=== PATIENT | female | born 1930 | race Caucasian/White ===

== ENCOUNTER 2016-03-27 06:24 | Observation (INO) | payer MEDICARE, OTHER ==
[~2016-03-27] VITALS: Ht 160 cm; Wt 91.3 kg
[2016-03-27] VITALS (7 sets, daily range): BP systolic 142–200; BP diastolic 73–91; PULSE 62–92; RESP 18–20; TEMP 97.5–98.1; O2SAT 95–96
[~2016-03-27 06:24] MED LIST: ALPR0.5T99 PO; AMLO5TAB96 PO; ATEN1TAB75 PO; CLIN1CAP6 PO; HYDR-3580 PO; LISI-360 PO; PREV30CA36 PO; [UNRECOGNIZED DRUG - CODE] PO
[2016-03-27] MEDS ORDERED: VITA100064 PO (06:47)
[2016-03-27] MEDS ORDERED: SERT25TA83 PO (06:47)
[2016-03-27] MEDS ORDERED: BUSP5TAB PO (06:47)
[2016-03-27] MEDS ORDERED: ATEN100T PO (06:47)
[2016-03-27] MEDS ORDERED: AMLO5 PO (06:47)
[2016-03-27] MEDS ORDERED: LISI10TA3 PO (06:47)
[2016-03-27] MEDS ORDERED: LANS30CA PO (06:48)
--- NOTE | 2016-03-27 07:28 | PD ---
HPI Chief Complaint: chest pain Time Seen by Provider: 07:14 Travel History International Travel<30 days: No Contact w/Intl Traveler<30days: No Traveled to known affect area: No History of Present Illness HPI This patient complains of chest pain. At 5 AM she was walking back from the bathroom to her bed when she developed central chest heaviness and pressure. She got a little bit nauseous. Symptoms have spontaneously improved at this point with no obvious alleviating factors. She denies history of cardiac or pulmonary disease. She's had no cough or fever. She does report a little bit of runny nose and does have history of anxiety. Symptoms severity was moderate. Duration 2 hours PFSH Past Medical History Arthritis: Yes (shoulder- gets aspirated fluid once in awhile) Asthma: No Anxiety: Yes Depression: Yes (AT TIME OF HUSBANDS ) Heart Rhythm Problems: No Cancer: No Cardiovascular Problems: Yes High Cholesterol: No Chest Pain: No Congestive Heart Failure: No COPD: No Cerebrovascular Accident: No Diabetes: No Diminished Hearing: No Endocrine: No Gastrointestinal Disorders: Yes (POLYPS) GERD: Yes Genitourinary: No Hiatal Hernia: No Hypertension: Yes Immune Disorder: No Implanted Vascular Access Dvce: No Kidney Stones: No Musculoskeletal: Yes Neurologic: No Psychiatric: No Reproductive: No Respiratory: No Immunizations Current: Yes Migraines: No Renal Failure: No Seizures: No Sleep Apnea: No Thyroid Disease: No Ulcer: No PNEUMOCCOCAL Vaccine (Year): 1 ?: Not Menopausal: Yes Para: 4 Miscarriage: 4 Past Surgical History Abdominal Surgery: No Cardiac Surgery: No Ear Surgery: No Endocrine Surgery: No Eye Surgery: No Genitourinary Surgery: No Gynecologic Surgery: Yes (HYSTERECTOMY) Hysterectomy: Yes Joint Replacement: Yes (BILAT KNEES) Oral Surgery: No Pacemaker: No Thoracic Surgery: No Other Surgery: Yes Social History Alcohol Use: Yes (OCCASIONALLY VODKA) Tobacco Use: No Substance Use: No Allergies-Medications (Allergen,Severity, Reaction): Coded Allergies: Levaquin (Verified Allergy, Severe, PT STATES "DRIVES ME CRAZY", 03/27/16) Sulfa (Verified Allergy, Severe, PT DOES NOT REMEMBER, 03/27/16) Reported Meds & Prescriptions Reported Meds & Active Scripts Active Reported Lansoprazole 30 Mg Capdr 30 Mg PO DAILY Norvasc (Amlodipine Besylate) 5 Mg Tab 5 Mg PO DAILY Vitamin D (Cholecalciferol) 1,000 Unit Tab 1,000 Units PO DAILY Buspirone (Buspirone HCl) 5 Mg Tab 5 Mg PO BID Atenolol 100 Mg Tab 100 Mg PO BID Sertraline (Sertraline HCl) 25 Mg Tab 25 Mg PO DAILY Lisinopril 10 Mg Tab 10 Mg PO BID PRN Review of Systems General / Constitutional: No: Fever Eyes: No: Visual changes HENT: Positive: Rhinorrhea, No: Headaches Cardiovascular: Positive: Chest Pain or Discomfort Respiratory: No: Shortness of Breath Gastrointestinal: No: Abdominal Pain Genitourinary: No: Dysuria Musculoskeletal: No: Pain Skin: No Rash Neurologic: No: Weakness Psychiatric: Positive: Anxiety, No: Depression Endocrine: No: Polydipsia Hematologic/Lymphatic: No: Easy Bruising Physical Exam Narrative GENERAL: Well-nourished, well-developed patient in no apparent distress. SKIN: Warm and dry. HEAD: Atraumatic. Normocephalic. EYES: Pupils equal and round. No scleral icterus. No injection or drainage. ENT: No nasal bleeding or discharge. Mucous membranes pink and moist. NECK: Trachea midline. No JVD. CARDIOVASCULAR: Regular rate and rhythm. No murmur appreciated. RESPIRATORY: No accessory muscle use. Clear to auscultation. Breath sounds equal bilaterally. GASTROINTESTINAL: Abdomen soft, non-tender, nondistended. Hepatic and splenic margins not palpable. MUSCULOSKELETAL: No obvious deformities. No clubbing. No cyanosis. Trace symmetric edema of the feet and ankles, chronic per patient NEUROLOGICAL: Awake and alert. No obvious cranial nerve deficits. Motor grossly within normal limits. Normal speech. PSYCHIATRIC: Appropriate mood and affect; insight and judgment normal. Data Data Last Documented VS Vital Signs Date Time Temp Pulse Resp B/P Pulse Ox O2 Delivery O2 Flow Rate FiO2 03/27/16 08:24 68 20 175/88 95 Room Air 03/27/16 06:34 2 03/27/16 06:29 98.1 Orders Electrocardiogram (03/27/16 07:23) Basic Metabolic Panel (Bmp) (03/27/16 07:23) Ckmb (Isoenzyme) Profile (03/27/16 07:23) Complete Blood Count With Diff (03/27/16 07:23) Prothrombin Time / Inr (Pt) (03/27/16 07:23) Act Partial Throm Time (Ptt) (03/27/16 07:23) Troponin I (03/27/16 07:23) Chest, Single Ap (03/27/16 07:23) Ecg Monitoring (03/27/16 07:23) Iv Access Insert/Monitor (03/27/16 07:23) Oximetry (03/27/16 07:23) Aspirin (Aspirin) (03/27/16 07:30) Sodium Chloride 0.9% Flush (Ns Flush) (03/27/16 07:30) Clonidine (Catapres) (03/27/16 07:30) CKMB (03/27/16 07:00) CKMB% (03/27/16 07:00) Labs Laboratory Tests Test 03/27/16 07:00 White Blood Count 7.2 TH/MM3 Red Blood Count 4.28 MIL/MM3 Hemoglobin 13.4 GM/DL Hematocrit 40.2 % Mean Corpuscular Volume 93.9 FL Mean Corpuscular Hemoglobin 31.4 PG Mean Corpuscular Hemoglobin 33.5 % Concent Red Cell Distribution Width 12.8 % Platelet Count 155 TH/MM3 Mean Platelet Volume 11.0 FL Neutrophils (%) (Auto) 81.3 % Lymphocytes (%) (Auto) 10.2 % Monocytes (%) (Auto) 6.2 % Eosinophils (%) (Auto) 2.1 % Basophils (%) (Auto) 0.2 % Neutrophils # (Auto) 5.9 TH/MM3 Lymphocytes # (Auto) 0.7 TH/MM3 Monocytes # (Auto) 0.4 TH/MM3 Eosinophils # (Auto) 0.2 TH/MM3 Basophils # (Auto) 0.0 TH/MM3 CBC Comment DIFF FINAL Differential Comment Prothrombin Time 10.2 SEC Prothromb Time International 0.9 RATIO Ratio Activated Partial 21.0 SEC Thromboplast Time Sodium Level 141 MEQ/L Potassium Level 4.6 MEQ/L Chloride Level 107 MEQ/L Carbon Dioxide Level 25.2 MEQ/L Anion Gap 9 MEQ/L Blood Urea Nitrogen 19 MG/DL Creatinine 0.78 MG/DL Estimat Glomerular Filtration 70 ML/MIN Rate Random Glucose 113 MG/DL Calcium Level 8.5 MG/DL Total Creatine Kinase 247 U/L Creatine Kinase MB 1.2 NG/ML Creatine Kinase MB % 0.5 % Troponin I LESS THAN 0.02 NG/ML MDM Medical Decision Making Medical Screen Exam Complete: Yes Emergency Medical Condition: Yes Medical Record Reviewed: Yes Differential Diagnosis Differential diagnosis includes VT, angina, pericarditis, pleurisy, GERD, anxiety. Narrative Course I have reviewed the patient's electronic medical record. Patient last seen here in 2013. No recent cardiac evaluations. IV placed I reviewed the EKG which shows sinus rhythm and no acute ST elevation I reviewed the chest x-ray Extended cardiac monitoring shows sinus rhythm without ectopy CBC is normal Metabolic profile is normal CK is normal Troponin is normal Coagulation studies are normal and noted the radiologist's interpretation. There is no real significant findings there. I gave her an aspirin and a dose of clonidine for accelerated hypertension of 195 systolic. She did not take her medications today. All the above was reviewed with HOWARD Lee on behalf of the hospitalist group She'll be a 23 hour observation in the chest pain center to rule out cardiac cause of her symptoms. Diagnosis Primary Impression: Chest pain in adult Admitting Information Admitting Physician Requests: Observation Donal Dumont MD Mar 27, 2016 07:28
[2016-03-27] MEDS ORDERED: SODIUM CHLORIDE 0.9% FLUSH 5 ML FLUSH IVF PRN ×2 (07:30→09:00)
[2016-03-27] MEDS ORDERED: cloNIDine HCL 0.2 MG TAB PO ONE (07:30)
[2016-03-27] MEDS ORDERED: ASPIRIN 325 MG TAB PO ONE (07:30)
[2016-03-27 07:38] LABS: AUTOMATED NEUTROPHIL # 5.9 TH/MM3 (1.8-7.7); BASOPHIL % 0.2 % (0.0-2.0); EOSINOPHIL # 0.2 TH/MM3 (0-0.4); EOSINOPHIL % 2.1 % (0.0-4.0); HEMATOCRIT 40.2 % (35.0-46.0); HEMO FLAGS DIFF FINAL; LYMPH % 10.2 % (9.0-44.0); LYMPHOCYTE # 0.7 TH/MM3 (1.0-4.8); MEAN CELL VOLUME 93.9 FL (80.0-100.0); MEAN CORPUSCULAR HEMOGLOBIN 31.4 PG (27.0-34.0); MEAN CORPUSCULAR HGB CONC 33.5 % (32.0-36.0); MONO % 6.2 % (0.0-8.0); NEUT % 81.3 % (16.0-70.0); PLATELET COUNT 155 TH/MM3 (150-450); RED BLOOD COUNT 4.28 MIL/MM3 (4.00-5.30); RED CELL DISTRIBUTION WIDTH 12.8 % (11.6-17.2); WHITE BLOOD COUNT 7.2 TH/MM3 (4.0-11.0)
[2016-03-27 07:44] LABS: CHLORIDE 107 MEQ/L (98-107); SODIUM (NA) 141 MEQ/L (136-145)
[2016-03-27 07:47] LABS: ANION GAP 9 MEQ/L (5-15); BICARBONATE 25.2 MEQ/L (21.0-32.0); BLOOD UREA NITROGEN 19 MG/DL (7-18)
[2016-03-27 07:48] LABS: INTERNATIONAL NORMALIZED RATIO 0.9 RATIO; PROTHROMBIN TIME - PATIENT 10.2 SEC (9.8-11.6)
[2016-03-27 07:51] LABS: GLOMERULAR FILTRATION RATE 70 ML/MIN (>89)
[2016-03-27 07:52] LABS: POTASSIUM 4.6 MEQ/L (3.5-5.1)
[2016-03-27 07:54] LABS: CREATINE KINASE 247 U/L (26-192)
--- NOTE | 2016-03-27 08:02 | RADHPO ---
EXAM DATE/TIME: 03/27/2016 07:41 [facility] COMPARISON: No previous studies available for comparison. INDICATIONS : Chest pressure, short of breath. MEDICAL HISTORY : None. SURGICAL HISTORY : None. ENCOUNTER: Initial ACUITY: 1 day PAIN SCORE: 2/10 LOCATION: Bilateral chest FINDINGS: Portable AP view of the chest demonstrates a normal-sized cardiac silhouette. There is interstitial p rominence bilaterally with hazy opacity at the right lung base and blunting of the right costophrenic angle. No pneumothorax is visualized. Bones and soft tissues demonstrate no acute finding. There is an old healed fracture there are proximal humerus. There is elevation of the humeral heads bilaterall y suggesting chronic rotator cuff tears. CONCLUSION: 1. Hazy opacity at the right lung base with blunting of the right costophrenic angle likely represent s small pleural effusion with associated volume loss and/or consolidation. 2. Interstitial prominence bilaterally of uncertain chronicity. Nikko Mccallum MD on March 27, 2016 at 7:59 Board Certified Radiologist. This report was verified electronically.
[2016-03-27 08:06] LABS: CKMB 1.2 NG/ML (0.5-3.6)
[2016-03-27] MEDS ORDERED: ACETAMINOPHEN 500 MG CPLT PO PRN (09:00)
[2016-03-27] MEDS ORDERED: NITROGLYCERIN 0.4 MG SL 25 TABS/BTL SL PRN (09:00)
[2016-03-27] MEDS ORDERED: MORPHINE SULFATE 4 MG/ML INJ IV PRN (09:00)
[2016-03-27] MEDS ORDERED: SODIUM CHLORIDE 0.9% FLUSH 5 ML FLUSH IVF SCH (09:00)
[2016-03-27] MEDS ORDERED: ASPIRIN 325 MG TAB PO SCH (09:00)
[2016-03-27] MEDS ORDERED: SERTRALINE HCL 50 MG TAB PO SCH (09:00)
[2016-03-27] MEDS ORDERED: LISINOPRIL 10 MG TAB PO PRN (09:00)
[2016-03-27] MEDS ORDERED: ACETAMINOPHEN/HYDROcodone 325 MG/7.5 MG TAB PO PRN (09:00)
[2016-03-27] MEDS ORDERED: busPIRone HCL 5 MG TAB PO SCH (09:00)
[2016-03-27] MEDS ORDERED: amLODIPine BESYLATE 5 MG TAB PO SCH (09:00)
[2016-03-27] MEDS ORDERED: ATENOLOL 100 MG TAB PO SCH (09:00)
[2016-03-27] MEDS ORDERED: PANTOPRAZOLE SOD 40 MG DELAYED RELEASE TAB PO SCH (09:15)
--- NOTE | 2016-03-27 09:44 | EKG ---
Date Performed: 03/27/2016 Time Performed: 07:22:14 PTAGE: 86 years EKG: Possible ectopic atrial rhythm Poor R wave progression - probable normal variant Abnormal E CG PREVIOUS TRACING : 01/04/2014 10.42 No significant change from previous tracing noted. DOCTOR: Isrrael Alba Interpretating Date/Time 03/27/2016 09:42:45
[2016-03-27 11:10] LABS: CREATINE KINASE 209 U/L (26-192)
[2016-03-27 13:19] LABS: CREATINE KINASE 186 U/L (26-192)
[2016-03-27 13:31] LABS: CKMB 0.8 NG/ML (0.5-3.6)
--- NOTE | 2016-03-27 14:33 | HHI.DCPOC ---
Discharge Care Plan Diagnosis: (1) Chest pain in adult Goals to Promote Your Health * To prevent worsening of your condition and complications * To maintain your health at the optimal level Directions to Meet Your Goals Take your medications as prescribed Follow your dietary instruction Follow activity as directed Keep your appointments as scheduled Take your immunizations and boosters as scheduled If your symptoms worsen call your PCP, if no PCP go to Urgent Care Center or Emergency Room Smoking is Dangerous to Your Health. Avoid second hand smoke Call the 24-hour hour crisis hotline for domestic abuse at Donal Lee Mar 27, 2016 14:33
--- NOTE | 2016-03-27 14:45 | HHI.HP ---
[facility] Non-Staff Admission Diagnosis chest pain Diagnoses: (1) Chest pain in adult Diagnosis: Principal (2) Hypertension Diagnosis: Secondary (3) Anxiety Diagnosis: Secondary Chief Complaint: Chest discomfort Travel History International Travel<30 Days: No Contact w/Intl Traveler <30 Da: No Traveled to Known Affected Are: No History of Present Illness 86-year-old female with known history of hypertension, anxiety who presented to hospital because of chest discomfort. Patient states that early this morning she got up to go to the restroom and when she got back up off the toilet and started walking she developed a sensation in the chest which is described as a heavy warm sensation of the middle part of her chest. She denied any nausea, vomiting, diaphoresis, shortness of breath, dyspnea. Patient states that she has had these episodes in the past in which she used to be on BuSpar, she would take the BuSpar in the discomfort goes away. However she states that her doctor has not refilled her BuSpar lately. Otherwise she would've taken one and she would not be here the hospital. She did call the ambulance and brought her to the hospital. In route they placed on oxygen by time she got to the hospital her chest discomfort had resolved. Upon evaluating the patient she is asymptomatic. Quite pleasant. Alert and orientated. Does not want to pursue any stress testing. She has one now that she was not having a heart attack. ER physician recommended patient be observed in the chest pain center. Review of Systems Constitutional: DENIES: Diaphoretic episodes, Fatigue, Fever, Weight gain, Weight loss, Chills, Dizziness, Change in appetite, Night Sweats Eyes: DENIES: Blurred vision, Diplopia, Eye inflammation, Eye pain, Vision loss , Double Vision Ears, nose, mouth, throat: DENIES: Vertigo, Nasal discharge, Throat pain, Ear Pain, Running Nose, Sinus Pain Respiratory: DENIES: Apneas, Cough, Snoring, Wheezing, Hemoptysis, Sputum production, Shortness of breath Cardiovascular: COMPLAINS OF: Chest pain, DENIES: Palpitations, Syncope, Dyspnea on Exertion, Lower Extremity Edema, Orthopnea Gastrointestinal: DENIES: Abdominal pain, Black stools, Bloody stools, Constipation, Diarrhea, Nausea, Vomiting, Difficulty Swallowing, Anorexia Neurologic: DENIES: Abnormal gait, Headache, Localized weakness, Paresthesias, Seizures, Speech Problems, Tremor, Poor Balance Psychiatric: DENIES: Anxiety, Confusion, Mood changes, Depression Past Family Social History Past Medical History Hypertension Anxiety Past Surgical History Bilateral knee replacements Hysterectomy Elbow surgery Reported Medications Reported Meds & Active Scripts Active Reported Lansoprazole 30 Mg Capdr 30 Mg PO DAILY Norvasc (Amlodipine Besylate) 5 Mg Tab 5 Mg PO DAILY Vitamin D (Cholecalciferol) 1,000 Unit Tab 1,000 Units PO DAILY Buspirone (Buspirone HCl) 5 Mg Tab 5 Mg PO BID Atenolol 100 Mg Tab 100 Mg PO BID Sertraline (Sertraline HCl) 25 Mg Tab 25 Mg PO DAILY Lisinopril 10 Mg Tab 10 Mg PO BID PRN Allergies: Coded Allergies: Levaquin (Verified Allergy, Severe, PT STATES "DRIVES ME CRAZY", 03/27/16) Sulfa (Verified Allergy, Severe, PT DOES NOT REMEMBER, 03/27/16) Family History Reviewed is significant for father at early age of 59 from heart disease Social History Patient denies any tobacco, alcohol or illicit drugs Physical Exam Vital Signs Vital Signs Date Time Temp Pulse Resp B/P Pulse Ox O2 Delivery O2 Flow Rate FiO2 03/27/16 10:51 97.5 62 20 142/80 96 03/27/16 09:42 72 18 170/73 95 Room Air 03/27/16 08:24 68 20 175/88 95 Room Air 03/27/16 07:42 67 20 200/91 95 Room Air 03/27/16 07:08 67 20 95 Room Air 03/27/16 07:08 67 20 195/84 95 Room Air 03/27/16 06:34 18 96 Nasal Cannula 2 03/27/16 06:29 98.1 92 18 170/89 95 Physical Exam GENERAL: Well-developed, well-nourished, in no acute distress. alert and orientated HEENT: Head is normocephalic without any lesions or masses noted. Facial features are symmetric. Eyes: Pupils equal round reactive to light. Extraocular muscles are intact. Conjunctivae were clear. Oropharyngeal: Pharynx without any erythema edema. Tongue is midline without deviation. Buccal mucosa is moist without any masses or lesions NECK: Supple without any masses. Trachea midline no deviation. No JVD, no bruits are appreciated CARDIAC: Regular rhythm, regular rate. S1/S2 are heard. No murmurs gallops or rubs. LUNGS: Clear to auscultation bilaterally. No wheeze, rhonchi or rales. No use of accessory muscles on inspiration or expiration. ABDOMEN: Soft, nontender. Nondistended. Bowel sounds heard in all 4 quadrants. No organomegaly or masses. Negative rebound, negative guarding EXTREMITIES: No edema, pulses are equal bilaterally. No cyanosis or clubbing NEUROLOGY: Mood and affect appear appropriate. Cranial nerves II through XII grossly intact. Muscle strength 5/5 in upper and lower extremities bilaterally. Deep tendon reflexes are 2+ in upper and lower extremities bilaterally. Laboratory Laboratory Tests Test 03/27/16 03/27/16 03/27/16 07:00 10:25 12:45 White Blood Count 7.2 Red Blood Count 4.28 Hemoglobin 13.4 Hematocrit 40.2 Mean Corpuscular Volume 93.9 Mean Corpuscular Hemoglobin 31.4 Mean Corpuscular Hemoglobin 33.5 Concent Red Cell Distribution Width 12.8 Platelet Count 155 Mean Platelet Volume 11.0 Neutrophils (%) (Auto) 81.3 Lymphocytes (%) (Auto) 10.2 Monocytes (%) (Auto) 6.2 Eosinophils (%) (Auto) 2.1 Basophils (%) (Auto) 0.2 Neutrophils # (Auto) 5.9 Lymphocytes # (Auto) 0.7 Monocytes # (Auto) 0.4 Eosinophils # (Auto) 0.2 Basophils # (Auto) 0.0 CBC Comment DIFF FINAL Differential Comment Prothrombin Time 10.2 Prothromb Time International 0.9 Ratio Activated Partial 21.0 Thromboplast Time Sodium Level 141 Potassium Level 4.6 Chloride Level 107 Carbon Dioxide Level 25.2 Anion Gap 9 Blood Urea Nitrogen 19 Creatinine 0.78 Estimat Glomerular Filtration 70 Rate Random Glucose 113 Calcium Level 8.5 Total Creatine Kinase 247 209 186 Creatine Kinase MB 1.2 1.0 0.8 Creatine Kinase MB % 0.5 0.5 Troponin I LESS THAN 0.02 LESS THAN 0.02 0.02 Result Diagram: 03/27/16 0700 03/27/16 0700 Imaging Last Impressions Chest X-Ray 03/27/16 0723 Signed Impressions: Service Date/Time: Sunday, March 27, 2016 07:41 - CONCLUSION: 1. Hazy opacity at the right lung base with blunting of the right costophrenic angle likely represents small pleural effusion with associated volume loss and/or consolidation. 2. Interstitial prominence bilaterally of uncertain chronicity. Nikko Mcacllum MD Assessment and Plan Assessment and Plan Chest pain, atypical Patient with increased risk factors include age, female, hypertension, family history of heart disease Patient been ruled out for any acute coronary event or myocardial infarction with serial cardiac enzymes which are negative, serial EKGs which shows sinus rhythm without any changes Patient does not want to pursue any stress test Patient was counseled extensively by myself and Dr. Sutton: Notified her that at the present time the talus testing that we've had done does not indicate any acute damage done to the heart, however it does not eliminate the possibility of underlying ischemia. The patient does understand. Still does not wish to pursue any stress testing. We also discussed with the patient that if the stress test workup and positive then next step would probably have been cardiac catheterization, however the patient states that she would not want to have that done anyways. The patient states that she is to follow-up with her primary medical doctor within the next week and notify him of her recent hospitalization. Hypertension Continue home medications Anxiety Continue home medications DVT prevention Sequential compression devices Written by Donal Lee PA-C, acting as scribe for Dr. Sutton on 03/27/16 at 1440. The documentation accurately reflects the work and decisions performed face-to- face by Dr. Sutton on 03/27/16 at 1440. Discharge disposition Discharge home in stable condition Activity: Ad alexa. Diet: Healthy heart diet Medications per medication reconciliation Follow-up primary medical doctor in one week Code Status No code Problem Qualifiers (1) Hypertension: Qualified Code: I15.9 - Secondary hypertension Donal Lee Mar 27, 2016 14:45
[2016-03-28] MEDS ORDERED: ASPIRIN 325 MG TAB PO SCH (09:00)
--- NOTE | 2016-03-28 14:57 | EKG ---
Date Performed: 03/27/2016 Time Performed: 10:26:12 PTAGE: 86 years EKG: Probable ectopic atrial bradycardia Poor R wave progression Since previous tracing, no sign ificant change noted Abnormal ECG PREVIOUS TRACING : 03/27/2016 07.22 DOCTOR: Gael Moss Interpretating Date/Time 03/28/2016 14:55:28
--- NOTE | 2016-03-28 14:57 | EKG ---
Date Performed: 03/27/2016 Time Performed: 12:43:42 PTAGE: 86 years EKG: Possible ectopic atrial bradycardia. Poor R wave progression Since previous tracing, no sig nificant change noted Borderline ECG PREVIOUS TRACING : 03/27/2016 10.26 DOCTOR: Gael Moss Interpretating Date/Time 03/28/2016 14:55:39
== END 2016-03-27 17:31 | disposition home or self-care (01) ==
LOC: PHED 06:24 → PHEDA 09:02 → PH3A 09:59
PROVIDERS: ADMIT Hospitalist; ATTEND Hospitalist
DX: R07.9 Chest pain, unspecified (principal); I15.9 Secondary hypertension, unspecified; F41.9 Anxiety disorder, unspecified; K21.9 Gastro-esophageal reflux disease without esophagitis; R94.31 Abnormal electrocardiogram [ECG] [EKG]; M19.90 Unspecified osteoarthritis, unspecified site; Z82.49 Family history of ischemic heart disease and other diseases of the circulatory system; Z96.653 Presence of artificial knee joint, bilateral
CPT/HCPCS: 71010; 80048; 82550; 82552; 84484; 85025; 85610; 85730; 93005; 99285; G0378

== ENCOUNTER 2016-12-29 10:59 | Emergency (ER) | payer OTHER ==
[~2016-12-29 10:59] MED LIST changes: -ALPR0.5T99 PO; +AMLO5 PO; -AMLO5TAB96 PO; +ATEN100T PO; -ATEN1TAB75 PO; +BUSP5TAB PO; -CLIN1CAP6 PO; -HYDR-3580 PO; +LANS30CA PO; -LISI-360 PO; +LISI10TA3 PO; -PREV30CA36 PO; +SERT25TA83 PO; +VITA100064 PO; -[UNRECOGNIZED DRUG - CODE] PO
[2016-12-29 11:27] VITALS: BP 124/93; PULSE 70; RESP 20; TEMP 98.4; O2SAT 97
--- NOTE | 2016-12-29 11:40 | PD ---
HPI Chief Complaint: General Weakness Time Seen by Provider: 11:18 Travel History International Travel<30 days: No Contact w/Intl Traveler<30days: No Traveled to known affect area: No History of Present Illness HPI The patient was seen and examined in the presence of the nurse. This patient had a fall today and had paramedics called to evaluate her. She was brought to the emergency room. She is not having any pain. She denies significant injury from the fall. She complains of generalized weakness. She's had weakness and frequent falls and poor walking for the last 2 full years. She has multiple walkers at home. She fell while she was trying to get out of the bed today. She has no headache or LOC. Symptoms severity is moderate. No alleviating factors. Symptoms exacerbated by deconditioning and bilateral knee surgeries. PFSH Past Medical History Arthritis: Yes (shoulder- gets aspirated fluid once in awhile) Asthma: No Anxiety: Yes Depression: Yes (AT TIME OF HUSBANDS ) Heart Rhythm Problems: No Cancer: No Cardiovascular Problems: Yes High Cholesterol: No Chest Pain: No Congestive Heart Failure: No COPD: No Cerebrovascular Accident: No Diabetes: No Diminished Hearing: No Endocrine: No Gastrointestinal Disorders: Yes (POLYPS) GERD: Yes Genitourinary: No Hiatal Hernia: No Hypertension: Yes Immune Disorder: No Implanted Vascular Access Dvce: No Kidney Stones: No Musculoskeletal: Yes Neurologic: No Psychiatric: No Reproductive: No Respiratory: No Immunizations Current: Yes Migraines: No Renal Failure: No Seizures: No Sleep Apnea: No Thyroid Disease: No Ulcer: No PNEUMOCCOCAL Vaccine (Year): 1 Menopausal: Yes Para: 4 Miscarriage: 4 Past Surgical History Abdominal Surgery: No Cardiac Surgery: No Ear Surgery: No Endocrine Surgery: No Eye Surgery: No Genitourinary Surgery: No Gynecologic Surgery: Yes (HYSTERECTOMY) Hysterectomy: Yes Joint Replacement: Yes (BILAT KNEES) Oral Surgery: No Pacemaker: No Thoracic Surgery: No Other Surgery: Yes Social History Alcohol Use: Yes (OCCASIONALLY VODKA) Tobacco Use: No Substance Use: No Allergies-Medications (Allergen,Severity, Reaction): Coded Allergies: Sulfa (Sulfonamide Antibiotics) (Unverified Allergy, Severe, PT DOES NOT REMEMBER, 10/31/16) levofloxacin (Unverified Allergy, Severe, PT STATES "DRIVES ME CRAZY", 8/ 15/17) Reported Meds & Prescriptions Reported Meds & Active Scripts Active Reported Lansoprazole 30 Mg Capdr 30 Mg PO DAILY Vitamin D3 (Cholecalciferol) 1,000 Unit Tab 1,000 Units PO DAILY Buspirone (Buspirone HCl) 5 Mg Tab 5 Mg PO BID Atenolol 100 Mg Tab 100 Mg PO BID Sertraline (Sertraline HCl) 25 Mg Tab 25 Mg PO DAILY Lisinopril 10 Mg Tab 10 Mg PO BID PRN Review of Systems General / Constitutional: No: Fever Eyes: No: Visual changes HENT: No: Headaches Cardiovascular: Positive: Edema, No: Chest Pain or Discomfort Respiratory: No: Shortness of Breath Gastrointestinal: No: Abdominal Pain Genitourinary: No: Dysuria Musculoskeletal: Positive: Weakness, Edema, Pain Skin: No Rash Neurologic: Positive: Weakness, Ataxia Psychiatric: No: Depression Endocrine: No: Polydipsia Hematologic/Lymphatic: No: Easy Bruising Physical Exam Narrative GENERAL: Well-nourished, well-developed patient in no apparent distress. SKIN: Focused skin assessment reveals no rash and nodules. Skin is Warm and dry. HEAD: Atraumatic. Normocephalic. EYES: Pupils equal and round. No scleral icterus. No injection or drainage. ENT: No nasal bleeding or discharge. Mucous membranes pink and moist. NECK: Trachea midline. No JVD. No midline tenderness CARDIOVASCULAR: Regular rate and rhythm. No murmur appreciated. RESPIRATORY: No accessory muscle use. Clear to auscultation. Breath sounds equal bilaterally. GASTROINTESTINAL: Abdomen soft, non-tender, nondistended. Hepatic and splenic margins not palpable. MUSCULOSKELETAL: No obvious deformities. No clubbing. No cyanosis. Symmetric edema of the lower legs feet and ankles. Skin is thickened suggesting chronic edema. NEUROLOGICAL: Awake and alert. No obvious cranial nerve deficits. Motor grossly within normal limits. Normal speech. PSYCHIATRIC: Appropriate mood and affect; insight and judgment normal. Data Data Last Documented VS Vital Signs Date Time Temp Pulse Resp B/P (MAP) Pulse Ox O2 Delivery O2 Flow Rate FiO2 12/29/16 12:29 68 18 123/64 (83) 97 Room Air 12/29/16 11:27 98.4 Orders Orders Cath For Specimen (12/29/16 11:29) Urinalysis - C+S If Indicated (12/29/16 11:29) Iv Access Insert/Monitor (12/29/16 11:29) Complete Blood Count With Diff (12/29/16 11:29) Comprehensive Metabolic Panel (12/29/16 11:29) Ct Brain W/O Iv Contrast(Rout) (12/29/16 ) Clonidine (Catapres) (12/29/16 11:45) Labs Laboratory Tests Test 12/29/16 11:45 12/29/16 11:55 Urine Collection Type CATH Urine Color YELLOW Urine Turbidity CLEAR Urine pH 5.5 Urine Specific Mark [place] 1.022 Urine Protein 100 mg/dL Urine Glucose (UA) NEG mg/dL Urine Ketones TRACE mg/dL Urine Occult Blood SMALL Urine Nitrite NEG Urine Bilirubin NEG Urine Leukocyte Esterase NEG Urine RBC 4-9 /hpf Urine WBC 0-2 /hpf Urine Squamous Epithelial Cells 0-5 /hpf Urine Amorphous Sediment FEW Urine Hyaline Casts 6-9 /lpf Microscopic Urinalysis Comment CATH-CULT NOT IND Urine Collection Time 11:45 White Blood Count 5.3 TH/MM3 Red Blood Count 4.60 MIL/MM3 Hemoglobin 13.6 GM/DL Hematocrit 42.1 % Mean Corpuscular Volume 91.5 FL Mean Corpuscular Hemoglobin 29.6 PG Mean Corpuscular Hemoglobin Concent 32.4 % Red Cell Distribution Width 15.4 % Platelet Count 101 TH/MM3 Mean Platelet Volume 10.5 FL Neutrophils (%) (Auto) 78.6 % Lymphocytes (%) (Auto) 10.7 % Monocytes (%) (Auto) 8.4 % Eosinophils (%) (Auto) 2.0 % Basophils (%) (Auto) 0.3 % Neutrophils # (Auto) 4.2 TH/MM3 Lymphocytes # (Auto) 0.6 TH/MM3 Monocytes # (Auto) 0.4 TH/MM3 Eosinophils # (Auto) 0.1 TH/MM3 Basophils # (Auto) 0.0 TH/MM3 CBC Comment DIFF FINAL Differential Comment Blood Urea Nitrogen 28 MG/DL Creatinine 1.30 MG/DL Random Glucose 108 MG/DL Total Protein 6.8 GM/DL Albumin 2.9 GM/DL Calcium Level 8.7 MG/DL Alkaline Phosphatase 105 U/L Aspartate Amino Transf (AST/SGOT) 39 U/L Alanine Aminotransferase (ALT/SGPT) 29 U/L Total Bilirubin 1.0 MG/DL Sodium Level 141 MEQ/L Potassium Level 3.4 MEQ/L Chloride Level 105 MEQ/L Carbon Dioxide Level 30.8 MEQ/L Anion Gap 5 MEQ/L Estimat Glomerular Filtration Rate 39 ML/MIN MDM Medical Decision Making Medical Screen Exam Complete: Yes Emergency Medical Condition: Yes Medical Record Reviewed: Yes Differential Diagnosis Chronic deconditioning, ataxia, neuropathy Narrative Course I have reviewed the patient's electronic medical record. IV placed CBC is normal Metabolic profile shows minor renal sufficiency LFTs are normal Catheterized urine is normal Brain CT is normal and done to rule out subdural hemorrhage No objective neurologic deficit noted. No objective sign of injury. Patient met with family independence case manager and various options discussed. She would adamantly refuse placement. We walked around the department with a walker and she did fairly well. She should follow-up with primary care and discuss living arrangements with family and Dr. Diagnosis Primary Impression: Generalized weakness Additional Impression: Frequent falls Additional Instructions: The patient was advised to follow up with their physician and return if they worsen. Always use walker Med/Other Pt SpecificInfo: Other Disposition: 01 DISCHARGE HOME Condition: Stable Donal Dumont MD Dec 29, 2016 11:40
[2016-12-29] MEDS ORDERED: cloNIDine HCL 0.2 MG TAB PO ONE (11:45)
[2016-12-29 11:55] LABS: BLOOD, URINE SMALL (NEG); GLUCOSE,URINE NEG (NEG); KETONE, URINE TRACE mg/dL (NEG); NITRITE,URINE NEG (NEG); PH, URINE 5.5 (5.0-8.5)
[2016-12-29 12:00] LABS: METHOD OF COLLECTION CATH; URINE COLOR YELLOW (YELLW/STRAW)
[2016-12-29 12:01] LABS: COMMENT (UR) CATH-CULT NOT IND; CULTURE IF INDICATED CATH CULTURE NOT IND; SQUAMOUS EPITHELIAL CELL URINE 0-5 /hpf (0-5); WBC, URINE 0-2 /hpf (0-5)
[2016-12-29 12:06] LABS: AUTOMATED NEUTROPHIL # 4.2 TH/MM3 (1.8-7.7); BASOPHIL % 0.3 % (0.0-2.0); EOSINOPHIL # 0.1 TH/MM3 (0-0.4); HEMATOCRIT 42.1 % (35.0-46.0); LYMPH % 10.7 % (9.0-44.0); LYMPHOCYTE # 0.6 TH/MM3 (1.0-4.8); MEAN CELL VOLUME 91.5 FL (80.0-100.0); MEAN CORPUSCULAR HEMOGLOBIN 29.6 PG (27.0-34.0); MEAN CORPUSCULAR HGB CONC 32.4 % (32.0-36.0); MONO % 8.4 % (0.0-8.0); NEUT % 78.6 % (16.0-70.0); PLATELET COUNT 101 TH/MM3 (150-450); RED CELL DISTRIBUTION WIDTH 15.4 % (11.6-17.2); WHITE BLOOD COUNT 5.3 TH/MM3 (4.0-11.0)
[2016-12-29 12:10] LABS: HEMO FLAGS DIFF FINAL
[2016-12-29 12:19] LABS: CHLORIDE 105 MEQ/L (98-107); POTASSIUM 3.4 MEQ/L (3.5-5.1); SODIUM (NA) 141 MEQ/L (136-145)
[2016-12-29 12:23] LABS: ANION GAP 5 MEQ/L (5-15); BICARBONATE 30.8 MEQ/L (21.0-32.0); BLOOD UREA NITROGEN 28 MG/DL (7-18)
[2016-12-29 12:26] LABS: ALT (GPT) 29 U/L (10-53); AST (GOT) 39 U/L (15-37); GLOMERULAR FILTRATION RATE 39 ML/MIN (>89)
[2016-12-29 12:29] VITALS: BP 123/64; PULSE 68; RESP 18; O2SAT 97
[2016-12-29 12:29] LABS: ALKALINE PHOSPHATASE 105 U/L (45-117)
--- NOTE | 2016-12-29 13:11 | RADRPT ---
EXAM DATE/TIME: 12/29/2016 13:01 [facility] COMPARISON: CT SOFT TISSUE NECK W CONTRAST, January 03, 2014, 21:04. INDICATIONS : Trauma. Fell and hit the back of her head. RADIATION DOSE: 60.45 CTDIvol (mGy) MEDICAL HISTORY : Cardiovascular disease. Hypertension. SURGICAL HISTORY : Hysterectomy. ENCOUNTER: Initial ACUITY: 1 day PAIN SCALE: 0/10 LOCATION: cranial TECHNIQUE: Multiple contiguous axial images were obtained of the head. Using automated exposure control and adj ustment of the mA and/or kV according to patient size, radiation dose was kept as low as reasonably a chievable to obtain optimal diagnostic quality images. DICOM format image data is available electro nically for review and comparison. FINDINGS: CEREBRUM: The ventricles are normal for age. No evidence of midline shift, mass lesion, hemorrhage or acute in farction. No extra-axial fluid collections are seen. POSTERIOR FOSSA: The cerebellum and brainstem are intact. The 4th ventricle is midline. The cerebellopontine angle i s unremarkable. EXTRACRANIAL: The visualized portion of the orbits is intact. SKULL: The calvaria is intact. No evidence of skull fracture. CONCLUSION: 1. No acute intracranial abnormality is identified. Negrito Weems MD on December 29, 2016 at 13:08 Board Certified Radiologist. This report was verified electronically.
== END 2016-12-29 15:22 | disposition home or self-care (01) ==
LOC: PHED 10:59
DX: R53.1 Weakness (principal); R29.6 Repeated falls; I10 Essential (primary) hypertension; Z91.81 History of falling; W06.XXXA Fall from bed, initial encounter; Y92.003 Bedroom of unspecified non-institutional (private) residence as the place of occurrence of the external cause
CPT/HCPCS: 70450; 80053; 81001; 85025; 99284; P9612

== ENCOUNTER 2017-01-27 21:30 | Inpatient (IN) | payer OTHER, MEDICARE ==
[~2017-01-27] VITALS: Ht 160 cm; Wt 87.0 kg
[~2017-01-27 21:30] MED LIST changes: -AMLO5 PO
[2017-01-27 21:35] VITALS: BP 178/102; PULSE 79; RESP 18; TEMP 98.7; O2SAT 97
--- NOTE | 2017-01-27 21:40 | PD ---
HPI Chief Complaint: Fall Time Seen by Provider: 21:40 Travel History International Travel<30 days: No Contact w/Intl Traveler<30days: No Traveled to known affect area: No History of Present Illness HPI 86-year-old female came to the emergency room after she fell backwards and hit her head. She called the medic alert bracelet and EMS brought her in. Patient says that lately she has been falling a lot. She denies losing consciousness but she did hit her head pretty hard and there is a large scalp hematoma. The paramedics put an icepack and brought her here. Patient is awake and answering questions appropriately. Vital signs are stable. She says that yesterday she was very short of breath and wanted to come to the emergency room then but decided not to. She says her breathing today's little bit better but still short of breath. Her primary care had given her a water pill. This was couple weeks ago. She does have history of COPD as well. Patient is not a smoker and does not require oxygen at home. Patient is not on any blood thinners she said. [facility] Past Medical History Narrative Medical list of her past medical, surgical, social and family history is reviewed from the nursing note. Arthritis: Yes (shoulder- gets aspirated fluid once in awhile) Asthma: No Anxiety: Yes Depression: Yes (AT TIME OF HUSBANDS ) Heart Rhythm Problems: No Cardiovascular Problems: Yes High Cholesterol: No Chest Pain: No Congestive Heart Failure: No COPD: No Cerebrovascular Accident: No Diabetes: No Diminished Hearing: No Endocrine: No Gastrointestinal Disorders: Yes (POLYPS) GERD: Yes Genitourinary: No Hiatal Hernia: No Hypertension: Yes Immune Disorder: No Implanted Vascular Access Dvce: No Kidney Stones: No Musculoskeletal: Yes Neurologic: No Psychiatric: No Reproductive: No Respiratory: No Immunizations Current: Yes Migraines: No Renal Failure: No Seizures: No Sleep Apnea: No Thyroid Disease: No Ulcer: No PNEUMOCCOCAL Vaccine (Year): 1 Menopausal: Yes Para: 4 Miscarriage: 4 Past Surgical History Abdominal Surgery: No Cardiac Surgery: No Ear Surgery: No Endocrine Surgery: No Eye Surgery: No Genitourinary Surgery: No Gynecologic Surgery: Yes (HYSTERECTOMY) Hysterectomy: Yes Joint Replacement: Yes (BILAT KNEES) Oral Surgery: No Pacemaker: No Thoracic Surgery: No Other Surgery: Yes Social History Alcohol Use: Yes (OCCASIONALLY VODKA) Tobacco Use: No Substance Use: No Allergies-Medications (Allergen,Severity, Reaction): Coded Allergies: Sulfa (Sulfonamide Antibiotics) (Unverified Allergy, Severe, PT DOES NOT REMEMBER, 01/27/17) levofloxacin (Unverified Allergy, Severe, PT STATES "DRIVES ME CRAZY", 02/02) Comments List of her allergies reviewed from the nursing note. Reported Meds & Prescriptions Reported Meds & Active Scripts Active Reported Lansoprazole 30 Mg Capdr 30 Mg PO DAILY Vitamin D3 (Cholecalciferol) 1,000 Unit Tab 1,000 Units PO DAILY Buspirone (Buspirone HCl) 5 Mg Tab 5 Mg PO BID Atenolol 100 Mg Tab 100 Mg PO BID Sertraline (Sertraline HCl) 25 Mg Tab 25 Mg PO DAILY Lisinopril 10 Mg Tab 10 Mg PO BID PRN Narrative Medication List of her home medications reviewed from the nursing note. Review of Systems Except as stated in HPI: all other systems reviewed are Neg Respiratory: Positive: Shortness of Breath Neurologic: Positive: Headache Physical Exam Narrative GENERAL: Awake, alert, elderly, moderate distress SKIN: Focused skin assessment warm/dry. HEAD: Large cephalohematoma on the left parietal region EYES: Pupils equal and round. No scleral icterus. No injection or drainage. ENT: No nasal bleeding or discharge. Mucous membranes pink and moist. NECK: Trachea midline. No JVD. CARDIOVASCULAR: Regular rate and rhythm. No murmur appreciated. RESPIRATORY: Decreased air entry bilaterally with end expiratory wheeze GASTROINTESTINAL: Abdomen soft, non-tender, nondistended. Hepatic and splenic margins not palpable. MUSCULOSKELETAL: No obvious deformities. No clubbing. No cyanosis. 3+ pitting edema NEUROLOGICAL: Awake and alert. No obvious cranial nerve deficits. Motor grossly within normal limits. Normal speech. PSYCHIATRIC: Appropriate mood and affect; insight and judgment normal. Data Data Last Documented VS Vital Signs Date Time Temp Pulse Resp B/P (MAP) Pulse Ox O2 Delivery O2 Flow Rate FiO2 01/28/17 01:50 92 18 188/92 (124) 97 01/27/17 23:27 Nasal Cannula 2.00 01/27/17 21:35 98.7 Orders Orders Complete Blood Count With Diff (01/27/17 21:48) Basic Metabolic Panel (Bmp) (01/27/17 21:48) B-Type Natriuretic Peptide (01/27/17 21:48) Magnesium (Mg) (01/27/17 21:48) Troponin I (01/27/17 21:48) Iv Access Insert/Monitor (01/27/17 21:48) Electrocardiogram (01/27/17 21:48) Ecg Monitoring (01/27/17 21:48) Oximetry (01/27/17 21:48) Oxygen Administration (01/27/17 21:48) Chest, Single Ap (01/27/17 21:48) Sodium Chloride 0.9% Flush (Ns Flush) (01/27/17 22:00) Furosemide Inj (Lasix Inj) (01/27/17 22:00) Albuterol Neb (Albuterol Neb) (01/27/17 22:00) Ct Brain W/O Iv Contrast(Rout) (01/27/17 ) Admit Order (Ed Use Only) (01/28/17 ) Mule Packer / Telemetry [email or web address] (01/28/17 01:51) Activity Oob With Assistance (01/28/17 01:51) Notify Dr: Other (01/28/17 01:51) Labs Laboratory Tests Test 01/27/17 22:30 White Blood Count 5.8 TH/MM3 Red Blood Count 4.72 MIL/MM3 Hemoglobin 14.2 GM/DL Hematocrit 44.3 % Mean Corpuscular Volume 93.8 FL Mean Corpuscular Hemoglobin 30.1 PG Mean Corpuscular Hemoglobin Concent 32.1 % Red Cell Distribution Width 16.4 % Platelet Count 119 TH/MM3 Mean Platelet Volume 9.4 FL Neutrophils (%) (Auto) 76.7 % Lymphocytes (%) (Auto) 10.8 % Monocytes (%) (Auto) 8.6 % Eosinophils (%) (Auto) 3.3 % Basophils (%) (Auto) 0.6 % Neutrophils # (Auto) 4.5 TH/MM3 Lymphocytes # (Auto) 0.6 TH/MM3 Monocytes # (Auto) 0.5 TH/MM3 Eosinophils # (Auto) 0.2 TH/MM3 Basophils # (Auto) 0.0 TH/MM3 CBC Comment DIFF FINAL Differential Comment Blood Urea Nitrogen 19 MG/DL Creatinine 1.10 MG/DL Random Glucose 107 MG/DL Calcium Level 8.8 MG/DL Magnesium Level 2.0 MG/DL Sodium Level 140 MEQ/L Potassium Level 3.9 MEQ/L Chloride Level 103 MEQ/L Carbon Dioxide Level 33.1 MEQ/L Anion Gap 4 MEQ/L Estimat Glomerular Filtration Rate 47 ML/MIN Troponin I 0.04 NG/ML B-Type Natriuretic Peptide 834 PG/ML MDM Medical Decision Making Medical Screen Exam Complete: Yes Emergency Medical Condition: Yes Medical Record Reviewed: Yes Interpretation(s) Twelve-lead EKG was reviewed by me. Atrial fibrillation, left axis deviation, old anterior inferior KS, poor R-wave progression, nonspecific ST-T wave changes. Heart rate of 69 bpm. Differential Diagnosis Intracranial bleed, congestive heart failure, COPD exacerbation Narrative Course 10:24 PM awaiting for blood test result and CT scan of the head. Patient is given IV Lasix and albuterol nebulizer. The atrial fibrillation seen on the EKG seems to be a new phenomenon for her. This could explain her congestive heart failure. Patient is not anticoagulated. 10:28 PM actually looking back at her old EKGs that are in [employer] system it seems like patient had 04/03/2013 that was atrial fibrillation. She may have history of paroxysmal A. fib. 10:44 PM still waiting for the blood test results and chest x-ray to come back. Head CT report is back and does not show any intracranial bleed. Case will be signed over to the oncoming ER physician. Procedures EKG Prior to Arrival: No Diagnosis Primary Impression: Fall Qualified Codes: W19.XXXA - Unspecified fall, initial encounter Additional Impressions: Head injury Qualified Codes: S09.90XA - Unspecified injury of head, initial encounter Atrial fibrillation Qualified Codes: I48.0 - Paroxysmal atrial fibrillation Meet Moreno MD Jan 27, 2017 21:40
[2017-01-27] MEDS ORDERED: SODIUM CHLORIDE 0.9% FLUSH 10 ML FLUSH IVF PRN (22:00)
[2017-01-27] MEDS ORDERED: FUROSEMIDE 100 MG/10 ML VIAL IVP ONE (22:00)
--- NOTE | 2017-01-27 22:26 | RADRPT ---
EXAM DATE/TIME: 01/27/2017 22:11 [facility] COMPARISON: CT BRAIN W/O CONTRAST, December 29, 2016, 13:01. INDICATIONS : Trauma. Fell and hit the back of head. RADIATION DOSE: 58.65 CTDIvol (mGy) MEDICAL HISTORY : Hypertension. SURGICAL HISTORY : Hysterectomy. ENCOUNTER: Initial ACUITY: 1 day PAIN SCALE: 7/10 LOCATION: cranial TECHNIQUE: Multiple contiguous axial images were obtained of the head. Using automated exposure control and adj ustment of the mA and/or kV according to patient size, radiation dose was kept as low as reasonably a chievable to obtain optimal diagnostic quality images. DICOM format image data is available electro nically for review and comparison. FINDINGS: CEREBRUM: There is generalized atrophy. Ventricles are normal. There is mild periventricular white matter low a ttenuation. No evidence of midline shift, mass lesion, hemorrhage or acute infarction. No extra-axia l fluid collections are seen. POSTERIOR FOSSA: The cerebellum and brainstem are intact. The 4th ventricle is midline. The cerebellopontine angle i s unremarkable. EXTRACRANIAL: There is left posterior parietal region scalp soft tissue swelling with hematoma. SKULL: The calvaria is intact. No evidence of skull fracture. CONCLUSION: 1. Left scalp soft tissue swelling and hematoma. No fracture or acute intracranial abnormality is charan ntified. 2. Chronic changes include generalized atrophy and chronic white matter changes. Nikko Mccallum MD on January 27, 2017 at 22:22 Board Certified Radiologist. This report was verified electronically.
[2017-01-27] MEDS: RESP: ALBUTEROL 2.5 MG/3 ML NEB (SCH) INH ×2 (22:31→22:37)
[2017-01-27 22:46] LABS: AUTOMATED NEUTROPHIL # 4.5 TH/MM3 (1.8-7.7); BASOPHIL % 0.6 % (0.0-2.0); EOSINOPHIL # 0.2 TH/MM3 (0-0.4); EOSINOPHIL % 3.3 % (0.0-4.0); HEMATOCRIT 44.3 % (35.0-46.0); LYMPH % 10.8 % (9.0-44.0); LYMPHOCYTE # 0.6 TH/MM3 (1.0-4.8); MEAN CELL VOLUME 93.8 FL (80.0-100.0); MEAN CORPUSCULAR HEMOGLOBIN 30.1 PG (27.0-34.0); MEAN CORPUSCULAR HGB CONC 32.1 % (32.0-36.0); MONO % 8.6 % (0.0-8.0); NEUT % 76.7 % (16.0-70.0); PLATELET COUNT 119 TH/MM3 (150-450); RED BLOOD COUNT 4.72 MIL/MM3 (4.00-5.30); RED CELL DISTRIBUTION WIDTH 16.4 % (11.6-17.2); WHITE BLOOD COUNT 5.8 TH/MM3 (4.0-11.0)
[2017-01-27 22:48] LABS: HEMO FLAGS DIFF FINAL
[2017-01-27 22:53] LABS: POTASSIUM 3.9 MEQ/L (3.5-5.1)
[2017-01-27 22:55] LABS: BICARBONATE 33.1 MEQ/L (21.0-32.0)
[2017-01-27 23:00] VITALS: BP 178/100; PULSE 85; RESP 20; O2SAT 97
--- NOTE | 2017-01-27 23:06 | RADRPT ---
EXAM DATE/TIME: 01/27/2017 22:25 [facility] COMPARISON: CHEST SINGLE AP, March 27, 2016, 7:41. INDICATIONS : Shortness of breath. MEDICAL HISTORY : None. SURGICAL HISTORY : None. ENCOUNTER: Initial ACUITY: 1 day PAIN SCORE: 0/10 LOCATION: Bilateral chest FINDINGS: The cardiac silhouette is enlarged in transverse diameter. The aortic knob is prominent with tortuosi ty of the descending thoracic aorta. The lungs are free of acute parenchymal opacity. No effusions ar e identified. CONCLUSION: 1. Cardiomegaly. No acute pulmonary disease. Daniel Ulloa MD on January 27, 2017 at 23:04 Board Certified Radiologist. This report was verified electronically.
--- NOTE | 2017-01-27 23:08 | PD ---
Physical Exam Date Seen by Provider: Jan 27, 2017 Time Seen by Provider: 23:08 Narrative Accepted in transfer of care from Dr. Moreno Data Data Last Documented VS Vital Signs Date Time Temp Pulse Resp B/P (MAP) Pulse Ox O2 Delivery O2 Flow Rate FiO2 01/28/17 01:50 92 18 188/92 (124) 97 01/27/17 23:27 Nasal Cannula 2.00 01/27/17 21:35 98.7 Orders Orders Complete Blood Count With Diff (01/27/17 21:48) Basic Metabolic Panel (Bmp) (01/27/17 21:48) B-Type Natriuretic Peptide (01/27/17 21:48) Magnesium (Mg) (01/27/17 21:48) Troponin I (01/27/17 21:48) Iv Access Insert/Monitor (01/27/17 21:48) Electrocardiogram (01/27/17 21:48) Ecg Monitoring (01/27/17 21:48) Oximetry (01/27/17 21:48) Oxygen Administration (01/27/17 21:48) Chest, Single Ap (01/27/17 21:48) Sodium Chloride 0.9% Flush (Ns Flush) (01/27/17 22:00) Furosemide Inj (Lasix Inj) (01/27/17 22:00) Albuterol Neb (Albuterol Neb) (01/27/17 22:00) Ct Brain W/O Iv Contrast(Rout) (01/27/17 ) Admit Order (Ed Use Only) (01/28/17 ) Optical Scientist / Telemetry [email or web address] (01/28/17 01:51) Diet Heart Healthy (01/28/17 Breakfast) Activity Oob With Assistance (01/28/17 01:51) Notify Dr: Other (01/28/17 01:51) Labs Laboratory Tests Test 01/27/17 22:30 White Blood Count 5.8 TH/MM3 Red Blood Count 4.72 MIL/MM3 Hemoglobin 14.2 GM/DL Hematocrit 44.3 % Mean Corpuscular Volume 93.8 FL Mean Corpuscular Hemoglobin 30.1 PG Mean Corpuscular Hemoglobin Concent 32.1 % Red Cell Distribution Width 16.4 % Platelet Count 119 TH/MM3 Mean Platelet Volume 9.4 FL Neutrophils (%) (Auto) 76.7 % Lymphocytes (%) (Auto) 10.8 % Monocytes (%) (Auto) 8.6 % Eosinophils (%) (Auto) 3.3 % Basophils (%) (Auto) 0.6 % Neutrophils # (Auto) 4.5 TH/MM3 Lymphocytes # (Auto) 0.6 TH/MM3 Monocytes # (Auto) 0.5 TH/MM3 Eosinophils # (Auto) 0.2 TH/MM3 Basophils # (Auto) 0.0 TH/MM3 CBC Comment DIFF FINAL Differential Comment Blood Urea Nitrogen 19 MG/DL Creatinine 1.10 MG/DL Random Glucose 107 MG/DL Calcium Level 8.8 MG/DL Magnesium Level 2.0 MG/DL Sodium Level 140 MEQ/L Potassium Level 3.9 MEQ/L Chloride Level 103 MEQ/L Carbon Dioxide Level 33.1 MEQ/L Anion Gap 4 MEQ/L Estimat Glomerular Filtration Rate 47 ML/MIN Troponin I 0.04 NG/ML B-Type Natriuretic Peptide 834 PG/ML MDM Medical Record Reviewed: Yes Supervised Visit with SIRENA: No Interpretation(s) Last Impressions Chest X-Ray 01/27/172147 Signed Impressions: Service Date/Time: Friday, January 27, 2017 22:25 - CONCLUSION: 1. Cardiomegaly. No acute pulmonary disease. Daniel Ulloa MD Head CT 01/27/17 0000 Signed Impressions: Service Date/Time: Friday, January 27, 2017 22:11 - CONCLUSION: 1. Left scalp soft tissue swelling and hematoma. No fracture or acute intracranial abnormality is identified. 2. Chronic changes include generalized atrophy and chronic white matter changes. Nikko Mccallum MD CBC & BMP Diagram 01/27/17 22:30 Calcium Level 8.8, Magnesium Level 2.0 Vital Signs Date Time Temp Pulse Resp B/P (MAP) Pulse Ox O2 Delivery O2 Flow Rate FiO2 01/28/17 01:50 92 18 188/92 (124) 97 01/27/17 23:27 88 18 178/90 (119) 98 Nasal Cannula 2.00 01/27/17 23:00 85 20 178/100 (126) 97 Nasal Cannula 2.00 01/27/17 23:00 96 Nasal Cannula 2.00 01/27/17 22:17 96 Room Air 01/27/17 22:17 Room Air 01/27/17 22:17 Room Air 01/27/17 21:35 98.7 79 18 178/102 (127) 97 troponin I: 0.04, mildly elevated; BNP: 834 Differential Diagnosis Accepted in transfer of care from Dr. Aguilar; please refer to her dictation Narrative Course Accepted in transfer of care from Dr. Moreno; follow-up for his response to updraft treatments and Lasix administration; patient with fall with CT brain noncontrast revealing scalp soft tissue swelling but no skull abnormality or intracranial abnormality per reading radiologist per Dr. Oscar report chest x- ray shows no thoracic or congestion however patient does demonstrate exertional dyspnea with minimal activity elevated BMP and has received updraft treatments with ongoing shortness of breath without pleuritic pain Patient resting comfortably has diuresed over 1 L of fluid plan will be to admit for dyspnea; patient also noted to have atrial fibrillation with controlled ventricular rate for paroxysmal atrial fibrillation with prior h/o atrial fibrillation and identified to have history of COPD on supplemental oxygen in the emergency department but reportedly not on supplemental oxygen at home and minor closed head injury with scalp contusion status post non-syncopal fall. Patient's case is discussed with on-call medicine physician for observation admission ongoing gentle diuresis COPD support and monitoring for minor closed head injury precautions. Physician Communication Physician Communication discussed with Dr Manning Diagnosis Primary Impression: Fall Qualified Codes: W19.XXXA - Unspecified fall, initial encounter Additional Impressions: Atrial fibrillation Qualified Codes: I48.0 - Paroxysmal atrial fibrillation Head injury Qualified Codes: S09.90XA - Unspecified injury of head, initial encounter Admitting Information Admitting Physician Requests: Observation Sybil Powell MD Jan 27, 2017 23:08
[2017-01-27 23:27] VITALS: BP 178/90; PULSE 88; RESP 18; O2SAT 98
[2017-01-28] VITALS (10 sets, daily range): BP systolic 129–188; BP diastolic 71–100; PULSE 68–92; RESP 16–22; TEMP 96.8–97.9; O2SAT 86–99
[2017-01-28] MEDS ORDERED: BISACODYL 10 MG SUPP RECTAL PRN (02:00)
[2017-01-28] MEDS ORDERED: SODIUM CHLORIDE 0.9% FLUSH 10 ML FLUSH IV FLUSH PRN (02:00)
[2017-01-28] MEDS ORDERED: SENNOSIDES 8.6 MG TAB PO PRN (02:00)
[2017-01-28] MEDS ORDERED: ONDANSETRON HCL 4 MG/2 ML VIAL IVP PRN (02:00)
[2017-01-28] MEDS ORDERED: LACTULOSE SYRUP 20 GM/30 ML CUP PO PRN (02:00)
[2017-01-28] MEDS ORDERED: MAGNESIUM HYDROXIDE SUSP 30 ML CUP PO PRN (02:00)
[2017-01-28] MEDS ORDERED: MORPHINE SULFATE 4 MG/ML INJ IV PUSH PRN (02:00)
[2017-01-28] MEDS ORDERED: ACETAMINOPHEN 325 MG TAB PO PRN (02:00)
[2017-01-28] MEDS ORDERED: PILL SPLITTER OTHER PRN (02:15)
[2017-01-28] MEDS ORDERED: cloNIDine HCL 0.1 MG TAB PO ONE (04:15)
[2017-01-28] MEDS: SERTRALINE HCL 50 MG TAB PO SCH (09:39)
[2017-01-28] MEDS: CHOLECALCIFEROL (VIT D3) 1000 UNIT TAB PO SCH (09:39)
[2017-01-28] MEDS: PANTOPRAZOLE SOD 40 MG DELAYED RELEASE TAB PO SCH (09:39)
[2017-01-28] MEDS: busPIRone HCL 5 MG TAB PO SCH ×2 (09:39→21:08)
[2017-01-28] MEDS: DOCUSATE SODIUM 50 MG/SENNA 8.6 MG TAB PO SCH ×2 (09:39→21:08)
[2017-01-28] MEDS: ATENOLOL 50 MG TAB PO SCH ×2 (09:40→21:08)
[2017-01-28] MEDS: FUROSEMIDE 20 MG/2 ML VIAL IV PUSH SCH ×2 (09:40→18:31)
[2017-01-28] MEDS: SODIUM CHLORIDE 0.9% FLUSH 10 ML FLUSH IV FLUSH SCH ×2 (09:42→21:08)
[2017-01-28] MEDS: LISINOPRIL 5 MG TAB PO SCH (13:13)
--- NOTE | 2017-01-28 13:17 | EKG ---
Date Performed: 01/27/2017 Time Performed: 22:06:00 PTAGE: 86 years EKG: Atrial fibrillation Left axis deviation Poor R-wave progression, which may be a normal vari ant PREVIOUS TRACING : 03/27/2016 12.43 Since previous tracing, the rhythm has changed from a n ectopic atrial bradycardia to atrial fibrillation. DOCTOR: Mehran Lares Interpretating Date/Time 01/28/2017 13:16:51
--- NOTE | 2017-01-28 14:56 | HHI.HP ---
[facility] No Primary Care Physician Admission Diagnosis dyspnea, chf, h/o copd; minor CHI Diagnoses: (1) Fall Diagnosis: Principal (2) Head injury Diagnosis: Principal (3) Elevated brain natriuretic peptide (BNP) level Diagnosis: Principal Chief Complaint: Fall at home Travel History International Travel<30 Days: No Contact w/Intl Traveler <30 Da: No Traveled to Known Affected Are: No History of Present Illness Written by Donal Lee, acting as scribe for Dr. Martínez on 01/28/17 at 14:40. 86-year-old female with known history of hypertension, atrial fibrillation, depression, frequent falls who presented to the hospital because of fall at home. Patient was rather uncooperative during examination. She did answer some questions but then stated she did not want to answer more questions and wanted to be left alone. Prior to the patient this connecting conversation she indicated that she lives at home by herself. She was putting something into the refrigerator and when she turned around she fell down backwards hitting her head. And apparently her medical alert bracelet contacted EMS who evaluated her and brought her to the hospital for evaluation. Patient had CT scan done of the brain which did not indicate any acute abnormality. Laboratory studies were performed which did show abnormal finding of elevated BNP, chest x-ray was done which did not indicate any acute abnormality. She did have lower extremity edema. It was indicated in ER documentation that patient demonstrated exertional dyspnea patient was given Lasix in the emergency department with diuresis of 1 L of fluid. The patient denied any symptoms. She denied any chest pain, shortness of breath, dyspnea on exertion. Records also indicate that the patient has history of COPD and on supplemental oxygen, however there is no report that she is on oxygen at home. Because of the above reasons is recommended by the ER physician that the patient be observed for further recommendations. Review of Systems ROS Limitations: Uncooperative Past Family Social History Past Medical History Patient uncooperative on interview, information taken from medical records Hypertension Anxiety Past Surgical History Patient uncooperative on interview, information taken from medical records Bilateral knee replacements Hysterectomy Elbow surgery Reported Medications Reported Meds & Active Scripts Active Reported Lansoprazole 30 Mg Capdr 30 Mg PO DAILY Vitamin D3 (Cholecalciferol) 1,000 Unit Tab 1,000 Units PO DAILY Buspirone (Buspirone HCl) 5 Mg Tab 5 Mg PO BID Atenolol 100 Mg Tab 100 Mg PO BID Sertraline (Sertraline HCl) 25 Mg Tab 25 Mg PO DAILY Lisinopril 10 Mg Tab 10 Mg PO BID PRN Allergies: Coded Allergies: Sulfa (Sulfonamide Antibiotics) (Unverified Allergy, Severe, PT DOES NOT REMEMBER, 01/27/17) levofloxacin (Unverified Allergy, Severe, PT STATES "DRIVES ME CRAZY", 02/02) Family History Patient uncooperative on interview, information taken from medical records Reviewed is significant for father at early age of 59 from heart disease Social History Patient uncooperative on interview, information taken from medical records Patient denies any tobacco, alcohol or illicit drugs Physical Exam Vital Signs Vital Signs Date Time Temp Pulse Resp B/P (MAP) Pulse Ox O2 Delivery O2 Flow Rate FiO2 01/28/17 12:00 97.2 68 20 144/79 (100) 98 01/28/17 08:00 97.9 71 20 157/72 (100) 95 01/28/17 04:00 68 01/28/17 03:47 96.8 79 20 177/97 (123) 99 01/28/17 03:39 01/28/17 02:47 78 18 187/86 (119) 97 Nasal Cannula 2.00 01/28/17 02:22 89 20 181/100 (127) 97 Nasal Cannula 2.00 01/28/17 02:03 87 22 174/93 (120) 86 Room Air 01/28/17 01:50 92 18 188/92 (124) 97 01/27/17 23:27 88 18 178/90 (119) 98 Nasal Cannula 2.00 01/27/17 23:00 85 20 178/100 (126) 97 Nasal Cannula 2.00 01/27/17 23:00 96 Nasal Cannula 2.00 01/27/17 22:17 96 Room Air 01/27/17 22:17 Room Air 01/27/17 22:17 Room Air 01/27/17 21:35 98.7 79 18 178/102 (127) 97 Physical Exam GENERAL: Well-developed, well-nourished, in no acute distress. alert and uncooperative HEENT: Head is normocephalic without any lesions or masses noted. Facial features are symmetric. Eyes: Pupils equal round reactive to light. Extraocular muscles are intact. Conjunctivae were clear. Oropharyngeal: Pharynx without any erythema edema. Tongue is midline without deviation. Buccal mucosa is moist without any masses or lesions NECK: Supple without any masses. Trachea midline no deviation. No JVD, no bruits are appreciated CARDIAC: Regular rhythm, regular rate. S1/S2 are heard. No murmurs gallops or rubs. LUNGS: Clear to auscultation bilaterally. No wheeze, rhonchi or rales. No use of accessory muscles on inspiration or expiration. ABDOMEN: Soft, nontender. Nondistended. Bowel sounds heard in all 4 quadrants. No organomegaly or masses. Negative rebound, negative guarding EXTREMITIES: 3+ pitting edema noted bilateral lower extremities, pulses are equal bilaterally. No cyanosis or clubbing NEUROLOGY: Mood and affect appear apprehensive and uncooperative. Cranial nerves II through XII grossly intact. Muscle strength 5/5 in upper and lower extremities bilaterally. Deep tendon reflexes are 2+ in upper and lower extremities bilaterally. Laboratory Laboratory Tests Test 01/27/17 22:30 01/28/17 06:17 01/28/17 11:54 White Blood Count 5.8 Red Blood Count 4.72 Hemoglobin 14.2 Hematocrit 44.3 Mean Corpuscular Volume 93.8 Mean Corpuscular Hemoglobin 30.1 Mean Corpuscular Hemoglobin Concent 32.1 Red Cell Distribution Width 16.4 Platelet Count 119 Mean Platelet Volume 9.4 Neutrophils (%) (Auto) 76.7 Lymphocytes (%) (Auto) 10.8 Monocytes (%) (Auto) 8.6 Eosinophils (%) (Auto) 3.3 Basophils (%) (Auto) 0.6 Neutrophils # (Auto) 4.5 Lymphocytes # (Auto) 0.6 Monocytes # (Auto) 0.5 Eosinophils # (Auto) 0.2 Basophils # (Auto) 0.0 CBC Comment DIFF FINAL Differential Comment Blood Urea Nitrogen 19 Creatinine 1.10 Random Glucose 107 Calcium Level 8.8 Magnesium Level 2.0 Sodium Level 140 Potassium Level 3.9 Chloride Level 103 Carbon Dioxide Level 33.1 Anion Gap 4 Estimat Glomerular Filtration Rate 47 Troponin I 0.04 0.04 0.05 B-Type Natriuretic Peptide 834 Result Diagram: 01/27/17222901/27/172229 Imaging Last Impressions Chest X-Ray 01/27/172147 Signed Impressions: Service Date/Time: Friday, January 27, 2017 22:25 - CONCLUSION: 1. Cardiomegaly. No acute pulmonary disease. Daniel Ulloa MD Head CT 01/27/17 0000 Signed Impressions: Service Date/Time: Friday, January 27, 2017 22:11 - CONCLUSION: 1. Left scalp soft tissue swelling and hematoma. No fracture or acute intracranial abnormality is identified. 2. Chronic changes include generalized atrophy and chronic white matter changes. MD Staci Butler VTE Risk Assessment Caprini VTE Risk Assessment: Mod/High Risk (score >= 2) Caprini Risk Assessment Model Point Value = 1 Point Value = 2 Point Value = 3 Point Value = 5 Age 41-60 Minor surgery BMI > 25 kg/m2 Swollen legs Varicose veins or History of unexplained or recurrent spontaneous Oral contraceptives or hormone replacement Sepsis (< 1 month) Serious lung disease, including pneumonia (< 1 month) Abnormal pulmonary function Acute myocardial infarction Congestive heart failure (< 1 month) History of inflammatory bowel disease Medical patient at bed rest Age 61-74 Arthroscopic surgery Major open surgery (> 45 min) Laparoscopic surgery (> 45 min) Malignancy Confined to bed (> 72 hours) Immobilizing plaster cast Central venous access Age >= 75 History of VTE Family history of VTE Factor V Leiden Prothrombin [id number] Lupus anticoagulant Anticardiolipin antibodies Elevated serum homocysteine Heparin-induced thrombocytopenia Other congenital or acquired thrombophilia Stroke (< 1 month) Elective arthroplasty Hip, pelvis, or leg fracture Acute spinal cord injury (< 1 month) Prophylaxis Regimen Total Risk Factor Score Risk Level Prophylaxis Regimen 0-1 Low Early ambulation 2 Moderate Order ONE of the following: *Sequential Compression Device (SCD) *Heparin 5000 units SQ BID 3-4 Higher Order ONE of the following medications: *Heparin 5000 units SQ TID *Enoxaparin/Lovenox 40 mg SQ daily (WT < 150 kg, CrCl > 30 mL/min) *Enoxaparin/Lovenox 30 mg SQ daily (WT < 150 kg, CrCl > 10-29 mL/min) *Enoxaparin/Lovenox 30 mg SQ BID (WT < 150 kg, CrCl > 30 mL/min) AND/OR *Sequential Compression Device (SCD) 5 or more Highest Order ONE of the following medications: *Heparin 5000 units SQ TID (Preferred with Epidurals) *Enoxaparin/Lovenox 40 mg SQ daily (WT < 150 kg, CrCl > 30 mL/min) *Enoxaparin/Lovenox 30 mg SQ daily (WT < 150 kg, CrCl > 10-29 mL/min) *Enoxaparin/Lovenox 30 mg SQ BID (WT < 150 kg, CrCl > 30 mL/min) AND *Sequential Compression Device (SCD) Assessment and Plan Assessment and Plan Fall at home with closed head injury -CT scan doesn't indicate any acute abnormality -Obtain PT evaluation for discharge determination -Continue to monitor for postconcussion syndrome Lower extremity edema, elevated BNP -Chest x-ray independently reviewed by Dr. Martínez shows mild cardiomegaly, no nav signs of significant for severe pulmonary edema Patient has not had any history of congestive heart failure will need further evaluation -Cardiac enzymes were trended and no indication any acute coronary event -EKG shows atrial fibrillation with left axis deviation. -Echocardiogram is pending -Fluid restriction -Status post Lasix 60 mg IV in emergency department -Lasix 20 mg IV twice daily continued -Continue home beta arsalan, LISA inhibitor Hypertension, history of atrial fibrillation -Home medications continued risk of falling - fall precautions, PT, telemetry DVT prevention -Sequential compression devices This note was transcribed by eliecer Lee. Thiago Hedrick, personally performed the history, physical exam, and medical decision making; and confirmed the accuracy of information in the transcribed note. Authenticated by Thiago Martínez on at 6 PM. Problem Qualifiers (1) Fall: Qualified Codes: W19.XXXA - Unspecified fall, initial encounter (2) Head injury: Qualified Codes: S09.90XA - Unspecified injury of head, initial encounter Donal Lee Jan 28, 2017 14:56 Thiago Martínez MD Jan 29, 2017 08:30
[2017-01-28] MEDS: POTASSIUM CHLORIDE 10 MEQ CONTROLLED RELEASE TAB PO SCH (21:08)
[2017-01-29] VITALS (7 sets, daily range): BP systolic 126–154; BP diastolic 73–98; PULSE 67–82; RESP 12–20; TEMP 97.6–98.1; O2SAT 94–100
[2017-01-29 06:06] LABS: CHLORIDE 101 MEQ/L (98-107); POTASSIUM 3.5 MEQ/L (3.5-5.1); SODIUM (NA) 141 MEQ/L (136-145)
[2017-01-29 06:10] LABS: ANION GAP 6 MEQ/L (5-15); BICARBONATE 33.6 MEQ/L (21.0-32.0); BLOOD UREA NITROGEN 25 MG/DL (7-18)
[2017-01-29 06:13] LABS: ALT (GPT) 19 U/L (10-53); AST (GOT) 27 U/L (15-37); GLOMERULAR FILTRATION RATE 47 ML/MIN (>89)
[2017-01-29 06:14] LABS: TOTAL BILIRUBIN ADULT 1.1 MG/DL (0.2-1.0)
[2017-01-29 06:16] LABS: ALKALINE PHOSPHATASE 139 U/L (45-117); AUTOMATED NEUTROPHIL # 4.4 TH/MM3 (1.8-7.7); BASOPHIL % 0.1 % (0.0-2.0); EOSINOPHIL # 0.2 TH/MM3 (0-0.4); EOSINOPHIL % 3.7 % (0.0-4.0); HEMATOCRIT 39.6 % (35.0-46.0); LYMPH % 12.2 % (9.0-44.0); LYMPHOCYTE # 0.7 TH/MM3 (1.0-4.8); MEAN CELL VOLUME 92.7 FL (80.0-100.0); MEAN CORPUSCULAR HEMOGLOBIN 30.2 PG (27.0-34.0); MEAN CORPUSCULAR HGB CONC 32.6 % (32.0-36.0); PLATELET COUNT 117 TH/MM3 (150-450); RED BLOOD COUNT 4.27 MIL/MM3 (4.00-5.30); RED CELL DISTRIBUTION WIDTH 16.1 % (11.6-17.2); WHITE BLOOD COUNT 5.8 TH/MM3 (4.0-11.0)
[2017-01-29 06:50] LABS: HEMO FLAGS AUTO DIFF
[2017-01-29 07:53] LABS: PLATELET ESTIMATE SMEAR LOW (NORMAL)
[2017-01-29 07:55] LABS: PLATELET MORPHOLOGY NORMAL (NORMAL); SCAN/DIFF AUTO DIFF CONFIRMED
[2017-01-29] MEDS: FUROSEMIDE 20 MG/2 ML VIAL IV PUSH SCH ×2 (09:19→18:51)
[2017-01-29] MEDS: PANTOPRAZOLE SOD 40 MG DELAYED RELEASE TAB PO SCH (09:20)
[2017-01-29] MEDS: POTASSIUM CHLORIDE 10 MEQ CONTROLLED RELEASE TAB PO SCH ×2 (09:20→20:36)
[2017-01-29] MEDS: LISINOPRIL 5 MG TAB PO SCH (09:20)
[2017-01-29] MEDS: SODIUM CHLORIDE 0.9% FLUSH 10 ML FLUSH IV FLUSH SCH ×2 (09:20→20:35)
[2017-01-29] MEDS: CHOLECALCIFEROL (VIT D3) 1000 UNIT TAB PO SCH (09:21)
[2017-01-29] MEDS: SERTRALINE HCL 50 MG TAB PO SCH (09:21)
[2017-01-29] MEDS: busPIRone HCL 5 MG TAB PO SCH ×2 (09:22→20:36)
[2017-01-29] MEDS: ATENOLOL 50 MG TAB PO SCH ×2 (09:23→20:37)
[2017-01-29] MEDS: DOCUSATE SODIUM 50 MG/SENNA 8.6 MG TAB PO SCH ×2 (09:23→20:37)
--- NOTE | 2017-01-29 12:44 | ECHRPT ---
Indication: CARDIOMYOPATHY CONCLUSIONS Normal left ventricular size. Mild concentric left ventricular hypertrophy. The left ventricular systolic function is grossly normal on limited imaging. The right ventricle is mildly dilated. The left atrial size is mztndxqx-he-iclibggx dilated. The right atrial size is moderately dilated. Fskh-fj-roglmunv mitral valve regurgitation. Aortic valve sclerosis is present. There is mild tricuspid valve regurgitation. The estimated pulmonary arterial pressure is 52 mmHg. A moderate left sided pleural effusion is noted. BP: 126 / 81 HR: 79 Rhythm: Sinus MEASUREMENTS (Male / Female) Normal Values Technical Quality:Fair 2D ECHO LV Diastolic Diameter PLAX 3.9 cm 4.2 - 5.9 / 3.9 - 5.3 cm LV Systolic Diameter PLAX 2.5 cm IVS Diastolic Thickness 1.2 cm 0.6 - 1.0 / 0.6 - 0.9 cm LVPW Diastolic Thickness 1.2 cm 0.6 - 1.0 / 0.6 - 0.9 cm LV Relative Wall Thickness 0.6 RV Internal Dim ED PLAX 3.8 cm LVOT Diameter 2.0 cm Aortic Root Diameter 2.9 cm LA Systolic Diameter LX 3.0 cm 3.0 - 4.0 / 2.7 - 3.8 cm LA Volume Index 41.3 cm/m 16 - 28 cm/m M-MODE AV Cusp Separation MM 1.9 cm DOPPLER AV Peak Velocity 142.5 cm/s AV Peak Gradient 8.1 mmHg AV Mean Gradient 4.5 mmHg AV Velocity Time Integral 23.6 cm LVOT Peak Velocity 66.4 cm/s LVOT Peak Gradient 1.8 mmHg LVOT Velocity Time Integral 12.6 cm LVOT Cardiac Index 1575.3 cm/minm AV Area Cont Eq vti 1.7 cm AV Area Cont Eq pk 1.5 cm Mitral E Point Velocity 90.6 cm/s LV E' Lateral Velocity 10.2 cm/s Mitral E to LV E' Lateral Ratio 8.9 LV E' Septal Velocity 6.5 cm/s Mitral E to LV E' Septal Ratio 13.9 TR Peak Velocity 324.0 cm/s TR Peak Gradient 42.0 mmHg Right Atrial Pressure 10.0 mmHg Pulmonary Artery Systolic Pressu 52.0 mmHg Right Ventricular Systolic Press 52.0 mmHg PV Peak Velocity 39.1 cm/s PV Peak Gradient 0.6 mmHg FINDINGS LEFT VENTRICLE Normal left ventricular size. Mild concentric left ventricular hypertrophy. The left ventricular systolic function is grossly normal on limited imaging. RIGHT VENTRICLE The right ventricle is mildly dilated. LEFT ATRIUM The left atrial size is qcidawqy-wr-tmxmltfx dilated. RIGHT ATRIUM The right atrial size is moderately dilated. ATRIAL SEPTUM Normal atrial septal thickness without atrial level shunting by limited color doppler interrogation. AORTA The aortic root and proximal ascending aorta are normal in size on limited imaging. MITRAL VALVE Iaiq-us-gobcswml mitral valve regurgitation. AORTIC VALVE Aortic valve sclerosis is present. TRICUSPID VALVE There is mild tricuspid valve regurgitation. The estimated pulmonary arterial pressure is 52 mmHg. PULMONARY VALVE No pulmonary valve regurgitation or stenosis. VESSELS The inferior vena cava is normal in size. PERICARDIUM A moderate left sided pleural effusion is noted. Margarita Carlton MD, FACC (Electronically Signed) Final Date:29 January 2017 12:43
[2017-01-29] MEDS ORDERED: VENTAER INH (18:53)
--- NOTE | 2017-01-29 20:18 | HHI.PR ---
Subjective Remarks Nursing reports that the patient did not have any deterioration since last night. Case management has been a great deal of time trying to convince the patient to proceed with rehabilitation. Patient herself does not want to participate with rehabilitation assessments here. Case management has from of the grandson states that the fire department has to come out almost every night to help the patient from a fall at home. Patient wants to leave AGAINST MEDICAL ADVICE but she actually is unable to physically get up and leave. Objective Vital Signs Date Time Temp Pulse Resp B/P (MAP) Pulse Ox O2 Delivery O2 Flow Rate FiO2 01/29/17 16:00 98.1 70 12 132/95 (107) 96 01/29/17 12:00 97.9 67 14 134/73 (93) 98 01/29/17 09:20 99 2.00 01/29/17 08:01 81 01/29/17 08:00 97.7 70 18 145/79 (101) 99 01/29/17 04:00 97.8 79 18 126/81 (96) 95 01/29/17 00:00 97.6 82 17 130/79 (96) 94 I/O 01/28/17 01/28/17 01/28/17 01/29/17 01/29/17 01/29/17 07:00 15:00 23:00 07:00 15:00 23:00 Intake Total 240 ml 675 ml 350 ml 222 ml 222 ml Output Total 1850 ml Balance -1610 ml 675 ml 350 ml 222 ml 222 ml Intake Oral 240 ml 675 ml 350 ml 222 ml 222 ml Output Urine Total 1850 ml # Voids 38 4 2 3 3 1 # Bowel Movements 0 1 2 1 Result Diagram: 01/29/17 0514 01/29/17 05 Objective Remarks Lying in bed, awake, alert, no acute distress, nasal cannula in place, unlabored breathing, clear lungs anteriorly, no cyanosis noted of lips, no conversive dyspnea Very mild lower extremity edema noted bilaterally that is 1+ at best A/P Assessment and Plan Fall at home with closed head injury -CT scan doesn't indicate any acute abnormality -Patient is refusing complete PT assessment -Continue to monitor for postconcussion syndrome Lower extremity edema, elevated BNP -Will switch Lasix to oral form, no diminished EF reported on echocardiogram -Continue home beta arsalan, LISA inhibitor Hypertension, history of atrial fibrillation -Home medications continued risk of falling - fall precautions, PT, telemetry DVT prevention -Sequential compression devices Patient is trying to leave AMA, although inpatient rehabilitation seems to be the consensual professional recommendation, patient is adamant once sleep. However she does admit that she probably will be unable to even get up and walk to the nurses station to leave and sign the AMA papers. Will continue to treat her here with PT until she makes a decision about rehabilitation or is physically self capable of leaving AMA. Thiago Martínez MD Jan 29, 2017 20:18
[2017-01-29] MEDS: ACETAMINOPHEN/HYDROcodone 325 MG/5 MG TAB PO PRN (20:43)
[2017-01-30] VITALS (8 sets, daily range): BP systolic 145–178; BP diastolic 63–101; PULSE 57–88; RESP 20; TEMP 96.4–98.4; O2SAT 95–99
[2017-01-30] MEDS: DOCUSATE SODIUM 50 MG/SENNA 8.6 MG TAB PO SCH ×2 (09:00→21:43)
[2017-01-30] MEDS: ATENOLOL 50 MG TAB PO SCH ×2 (09:09→21:41)
[2017-01-30] MEDS: SODIUM CHLORIDE 0.9% FLUSH 10 ML FLUSH IV FLUSH SCH ×2 (09:09→21:40)
[2017-01-30] MEDS: busPIRone HCL 5 MG TAB PO SCH ×2 (09:10→21:40)
[2017-01-30] MEDS: LISINOPRIL 5 MG TAB PO SCH (09:10)
[2017-01-30] MEDS: SERTRALINE HCL 50 MG TAB PO SCH (09:10)
[2017-01-30] MEDS: CHOLECALCIFEROL (VIT D3) 1000 UNIT TAB PO SCH (09:11)
[2017-01-30] MEDS: FUROSEMIDE 40 MG TAB PO SCH (09:11)
[2017-01-30] MEDS: POTASSIUM CHLORIDE 10 MEQ CONTROLLED RELEASE TAB PO SCH ×2 (09:11→21:41)
[2017-01-30] MEDS: PANTOPRAZOLE SOD 40 MG DELAYED RELEASE TAB PO SCH (09:11)
--- NOTE | 2017-01-30 16:55 | HHI.PR ---
Subjective Remarks Follow up fall. Patient seen and examined, grandson at bedside. Patient sitting up in chair comfortably, in no apparent distress. Cooperative. Pleasant. Continued on supplemental O2. Performed walk test today. Does complain of bout of dizziness this am, states she felt dizzy all morning, has now resolved. Eating well. Denies any abdominal pain, n/v/d or dysuria. Objective Vitals Vital Signs Date Time Temp Pulse Resp B/P (MAP) Pulse Ox O2 Delivery O2 Flow Rate FiO2 01/30/17 16:00 96.7 66 20 160/88 (112) 98 01/30/17 12:30 160/82 (108) 01/30/17 12:00 96.5 67 20 98 01/30/17 09:30 96 Nasal Cannula 2.00 01/30/17 08:00 96.4 88 20 156/101 (119) 98 01/30/17 08:00 67 01/30/17 08:00 Nasal Cannula 2.00 01/30/17 04:00 97.9 64 20 165/82 (109) 95 01/30/17 00:00 97.2 73 20 178/63 (101) 95 01/29/17 20:00 100 2.00 01/29/17 20:00 98.0 71 20 154/98 (116) 100 01/29/17 20:00 70 01/29/17 20:00 100 Nasal Cannula 2.00 I/O 01/29/17 01/29/17 01/29/17 01/30/17 01/30/17 01/30/17 07:00 15:00 23:00 07:00 15:00 23:00 Intake Total 222 ml 222 ml 240 ml Output Total 225 ml Balance 222 ml 222 ml 240 ml -225 ml Intake Oral 222 ml 222 ml 240 ml Output Urine Total 225 ml # Voids 3 3 1 9 # Bowel Movements 2 1 4 0 Result Diagram: 01/29/1751301/29/17513 Imaging Last Impressions Chest X-Ray 01/27/172147 Signed Impressions: Service Date/Time: Friday, January 27, 2017 22:25 - CONCLUSION: 1. Cardiomegaly. No acute pulmonary disease. Daniel Ulloa MD Head CT 01/27/17 0000 Signed Impressions: Service Date/Time: Friday, January 27, 2017 22:11 - CONCLUSION: 1. Left scalp soft tissue swelling and hematoma. No fracture or acute intracranial abnormality is identified. 2. Chronic changes include generalized atrophy and chronic white matter changes. Nikko Mccallum MD Objective Remarks GENERAL: Well-developed, well-nourished, in no acute distress. alert and awake, cooperative. HEENT: Head is normocephalic without any lesions or masses noted. Facial features are symmetric. Eyes: Pupils equal round reactive to light. Extraocular muscles are intact. Conjunctivae were clear. Oropharyngeal: Pharynx without any erythema edema. Tongue is midline without deviation. Buccal mucosa is moist without any masses or lesions NECK: Supple without any masses. Trachea midline no deviation. No JVD, no bruits are appreciated CARDIAC: Regular rhythm, regular rate. S1/S2 are heard. No murmurs gallops or rubs. LUNGS: Clear to auscultation bilaterally. No wheeze, rhonchi or rales. No use of accessory muscles on inspiration or expiration. ABDOMEN: Soft, nontender. Nondistended. Bowel sounds heard in all 4 quadrants. No organomegaly or masses. Negative rebound, negative guarding EXTREMITIES: 3+ pitting edema noted bilateral lower extremities, pulses are equal bilaterally. No cyanosis or clubbing NEUROLOGY: Mood and affect appear apprehensive and uncooperative. Cranial nerves II through XII grossly intact. Muscle strength 5/5 in upper and lower extremities bilaterally. Deep tendon reflexes are 2+ in upper and lower extremities bilaterally. A/P Problem List: (1) Fall ICD Code: W19.XXXA - Unspecified fall, initial encounter Status: Acute (2) Head injury ICD Code: S09.90XA - Unspecified injury of head, initial encounter Status: Acute (3) Elevated brain natriuretic peptide (BNP) level ICD Code: R79.89 - Other specified abnormal findings of blood chemistry Assessment and Plan Fall at home with closed head injury Dizziness -CT scan doesn't indicate any acute abnormality -Patient is refusing complete PT assessment -Continue to monitor for postconcussion syndrome - Complaint of dizziness this am. Orthostatics ordered. Will monitor overnight, if asymptomatic will DC in am to SNF. Lower extremity edema, elevated BNP - Continue Lasix , no diminished EF reported on echocardiogram - Continue home beta arsalan, LISA inhibitor Hypertension, history of atrial fibrillation -Home medications continued - Monitor orthostatics. Risk of falling - fall precautions, PT, telemetry - Walk test complete, will need O2 on discharge. Continue to monitor. DVT prevention -Sequential compression devices Discharge Planning Case management assisting with dc plans Problem Qualifiers (1) Fall: Qualified Codes: W19.XXXA - Unspecified fall, initial encounter (2) Head injury: Qualified Codes: S09.90XA - Unspecified injury of head, initial encounter Shira Delgadillo Jan 30, 2017 16:55
[2017-01-30] MEDS: ACETAMINOPHEN/HYDROcodone 325 MG/5 MG TAB PO PRN (23:04)
[2017-01-31] VITALS (8 sets, daily range): BP systolic 129–190; BP diastolic 62–98; PULSE 54–67; RESP 16–20; TEMP 96.2–98.2; O2SAT 94–99
[2017-01-31 07:03] LABS: POTASSIUM 3.3 MEQ/L (3.5-5.1)
[2017-01-31 07:07] LABS: BICARBONATE 35.9 MEQ/L (21.0-32.0)
[2017-01-31] MEDS: SODIUM CHLORIDE 0.9% FLUSH 10 ML FLUSH IV FLUSH SCH (09:21)
[2017-01-31] MEDS: PANTOPRAZOLE SOD 40 MG DELAYED RELEASE TAB PO SCH (09:21)
[2017-01-31] MEDS: CHOLECALCIFEROL (VIT D3) 1000 UNIT TAB PO SCH (09:22)
[2017-01-31] MEDS: busPIRone HCL 5 MG TAB PO SCH (09:22)
[2017-01-31] MEDS: LISINOPRIL 5 MG TAB PO SCH (09:22)
[2017-01-31] MEDS: POTASSIUM CHLORIDE 10 MEQ CONTROLLED RELEASE TAB PO SCH (09:22)
[2017-01-31] MEDS: ATENOLOL 50 MG TAB PO SCH (09:22)
[2017-01-31] MEDS: DOCUSATE SODIUM 50 MG/SENNA 8.6 MG TAB PO SCH (09:22)
[2017-01-31] MEDS: FUROSEMIDE 40 MG TAB PO SCH (09:22)
[2017-01-31] MEDS: SERTRALINE HCL 50 MG TAB PO SCH (09:23)
[2017-01-31] MEDS ORDERED: ENALAPRILAT 1.25 MG/ML VIAL IV PUSH PRN (09:45)
[2017-01-31] MEDS ORDERED: LISINOPRIL 5 MG TAB PO ONE (09:45)
[2017-01-31] MEDS ORDERED: amLODIPine BESYLATE 5 MG TAB PO ONE (09:45)
[2017-01-31] MEDS ORDERED: POTASSIUM CHLORIDE 20 MEQ CONTROLLED RELEASE TAB PO ONE (12:15)
--- NOTE | 2017-01-31 13:13 | HHI.PR ---
Subjective Remarks Pt was taking a nap when I came in, has no complaints. denies any CP/SOB/N/V/ lightheadedness or dizziness. Objective Vitals Vital Signs Date Time Temp Pulse Resp B/P (MAP) Pulse Ox O2 Delivery O2 Flow Rate FiO2 01/31/17 09:45 64 18 180/90 (120) 96 01/31/17 09:00 96.7 62 16 184/98 (126) 98 190/86 (120) 188/90 (122) 01/31/17 08:08 60 01/31/17 07:00 Nasal Cannula 2.00 28 01/31/17 04:00 96.4 67 20 129/65 (86) 94 01/31/17 00:04 20 01/31/17 00:00 64 01/31/17 00:00 98.2 64 18 140/62 (88) 99 01/30/17 20:00 57 01/30/17 20:00 98.4 66 20 145/65 (91) 99 01/30/17 20:00 99 Nasal Cannula 2.00 28 01/30/17 16:00 96.7 66 20 160/88 (112) 98 I/O 01/30/17 01/30/17 01/30/17 01/31/17 01/31/17 01/31/17 07:00 15:00 23:00 07:00 15:00 23:00 Intake Total 240 ml 960 ml 420 ml Output Total 225 ml 125 ml Balance 240 ml -225 ml 835 ml 420 ml Intake Oral 240 ml 960 ml 420 ml Output Urine Total 225 ml 125 ml # Voids 9 2 # Bowel Movements 4 0 0 0 Result Diagram: 01/29/17 0514 01/31/17 0620 Imaging Last Impressions Chest X-Ray 01/27/178 Signed Impressions: Service Date/Time: Friday, January 27, 2017 22:25 - CONCLUSION: 1. Cardiomegaly. No acute pulmonary disease. Daniel Ulloa MD Head CT 01/27/17 0000 Signed Impressions: Service Date/Time: Friday, January 27, 2017 22:11 - CONCLUSION: 1. Left scalp soft tissue swelling and hematoma. No fracture or acute intracranial abnormality is identified. 2. Chronic changes include generalized atrophy and chronic white matter changes. Nikko Mccallum MD Objective Remarks GENERAL: sitting on recliner. Napping but easily arousable. HEENT: Extraocular muscles are intact. Trachea midline CARDIAC: Regular rhythm, regular rate. No murmurs LUNGS: Clear to auscultation bilaterally. No wheeze. ABDOMEN: Soft, nontender. Nondistended. Bowel sounds heard in all 4 quadrants. EXTREMITIES: 2+ pitting edema noted bilateral lower extremities, pulses are equal bilaterally. NEUROLOGY: appears calm and pleasant when I spoke w her. Cranial nerves II through XII grossly intact. A/P Problem List: (1) Fall ICD Code: W19.XXXA - Unspecified fall, initial encounter Status: Acute (2) Head injury ICD Code: S09.90XA - Unspecified injury of head, initial encounter Status: Acute (3) Elevated brain natriuretic peptide (BNP) level ICD Code: R79.89 - Other specified abnormal findings of blood chemistry Assessment and Plan Fall at home with closed head injury Dizziness -CT scan doesn't indicate any acute abnormality except for left scalp hematoma. -Apparently pt has been refusing to work w PT on and off, she did work w them yesterday. Pt will need rehab. Arrangements already made by CM. -Continue to monitor for postconcussion syndrome -No dizziness this morning reported. Pt feels well. Orthostatics reviewed Lower extremity edema, elevated BNP - Continue Lasix , no diminished EF reported on echocardiogram - Continue home beta arsalan, LISA inhibitor Hypertension, history of atrial fibrillation - uncontrolled this morning. lisinopril increased to 10mg po daily and added amlodipine 5mg po daily. - monitor closely Risk of falling - fall precautions, PT, - will need O2 on discharge. Continue to monitor. DVT prevention -Sequential compression devices Discharge Planning anticipate discharge later today if BP improved. Problem Qualifiers (1) Fall: Qualified Codes: W19.XXXA - Unspecified fall, initial encounter (2) Head injury: Qualified Codes: S09.90XA - Unspecified injury of head, initial encounter Stacy Luis MD Jan 31, 2017 13:13
[2017-01-31] MEDS ORDERED: KLOR10TA PO (13:53)
[2017-01-31] MEDS ORDERED: AMLO2.5T PO (13:53)
[2017-01-31] MEDS ORDERED: FURO40TA PO (13:53)
[2017-01-31] MEDS ORDERED: LISI10TA3 PO (13:53)
--- NOTE | 2017-01-31 13:53 | HHI.DCPOC ---
Discharge Care Plan Diagnosis: (1) Elevated brain natriuretic peptide (BNP) level (2) Fall (3) Head injury Your Health Problems Are: Fluid/Lung Overload Shortness of Breath Additional Problems Hypertension. Please monitor closely to keep sys BP <150 and gopal <90. Hold medications if sys <110 and gopal <60. Goals to Promote Your Health * To prevent worsening of your condition and complications * To maintain your health at the optimal level Directions to Meet Your Goals Take your medications as prescribed Follow your dietary instruction Follow activity as directed Keep your appointments as scheduled Take your immunizations and boosters as scheduled If your symptoms worsen call your PCP, if no PCP go to Urgent Care Center or Emergency Room Smoking is Dangerous to Your Health. Avoid second hand smoke Call the 24-hour hour crisis hotline for domestic abuse at Shira Delgadillo Jan 31, 2017 13:53
--- NOTE | 2017-01-31 14:01 | HHI.DS ---
Discharge Summary Admission Date Jan 30, 2017 at 10:21 Discharge Date: Jan 31, 2017 Admitting Diagnosis dyspnea, chf, h/o copd; minor CHI (1) Fall ICD Code: W19.XXXA - Unspecified fall, initial encounter Diagnosis: Principal Status: Acute (2) Head injury ICD Code: S09.90XA - Unspecified injury of head, initial encounter Diagnosis: Principal Status: Acute (3) Elevated brain natriuretic peptide (BNP) level ICD Code: R79.89 - Other specified abnormal findings of blood chemistry Diagnosis: Principal Procedures none Brief History - From Admission 86-year-old female with known history of hypertension, atrial fibrillation, depression, frequent falls who presented to the hospital because of fall at home. Patient was rather uncooperative during examination. She did answer some questions but then stated she did not want to answer more questions and wanted to be left alone. Prior to the patient this connecting conversation she indicated that she lives at home by herself. She was putting something into the refrigerator and when she turned around she fell down backwards hitting her head. And apparently her medical alert bracelet contacted EMS who evaluated her and brought her to the hospital for evaluation. Patient had CT scan done of the brain which did not indicate any acute abnormality. Laboratory studies were performed which did show abnormal finding of elevated BNP, chest x-ray was done which did not indicate any acute abnormality. She did have lower extremity edema. It was indicated in ER documentation that patient demonstrated exertional dyspnea patient was given Lasix in the emergency department with diuresis of 1 L of fluid. The patient denied any symptoms. She denied any chest pain, shortness of breath, dyspnea on exertion. Records also indicate that the patient has history of COPD and on supplemental oxygen, however there is no report that she is on oxygen at home. Because of the above reasons is recommended by the ER physician that the patient be observed for further recommendations. CBC/BMP: 01/29/17 0514 01/31/17 0620 Significant Findings Laboratory Tests Test 01/29/17 05:14 01/31/17 06:20 Platelet Count 117 TH/MM3 (150-450) Neutrophils (%) (Auto) 75.0 % (16.0-70.0) Monocytes (%) (Auto) 9.0 % (0.0-8.0) Lymphocytes # (Auto) 0.7 TH/MM3 (1.0-4.8) Platelet Estimate LOW (NORMAL) Blood Urea Nitrogen 25 MG/DL (7-18) 25 MG/DL (7-18) Creatinine 1.10 MG/DL (0.50-1.00) Total Protein 6.1 GM/DL (6.4-8.2) Albumin 2.4 GM/DL (3.4-5.0) Calcium Level 8.3 MG/DL (8.5-10.1) 8.2 MG/DL (8.5-10.1) Alkaline Phosphatase 139 U/L (45-117) Total Bilirubin 1.1 MG/DL (0.2-1.0) Carbon Dioxide Level 33.6 MEQ/L (21.0-32.0) 35.9 MEQ/L (21.0-32.0) Estimat Glomerular Filtration Rate 47 ML/MIN (>89) 53 ML/MIN (>89) Potassium Level 3.3 MEQ/L (3.5-5.1) Imaging Last Impressions Chest X-Ray 01/27/178 Signed Impressions: Service Date/Time: Friday, January 27, 2017 22:25 - CONCLUSION: 1. Cardiomegaly. No acute pulmonary disease. Daniel Ulloa MD Head CT 01/27/17 0000 Signed Impressions: Service Date/Time: Friday, January 27, 2017 22:11 - CONCLUSION: 1. Left scalp soft tissue swelling and hematoma. No fracture or acute intracranial abnormality is identified. 2. Chronic changes include generalized atrophy and chronic white matter changes. Nikko Mccallum MD PE at Discharge GENERAL: sitting on recliner. Napping but easily arousable. HEENT: Extraocular muscles are intact. Trachea midline CARDIAC: Regular rhythm, regular rate. No murmurs LUNGS: Clear to auscultation bilaterally. No wheeze. ABDOMEN: Soft, nontender. Nondistended. Bowel sounds heard in all 4 quadrants. EXTREMITIES: 2+ pitting edema noted bilateral lower extremities, pulses are equal bilaterally. NEUROLOGY: appears calm and pleasant when I spoke w her. Cranial nerves II through XII grossly intact. Pt update on day of discharge Pt was taking a nap when I came in, has no complaints. denies any CP/SOB/N/V/ lightheadedness or dizziness. Hospital Course Patient presented status post fall at home with closed head injury. CT head showing left scalp soft tissue swelling and hematoma. No fracture or acute intracranial abnormality. Chronic changes include generalized atrophy and chronic white matter changes. Patient did complain of dizziness while hospitalized but resolved upon discharge. Apparently pt has been refusing to work w PT on and off. Monitored for postconcussion syndrome with no signs and symptoms of it. Orthostatics done and negative. Patient presented with lower extremity edema and elevated BNP. Started on Lasix 40 mg PO daily and potassium supplementation. No diminished EF reported on echocardiogram. Patient did have some hypertension and does have a history of atrial fibrillation. Lisinopril increased to 10mg po daily and given a dose amlodipine 5mg po, but will discharge w 2.5mg po daily to avoid dropping BPs too low for age. PT recommendations for rehab. Will need O2 upon discharge. Pt Condition on Discharge: Stable Discharge Disposition: Discharge to SNF Discharge Time: > 30 minutes Discharge Instructions DIET: Follow Instructions for: Heart Healthy Diet Speech Therapy-Diet Recommends: Regular Activities you can perform: Regular-No Restrictions Follow up Referrals: PCP Follow-up - 1 Week New Medications: Amlodipine (Amlodipine) 2.5 Mg Tab 2.5 MG PO DAILY for Blood Pressure Management, #30 TAB 0 Refills Furosemide (Furosemide) 40 Mg Tab 40 MG PO DAILY for HTN for 30 Days, #30 TAB Lisinopril (Lisinopril) 10 Mg Tab 10 MG PO DAILY for HTN for 30 Days, #30 TAB Potassium Chloride ER (Klor-Con 10) 10 Meq Tab 10 MEQ PO Q12HR for supplementation for 30 Days, #60 TAB Continued Medications: Albuterol 18 GM Inh (Ventolin Hfa 18 GM Inh) 90 Mcg/Act Aer 2 PUFF INH Q4H PRN for SHORTNESS OF BREATH, #1 INHALER 0 Refills Atenolol (Atenolol) 100 Mg Tab 100 MG PO BID for Blood Pressure Management, #60 TAB 0 Refills Buspirone (Buspirone) 5 Mg Tab 5 MG PO BID for Anxiety, TAB 0 Refills Cholecalciferol (Vitamin D3) 1,000 Unit Tab 1000 UNITS PO DAILY for Nutritional Supplement, #1 BOTTLE 0 Refills Lansoprazole (Lansoprazole) 30 Mg Capdr 30 MG PO DAILY, CAP 0 Refills Sertraline (Sertraline) 25 Mg Tab 25 MG PO DAILY, #30 TAB 0 Refills Discontinued Medications: Lisinopril (Lisinopril) 10 Mg Tab 10 MG PO BID PRN for RAPID HEART RATE, #30 TAB 0 Refills Shira Delgadillo Jan 31, 2017 14:01 Stacy Luis MD Jan 31, 2017 17:15
[2017-02-01] MEDS ORDERED: LISINOPRIL 10 MG TAB PO SCH (09:00)
[2017-02-01] MEDS ORDERED: amLODIPine BESYLATE 5 MG TAB PO SCH (09:00)
== END 2017-01-31 18:40 | DRG 605 ==
LOC: PHED 21:30 → PHEDA 01-28 01:53 → PH3B 01-28 03:33 → OBSVTOIN 01-30 10:21
PROVIDERS: ADMIT Hospitalist; ATTEND Hospitalist
DX: S00.03XA Contusion of scalp, initial encounter (principal); I48.0 Paroxysmal atrial fibrillation; J44.9 Chronic obstructive pulmonary disease, unspecified; R42 Dizziness and giddiness; I10 Essential (primary) hypertension; K21.9 Gastro-esophageal reflux disease without esophagitis; R29.6 Repeated falls; F41.9 Anxiety disorder, unspecified; W01.198A Fall on same level from slipping, tripping and stumbling with subsequent striking against other object, initial encounter; Y92.000 Kitchen of unspecified non-institutional (private) residence as the place of occurrence of the external cause; Z96.653 Presence of artificial knee joint, bilateral; Z88.1 Allergy status to other antibiotic agents; Z88.2 Allergy status to sulfonamides
CPT/HCPCS: 70450; 71010; 80048; 80053; 83735; 83880; 84484; 85025; 93005; 93306; 94620; 94640; 94664; 96374; 96376; G0378; G8987-GP; G8988-GP; J1940; J7613

== ENCOUNTER 2017-03-17 03:32 | Observation (INO) | payer MEDICARE, OTHER ==
[~2017-03-17] VITALS: Ht 160 cm; Wt 85.5 kg
[2017-03-17] VITALS (13 sets, daily range): BP systolic 115–184; BP diastolic 79–100; PULSE 61–93; RESP 18–22; TEMP 97.9–98.8; O2SAT 92–96
[~2017-03-17 03:32] MED LIST changes: +AMLO2.5T PO; +FURO40TA PO; +KLOR10TA PO; +VENTAER INH
[2017-03-17] MEDS ORDERED: SODIUM CHLORIDE 0.9% FLUSH 10 ML FLUSH IVF PRN (03:45)
[2017-03-17] MEDS ORDERED: methylPREDNISolone SOD SUCC 125 MG/2 ML VIAL IV PUSH ONE (03:45)
[2017-03-17] MEDS: RESP: ALBUTEROL 2.5 MG/IPRATROPIUM 0.5 MG NEB (SCH) INH ×2 (03:50→03:51)
[2017-03-17 04:11] LABS: AUTOMATED NEUTROPHIL # 2.8 TH/MM3 (1.8-7.7); BASOPHIL % 0.3 % (0.0-2.0); EOSINOPHIL # 0.1 TH/MM3 (0-0.4); EOSINOPHIL % 3.4 % (0.0-4.0); HEMATOCRIT 44.3 % (35.0-46.0); HEMOGLOBIN 14.6 GM/DL (11.6-15.3); LYMPH % 21.8 % (9.0-44.0); LYMPHOCYTE # 0.9 TH/MM3 (1.0-4.8); MEAN CELL VOLUME 94.9 FL (80.0-100.0); MEAN CORPUSCULAR HEMOGLOBIN 31.3 PG (27.0-34.0); MEAN PLATELET VOLUME 10.9 FL (7.0-11.0); MONO % 7.9 % (0.0-8.0); MONOCYTE # 0.3 TH/MM3 (0-0.9); NEUT % 66.6 % (16.0-70.0); PLATELET COUNT 119 TH/MM3 (150-450); RED BLOOD COUNT 4.66 MIL/MM3 (4.00-5.30); RED CELL DISTRIBUTION WIDTH 15.8 % (11.6-17.2); WHITE BLOOD COUNT 4.2 TH/MM3 (4.0-11.0)
[2017-03-17 04:21] LABS: INTERNATIONAL NORMALIZED RATIO 1.4 RATIO
--- NOTE | 2017-03-17 04:32 | RADRPT ---
EXAM DATE/TIME: 03/17/2017 03:56 [facility] COMPARISON: CHEST SINGLE AP, January 27, 2017, 22:25. INDICATIONS : Shortness of breath MEDICAL HISTORY : None. SURGICAL HISTORY : None. ENCOUNTER: Initial ACUITY: 1 day PAIN SCORE: 7/10 LOCATION: Bilateral chest FINDINGS: There is bibasilar consolidation. Small, bilateral pleural effusions are likely. No pneumothorax. Heart size stable, upper limits of normal. CONCLUSION: Mild bibasilar consolidation and small pleural effusions. Nikko Dias MD on March 17, 2017 at 4:30 Board Certified Radiologist. This report was verified electronically.
[2017-03-17 04:33] LABS: ALBUMIN 2.9 GM/DL (3.4-5.0); AST (GOT) 40 U/L (15-37); BICARBONATE 30.3 MEQ/L (21.0-32.0); BLOOD UREA NITROGEN 31 MG/DL (7-18); CALCIUM 9.1 MG/DL (8.5-10.1); CHLORIDE 102 MEQ/L (98-107); CREATININE 1.24 MG/DL (0.50-1.00); GLOMERULAR FILTRATION RATE 41 ML/MIN (>89); GLUCOSE,RANDOM 101 MG/DL (74-106); MAGNESIUM 1.8 MG/DL (1.5-2.5); SODIUM (NA) 139 MEQ/L (136-145)
[2017-03-17 04:39] LABS: ALKALINE PHOSPHATASE 167 U/L (45-117); ALT (GPT) 19 U/L (10-53); TOTAL BILIRUBIN ADULT 1.2 MG/DL (0.2-1.0); TOTAL PROTEIN 7.3 GM/DL (6.4-8.2); TROPONIN I 0.05 NG/ML (0.02-0.05)
[2017-03-17] MEDS ORDERED: FUROSEMIDE 40 MG/4 ML VIAL IV PUSH ONE (05:15)
--- NOTE | 2017-03-17 05:29 | PD ---
HPI Chief Complaint: Dizziness Time Seen by Provider: 03:41 Travel History International Travel<30 days: No Contact w/Intl Traveler<30days: No Traveled to known affect area: No History of Present Illness HPI The patient is an 86 year old female who presents to the [facility] emergency department with a history of shortness of breath that has worsened over the last week. The patient reports that she's had a cough that is been productive of clear sputum, nausea vomiting twice since yesterday, and dyspnea on exertion that is gradually been worsening over the last year. Ambulance services were called for the patient at home and the patient was noted to be on room air. She denies being on oxygen at home. The patient's O2 saturations on room air were 88%. The patient was transported to this facility on 2 L nasal cannula O2. The patient's blood sugar was noted to be 98 prior to arrival. The patient was noted be afebrile by ambulance services. She denies having any prior history of smoking or COPD, however after reviewing the electronic medical record, the patient has previously been diagnosed with COPD. She cannot recall the name of her primary care physician. She reports that she has been on a diuretic 2 weeks ago related to lower extremity edema, however the edema resolved, therefore this was discontinued. She denies having any known history of irregular heartbeat, however after reviewing the record the patient has been diagnosed with atrial fibrillation in the past. On review of systems, the patient denies having any known fevers, however she has had chills. She denies having any new neck pain, chest pain, abdominal pain, diarrhea, urinary symptoms, or neurologic symptoms. [facility] Past Medical History Narrative Medical The patient's past medical history is significant for according to the electronic medical record a history of hypertension, anxiety disorder, history of COPD, atrial fibrillation, arthritis, acid reflux, colon polyps Arthritis: Yes (shoulder- gets aspirated fluid once in awhile) Asthma: No Anxiety: Yes Depression: Yes (AT TIME OF HUSBANDS ) Heart Rhythm Problems: No Cancer: No Cardiovascular Problems: Yes High Cholesterol: No Chest Pain: No Congestive Heart Failure: Yes COPD: No Cerebrovascular Accident: No Diabetes: No Diminished Hearing: No Endocrine: No Gastrointestinal Disorders: Yes (POLYPS) GERD: Yes Genitourinary: No Hiatal Hernia: No Hypertension: Yes Immune Disorder: No Implanted Vascular Access Dvce: No Kidney Stones: No Musculoskeletal: Yes Neurologic: No Psychiatric: No Reproductive: No Respiratory: No Immunizations Current: Yes Migraines: No Renal Failure: No Seizures: No Sleep Apnea: No Thyroid Disease: No Ulcer: No Influenza Vaccination: No PNEUMOCCOCAL Vaccine (Year): 1 Menopausal: Yes Para: 4 Miscarriage: 4 Past Surgical History Narrative Surgical The patient's past surgical history is significant for bilateral knee replacements, history of a hysterectomy. Abdominal Surgery: No Cardiac Surgery: No Ear Surgery: No Endocrine Surgery: No Eye Surgery: No Genitourinary Surgery: No Gynecologic Surgery: Yes (HYSTERECTOMY) Hysterectomy: Yes Joint Replacement: Yes (BILAT KNEES) Oral Surgery: No Pacemaker: No Thoracic Surgery: No Other Surgery: Yes Social History Alcohol Use: Yes (OCCASIONALLY VODKA) Tobacco Use: No Substance Use: No Allergies-Medications (Allergen,Severity, Reaction): Coded Allergies: Sulfa (Sulfonamide Antibiotics) (Unverified Allergy, Severe, PT DOES NOT REMEMBER, 03/17/17) levofloxacin (Unverified Allergy, Severe, PT STATES "DRIVES ME CRAZY", ) Reported Meds & Prescriptions Reported Meds & Active Scripts Active Amlodipine (Amlodipine Besylate) 2.5 Mg Tab 2.5 Mg PO DAILY Furosemide 40 Mg Tab 40 Mg PO DAILY 30 Days Klor-Con 10 (Potassium Chloride) 10 Meq Tab 10 Meq PO Q12HR 30 Days Lisinopril 10 Mg Tab 10 Mg PO DAILY 30 Days Reported Ventolin Hfa 18 GM Inh (Albuterol Sulfate) 90 Mcg/Act Aer 2 Puff INH Q4H PRN Lansoprazole 30 Mg Capdr 30 Mg PO DAILY Vitamin D3 (Cholecalciferol) 1,000 Unit Tab 1,000 Units PO DAILY Buspirone (Buspirone HCl) 5 Mg Tab 5 Mg PO BID Atenolol 100 Mg Tab 100 Mg PO BID Sertraline (Sertraline HCl) 25 Mg Tab 25 Mg PO DAILY Review of Systems Except as stated in HPI: all other systems reviewed are Neg General / Constitutional: Positive: Chills, No: Fever Eyes: No: Visual changes HENT: Positive: Rhinorrhea, Congestion, No: Headaches Cardiovascular: Positive: Dyspnea on exertion, No: Chest Pain or Discomfort Respiratory: Positive: Cough, Shortness of Breath Gastrointestinal: Positive: Nausea, Vomiting, No: Diarrhea, Abdominal Pain, Changes in Bowel Habits, Indigestion, Loss of Appetite Genitourinary: No: Dysuria Musculoskeletal: No: Pain Skin: No Rash Neurologic: Positive: Weakness (generalized weakness), No: Focal Abnormalities , Change in Mentation, Slurred Speech, Sensory Disturbance Psychiatric: No: Depression Endocrine: No: Polydipsia Hematologic/Lymphatic: No: Easy Bruising Physical Exam Narrative General: The patient is a well-developed well-nourished female, short of breath on arrival with accessory muscle use noted and conversational dyspnea. Head and Neck exam: Head is normocephalic atraumatic. Eyes: EOMI, pupils are equal round and reactive to light. Nose: Midline septum with pink mucous membranes Mouth: Dentition unremarkable. Moist mucus membranes. Posterior oropharynx is not erythematous. No tonsillar hypertrophy. Uvula midline. Airway patent. Neck: No palpable lymphadenopathy. No nuchal rigidity. No thyromegaly. Cardiovascular: Irregularly irregular with rate control on the monitor with a heart rate in the 60s without murmurs, gallops, or rubs. Lungs: Expiratory wheezes are audible in bilateral lung castaneda, decreased breath sounds in the bases. Scattered rhonchi are audible with occasional coughing. The patient has accessory muscle use noted. No tripoding or paroxysmal abdominal breathing. Abdomen: Soft, without tenderness to palpation in all 4 quadrants of the abdomen. No guarding, rebound, or rigidity. Normal bowel sounds are audible. No tenderness on palpation of McBurney's point. Extremities: No clubbing or cyanosis. The patient has trace pedal edema bilateral lower extremities. 2+ pulses in all 4 extremities. No calf tenderness on palpation. Back: No costovertebral angle tenderness to palpation. Neurologic Exam: Grossly nonfocal. Skin Exam: No rash noted. Intact skin that is warm and dry. Data Data Last Documented VS Vital Signs Date Time Temp Pulse Resp B/P (MAP) Pulse Ox O2 Delivery O2 Flow Rate FiO2 03/17/17 03:43 97.9 64 22 184/93 (123) 95 Orders Orders Complete Blood Count With Diff (03/17/17 03:41) Comprehensive Metabolic Panel (03/17/17 03:41) B-Type Natriuretic Peptide (03/17/17 03:41) Act Partial Throm Time (Ptt) (03/17/17 03:41) Prothrombin Time / Inr (Pt) (03/17/17 03:41) Magnesium (Mg) (03/17/17 03:41) Ckmb (Isoenzyme) Profile (03/17/17 03:41) Troponin I (03/17/17 03:41) Iv Access Insert/Monitor (03/17/17 03:41) Electrocardiogram (03/17/17 03:41) Ecg Monitoring (03/17/17 03:41) Oximetry (03/17/17 03:41) Oxygen Administration (03/17/17 03:41) Chest, Single Ap (03/17/17 03:41) Sodium Chloride 0.9% Flush (Ns Flush) (03/17/17 03:45) Methylprednisolone So Succ Inj (Solumedr (03/17/17 03:45) Albuterol-Ipratropium Neb (Duoneb Neb) (03/17/17 03:45) CKMB (03/17/17 03:50) CKMB% (03/17/17 03:50) Furosemide Inj (Lasix Inj) (03/17/17 05:15) Labs Laboratory Tests Test 03/17/17 03:50 White Blood Count 4.2 TH/MM3 Red Blood Count 4.66 MIL/MM3 Hemoglobin 14.6 GM/DL Hematocrit 44.3 % Mean Corpuscular Volume 94.9 FL Mean Corpuscular Hemoglobin 31.3 PG Mean Corpuscular Hemoglobin Concent 33.0 % Red Cell Distribution Width 15.8 % Platelet Count 119 TH/MM3 Mean Platelet Volume 10.9 FL Neutrophils (%) (Auto) 66.6 % Lymphocytes (%) (Auto) 21.8 % Monocytes (%) (Auto) 7.9 % Eosinophils (%) (Auto) 3.4 % Basophils (%) (Auto) 0.3 % Neutrophils # (Auto) 2.8 TH/MM3 Lymphocytes # (Auto) 0.9 TH/MM3 Monocytes # (Auto) 0.3 TH/MM3 Eosinophils # (Auto) 0.1 TH/MM3 Basophils # (Auto) 0.0 TH/MM3 CBC Comment DIFF FINAL Differential Comment Prothrombin Time 14.0 SEC Prothromb Time International Ratio 1.4 RATIO Activated Partial Thromboplast Time 26.3 SEC Blood Urea Nitrogen 31 MG/DL Creatinine 1.24 MG/DL Random Glucose 101 MG/DL Total Protein 7.3 GM/DL Albumin 2.9 GM/DL Calcium Level 9.1 MG/DL Magnesium Level 1.8 MG/DL Alkaline Phosphatase 167 U/L Aspartate Amino Transf (AST/SGOT) 40 U/L Alanine Aminotransferase (ALT/SGPT) 19 U/L Total Bilirubin 1.2 MG/DL Sodium Level 139 MEQ/L Potassium Level 3.4 MEQ/L Chloride Level 102 MEQ/L Carbon Dioxide Level 30.3 MEQ/L Anion Gap 7 MEQ/L Estimat Glomerular Filtration Rate 41 ML/MIN Total Creatine Kinase 174 U/L Creatine Kinase MB 1.9 NG/ML Troponin I 0.05 NG/ML B-Type Natriuretic Peptide 855 PG/ML MDM Medical Decision Making Medical Screen Exam Complete: Yes Emergency Medical Condition: Yes Medical Record Reviewed: Yes Interpretation(s) Last Impressions Chest X-Ray 03/17/17 0341 Signed Impressions: Service Date/Time: Sunday, March 17, 2017 03:56 - CONCLUSION: Mild bibasilar consolidation and small pleural effusions. Nikko Dias MD Differential Diagnosis COPD exacerbation, versus pneumonia, versus congestive heart failure Narrative Course During the course of the patients emergency department visit, the patients history, examination, and differential diagnosis were reviewed with the patient. The patient was placed on a monitoring manager with oximetry and frequent blood pressure monitoring. The patient had IV access obtained and blood work sent for analysis. The patient had an ECG done on arrival that shows atrial fibrillation with a heart rate of 61, no acute ST segment elevation is noted. A left anterior fascicular block is noted. QRS duration is 100 ms, QTC 438 ms. the patient was continued on supplemental oxygen and she was requiring supplemental O2 to maintain her O2 saturation greater than 90%. The patient was initially provided Solu-Medrol 125 mg IV, DuoNeb 3. After her BNP was noted to be elevated and she had evidence of pleural effusions, bibasilar infiltrates suspicious for a CHF exacerbation, the patient was given Lasix 60 mg IV. The patients laboratory studies were reviewed and remarkable for a CBC that is remarkable for a platelet count of 119, CMP is remarkable for potassium of 3.4, BUN 31, creatinine 1.24, total bilirubin 1.2, AST 40, alkaline phosphatase 167, cardiac enzymes within normal limits, BNP 855, PT 14, INR 1.4, PTT 26.3. Radiology studies were reviewed and remarkable for mild bibasilar consolidation with pleural effusions. The patients results were discussed with the patient, including the plan of care. I explained that further testing and/ or monitoring is indicated based on the patients history, examination, and/ or laboratory findings. Therefore, I recommended admission for additional evaluation. The patient expressed understanding and was agreeable with this plan. The patient was admitted to the hospital in stable condition and sent to a bed under the care of [facility] service. Physician Communication Physician Communication The patient's case including history, pertinent physical examination findings, and laboratory studies were discussed with Dr. Manning It was agreed that the patient would be admitted to the [facility] service. Diagnosis Primary Impression: Shortness of breath Additional Impressions: CHF exacerbation Qualified Codes: I50.9 - Heart failure, unspecified COPD exacerbation Admitting Information Admitting Physician Requests: Admit Bernie Gore MD Mar 17, 2017 05:29
[2017-03-17] MEDS ORDERED: SODIUM CHLORIDE 0.9% FLUSH 10 ML FLUSH IV FLUSH PRN (05:30)
[2017-03-17] MEDS ORDERED: SENNOSIDES 8.6 MG TAB PO PRN (05:30)
[2017-03-17] MEDS ORDERED: ACETAMINOPHEN 325 MG TAB PO PRN (05:30)
[2017-03-17] MEDS ORDERED: ONDANSETRON HCL 4 MG/2 ML VIAL IVP PRN (05:30)
[2017-03-17] MEDS ORDERED: BISACODYL 10 MG SUPP RECTAL PRN (05:30)
[2017-03-17] MEDS ORDERED: ACETAMINOPHEN/HYDROcodone 325 MG/10 MG TAB PO PRN (05:30)
[2017-03-17] MEDS ORDERED: ACETAMINOPHEN/HYDROcodone 325 MG/5 MG TAB PO PRN (05:30)
[2017-03-17] MEDS ORDERED: MAGNESIUM HYDROXIDE SUSP 30 ML CUP PO PRN (05:30)
[2017-03-17] MEDS ORDERED: RESP: ALBUTEROL 2.5 MG/IPRATROPIUM 0.5 MG NEB (PRN) NEB (05:30)
[2017-03-17] MEDS ORDERED: LACTULOSE SYRUP 20 GM/30 ML CUP PO PRN (05:30)
[2017-03-17] MEDS: methylPREDNISolone SOD SUCC 40 MG/1 ML VIAL IV PUSH SCH ×3 (05:48→18:04)
[2017-03-17] MEDS: RESP: ALBUTEROL 2.5 MG/IPRATROPIUM 0.5 MG NEB (SCH) NEB ×4 (07:39→19:16)
[2017-03-17] MEDS: DOCUSATE SODIUM 50 MG/SENNA 8.6 MG TAB PO SCH ×2 (10:10→21:00)
[2017-03-17] MEDS: PANTOPRAZOLE SOD 40 MG DELAYED RELEASE TAB PO SCH (10:11)
[2017-03-17] MEDS: SERTRALINE HCL 50 MG TAB PO SCH (10:11)
[2017-03-17] MEDS: busPIRone HCL 5 MG TAB PO SCH ×2 (10:11→20:58)
[2017-03-17] MEDS: CHOLECALCIFEROL (VIT D3) 1000 UNIT TAB PO SCH (10:11)
[2017-03-17] MEDS: ATENOLOL 100 MG TAB PO SCH ×2 (10:12→20:57)
[2017-03-17] MEDS: SODIUM CHLORIDE 0.9% FLUSH 10 ML FLUSH IV FLUSH SCH ×2 (10:13→20:58)
[2017-03-17] MEDS: BUDESONIDE-FORMOTEROL 160/4.5 MCG INHALER INH SCH ×2 (10:13→20:55)
[2017-03-17] MEDS: HEPARIN SODIUM - SQ 10,000 UNITS/ML VIAL SQ SCH ×2 (10:13→20:59)
[2017-03-17] MEDS: FUROSEMIDE 40 MG/4 ML VIAL IV PUSH SCH ×2 (10:14→18:14)
[2017-03-17] MEDS ORDERED: amLODIPine BESYLATE 5 MG TAB PO ONE (10:30)
[2017-03-17] MEDS ORDERED: cloNIDine HCL 0.1 MG TAB PO PRN (10:30)
--- NOTE | 2017-03-17 10:30 | HHI.HP ---
[facility] Primary Care Physician Unknown Admission Diagnosis COPD and CHF exacerbation Diagnoses: Travel History International Travel<30 Days: No Contact w/Intl Traveler <30 Da: No Traveled to Known Affected Are: No History of Present Illness Mrs. Honeycutt is an 86-year-old female. She was admitted secondary to shortness of breath. She has COPD and CHF at baseline. Both of these conditions appear exacerbated. She reports that she's over the past week she's had an acute onset of shortness of breath on a chronic shortness of breath baseline she's experienced over the past year. She denies any chest pain. No fever. No cough. Imaging shows no pneumonia. Today she does have some uncontrolled blood pressures but no other symptoms or complaints are present. Review of Systems Constitutional: DENIES: Fatigue, Chills, Night Sweats Eyes: DENIES: Blurred vision, Diplopia, Eye inflammation Ears, nose, mouth, throat: DENIES: Tinnitus, Hearing loss, Vertigo Respiratory: COMPLAINS OF: Cough, Wheezing, Shortness of breath Cardiovascular: DENIES: Chest pain, Palpitations, Syncope Gastrointestinal: DENIES: Abdominal pain, Black stools, Bloody stools Musculoskeletal: DENIES: Joint pain, Muscle aches, Stiffness, Joint Swelling Integumentary: DENIES: Abnormal pigmentation, Pruritus, Rash, Nail changes Hematologic/lymphatic: DENIES: Bruising, Lymphadenopathy Immunologic/allergic: DENIES: Eczema, Urticaria Neurologic: DENIES: Abnormal gait, Headache, Paresthesias Psychiatric: DENIES: Anxiety, Confusion, Depression Past Family Social History Past Medical History Hypertension Anxiety disorder COPD Atrial fibrillation Arthritis Gastroesophageal reflux History of colon polyps Osteoarthritis Congestive heart failure next line hypertension Past Surgical History Bilateral knee replacements Hysterectomy Reported Medications Reported Meds & Active Scripts Active Amlodipine (Amlodipine Besylate) 2.5 Mg Tab 2.5 Mg PO DAILY Furosemide 40 Mg Tab 40 Mg PO DAILY 30 Days Klor-Con 10 (Potassium Chloride) 10 Meq Tab 10 Meq PO Q12HR 30 Days Lisinopril 10 Mg Tab 10 Mg PO DAILY 30 Days Reported Ventolin Hfa 18 GM Inh (Albuterol Sulfate) 90 Mcg/Act Aer 2 Puff INH Q4H PRN Lansoprazole 30 Mg Capdr 30 Mg PO DAILY Vitamin D3 (Cholecalciferol) 1,000 Unit Tab 1,000 Units PO DAILY Buspirone (Buspirone HCl) 5 Mg Tab 5 Mg PO BID Atenolol 100 Mg Tab 100 Mg PO BID Sertraline (Sertraline HCl) 25 Mg Tab 25 Mg PO DAILY Allergies: Coded Allergies: Sulfa (Sulfonamide Antibiotics) (Unverified Allergy, Severe, PT DOES NOT REMEMBER, 03/17/17) levofloxacin (Unverified Allergy, Severe, PT STATES "DRIVES ME CRAZY", ) Active Ordered Medications Administered Medications Medications (Trade) Dose Ordered Sig/Jose Route PRN Reason Start Time Stop Time Status Last Admin Dose Admin Furosemide (Lasix Inj) 40 mg BID@,18 IV PUSH 03/17/17 09:00 03/17/17 10:14 Albuterol/ Ipratropium (Duoneb Neb) 1 ampule Q4HR WHILE AWAKE NEB NEB 03/17/17 08:00 03/17/17 07:39 Budesonide/ Formoterol Fumarate (Symbicort 160-4.5 Mcg Inh) 2 puff Q12HR INH 03/17/17 09:00 03/17/17 10:13 Sodium Chloride (NS Flush) 2 ml BID IV FLUSH 03/17/17 09:00 03/17/17 10:13 Heparin Sodium (Porcine) (Heparin Inj) 5,000 units Q12H SQ 03/17/17 09:00 03/17/17 10:13 Atenolol (Tenormin) 100 mg BID PO 03/17/17 09:00 03/17/17 10:12 Buspirone HCl (Buspar) 5 mg BID PO 03/17/17 09:00 03/17/17 10:11 Cholecalciferol (Vitamin D3) 1,000 units DAILY PO 03/17/17 09:00 03/17/17 10:11 Pantoprazole Sodium (Protonix) 40 mg DAILY PO 03/17/17 09:00 03/17/17 10:11 Sertraline HCl (Zoloft) 25 mg DAILY PO 03/17/17 09:00 03/17/17 10:11 Family History Myocardial infarction in father at the age 41 Coronary artery disease in brother Social History Occasional alcohol No history of smoking No history of illicit drug abuse Physical Exam Vital Signs Vital Signs Date Time Temp Pulse Resp B/P (MAP) Pulse Ox O2 Delivery O2 Flow Rate FiO2 03/17/17 08:31 97.9 70 20 180/100 (126) 96 03/17/17 06:01 70 20 161/91 (114) 94 03/17/17 05:40 95 03/17/17 05:21 61 22 170/94 (119) 96 Room Air 03/17/17 03:43 97.9 64 22 184/93 (123) 95 Physical Exam GENERAL: This is a well-nourished, well-developed patient, in no apparent distress. SKIN: No rashes, ecchymoses or lesions. Cool and dry. HEAD: Atraumatic. Normocephalic. No temporal or scalp tenderness. EYES: Pupils equal round and reactive. Extraocular motions intact. No scleral icterus. No injection or drainage. ENT: Nose without bleeding, purulent drainage or septal hematoma. Throat without erythema, tonsillar hypertrophy or exudate. Uvula midline. Airway patent. NECK: Trachea midline. No JVD or lymphadenopathy. Supple, nontender, no meningeal signs. CARDIOVASCULAR: Regular rate and rhythm without murmurs, gallops, or rubs. RESPIRATORY: Clear to auscultation. Breath sounds equal bilaterally. No wheezes , rales, or rhonchi. GASTROINTESTINAL: Abdomen soft, non-tender, nondistended. No hepato-splenomegaly , or palpable masses. No guarding. MUSCULOSKELETAL: Extremities without clubbing, cyanosis, or edema. No joint tenderness, effusion, or edema noted. No calf tenderness. Negative Homans sign bilaterally. NEUROLOGICAL: Awake and alert. Cranial nerves II through XII intact. Motor and sensory grossly within normal limits. Five out of 5 muscle strength in all muscle groups. Normal speech. Laboratory Laboratory Tests Test 03/17/17 03:50 White Blood Count 4.2 Red Blood Count 4.66 Hemoglobin 14.6 Hematocrit 44.3 Mean Corpuscular Volume 94.9 Mean Corpuscular Hemoglobin 31.3 Mean Corpuscular Hemoglobin Concent 33.0 Red Cell Distribution Width 15.8 Platelet Count 119 Mean Platelet Volume 10.9 Neutrophils (%) (Auto) 66.6 Lymphocytes (%) (Auto) 21.8 Monocytes (%) (Auto) 7.9 Eosinophils (%) (Auto) 3.4 Basophils (%) (Auto) 0.3 Neutrophils # (Auto) 2.8 Lymphocytes # (Auto) 0.9 Monocytes # (Auto) 0.3 Eosinophils # (Auto) 0.1 Basophils # (Auto) 0.0 CBC Comment DIFF FINAL Differential Comment Prothrombin Time 14.0 Prothromb Time International Ratio 1.4 Activated Partial Thromboplast Time 26.3 Blood Urea Nitrogen 31 Creatinine 1.24 Random Glucose 101 Total Protein 7.3 Albumin 2.9 Calcium Level 9.1 Magnesium Level 1.8 Alkaline Phosphatase 167 Aspartate Amino Transf (AST/SGOT) 40 Alanine Aminotransferase (ALT/SGPT) 19 Total Bilirubin 1.2 Sodium Level 139 Potassium Level 3.4 Chloride Level 102 Carbon Dioxide Level 30.3 Anion Gap 7 Estimat Glomerular Filtration Rate 41 Total Creatine Kinase 174 Creatine Kinase MB 1.9 Troponin I 0.05 B-Type Natriuretic Peptide 855 Result Diagram: 03/17/17 03503/17/17 035 Caprini VTE Risk Assessment Caprini VTE Risk Assessment: Mod/High Risk (score >= 2) Caprini Risk Assessment Model Point Value = 1 Point Value = 2 Point Value = 3 Point Value = 5 Age 41-60 Minor surgery BMI > 25 kg/m2 Swollen legs Varicose veins or History of unexplained or recurrent spontaneous Oral contraceptives or hormone replacement Sepsis (< 1 month) Serious lung disease, including pneumonia (< 1 month) Abnormal pulmonary function Acute myocardial infarction Congestive heart failure (< 1 month) History of inflammatory bowel disease Medical patient at bed rest Age 61-74 Arthroscopic surgery Major open surgery (> 45 min) Laparoscopic surgery (> 45 min) Malignancy Confined to bed (> 72 hours) Immobilizing plaster cast Central venous access Age >= 75 History of VTE Family history of VTE Factor V Leiden Prothrombin [id number] Lupus anticoagulant Anticardiolipin antibodies Elevated serum homocysteine Heparin-induced thrombocytopenia Other congenital or acquired thrombophilia Stroke (< 1 month) Elective arthroplasty Hip, pelvis, or leg fracture Acute spinal cord injury (< 1 month) Prophylaxis Regimen Total Risk Factor Score Risk Level Prophylaxis Regimen 0-1 Low Early ambulation 2 Moderate Order ONE of the following: *Sequential Compression Device (SCD) *Heparin 5000 units SQ BID 3-4 Higher Order ONE of the following medications: *Heparin 5000 units SQ TID *Enoxaparin/Lovenox 40 mg SQ daily (WT < 150 kg, CrCl > 30 mL/min) *Enoxaparin/Lovenox 30 mg SQ daily (WT < 150 kg, CrCl > 10-29 mL/min) *Enoxaparin/Lovenox 30 mg SQ BID (WT < 150 kg, CrCl > 30 mL/min) AND/OR *Sequential Compression Device (SCD) 5 or more Highest Order ONE of the following medications: *Heparin 5000 units SQ TID (Preferred with Epidurals) *Enoxaparin/Lovenox 40 mg SQ daily (WT < 150 kg, CrCl > 30 mL/min) *Enoxaparin/Lovenox 30 mg SQ daily (WT < 150 kg, CrCl > 10-29 mL/min) *Enoxaparin/Lovenox 30 mg SQ BID (WT < 150 kg, CrCl > 30 mL/min) AND *Sequential Compression Device (SCD) Assessment and Plan Problem List: (1) CHF exacerbation ICD Code: I50.9 - Heart failure, unspecified Status: Acute (2) COPD exacerbation ICD Code: J44.1 - Chronic obstructive pulmonary disease with (acute) exacerbation Status: Acute (3) Shortness of breath ICD Code: R06.02 - Shortness of breath Status: Acute (4) Elevated brain natriuretic peptide (BNP) level ICD Code: R79.89 - Other specified abnormal findings of blood chemistry Assessment and Plan Assessment and plan 86 year old female admitted secondary to COPD and CHF exacerbation CHF exacerbation IV diuresis Monitor renal function Oxygen as needed Follow clinically for improvement Follow on telemetry COPD exacerbation Continue oxygen supplements as needed Schedule duo nebs When necessary albuterol Azithromycin Systemic steroids Follow for improvement in respiratory status Follow for improvement in exertional tolerance next Hypertension Uncontrolled Continue baseline atenolol Start an as needed clonidine Begin amlodipine for baseline control Follow blood pressures Adjust further as needed Atrial fibrillation Follow on telemetry No change to baseline treatment DVT prophylaxis Heparin Problem Qualifiers (1) CHF exacerbation: Qualified Codes: I50.9 - Heart failure, unspecified Negrito Burt MD Mar 17, 2017 10:30
[2017-03-18] VITALS (10 sets, daily range): BP systolic 126–199; BP diastolic 88–108; PULSE 65–92; RESP 18; TEMP 97.7–98; O2SAT 94–95
[2017-03-18] MEDS: methylPREDNISolone SOD SUCC 40 MG/1 ML VIAL IV PUSH SCH ×3 (00:36→12:26)
[2017-03-18] MEDS: RESP: ALBUTEROL 2.5 MG/IPRATROPIUM 0.5 MG NEB (SCH) NEB ×2 (08:29→12:13)
[2017-03-18] MEDS: ATENOLOL 100 MG TAB PO SCH (09:00)
[2017-03-18] MEDS ORDERED: amLODIPine BESYLATE 5 MG TAB PO SCH (09:00)
[2017-03-18 09:08] LABS: AUTOMATED NEUTROPHIL # 3.3 TH/MM3 (1.8-7.7); BASOPHIL % 0.1 % (0.0-2.0); HEMATOCRIT 42.5 % (35.0-46.0); HEMOGLOBIN 14.3 GM/DL (11.6-15.3); LYMPH % 10.8 % (9.0-44.0); LYMPHOCYTE # 0.4 TH/MM3 (1.0-4.8); MEAN CELL VOLUME 93.5 FL (80.0-100.0); MEAN CORPUSCULAR HEMOGLOBIN 31.3 PG (27.0-34.0); MEAN CORPUSCULAR HGB CONC 33.5 % (32.0-36.0); MEAN PLATELET VOLUME 10.3 FL (7.0-11.0); MONO % 2.7 % (0.0-8.0); MONOCYTE # 0.1 TH/MM3 (0-0.9); NEUT % 86.4 % (16.0-70.0); PLATELET COUNT 121 TH/MM3 (150-450); RED BLOOD COUNT 4.55 MIL/MM3 (4.00-5.30); RED CELL DISTRIBUTION WIDTH 15.7 % (11.6-17.2); WHITE BLOOD COUNT 3.9 TH/MM3 (4.0-11.0)
[2017-03-18] MEDS: busPIRone HCL 5 MG TAB PO SCH (09:26)
[2017-03-18] MEDS: SERTRALINE HCL 50 MG TAB PO SCH (09:27)
[2017-03-18] MEDS: PANTOPRAZOLE SOD 40 MG DELAYED RELEASE TAB PO SCH (09:27)
[2017-03-18] MEDS: DOCUSATE SODIUM 50 MG/SENNA 8.6 MG TAB PO SCH (09:27)
[2017-03-18] MEDS: CHOLECALCIFEROL (VIT D3) 1000 UNIT TAB PO SCH (09:28)
[2017-03-18] MEDS: HEPARIN SODIUM - SQ 10,000 UNITS/ML VIAL SQ SCH (09:28)
[2017-03-18] MEDS: FUROSEMIDE 40 MG/4 ML VIAL IV PUSH SCH (09:29)
[2017-03-18] MEDS: SODIUM CHLORIDE 0.9% FLUSH 10 ML FLUSH IV FLUSH SCH (09:29)
[2017-03-18] MEDS: BUDESONIDE-FORMOTEROL 160/4.5 MCG INHALER INH SCH (09:29)
[2017-03-18 09:42] LABS: ALBUMIN 2.8 GM/DL (3.4-5.0); ALKALINE PHOSPHATASE 134 U/L (45-117); ALT (GPT) 19 U/L (10-53); AST (GOT) 29 U/L (15-37); BICARBONATE 34.3 MEQ/L (21.0-32.0); BLOOD UREA NITROGEN 30 MG/DL (7-18); CALCIUM 8.5 MG/DL (8.5-10.1); CHLORIDE 96 MEQ/L (98-107); CREATININE 1.35 MG/DL (0.50-1.00); GLOMERULAR FILTRATION RATE 37 ML/MIN (>89); GLUCOSE,RANDOM 141 MG/DL (74-106); SODIUM (NA) 138 MEQ/L (136-145); TOTAL PROTEIN 7.1 GM/DL (6.4-8.2)
--- NOTE | 2017-03-18 09:58 | HHI.PR ---
Subjective Remarks Respiratory status improved. Regarding shortness of breath patient is near baseline. However, her potassium levels 2.8 this morning. Potassium level and need to be more stable than this prior to discharge. Objective Vital Signs Date Time Temp Pulse Resp B/P (MAP) Pulse Ox O2 Delivery O2 Flow Rate FiO2 03/18/17 08:32 94 21 03/18/17 08:24 97.7 76 18 177/89 (118) 95 03/18/17 06:19 168/96 (120) 03/18/17 04:35 98.0 76 18 199/108 (138) 94 03/18/17 03:56 69 03/18/17 00:46 92 03/17/17 23:28 98.1 72 18 184/84 (117) 93 03/17/17 20:16 98.0 93 18 170/79 (109) 92 03/17/17 20:00 71 03/17/17 19:17 96 03/17/17 16:30 83 03/17/17 16:03 98.8 78 20 116/80 (92) 96 03/17/17 12:06 98.0 77 20 115/80 (92) 96 03/17/17 10:01 78 I/O 03/17/17 03/17/17 03/17/17 03/18/17 03/18/17 03/18/17 07:00 15:00 23:00 07:00 15:00 23:00 Intake Total 200 ml Balance 200 ml Intake Oral 200 ml # Voids 2 Result Diagram: 03/18/17 0856 03/18/17 0856 Objective Remarks GENERAL: NAD, A&Ox3 HEAD: Normocephalic. NECK: Supple, trachea midline. No lymphadenopathy. EYES: No scleral icterus. No injection or drainage. CARDIOVASCULAR: Regular rate and rhythm without murmurs, gallops, or rubs. RESPIRATORY: Breath sounds equal bilaterally. No accessory muscle use. GASTROINTESTINAL: Abdomen soft, non-tender, nondistended. MUSCULOSKELETAL: No cyanosis, or edema. SKIN: Warm and dry. NEURO: No focal neurological deficitis. A/P Problem List: (1) Elevated brain natriuretic peptide (BNP) level ICD Code: R79.89 - Other specified abnormal findings of blood chemistry (2) CHF exacerbation ICD Code: I50.9 - Heart failure, unspecified Status: Acute (3) COPD exacerbation ICD Code: J44.1 - Chronic obstructive pulmonary disease with (acute) exacerbation Status: Acute (4) Shortness of breath ICD Code: R06.02 - Shortness of breath Status: Acute Assessment and Plan Assessment and plan 86 year old female admitted secondary to COPD and CHF exacerbation Hypokalemia Replace with oral supplement Follow potassium level Considering discharge after potassium stabilized CHF exacerbation Improving IV diuresis Monitor renal function Oxygen as needed Follow clinically for improvement Follow on telemetry COPD exacerbation Improving Continue oxygen supplements as needed Schedule duo nebs When necessary albuterol Azithromycin Systemic steroids Follow for improvement in respiratory status Follow for improvement in exertional tolerance next Hypertension Uncontrolled Continue baseline atenolol Start an as needed clonidine Begin amlodipine for baseline control Follow blood pressures Adjust further as needed Atrial fibrillation Follow on telemetry No change to baseline treatment DVT prophylaxis Heparin Problem Qualifiers (1) CHF exacerbation: Qualified Codes: I50.9 - Heart failure, unspecified Negrito Burt MD Mar 18, 2017 09:58
[2017-03-18] MEDS ORDERED: POTASSIUM CHLORIDE 20 MEQ PWD PACKET PO ONE ×2 (10:00→15:15)
--- NOTE | 2017-03-18 12:51 | EKG ---
Date Performed: 03/17/2017 Time Performed: 04:14:45 PTAGE: 86 years EKG: ATRIAL FIBRILLATION LEFT ANTERIOR FASCICULAR BLOCK POSSIBLE ANTERIOR MYOCARDIAL INFARCTION Compared to prior tracing no significant change ABNORMAL ECG PREVIOUS TRACING : 01/27/2017 22.06 DOCTOR: Hermes Gore Interpretating Date/Time 03/18/2017 12:50:36
[2017-03-18] MEDS ORDERED: AMLO5 PO (14:59)
--- NOTE | 2017-03-18 15:01 | HHI.DS ---
Discharge Summary Admission Date Mar 17, 2017 at 05:36 Discharge Date: Mar 18, 2017 Admitting Diagnosis COPD and CHF exacerbation (1) CHF exacerbation ICD Code: I50.9 - Heart failure, unspecified Diagnosis: Principal Status: Acute (2) COPD exacerbation ICD Code: J44.1 - Chronic obstructive pulmonary disease with (acute) exacerbation Diagnosis: Principal Status: Acute (3) Shortness of breath ICD Code: R06.02 - Shortness of breath Diagnosis: Principal Status: Acute (4) Elevated brain natriuretic peptide (BNP) level ICD Code: R79.89 - Other specified abnormal findings of blood chemistry Diagnosis: Principal Procedures None Brief History - From Admission Mrs. Honeycutt is an 86-year-old female. She was admitted secondary to shortness of breath. She has COPD and CHF at baseline. Both of these conditions appear exacerbated. She reports that she's over the past week she's had an acute onset of shortness of breath on a chronic shortness of breath baseline she's experienced over the past year. She denies any chest pain. No fever. No cough. Imaging shows no pneumonia. Today she does have some uncontrolled blood pressures but no other symptoms or complaints are present. CBC/BMP: 03/18/17 0856 03/18/17 1357 Significant Findings Laboratory Tests Test 03/17/17 03:50 03/18/17 08:56 03/18/17 13:57 Platelet Count 119 TH/MM3 (150-450) 121 TH/MM3 (150-450) Lymphocytes # (Auto) 0.9 TH/MM3 (1.0-4.8) 0.4 TH/MM3 (1.0-4.8) Prothrombin Time 14.0 SEC (9.8-11.6) Blood Urea Nitrogen 31 MG/DL (7-18) 30 MG/DL (7-18) Creatinine 1.24 MG/DL (0.50-1.00) 1.35 MG/DL (0.50-1.00) Albumin 2.9 GM/DL (3.4-5.0) 2.8 GM/DL (3.4-5.0) Alkaline Phosphatase 167 U/L (45-117) 134 U/L (45-117) Aspartate Amino Transf (AST/SGOT) 40 U/L (15-37) Total Bilirubin 1.2 MG/DL (0.2-1.0) Potassium Level 3.4 MEQ/L (3.5-5.1) 2.8 MEQ/L (3.5-5.1) 3.1 MEQ/L (3.5-5.1) Estimat Glomerular Filtration Rate 41 ML/MIN (>89) 37 ML/MIN (>89) B-Type Natriuretic Peptide 855 PG/ML (0-100) White Blood Count 3.9 TH/MM3 (4.0-11.0) Neutrophils (%) (Auto) 86.4 % (16.0-70.0) Random Glucose 141 MG/DL (74-106) Chloride Level 96 MEQ/L (98-107) Carbon Dioxide Level 34.3 MEQ/L (21.0-32.0) Hospital Course Mrs. Honeycutt is an 86-year-old female. She was admitted secondary to CHF exacerbation with COPD exacerbation. She had quick improvement of her COPD. Increased doses of diuretic were provided to bring her back to fluid balance. Today she's fluid balanced and out of her COPD exacerbation. She is doing well and feels at baseline. Due to the increased diuresis she has hypokalemia this morning. Supplements are provided and she has returned to a safe level for discharge. At baseline she takes potassium supplementation which will not be changed. This point she is medically stable for return to home today. Pt Condition on Discharge: Stable Discharge Disposition: Discharge Home Discharge Time: <= 30 minutes Discharge Instructions DIET: Follow Instructions for: Heart Healthy Diet Activities you can perform: Regular-No Restrictions Follow up Referrals: PCP Follow-up - 2 Weeks New Medications: Amlodipine (Norvasc) 5 Mg Tab 5 MG PO DAILY for Blood Pressure Management, #30 TAB Continued Medications: Albuterol 18 GM Inh (Ventolin Hfa 18 GM Inh) 90 Mcg/Act Aer 2 PUFF INH Q4H PRN for SHORTNESS OF BREATH, #1 INHALER 0 Refills Atenolol (Atenolol) 100 Mg Tab 100 MG PO BID for Blood Pressure Management, #60 TAB 0 Refills Buspirone (Buspirone) 5 Mg Tab 5 MG PO BID for Anxiety, TAB 0 Refills Cholecalciferol (Vitamin D3) 1,000 Unit Tab 1000 UNITS PO DAILY for Nutritional Supplement, #1 BOTTLE 0 Refills Furosemide (Furosemide) 40 Mg Tab 40 MG PO DAILY for HTN for 30 Days, #30 TAB Lansoprazole (Lansoprazole) 30 Mg Capdr 30 MG PO DAILY, CAP 0 Refills Lisinopril (Lisinopril) 10 Mg Tab 10 MG PO DAILY for HTN for 30 Days, #30 TAB Potassium Chloride ER (Klor-Con 10) 10 Meq Tab 10 MEQ PO Q12HR for supplementation for 30 Days, #60 TAB Sertraline (Sertraline) 25 Mg Tab 25 MG PO DAILY, #30 TAB 0 Refills Discontinued Medications: Amlodipine (Amlodipine) 2.5 Mg Tab 2.5 MG PO DAILY for Blood Pressure Management, #30 TAB 0 Refills Negrito Burt MD Mar 18, 2017 15:01
[2017-03-18] MEDS ORDERED: PROT40TA PO (23:29)
== END 2017-03-18 17:37 | disposition home or self-care (01) ==
LOC: NEPC 03:32 → NEDA 05:36 → NEPGCP 06:26
PROVIDERS: ADMIT Hospitalist; ATTEND Hospitalist
DX: I50.9 Heart failure, unspecified (principal); J44.1 Chronic obstructive pulmonary disease with (acute) exacerbation; I48.91 Unspecified atrial fibrillation; I11.0 Hypertensive heart disease with heart failure; E87.6 Hypokalemia; K21.9 Gastro-esophageal reflux disease without esophagitis; Z86.010 Personal history of colon polyps; Z96.653 Presence of artificial knee joint, bilateral; Z90.710 Acquired absence of both cervix and uterus
CPT/HCPCS: 71010; 80053; 82550; 82552; 83735; 83880; 84132; 84484; 85025; 85610; 85730; 93005; 94640; 94664; 96372; 96374; 96375; 96376; 99285; G0378; J1644; J1940; J2920; J2930

== ENCOUNTER 2017-03-18 21:37 | Inpatient (IN) | payer OTHER, MEDICARE ==
[~2017-03-18] VITALS: Ht 160 cm; Wt 85.0 kg
[~2017-03-18 21:37] MED LIST changes: +AMLO5 PO
[2017-03-18 21:41] VITALS: BP 178/99; PULSE 86; RESP 18; TEMP 98.1; O2SAT 95
[2017-03-18 21:47] VITALS: O2SAT 94
[2017-03-18] MEDS ORDERED: SODIUM CHLORIDE 0.9% FLUSH 10 ML FLUSH IV FLUSH PRN (22:00)
[2017-03-18] MEDS ORDERED: ONDANSETRON HCL 4 MG/2 ML VIAL IVP ONE (22:15)
[2017-03-18] MEDS ORDERED: PANTOPRAZOLE SODIUM 40 MG VIAL IVP ONE (22:15)
--- NOTE | 2017-03-18 22:15 | PD ---
HPI Chief Complaint: GI Complaint Time Seen by Provider: 21:46 Travel History International Travel<30 days: No Contact w/Intl Traveler<30days: No Traveled to known affect area: No History of Present Illness HPI 86-year-old female presents to emergency department via EMS status post reports of bloody stools. Patient also has had generalized weakness and shortness of breath according to the son. Patient recently was admitted for COPD exacerbation and kept Here 2 nights and discharged today. Patient states she went home and wanted to move her bowels and noted a moderate amount of blood in her depends, and with her bowel movement. Patient states she did have some mild to moderate cramping prior to her bowel movement. Patient currently states she is pain-free. She is allergic to sulfa and levofloxacin. 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 ) Heart Rhythm Problems: No Cancer: No Cardiovascular Problems: Yes High Cholesterol: No Chest Pain: No Congestive Heart Failure: Yes COPD: No Cerebrovascular Accident: No Diabetes: No Diminished Hearing: No Endocrine: No Gastrointestinal Disorders: Yes (POLYPS) GERD: Yes Genitourinary: Yes (UTIS) Hiatal Hernia: No Hypertension: Yes Immune Disorder: No Implanted Vascular Access Dvce: No Kidney Stones: No Musculoskeletal: Yes (lt shoulder) Neurologic: No Psychiatric: No Reproductive: No Respiratory: No Immunizations Current: Yes Migraines: No Renal Failure: No Seizures: No Sleep Apnea: No Thyroid Disease: No Ulcer: No Tetanus Vaccination: > 5 Years Influenza Vaccination: No PNEUMOCCOCAL Vaccine (Year): 1 Menopausal: Yes Para: 4 Miscarriage: 4 Past Surgical History Abdominal Surgery: No Cardiac Surgery: No Ear Surgery: No Endocrine Surgery: No Eye Surgery: No Genitourinary Surgery: No Gynecologic Surgery: Yes (HYSTERECTOMY) Hysterectomy: Yes Joint Replacement: Yes (BILAT KNEES) Oral Surgery: No Pacemaker: No Thoracic Surgery: No Other Surgery: Yes Social History Alcohol Use: Yes (OCCASIONALLY VODKA) Tobacco Use: No Substance Use: No Allergies-Medications (Allergen,Severity, Reaction): Coded Allergies: Sulfa (Sulfonamide Antibiotics) (Unverified Allergy, Severe, PT DOES NOT REMEMBER, 03/18/17) levofloxacin (Unverified Allergy, Severe, PT STATES "DRIVES ME CRAZY", ) Reported Meds & Prescriptions Reported Meds & Active Scripts Active Norvasc (Amlodipine Besylate) 5 Mg Tab 5 Mg PO DAILY Furosemide 40 Mg Tab 40 Mg PO DAILY 30 Days Klor-Con 10 (Potassium Chloride) 10 Meq Tab 10 Meq PO Q12HR 30 Days Lisinopril 10 Mg Tab 10 Mg PO DAILY 30 Days Reported Ventolin Hfa 18 GM Inh (Albuterol Sulfate) 90 Mcg/Act Aer 2 Puff INH Q4H PRN Lansoprazole 30 Mg Capdr 30 Mg PO DAILY Vitamin D3 (Cholecalciferol) 1,000 Unit Tab 1,000 Units PO DAILY Buspirone (Buspirone HCl) 5 Mg Tab 5 Mg PO BID Atenolol 100 Mg Tab 100 Mg PO BID Sertraline (Sertraline HCl) 25 Mg Tab 25 Mg PO DAILY Review of Systems Except as stated in HPI: all other systems reviewed are Neg General / Constitutional: No: Fever Eyes: No: Visual changes HENT: No: Headaches Cardiovascular: No: Chest Pain or Discomfort Respiratory: Positive: Shortness of Breath, Other (history COPD.) Gastrointestinal: Positive: Hematochezia, No: Nausea, Vomiting, Diarrhea, Abdominal Pain (none currently.), Hematemesis, Constipation, Changes in Bowel Habits, Indigestion, Dysphagia, Loss of Appetite Genitourinary: No: Urgency, Frequency, Dysuria Musculoskeletal: No: Pain Skin: No Rash Neurologic: No: Weakness Psychiatric: No: Depression Endocrine: No: Polydipsia Hematologic/Lymphatic: No: Easy Bruising Physical Exam Narrative GENERAL: Patient appears in no acute distress. SKIN: Warm and dry. Somewhat decreased pallor. Normal turgor. HEAD: Atraumatic. Normocephalic. EYES: Pupils equal and round. No scleral icterus. No injection or drainage. ENT: No nasal bleeding or discharge. Mucous membranes pink and moist. Pharynx clear. Airway is patent. NECK: Trachea midline. Supple and nontender. CARDIOVASCULAR: Regular rate and rhythm. RESPIRATORY: No accessory muscle use. Clear to auscultation. Breath sounds equal bilaterally. GASTROINTESTINAL: Abdomen soft, non-tender, nondistended. Hepatic and splenic margins not palpable. Bowel sounds are present in all quadrants. No palpable masses. RECTAL: No obvious hemorrhoids or fissures noted. Stool has obvious dark blood present. MUSCULOSKELETAL: Extremities without clubbing, cyanosis, or edema. No obvious deformities. NEUROLOGICAL: Awake and alert. No obvious cranial nerve deficits. Motor grossly within normal limits. Five out of 5 muscle strength in the arms and legs. Normal speech. PSYCHIATRIC: Appropriate mood and affect; insight and judgment normal. Data Data Last Documented VS Vital Signs Date Time Temp Pulse Resp B/P (MAP) Pulse Ox O2 Delivery O2 Flow Rate FiO2 03/19/17 06:37 76 18 130/67 (88) 100 03/19/17 04:17 Room Air 03/18/17 21:47 2.00 03/18/17 21:41 98.1 Orders Orders Complete Blood Count With Diff (03/18/17 21:46) Comprehensive Metabolic Panel (03/18/17 21:46) Prothrombin Time / Inr (Pt) (03/18/17 21:46) Act Partial Throm Time (Ptt) (03/18/17 21:46) Urinalysis - C+S If Indicated (03/18/17 21:46) Iv Access Insert/Monitor (03/18/17 21:46) Ecg Monitoring (03/18/17 21:46) Oximetry (03/18/17 21:46) Sodium Chloride 0.9% Flush (Ns Flush) (03/18/17 22:00) Electrocardiogram (03/18/17 21:46) Ondansetron Inj (Zofran Inj) (03/18/17 22:15) Pantoprazole Inj (Protonix Inj) (03/18/17 22:15) Type And Screen (03/18/17 22:09) Ct Abd/Pel W/O Iv Contrast (03/18/17 22:09) Complete Blood Count With Diff (03/19/17 05:46) Labs Laboratory Tests Test 03/18/17 21:56 03/19/17 06:10 White Blood Count 6.5 TH/MM3 8.1 TH/MM3 Red Blood Count 4.57 MIL/MM3 4.30 MIL/MM3 Hemoglobin 14.4 GM/DL 13.3 GM/DL Hematocrit 43.1 % 40.7 % Mean Corpuscular Volume 94.4 FL 94.6 FL Mean Corpuscular Hemoglobin 31.6 PG 30.9 PG Mean Corpuscular Hemoglobin Concent 33.5 % 32.6 % Red Cell Distribution Width 15.7 % 16.1 % Platelet Count 142 TH/MM3 126 TH/MM3 Mean Platelet Volume 11.2 FL 10.2 FL Neutrophils (%) (Auto) 86.9 % 85.3 % Lymphocytes (%) (Auto) 5.7 % 6.2 % Monocytes (%) (Auto) 7.3 % 8.4 % Eosinophils (%) (Auto) 0.0 % 0.0 % Basophils (%) (Auto) 0.1 % 0.1 % Neutrophils # (Auto) 5.6 TH/MM3 6.9 TH/MM3 Lymphocytes # (Auto) 0.4 TH/MM3 0.5 TH/MM3 Monocytes # (Auto) 0.5 TH/MM3 0.7 TH/MM3 Eosinophils # (Auto) 0.0 TH/MM3 0.0 TH/MM3 Basophils # (Auto) 0.0 TH/MM3 0.0 TH/MM3 CBC Comment DIFF FINAL DIFF FINAL Differential Comment Prothrombin Time 12.8 SEC Prothromb Time International Ratio 1.3 RATIO Activated Partial Thromboplast Time 23.8 SEC Blood Urea Nitrogen 35 MG/DL Creatinine 1.40 MG/DL Random Glucose 139 MG/DL Total Protein 7.4 GM/DL Albumin 3.0 GM/DL Calcium Level 8.8 MG/DL Alkaline Phosphatase 136 U/L Aspartate Amino Transf (AST/SGOT) 36 U/L Alanine Aminotransferase (ALT/SGPT) 24 U/L Total Bilirubin 0.9 MG/DL Sodium Level 139 MEQ/L Potassium Level 3.7 MEQ/L Chloride Level 99 MEQ/L Carbon Dioxide Level 35.8 MEQ/L Anion Gap 4 MEQ/L Estimat Glomerular Filtration Rate 36 ML/MIN [facility] Medical Decision Making Medical Screen Exam Complete: Yes Emergency Medical Condition: Yes Medical Record Reviewed: Yes Differential Diagnosis Bright red blood per rectum. Colitis. GI bleed. Narrative Course Patient appears medically stable at time of exam. Labs ordered including CBC, CMP, coagulation studies, urinalysis, and type and screen is ordered. CT of the abdomen with IV contrast was ordered. CBC unremarkable with a hemoglobin of 14.4, hematocrit 43.1. Platelets are decreased at 142. Coagulation studies showed PT of 12.8, INR is 1.3, APTT is 23.8. 2300 hrs., patient care is turned over to Dr. Turcios who will determine final disposition. Condition: Stable Marco Blake Mar 18, 2017 22:15
[2017-03-18 22:16] LABS: AUTOMATED NEUTROPHIL # 5.6 TH/MM3 (1.8-7.7); BASOPHIL % 0.1 % (0.0-2.0); HEMATOCRIT 43.1 % (35.0-46.0); HEMOGLOBIN 14.4 GM/DL (11.6-15.3); LYMPH % 5.7 % (9.0-44.0); LYMPHOCYTE # 0.4 TH/MM3 (1.0-4.8); MEAN CELL VOLUME 94.4 FL (80.0-100.0); MEAN CORPUSCULAR HEMOGLOBIN 31.6 PG (27.0-34.0); MEAN CORPUSCULAR HGB CONC 33.5 % (32.0-36.0); MONO % 7.3 % (0.0-8.0); MONOCYTE # 0.5 TH/MM3 (0-0.9); NEUT % 86.9 % (16.0-70.0); RED BLOOD COUNT 4.57 MIL/MM3 (4.00-5.30); RED CELL DISTRIBUTION WIDTH 15.7 % (11.6-17.2); WHITE BLOOD COUNT 6.5 TH/MM3 (4.0-11.0)
[2017-03-18 22:25] LABS: MEAN PLATELET VOLUME 11.2 FL (7.0-11.0); PLATELET COUNT 142 TH/MM3 (150-450)
[2017-03-18 22:27] LABS: INTERNATIONAL NORMALIZED RATIO 1.3 RATIO; PROTHROMBIN TIME - PATIENT 12.8 SEC (9.8-11.6)
[2017-03-18 22:35] LABS: ALKALINE PHOSPHATASE 136 U/L (45-117); ALT (GPT) 24 U/L (10-53); AST (GOT) 36 U/L (15-37); BICARBONATE 35.8 MEQ/L (21.0-32.0); BLOOD UREA NITROGEN 35 MG/DL (7-18); CALCIUM 8.8 MG/DL (8.5-10.1); CHLORIDE 99 MEQ/L (98-107); GLOMERULAR FILTRATION RATE 36 ML/MIN (>89); GLUCOSE,RANDOM 139 MG/DL (74-106); SODIUM (NA) 139 MEQ/L (136-145); TOTAL BILIRUBIN ADULT 0.9 MG/DL (0.2-1.0); TOTAL PROTEIN 7.4 GM/DL (6.4-8.2)
--- NOTE | 2017-03-18 23:11 | RADRPT ---
EXAM DATE/TIME: 03/18/2017 22:49 [place] COMPARISON: No previous studies available for comparison. INDICATIONS : Blood in stool. ORAL CONTRAST: No oral contrast ingested. RADIATION DOSE: 20.65 CTDIvol (mGy) MEDICAL HISTORY : Gastroesophageal reflux disease. Hypertension. Cardiovascular disease SURGICAL HISTORY : Hysterectomy. Total knee replacement, left.Total knee replacement, right. ENCOUNTER: Initial ACUITY: 1 day PAIN SCALE: 0/10 LOCATION: abdomen TECHNIQUE: Volumetric scanning of the abdomen and pelvis was performed. Using automated exposure control and ad justment of the mA and/or kV according to patient size, radiation dose was kept as low as reasonably achievable to obtain optimal diagnostic quality images. DICOM format image data is available electro nically for review and comparison. FINDINGS: LOWER LUNGS: Small bilateral pleural effusions. The right is larger than the left. There is associated passive ate lectasis within the basilar segments. Heart is mildly enlarged. Coronary artery atherosclerotic calci fications. LIVER: There is small volume pneumobilia seen within the lumen of the gallbladder as well as within the left hepatic lobe. There is also noted within the common bile duct. No biliary dilatation seen. A few sma ll calcified gallstones noted. The gallbladder is well distended but I appreciate no pericholecystic fluid. SPLEEN: Normal size without lesion. PANCREAS: Within normal limits. KIDNEYS: Both kidneys are small and lobulated. No hydronephrosis. 2 mm nonobstructing renal calculi bilaterall y. ADRENAL GLANDS: Within normal limits. VASCULAR: There is no aortic aneurysm. BOWEL/MESENTERY: The stomach, small bowel, and colon demonstrate no acute abnormality. There is no free intraperitone al air or fluid. Multiple colonic diverticuli. No acute inflammation. ABDOMINAL WALL: Within normal limits. RETROPERITONEUM: There is no lymphadenopathy. BLADDER: No wall thickening or mass. REPRODUCTIVE: Within normal limits. INGUINAL: There is no lymphadenopathy or hernia. MUSCULOSKELETAL: A degenerative and scoliotic spine. CONCLUSION: 1. Pneumobilia. No biliary dilatation. Pneumobilia can relate to acute infections but can also be see n in people that have undergone certain interventions such as sphincterotomy. 2. Colonic diverticulosis without acute inflammation. 3. Bilateral pleural effusions and passive atelectasis. 4. Cardiomegaly. Alonzo Scott Jr., MD on March 18, 2017 at 23:00 Board Certified Radiologist. This report was verified electronically.
[2017-03-18] MEDS ORDERED: PROT40TA PO (23:29)
--- NOTE | 2017-03-18 23:29 | PD ---
Physical Exam Narrative Patient was seen by my stylist assistant and signed out to me. Patient denies abdominal pain nausea vomiting diarrhea. Examination reveals no tenderness on palpation of the abdomen including right upper quadrant of the abdomen. No rebound tenderness. No mass. Data Data Last Documented VS Vital Signs Date Time Temp Pulse Resp B/P (MAP) Pulse Ox O2 Delivery O2 Flow Rate FiO2 03/19/17 06:37 76 18 130/67 (88) 100 03/19/17 04:17 Room Air 03/18/17 21:47 2.00 03/18/17 21:41 98.1 Orders Orders Complete Blood Count With Diff (03/18/17 21:46) Comprehensive Metabolic Panel (03/18/17 21:46) Prothrombin Time / Inr (Pt) (03/18/17 21:46) Act Partial Throm Time (Ptt) (03/18/17 21:46) Urinalysis - C+S If Indicated (03/18/17 21:46) Iv Access Insert/Monitor (03/18/17 21:46) Ecg Monitoring (03/18/17 21:46) Oximetry (03/18/17 21:46) Sodium Chloride 0.9% Flush (Ns Flush) (03/18/17 22:00) Electrocardiogram (03/18/17 21:46) Ondansetron Inj (Zofran Inj) (03/18/17 22:15) Pantoprazole Inj (Protonix Inj) (03/18/17 22:15) Type And Screen (03/18/17 22:09) Ct Abd/Pel W/O Iv Contrast (03/18/17 22:09) Complete Blood Count With Diff (03/19/17 05:46) Labs Laboratory Tests Test 03/18/17 21:56 03/19/17 06:10 White Blood Count 6.5 TH/MM3 8.1 TH/MM3 Red Blood Count 4.57 MIL/MM3 4.30 MIL/MM3 Hemoglobin 14.4 GM/DL 13.3 GM/DL Hematocrit 43.1 % 40.7 % Mean Corpuscular Volume 94.4 FL 94.6 FL Mean Corpuscular Hemoglobin 31.6 PG 30.9 PG Mean Corpuscular Hemoglobin Concent 33.5 % 32.6 % Red Cell Distribution Width 15.7 % 16.1 % Platelet Count 142 TH/MM3 126 TH/MM3 Mean Platelet Volume 11.2 FL 10.2 FL Neutrophils (%) (Auto) 86.9 % 85.3 % Lymphocytes (%) (Auto) 5.7 % 6.2 % Monocytes (%) (Auto) 7.3 % 8.4 % Eosinophils (%) (Auto) 0.0 % 0.0 % Basophils (%) (Auto) 0.1 % 0.1 % Neutrophils # (Auto) 5.6 TH/MM3 6.9 TH/MM3 Lymphocytes # (Auto) 0.4 TH/MM3 0.5 TH/MM3 Monocytes # (Auto) 0.5 TH/MM3 0.7 TH/MM3 Eosinophils # (Auto) 0.0 TH/MM3 0.0 TH/MM3 Basophils # (Auto) 0.0 TH/MM3 0.0 TH/MM3 CBC Comment DIFF FINAL DIFF FINAL Differential Comment Prothrombin Time 12.8 SEC Prothromb Time International Ratio 1.3 RATIO Activated Partial Thromboplast Time 23.8 SEC Blood Urea Nitrogen 35 MG/DL Creatinine 1.40 MG/DL Random Glucose 139 MG/DL Total Protein 7.4 GM/DL Albumin 3.0 GM/DL Calcium Level 8.8 MG/DL Alkaline Phosphatase 136 U/L Aspartate Amino Transf (AST/SGOT) 36 U/L Alanine Aminotransferase (ALT/SGPT) 24 U/L Total Bilirubin 0.9 MG/DL Sodium Level 139 MEQ/L Potassium Level 3.7 MEQ/L Chloride Level 99 MEQ/L Carbon Dioxide Level 35.8 MEQ/L Anion Gap 4 MEQ/L Estimat Glomerular Filtration Rate 36 ML/MIN [facility] Supervised Visit with SIRENA: Yes Interpretation(s) 23:[address] scan abdomen and pelvis shows pneumobilia. No biliary dilatation. CBC within normal limit. Platelet count 142. BUN 35. Creatinine 1.4. GFR 36. Alkaline phosphatase 136. INR 1.3. Narrative Course Patient has a bloody bowel movement in the ED. Patient H&H stabilized. Patient does not have any active bleeding or bloody bowel movement subsequently. I spoke with medical admission physician and GI specialist president celebrity acquistion Dr. Smith. Patient was advised to follow up with parts cataloguer as outpatient. Diagnosis Primary Impression: GI bleed Qualified Codes: K92.2 - Gastrointestinal hemorrhage, unspecified Patient Instructions: General Instructions Additional Instruction: Continue with all medications. Follow-up with parts cataloguer. Return if increasing rectal bleeding abdominal pain fever. Med/Other Pt SpecificInfo: No Change to Meds Disposition: 01 DISCHARGE HOME Condition: Stable Cy Turcios MD Mar 18, 2017 23:29
[2017-03-19] VITALS (7 sets, daily range): BP systolic 112–142; BP diastolic 67–92; PULSE 67–79; RESP 16–19; TEMP 95.4–96.3; O2SAT 94–100
[2017-03-19 06:31] LABS: AUTOMATED NEUTROPHIL # 6.9 TH/MM3 (1.8-7.7); BASOPHIL % 0.1 % (0.0-2.0); HEMATOCRIT 40.7 % (35.0-46.0); HEMOGLOBIN 13.3 GM/DL (11.6-15.3); LYMPH % 6.2 % (9.0-44.0); LYMPHOCYTE # 0.5 TH/MM3 (1.0-4.8); MEAN CELL VOLUME 94.6 FL (80.0-100.0); MEAN CORPUSCULAR HEMOGLOBIN 30.9 PG (27.0-34.0); MEAN CORPUSCULAR HGB CONC 32.6 % (32.0-36.0); MEAN PLATELET VOLUME 10.2 FL (7.0-11.0); MONO % 8.4 % (0.0-8.0); MONOCYTE # 0.7 TH/MM3 (0-0.9); NEUT % 85.3 % (16.0-70.0); PLATELET COUNT 126 TH/MM3 (150-450); RED CELL DISTRIBUTION WIDTH 16.1 % (11.6-17.2); WHITE BLOOD COUNT 8.1 TH/MM3 (4.0-11.0)
--- NOTE | 2017-03-19 09:11 | PD ---
Physical Exam Narrative GENERAL: SKIN: Warm and dry. HEAD: Atraumatic. Normocephalic. EYES: Pupils equal and round. No scleral icterus. No injection or drainage. ENT: No nasal bleeding or discharge. Mucous membranes pink and moist. NECK: Trachea midline. No JVD. CARDIOVASCULAR: Regular rate and rhythm. RESPIRATORY: No accessory muscle use. Clear to auscultation. Breath sounds equal bilaterally. GASTROINTESTINAL: Abdomen soft, non-tender, nondistended. GROSS COAGULATED BLOOD IN STOOL WITHOUT ANY NORMAL STOOL REMAINING MUSCULOSKELETAL: Extremities without clubbing, cyanosis, or edema. No obvious deformities. NEUROLOGICAL: Awake and alert. No obvious cranial nerve deficits. Motor grossly within normal limits. Five out of 5 muscle strength in the arms and legs. Normal speech. PSYCHIATRIC: Appropriate mood and affect; insight and judgment normal. Data Data Last Documented VS Vital Signs Date Time Temp Pulse Resp B/P (MAP) Pulse Ox O2 Delivery O2 Flow Rate FiO2 03/19/17 06:37 76 18 130/67 (88) 100 03/19/17 04:17 Room Air 03/18/17 21:47 2.00 03/18/17 21:41 98.1 Orders Orders Complete Blood Count With Diff (03/18/17 21:46) Comprehensive Metabolic Panel (03/18/17 21:46) Prothrombin Time / Inr (Pt) (03/18/17 21:46) Act Partial Throm Time (Ptt) (03/18/17 21:46) Urinalysis - C+S If Indicated (03/18/17 21:46) Iv Access Insert/Monitor (03/18/17 21:46) Ecg Monitoring (03/18/17 21:46) Oximetry (03/18/17 21:46) Sodium Chloride 0.9% Flush (Ns Flush) (03/18/17 22:00) Electrocardiogram (03/18/17 21:46) Ondansetron Inj (Zofran Inj) (03/18/17 22:15) Pantoprazole Inj (Protonix Inj) (03/18/17 22:15) Type And Screen (03/18/17 22:09) Ct Abd/Pel W/O Iv Contrast (03/18/17 22:09) Complete Blood Count With Diff (03/19/17 05:46) Labs Laboratory Tests Test 03/18/17 21:56 03/19/17 06:10 White Blood Count 6.5 TH/MM3 8.1 TH/MM3 Red Blood Count 4.57 MIL/MM3 4.30 MIL/MM3 Hemoglobin 14.4 GM/DL 13.3 GM/DL Hematocrit 43.1 % 40.7 % Mean Corpuscular Volume 94.4 FL 94.6 FL Mean Corpuscular Hemoglobin 31.6 PG 30.9 PG Mean Corpuscular Hemoglobin Concent 33.5 % 32.6 % Red Cell Distribution Width 15.7 % 16.1 % Platelet Count 142 TH/MM3 126 TH/MM3 Mean Platelet Volume 11.2 FL 10.2 FL Neutrophils (%) (Auto) 86.9 % 85.3 % Lymphocytes (%) (Auto) 5.7 % 6.2 % Monocytes (%) (Auto) 7.3 % 8.4 % Eosinophils (%) (Auto) 0.0 % 0.0 % Basophils (%) (Auto) 0.1 % 0.1 % Neutrophils # (Auto) 5.6 TH/MM3 6.9 TH/MM3 Lymphocytes # (Auto) 0.4 TH/MM3 0.5 TH/MM3 Monocytes # (Auto) 0.5 TH/MM3 0.7 TH/MM3 Eosinophils # (Auto) 0.0 TH/MM3 0.0 TH/MM3 Basophils # (Auto) 0.0 TH/MM3 0.0 TH/MM3 CBC Comment DIFF FINAL DIFF FINAL Differential Comment Prothrombin Time 12.8 SEC Prothromb Time International Ratio 1.3 RATIO Activated Partial Thromboplast Time 23.8 SEC Blood Urea Nitrogen 35 MG/DL Creatinine 1.40 MG/DL Random Glucose 139 MG/DL Total Protein 7.4 GM/DL Albumin 3.0 GM/DL Calcium Level 8.8 MG/DL Alkaline Phosphatase 136 U/L Aspartate Amino Transf (AST/SGOT) 36 U/L Alanine Aminotransferase (ALT/SGPT) 24 U/L Total Bilirubin 0.9 MG/DL Sodium Level 139 MEQ/L Potassium Level 3.7 MEQ/L Chloride Level 99 MEQ/L Carbon Dioxide Level 35.8 MEQ/L Anion Gap 4 MEQ/L Estimat Glomerular Filtration Rate 36 ML/MIN [facility] Medical Record Reviewed: Yes Supervised Visit with SIRENA: No Narrative Course AT 0900 PATIENT HAD A LARGE COAGULATED BLOOD PER RECTUM WITHOUT ANY TRACE OF NORMAL STOOL IN IT, AT THIS TIME PATIENT H/H AND VITALS SIGNS STABLE HOWEVER, I BELIEVE IT PRUDENT TO HAVE PATIENT ADMITTED AND GI CONSULTATION FOR SUCH LARGE BRBPR EPISODE. Diagnosis Primary Impression: GI bleed Qualified Codes: K92.2 - Gastrointestinal hemorrhage, unspecified Admitting Information Admitting Physician Requests: Observation Patient Instructions: General Instructions Departure Forms: Tests/Procedures Additional Instruction: Continue with all medications. Follow-up with camera tuning engineer. Return if increasing rectal bleeding abdominal pain fever. Mark Bianchi MD Mar 19, 2017 09:11
--- NOTE | 2017-03-19 09:18 | EKG ---
Date Performed: 03/18/2017 Time Performed: 21:48:58 PTAGE: 86 years EKG: Baseline artifact present probable ATRIAL FIBRILLATION LEFT ANTERIOR FASCICULAR BLOCK POSSI BLE ANTERIOR MYOCARDIAL INFARCTION ABNORMAL ECG No significant change from prior electrocardiogram. PREVIOUS TRACING : 03/17/2017 04.14 DOCTOR: Misha Melgar Interpretating Date/Time 03/19/2017 09:17:01
[2017-03-19] MEDS ORDERED: NALOXONE HCL 0.4 MG/ML AMP IV PUSH PRN (09:45)
[2017-03-19] MEDS ORDERED: ONDANSETRON HCL 4 MG/2 ML VIAL IVP PRN (09:45)
[2017-03-19] MEDS ORDERED: SODIUM CHLORIDE 0.9% FLUSH 10 ML FLUSH IV FLUSH PRN (09:45)
--- NOTE | 2017-03-19 11:12 | HHI.HP ---
[facility] Hospital[facility] Primary Care Physician Unknown Admission Diagnosis GI BLEED Diagnoses: Travel History International Travel<30 Days: No Contact w/Intl Traveler <30 Da: No Traveled to Known Affected Are: No History of Present Illness Mrs. Honeycutt is an 87-year-old female. She comes in the hospital secondary to GI bleed. She was discharged just yesterday after standing for a COPD and CHF exacerbation. During that previous hospital stay she had been treated with heparin as a DVT prophylaxis. She now has several episodes of large bloody bowel movement. She has demonstrated a drop in her hemoglobin since yesterday. Her recent COPD and CHF exacerbation or comorbidities for her present status. She denies any abdominal pain, diarrhea, or nausea and vomiting preceding her bleeding. In the past she has had a history of hemorrhoids. No other complaints. No fever. Review of Systems Constitutional: DENIES: Fatigue, Fever, Chills, Change in appetite Eyes: DENIES: Blurred vision, Diplopia, Eye inflammation, Eye pain Ears, nose, mouth, throat: DENIES: Tinnitus, Hearing loss, Vertigo Respiratory: DENIES: Cough, Wheezing, Shortness of breath Cardiovascular: DENIES: Chest pain, Palpitations, Syncope Gastrointestinal: COMPLAINS OF: Abdominal pain, Bloody stools, DENIES: Black stools, Constipation, Diarrhea, Nausea, Vomiting Musculoskeletal: DENIES: Joint pain, Muscle aches, Stiffness Integumentary: DENIES: Abnormal pigmentation, Pruritus, Rash Hematologic/lymphatic: DENIES: Bruising, Lymphadenopathy Immunologic/allergic: DENIES: Eczema, Urticaria Neurologic: DENIES: Abnormal gait, Headache, Paresthesias Psychiatric: DENIES: Anxiety, Confusion, Hallucinations Past Family Social History Past Medical History Hypertension Anxiety disorder COPD Atrial fibrillation Arthritis Gastroesophageal reflux History of colon polyps Osteoarthritis Congestive heart failure next line hypertension Past Surgical History Bilateral knee replacements Hysterectomy Reported Medications Reported Meds & Active Scripts Active Norvasc (Amlodipine Besylate) 5 Mg Tab 5 Mg PO DAILY Furosemide 40 Mg Tab 40 Mg PO DAILY 30 Days Klor-Con 10 (Potassium Chloride) 10 Meq Tab 10 Meq PO Q12HR 30 Days Lisinopril 10 Mg Tab 10 Mg PO DAILY 30 Days Reported Ventolin Hfa 18 GM Inh (Albuterol Sulfate) 90 Mcg/Act Aer 2 Puff INH Q4H PRN Lansoprazole 30 Mg Capdr 30 Mg PO DAILY Vitamin D3 (Cholecalciferol) 1,000 Unit Tab 1,000 Units PO DAILY Buspirone (Buspirone HCl) 5 Mg Tab 5 Mg PO BID Atenolol 100 Mg Tab 100 Mg PO BID Sertraline (Sertraline HCl) 25 Mg Tab 25 Mg PO DAILY Allergies: Coded Allergies: Sulfa (Sulfonamide Antibiotics) (Unverified Allergy, Severe, PT DOES NOT REMEMBER, 03/18/17) levofloxacin (Unverified Allergy, Severe, PT STATES "DRIVES ME CRAZY", ) Family History Myocardial infarction in father at the age 41 Coronary artery disease in brother Social History Occasional alcohol No history of smoking No history of illicit drug abuse Physical Exam Vital Signs Vital Signs Date Time Temp Pulse Resp B/P (MAP) Pulse Ox O2 Delivery O2 Flow Rate FiO2 03/19/17 09:00 72 19 135/79 (97) 98 Nasal Cannula 2.00 03/19/17 06:37 76 18 130/67 (88) 100 03/19/17 04:17 75 18 128/80 (96) 100 Room Air 03/18/17 21:47 94 Nasal Cannula 2.00 03/18/17 21:41 98.1 86 18 178/99 (125) 95 Physical Exam GENERAL: NAD, A&Ox3 HEAD: Normocephalic. NECK: Supple, trachea midline. No lymphadenopathy. EYES: No scleral icterus. No injection or drainage. CARDIOVASCULAR: Regular rate and rhythm without murmurs, gallops, or rubs. RESPIRATORY: Breath sounds equal bilaterally. No accessory muscle use. GASTROINTESTINAL: Abdomen soft, non-tender, nondistended. MUSCULOSKELETAL: No cyanosis, or edema. SKIN: Warm and dry. NEURO: No focal neurological deficitis. Laboratory Laboratory Tests Test 03/18/17 21:56 03/19/17 06:10 White Blood Count 6.5 8.1 Red Blood Count 4.57 4.30 Hemoglobin 14.4 13.3 Hematocrit 43.1 40.7 Mean Corpuscular Volume 94.4 94.6 Mean Corpuscular Hemoglobin 31.6 30.9 Mean Corpuscular Hemoglobin Concent 33.5 32.6 Red Cell Distribution Width 15.7 16.1 Platelet Count 142 126 Mean Platelet Volume 11.2 10.2 Neutrophils (%) (Auto) 86.9 85.3 Lymphocytes (%) (Auto) 5.7 6.2 Monocytes (%) (Auto) 7.3 8.4 Eosinophils (%) (Auto) 0.0 0.0 Basophils (%) (Auto) 0.1 0.1 Neutrophils # (Auto) 5.6 6.9 Lymphocytes # (Auto) 0.4 0.5 Monocytes # (Auto) 0.5 0.7 Eosinophils # (Auto) 0.0 0.0 Basophils # (Auto) 0.0 0.0 CBC Comment DIFF FINAL DIFF FINAL Differential Comment Prothrombin Time 12.8 Prothromb Time International Ratio 1.3 Activated Partial Thromboplast Time 23.8 Blood Urea Nitrogen 35 Creatinine 1.40 Random Glucose 139 Total Protein 7.4 Albumin 3.0 Calcium Level 8.8 Alkaline Phosphatase 136 Aspartate Amino Transf (AST/SGOT) 36 Alanine Aminotransferase (ALT/SGPT) 24 Total Bilirubin 0.9 Sodium Level 139 Potassium Level 3.7 Chloride Level 99 Carbon Dioxide Level 35.8 Anion Gap 4 Estimat Glomerular Filtration Rate 36 Result Diagram: 03/19/17 0610 03/18/172155 Imaging Last Impressions Abdomen/Pelvis CT 03/18/172208 Signed Impressions: Service Date/Time: Saturday, March 18, 2017 22:49 - CONCLUSION: 1. Pneumobilia. No biliary dilatation. Pneumobilia can relate to acute infections but can also be seen in people that have undergone certain interventions such as sphincterotomy. 2. Colonic diverticulosis without acute inflammation. 3. Bilateral pleural effusions and passive atelectasis. 4. Cardiomegaly. Alonzo Scott Jr., MD Caprindaniel VTE Risk Assessment Caprini VTE Risk Assessment: No/Low Risk (score <= 1) Caprini Risk Assessment Model Point Value = 1 Point Value = 2 Point Value = 3 Point Value = 5 Age 41-60 Minor surgery BMI > 25 kg/m2 Swollen legs Varicose veins or History of unexplained or recurrent spontaneous Oral contraceptives or hormone replacement Sepsis (< 1 month) Serious lung disease, including pneumonia (< 1 month) Abnormal pulmonary function Acute myocardial infarction Congestive heart failure (< 1 month) History of inflammatory bowel disease Medical patient at bed rest Age 61-74 Arthroscopic surgery Major open surgery (> 45 min) Laparoscopic surgery (> 45 min) Malignancy Confined to bed (> 72 hours) Immobilizing plaster cast Central venous access Age >= 75 History of VTE Family history of VTE Factor V Leiden Prothrombin [id number] Lupus anticoagulant Anticardiolipin antibodies Elevated serum homocysteine Heparin-induced thrombocytopenia Other congenital or acquired thrombophilia Stroke (< 1 month) Elective arthroplasty Hip, pelvis, or leg fracture Acute spinal cord injury (< 1 month) Prophylaxis Regimen Total Risk Factor Score Risk Level Prophylaxis Regimen 0-1 Low Early ambulation 2 Moderate Order ONE of the following: *Sequential Compression Device (SCD) *Heparin 5000 units SQ BID 3-4 Higher Order ONE of the following medications: *Heparin 5000 units SQ TID *Enoxaparin/Lovenox 40 mg SQ daily (WT < 150 kg, CrCl > 30 mL/min) *Enoxaparin/Lovenox 30 mg SQ daily (WT < 150 kg, CrCl > 10-29 mL/min) *Enoxaparin/Lovenox 30 mg SQ BID (WT < 150 kg, CrCl > 30 mL/min) AND/OR *Sequential Compression Device (SCD) 5 or more Highest Order ONE of the following medications: *Heparin 5000 units SQ TID (Preferred with Epidurals) *Enoxaparin/Lovenox 40 mg SQ daily (WT < 150 kg, CrCl > 30 mL/min) *Enoxaparin/Lovenox 30 mg SQ daily (WT < 150 kg, CrCl > 10-29 mL/min) *Enoxaparin/Lovenox 30 mg SQ BID (WT < 150 kg, CrCl > 30 mL/min) AND *Sequential Compression Device (SCD) Assessment and Plan Problem List: (1) GI bleed ICD Code: K92.2 - Gastrointestinal hemorrhage, unspecified Status: Acute Assessment and Plan Assessment and plan 86 year old female admitted secondary to COPD and CHF exacerbation GI bleeding Active GI bleed Large-volume loss GI bleed May be related to recent use of heparin Follow CBC closely Transfusion anticipated Transfuse as needed GI consulted Subacute CHF exacerbation Resolved Continue baseline CHF treatments Subacute COPD exacerbation Resolved Continue baseline COPD treatments Hypertension Continue amlodipine Continue atenolol Continue as needed clonidine Follow blood pressures Atrial fibrillation Follow on telemetry No change to baseline treatment DVT prophylaxis SCDs Physician Certification 2 Midnight Certification Type: Admission for Inpatient Services Order for Inpatient Services The services are ordered in accordance with Medicare regulations or non- Medicare payer requirements, as applicable. In the case of services not specified as inpatient-only, they are appropriately provided as inpatient services in accordance with the 2-midnight benchmark. Estimated LOS (days): 3 days is the estimated time the patient will need to remain in the hospital, assuming treatment plan goals are met and no additional complications. Post-Hospital Plan: Home Problem Qualifiers (1) GI bleed: Qualified Codes: K92.2 - Gastrointestinal hemorrhage, unspecified Negrito Burt MD Mar 19, 2017 11:12
[2017-03-19] MEDS ORDERED: ALBUTEROL SULFATE 90 MCG/ACT HFA 8 GM INHALER INH PRN (12:00)
[2017-03-19] MEDS ORDERED: PILL SPLITTER OTHER PRN (12:00)
--- NOTE | 2017-03-19 15:31 | PD.CONS ---
HPI History of Present Illness This is a 87 year old female with pmh of HTN, COPD, GERD, AVM, colon polyps who presented to the ED with GI bleed. Reports multiple large bloody stools started approx 2 days ago. states this is dark red but not exactly sure. Had previous hx of GI bleed but not as bad as this. She denies any abdominal pain, diarrhea, or nausea, vomiting or change in bowels. Pt thinks that she received heparin during last recent hospital visit for DVT prophylaxis. She had a drop in her hemoglobin since yesterday. last bloody BM was today. Pt had EGD/ colonoscopy in 2013---> AVM oozing some blood, cauterized, small polyps removed , one polyps in the ascending colon removed, diverticulosis, fair preop, recommended a repeat in one yr, and CE as an OP, not sure if she did f/u as an OP, wasn't able to view medical records. Denies NSAIDs. Not on any blood thinner. CT abd/pel showed pneumobilia, no biliary dilatation, diverticulosis, pleural effusions and cardiomegaly (Laverne White) PFSH Past Medical History Hypertension Anxiety disorder COPD Atrial fibrillation Arthritis Gastroesophageal reflux History of colon polyps Osteoarthritis Congestive heart failure next line hypertension Past Surgical History Bilateral knee replacements Hysterectomy (Laverne White) Coded Allergies: Sulfa (Sulfonamide Antibiotics) (Unverified Allergy, Severe, PT DOES NOT REMEMBER, 03/18/17) levofloxacin (Unverified Allergy, Severe, PT STATES "DRIVES ME CRAZY", ) Medications Current Medications Medications (Trade) Dose Ordered Sig/Jose Route Start Time Stop Time Status Last Admin (NS Flush) 2 ml UNSCH PRN IV FLUSH 03/19/17 09:45 (NS Flush) 2 ml BID IV FLUSH 03/19/17 21:00 (Zofran Inj) 4 mg Q6H PRN IVP 03/19/17 09:45 (Narcan Inj) 0.4 mg UNSCH PRN IV PUSH 03/19/17 09:45 (Proair Hfa Inh) 2 puff Q4HR PRN INH 03/19/17 12:00 (Norvasc) 5 mg DAILY PO 03/20/17 09:00 (Tenormin) 100 mg BID PO 03/19/17 21:00 (Buspar) 5 mg BID PO 03/19/17 21:00 (Vitamin D3) 1,000 units DAILY PO 03/20/17 09:00 (Lasix) 40 mg DAILY PO 03/20/17 09:00 (Prinivil) 10 mg DAILY PO 03/20/17 09:00 (KCl) 10 meq Q12HR PO 03/19/17 21:00 (Protonix) 40 mg DAILY PO 03/20/17 09:00 (Zoloft) 25 mg DAILY PO 03/20/17 09:00 (Pill Splitter) 1 ea UNSCH PRN OTHER 03/19/17 12:00 Family History Myocardial infarction in father at the age 41 Coronary artery disease in brother Social History Occasional alcohol No history of smoking No history of illicit drug abuse (Laverne White) Review of Systems Constitutional: DENIES: Weight loss Endocrine: DENIES: Polyuria Eyes: DENIES: Double Vision Ears, nose, mouth, throat: DENIES: Hoarseness Respiratory: DENIES: Shortness of breath Cardiovascular: DENIES: Lower Extremity Edema Gastrointestinal: COMPLAINS OF: Bloody stools, DENIES: Abdominal pain, Black stools, Constipation, Diarrhea, Nausea, Vomiting, Difficulty Swallowing, Anorexia, Odynophagia, Swelling of Abdomen, Heartburn, Hematemesis Genitourinary: DENIES: Hematuria Musculoskeletal: DENIES: Neck pain Integumentary: DENIES: Jaundice Immunologic/allergic: DENIES: Eczema Neurologic: DENIES: Abnormal gait Psychiatric: DENIES: Anxiety (Laverne White) GI Exam Vitals I&O Vital Signs Date Time Temp Pulse Resp B/P (MAP) Pulse Ox O2 Delivery O2 Flow Rate FiO2 03/19/17 11:45 95.6 69 17 132/84 (100) 95 03/19/17 09:00 72 19 135/79 (97) 98 Nasal Cannula 2.00 03/19/17 06:37 76 18 130/67 (88) 100 03/19/17 04:17 75 18 128/80 (96) 100 Room Air 03/18/17 21:47 94 Nasal Cannula 2.00 03/18/17 21:41 98.1 86 18 178/99 (125) 95 Imaging Last Impressions Abdomen/Pelvis CT 03/18/17 2026 Signed Impressions: Service Date/Time: Saturday, March 18, 2017 22:49 - CONCLUSION: 1. Pneumobilia. No biliary dilatation. Pneumobilia can relate to acute infections but can also be seen in people that have undergone certain interventions such as sphincterotomy. 2. Colonic diverticulosis without acute inflammation. 3. Bilateral pleural effusions and passive atelectasis. 4. Cardiomegaly. Alonzo Scott Jr., MD Laboratory Test 03/18/17 21:56 03/19/17 06:10 White Blood Count 6.5 TH/MM3 8.1 TH/MM3 Red Blood Count 4.57 MIL/MM3 4.30 MIL/MM3 Hemoglobin 14.4 GM/DL 13.3 GM/DL Hematocrit 43.1 % 40.7 % Mean Corpuscular Volume 94.4 FL 94.6 FL Mean Corpuscular Hemoglobin 31.6 PG 30.9 PG Mean Corpuscular Hemoglobin Concent 33.5 % 32.6 % Red Cell Distribution Width 15.7 % 16.1 % Platelet Count 142 TH/MM3 126 TH/MM3 Mean Platelet Volume 11.2 FL 10.2 FL Neutrophils (%) (Auto) 86.9 % 85.3 % Lymphocytes (%) (Auto) 5.7 % 6.2 % Monocytes (%) (Auto) 7.3 % 8.4 % Eosinophils (%) (Auto) 0.0 % 0.0 % Basophils (%) (Auto) 0.1 % 0.1 % Neutrophils # (Auto) 5.6 TH/MM3 6.9 TH/MM3 Lymphocytes # (Auto) 0.4 TH/MM3 0.5 TH/MM3 Monocytes # (Auto) 0.5 TH/MM3 0.7 TH/MM3 Eosinophils # (Auto) 0.0 TH/MM3 0.0 TH/MM3 Basophils # (Auto) 0.0 TH/MM3 0.0 TH/MM3 CBC Comment DIFF FINAL DIFF FINAL Differential Comment Prothrombin Time 12.8 SEC Prothromb Time International Ratio 1.3 RATIO Activated Partial Thromboplast Time 23.8 SEC Blood Urea Nitrogen 35 MG/DL Creatinine 1.40 MG/DL Random Glucose 139 MG/DL Total Protein 7.4 GM/DL Albumin 3.0 GM/DL Calcium Level 8.8 MG/DL Alkaline Phosphatase 136 U/L Aspartate Amino Transf (AST/SGOT) 36 U/L Alanine Aminotransferase (ALT/SGPT) 24 U/L Total Bilirubin 0.9 MG/DL Sodium Level 139 MEQ/L Potassium Level 3.7 MEQ/L Chloride Level 99 MEQ/L Carbon Dioxide Level 35.8 MEQ/L Anion Gap 4 MEQ/L Estimat Glomerular Filtration Rate 36 ML/MIN Physical Examination HEENT: normocephalic; atraumatic; no jaundice. NECK: Neck is supple, no JVD, no lymphadenopathy. CHEST: Chest is clear to auscultation and percussion. CARDIAC: Regular rate and rhythm ABDOMEN: Soft, nondistended, nontender; no hepatosplenomegaly; bowel sounds are present in all four quadrants. EXTREMITIES: No clubbing, cyanosis, or edema. SKIN: Normal; no rash; no jaundice. HOME FIRE ALARM INSTALLER: No focal deficits; alert and oriented times three. (Laverne White) Assessment and Plan Plan - GI bleed- large multiple bloody BMs Pt had EGD/colonoscopy in 2012---> AVM oozing some blood, cauterized, small polyps removed, one polyps in the ascending colon removed, diverticulosis, fair preop, recommended a repeat in one yr, and CE as an OP, not sure if she did f/u as an OP, wasn't able to view medical records. Denies NSAIDs. Not on any blood thinner. CT abd/pel showed pneumobilia, no biliary dilatation, diverticulosis, pleural effusions and cardiomegaly. She had a drop in her hemoglobin since yesterday but still wnl. last bloody BM was today. - GERD- well controlled with PPI - Pneumobilia- mild elevation of alp, WBC wnl - HTN, COPD per attending Plan: - Clears - EGD/colonoscopy in the am - NPO mn - Obtain consents - Golytely today - Monitor hh - Notify GI for active bleeding - Cont. Protonix - Transfuse as needed - Patient seen and examined by Dr. Smith and myself and this note is written on his behalf. (Laverne White) Physician Comments Agree with plan as above, for EGD and Colonoscopy in AM. (Silvino Smith MD) Laverne White Mar 19, 2017 15:31 Silvino Smith MD Mar 19, 2017 20:47
[2017-03-19] MEDS: PEG (High)/E-LYTE SOLN 4000 ML BTL PO SCH (16:55)
[2017-03-19] MEDS: ATENOLOL 100 MG TAB PO SCH (20:56)
[2017-03-19] MEDS: busPIRone HCL 5 MG TAB PO SCH (20:56)
[2017-03-19] MEDS: POTASSIUM CHLORIDE 10 MEQ CONTROLLED RELEASE TAB PO SCH (20:56)
[2017-03-19] MEDS: SODIUM CHLORIDE 0.9% FLUSH 10 ML FLUSH IV FLUSH SCH (20:59)
[2017-03-20] VITALS (8 sets, daily range): BP systolic 127–149; BP diastolic 75–94; PULSE 65–101; RESP 15–19; TEMP 95.3–97; O2SAT 90–98
[2017-03-20] MEDS: PEG (High)/E-LYTE SOLN 4000 ML BTL PO SCH (00:54)
[2017-03-20] MEDS ORDERED: SODIUM CHLORID 0.9% 500 ML IV PRN (01:45)
[2017-03-20] MEDS ORDERED: POVIDONE IODINE 5% (ANTISEPSIS KIT) 4 APPLICATIONS EACH NARE PRN (01:45)
[2017-03-20] MEDS ORDERED: LACTATED RINGER'S 1000 ML IV PRN (01:45)
[2017-03-20] MEDS ORDERED: CHLORHEXIDINE GLUCONATE 2 % 1 PACK (2 CLOTHS) TOPICAL PRN (01:45)
[2017-03-20 06:21] LABS: AUTOMATED NEUTROPHIL # 3.5 TH/MM3 (1.8-7.7); HEMATOCRIT 39.4 % (35.0-46.0); LYMPH % 15.9 % (9.0-44.0); LYMPHOCYTE # 0.8 TH/MM3 (1.0-4.8); MEAN CELL VOLUME 95.8 FL (80.0-100.0); MEAN CORPUSCULAR HEMOGLOBIN 31.5 PG (27.0-34.0); MEAN CORPUSCULAR HGB CONC 32.9 % (32.0-36.0); MEAN PLATELET VOLUME 10.5 FL (7.0-11.0); MONO % 10.5 % (0.0-8.0); MONOCYTE # 0.5 TH/MM3 (0-0.9); NEUT % 72.6 % (16.0-70.0); PLATELET COUNT 105 TH/MM3 (150-450); RED BLOOD COUNT 4.11 MIL/MM3 (4.00-5.30); RED CELL DISTRIBUTION WIDTH 15.5 % (11.6-17.2); WHITE BLOOD COUNT 4.8 TH/MM3 (4.0-11.0)
[2017-03-20 06:43] LABS: ALBUMIN 2.6 GM/DL (3.4-5.0); AST (GOT) 38 U/L (15-37); BICARBONATE 36.7 MEQ/L (21.0-32.0); BLOOD UREA NITROGEN 36 MG/DL (7-18); CALCIUM 8.3 MG/DL (8.5-10.1); CHLORIDE 99 MEQ/L (98-107); CREATININE 1.22 MG/DL (0.50-1.00); GLOMERULAR FILTRATION RATE 42 ML/MIN (>89); GLUCOSE,RANDOM 89 MG/DL (74-106); SODIUM (NA) 140 MEQ/L (136-145)
[2017-03-20 06:44] LABS: ALT (GPT) 23 U/L (10-53)
[2017-03-20 06:46] LABS: ALKALINE PHOSPHATASE 114 U/L (45-117); TOTAL BILIRUBIN ADULT 0.8 MG/DL (0.2-1.0); TOTAL PROTEIN 6.2 GM/DL (6.4-8.2)
[2017-03-20] MEDS: PANTOPRAZOLE SOD 40 MG DELAYED RELEASE TAB PO SCH (07:44)
[2017-03-20] MEDS: CHOLECALCIFEROL (VIT D3) 1000 UNIT TAB PO SCH (07:45)
[2017-03-20] MEDS: busPIRone HCL 5 MG TAB PO SCH ×2 (07:45→21:49)
[2017-03-20] MEDS: SERTRALINE HCL 50 MG TAB PO SCH (07:45)
[2017-03-20] MEDS: POTASSIUM CHLORIDE 10 MEQ CONTROLLED RELEASE TAB PO SCH ×2 (07:45→21:49)
[2017-03-20] MEDS: ATENOLOL 100 MG TAB PO SCH ×2 (09:15→21:48)
[2017-03-20] MEDS: amLODIPine BESYLATE 5 MG TAB PO SCH (09:16)
[2017-03-20] MEDS: LISINOPRIL 10 MG TAB PO SCH (09:16)
[2017-03-20] MEDS: FUROSEMIDE 40 MG TAB PO SCH (09:16)
[2017-03-20] MEDS: SODIUM CHLORIDE 0.9% FLUSH 10 ML FLUSH IV FLUSH SCH ×2 (09:18→21:49)
[2017-03-20] MEDS ORDERED: PROPOFOL 200 MG/20 ML AMP IV ONE (12:00)
[2017-03-20] MEDS ORDERED: LIDOCAINE HCL 1% PF 5 ML SYRINGE OTHER ONE (12:00)
--- NOTE | 2017-03-20 15:00 | HHI.PR ---
Subjective Remarks The patient was resting comfortably. She wanted to eat something. She said that she hasn't had a bowel movement today. She was anticipating the procedure. Discussed with her family at the bedside. Also discussed with nursing. Objective Vitals Vital Signs Date Time Temp Pulse Resp B/P (MAP) Pulse Ox O2 Delivery O2 Flow Rate FiO2 03/20/17 11:24 97.0 66 19 129/87 (101) 94 03/20/17 08:00 95.5 67 18 146/94 (111) 93 03/20/17 07:45 65 03/20/17 04:30 95.3 69 16 131/78 (95) 97 03/19/17 23:10 95.4 75 16 142/92 (109) 94 03/19/17 19:56 96.3 79 18 118/87 (97) 97 03/19/17 16:00 96.1 67 17 112/69 (83) 97 Result Diagram: 03/20/17 0521 03/20/17 0521 Imaging Last Impressions Abdomen/Pelvis CT 03/18/170 Signed Impressions: Service Date/Time: Saturday, March 18, 2017 22:49 - CONCLUSION: 1. Pneumobilia. No biliary dilatation. Pneumobilia can relate to acute infections but can also be seen in people that have undergone certain interventions such as sphincterotomy. 2. Colonic diverticulosis without acute inflammation. 3. Bilateral pleural effusions and passive atelectasis. 4. Cardiomegaly. Alonzo Scott Jr., MD Objective Remarks GENERAL: Resting comfortably. HEAD: Normocephalic. NECK: Supple, trachea midline. No lymphadenopathy. EYES: No scleral icterus. No injection or drainage. CARDIOVASCULAR: Regular rate and rhythm without murmurs, gallops, or rubs. RESPIRATORY: Diffuse wheezing. GASTROINTESTINAL: Abdomen soft, non-tender, nondistended. MUSCULOSKELETAL: No cyanosis, or edema. SKIN: Warm and dry. NEURO: No focal neurological deficitis. PSYCH: Mood and affect appropriate. Medications and IVs Current Medications Medications (Trade) Dose Ordered Sig/Jose Route Start Time Stop Time Status Last Admin (NS Flush) 2 ml UNSCH PRN IV FLUSH 03/19/17 09:45 (NS Flush) 2 ml BID IV FLUSH 03/19/17 21:00 03/20/17 09:18 (Zofran Inj) 4 mg Q6H PRN IVP 03/19/17 09:45 (Narcan Inj) 0.4 mg UNSCH PRN IV PUSH 03/19/17 09:45 (Proair Hfa Inh) 2 puff Q4HR PRN INH 03/19/17 12:00 (Norvasc) 5 mg DAILY PO 03/20/17 09:00 03/20/17 09:16 (Tenormin) 100 mg BID PO 03/19/17 21:00 03/20/17 09:15 (Buspar) 5 mg BID PO 03/19/17 21:00 03/19/17 20:56 (Vitamin D3) 1,000 units DAILY PO 03/20/17 09:00 (Lasix) 40 mg DAILY PO 03/20/17 09:00 03/20/17 09:16 (Prinivil) 10 mg DAILY PO 03/20/17 09:00 03/20/17 09:16 (KCl) 10 meq Q12HR PO 03/19/17 21:00 03/19/17 20:56 (Protonix) 40 mg DAILY PO 03/20/17 09:00 (Zoloft) 25 mg DAILY PO 03/20/17 09:00 (Pill Splitter) 1 ea UNSCH PRN OTHER 03/19/17 12:00 Lactated Ringer's 1,000 ml @ 30 mls/hr Q24H PRN IV 03/20/17 01:45 03/23/17 01:44 Sodium Chloride 500 ml @ 30 mls/hr [id number] PRN IV 03/20/17 01:45 03/23/17 01:44 (Betadine 5% Antisepsis Kit) 1 applic REGULATORY SUBMISSIONS SPECIALIST PRN EACH NARE 03/20/17 01:45 03/23/17 01:44 (Chlorhexidine 2% Cloth) 3 pack REGULATORY SUBMISSIONS SPECIALIST PRN TOPICAL 03/20/17 01:45 03/23/17 01:44 A/P Problem List: (1) GI bleed ICD Code: K92.2 - Gastrointestinal hemorrhage, unspecified Status: Acute Assessment and Plan GI bleeding The pt endorses blood in her stools. GI consult appreciated. - Follow CBC and transfuse as needed. - GI performing EGD/ colonoscopy 03/20. COPD exacerbation The pt has diffuse wheezing on exam. - Continue baseline COPD treatments. - standing nebs. - IS. - encourage ambulation. - steroids if needed. - obtain a CXR. Hypertension Well controlled at this time. - Continue amlodipine and atenolol. - Continue as needed clonidine. Atrial fibrillation Rate controlled. - Follow on telemetry. - No change to baseline treatment. DVT prophylaxis: SCDs Discharge Planning Await EGD/ colonoscopy Problem Qualifiers (1) GI bleed: Qualified Codes: K92.2 - Gastrointestinal hemorrhage, unspecified Pineda Leach DO Mar 20, 2017 15:00
--- NOTE | 2017-03-20 19:45 | RADRPT ---
EXAM DATE/TIME: 03/20/2017 19:29 [facility] COMPARISON: CHEST SINGLE AP, March 17, 2017, 3:56. INDICATIONS : Dyspnea. MEDICAL HISTORY : Gastroesophageal reflux disease. Hypertension. Cardiovascular disease SURGICAL HISTORY : Hysterectomy. Total knee replacement, left.Total knee replacement, right. ENCOUNTER: Subsequent ACUITY: 4 - 6 days PAIN SCORE: 0/10 LOCATION: Bilateral chest FINDINGS: A single view of the chest demonstrates bibasilar airspace disease. Slight improvement. Cardiomegaly. . Osseous structures are intact. CONCLUSION: Slight improvement of bibasilar airspace disease and cardiomegaly, likely CHF. Diallo Fields MD on March 20, 2017 at 19:42 Board Certified Radiologist. This report was verified electronically.
[2017-03-20] MEDS: RESP: ALBUTEROL 2.5 MG/IPRATROPIUM 0.5 MG NEB (SCH) NEB (21:56)
[2017-03-21] VITALS (12 sets, daily range): BP systolic 111–150; BP diastolic 64–81; PULSE 60–78; RESP 16–22; TEMP 95.3–97.7; O2SAT 94–99
[2017-03-21 06:00] LABS: HEMATOCRIT 43.8 % (35.0-46.0); HEMOGLOBIN 14.1 GM/DL (11.6-15.3); MEAN CELL VOLUME 95.4 FL (80.0-100.0); MEAN CORPUSCULAR HEMOGLOBIN 30.8 PG (27.0-34.0); MEAN CORPUSCULAR HGB CONC 32.3 % (32.0-36.0); MEAN PLATELET VOLUME 11.3 FL (7.0-11.0); PLATELET COUNT 87 TH/MM3 (150-450); RED BLOOD COUNT 4.59 MIL/MM3 (4.00-5.30); RED CELL DISTRIBUTION WIDTH 15.7 % (11.6-17.2); WHITE BLOOD COUNT 6.4 TH/MM3 (4.0-11.0)
[2017-03-21 06:04] LABS: BICARBONATE 35.1 MEQ/L (21.0-32.0); CALCIUM 8.4 MG/DL (8.5-10.1); CREATININE 1.22 MG/DL (0.50-1.00); MAGNESIUM 1.7 MG/DL (1.5-2.5)
[2017-03-21] MEDS: RESP: ALBUTEROL 2.5 MG/IPRATROPIUM 0.5 MG NEB (SCH) NEB ×3 (08:04→20:42)
[2017-03-21] MEDS: ATENOLOL 100 MG TAB PO SCH ×2 (09:00→22:24)
[2017-03-21] MEDS: SERTRALINE HCL 50 MG TAB PO SCH (09:16)
[2017-03-21] MEDS: busPIRone HCL 5 MG TAB PO SCH ×2 (09:17→22:23)
[2017-03-21] MEDS: LISINOPRIL 10 MG TAB PO SCH (09:17)
[2017-03-21] MEDS: POTASSIUM CHLORIDE 10 MEQ CONTROLLED RELEASE TAB PO SCH ×2 (09:17→22:23)
[2017-03-21] MEDS: PANTOPRAZOLE SOD 40 MG DELAYED RELEASE TAB PO SCH (09:17)
[2017-03-21] MEDS: amLODIPine BESYLATE 5 MG TAB PO SCH (09:17)
[2017-03-21] MEDS: CHOLECALCIFEROL (VIT D3) 1000 UNIT TAB PO SCH (09:17)
[2017-03-21] MEDS: FUROSEMIDE 40 MG TAB PO SCH (09:18)
[2017-03-21] MEDS: SODIUM CHLORIDE 0.9% FLUSH 10 ML FLUSH IV FLUSH SCH ×2 (09:20→22:23)
--- NOTE | 2017-03-21 14:06 | HHI.PR ---
Subjective Remarks The patient was complaining of shortness of breath. She had her endoscopy and colonoscopy earlier. She was eating lunch. Her son was at the bedside. Discussed with nursing. Objective Vitals Vital Signs Date Time Temp Pulse Resp B/P (MAP) Pulse Ox O2 Delivery O2 Flow Rate FiO2 03/21/17 12:00 97.0 70 22 111/66 (81) 98 03/21/17 11:10 78 03/21/17 08:07 97 Nasal Cannula 3.00 03/21/17 08:00 96.0 60 22 150/81 (104) 98 03/21/17 04:20 68 03/21/17 03:45 96.7 74 16 149/70 (96) 97 03/21/17 00:18 96.9 68 16 130/65 (86) 97 03/21/17 00:11 70 03/20/17 21:58 90 Nasal Cannula 3.00 03/20/17 19:51 69 03/20/17 19:15 95.7 69 15 135/75 (95) 95 03/20/17 16:49 97.2 69 18 116/67 (83) 95 03/20/17 14:51 96.9 101 17 149/84 (105) 96 I/O 03/20/17 03/20/17 03/20/17 03/21/17 03/21/17 03/21/17 07:00 15:00 23:00 07:00 15:00 23:00 Intake Total 0 ml 1000 ml Output Total 1 ml Balance 0 ml 999 ml Intake Oral 0 ml 500 ml Other 500 ml Output Stool Total 1 ml # Voids 2 3 1 # Bowel Movements 5 0 Result Diagram: 03/21/17 0407 03/21/17 0407 Imaging Last Impressions Chest X-Ray 03/20/17 0000 Signed Impressions: Service Date/Time: Monday, March 20, 2017 19:29 - CONCLUSION: Slight improvement of bibasilar airspace disease and cardiomegaly, likely CHF. Diallo Fields MD Abdomen/Pelvis CT 03/18/171 Signed Impressions: Service Date/Time: Saturday, March 18, 2017 22:49 - CONCLUSION: 1. Pneumobilia. No biliary dilatation. Pneumobilia can relate to acute infections but can also be seen in people that have undergone certain interventions such as sphincterotomy. 2. Colonic diverticulosis without acute inflammation. 3. Bilateral pleural effusions and passive atelectasis. 4. Cardiomegaly. Alonzo Scott Jr., MD Objective Remarks GENERAL: Resting comfortably. HEAD: Normocephalic. NECK: Supple, trachea midline. No lymphadenopathy. EYES: No scleral icterus. No injection or drainage. CARDIOVASCULAR: Regular rate and rhythm without murmurs, gallops, or rubs. RESPIRATORY: Diffuse wheezing. GASTROINTESTINAL: Abdomen soft, non-tender, nondistended. MUSCULOSKELETAL: No cyanosis, or edema. SKIN: Warm and dry. NEURO: No focal neurological deficitis. PSYCH: Mood and affect appropriate. Procedures EGD/colonoscopy Medications and IVs Current Medications Medications (Trade) Dose Ordered Sig/Jose Route Start Time Stop Time Status Last Admin (NS Flush) 2 ml UNSCH PRN IV FLUSH 03/19/17 09:45 (NS Flush) 2 ml BID IV FLUSH 03/19/17 21:00 03/21/17 09:20 (Zofran Inj) 4 mg Q6H PRN IVP 03/19/17 09:45 (Narcan Inj) 0.4 mg UNSCH PRN IV PUSH 03/19/17 09:45 (Proair Hfa Inh) 2 puff Q4HR PRN INH 03/19/17 12:00 (Norvasc) 5 mg DAILY PO 03/20/17 09:00 03/21/17 09:17 (Tenormin) 100 mg BID PO 03/19/17 21:00 03/21/17 09:00 (Buspar) 5 mg BID PO 03/19/17 21:00 03/21/17 09:17 (Vitamin D3) 1,000 units DAILY PO 03/20/17 09:00 03/21/17 09:17 (Lasix) 40 mg DAILY PO 03/20/17 09:00 03/21/17 09:18 (Prinivil) 10 mg DAILY PO 03/20/17 09:00 03/21/17 09:17 (KCl) 10 meq Q12HR PO 03/19/17 21:00 03/21/17 09:17 (Protonix) 40 mg DAILY PO 03/20/17 09:00 03/21/17 09:17 (Zoloft) 25 mg DAILY PO 03/20/17 09:00 03/21/17 09:16 (Pill Splitter) 1 ea UNSCH PRN OTHER 03/19/17 12:00 Lactated Ringer's 1,000 ml @ 30 mls/hr Q24H PRN IV 03/20/17 01:45 03/23/17 01:44 Sodium Chloride 500 ml @ 30 mls/hr [id number] PRN IV 03/20/17 01:45 03/23/17 01:44 (Betadine 5% Antisepsis Kit) 1 applic HOME INSURANCE AGENT PRN EACH NARE 03/20/17 01:45 03/23/17 01:44 (Chlorhexidine 2% Cloth) 3 pack HOME INSURANCE AGENT PRN TOPICAL 03/20/17 01:45 03/23/17 01:44 (Duoneb Neb) 1 ampule Q6HR WHILE AWAKE NEB NEB 03/20/17 20:00 03/21/17 08:04 (SoluMEDROL INJ) 40 mg Q12HR IV PUSH 03/21/17 13:00 A/P Problem List: (1) GI bleed ICD Code: K92.2 - Gastrointestinal hemorrhage, unspecified Status: Acute Assessment and Plan GI bleeding The pt endorses blood in her stools. GI consult appreciated. Status post EGD which revealed a polyp and colonoscopy which revealed diverticulosis and internal hemorrhoids. - Follow CBC and transfuse as needed. Stable. - GI following. - Follow biopsy results. - PPI. COPD exacerbation/ Dyspnea The pt has diffuse wheezing on exam. Chest x-ray with improvement, possible CHF. Recent echo with normal EF, mild-mod MR. - Continue baseline COPD treatments. - standing nebs. - IS. - encourage ambulation. - Start IV Solu-Medrol. - check a BNP. Hypertension Well controlled at this time. - Continue amlodipine and atenolol. - Continue as needed clonidine. Atrial fibrillation Rate controlled. - Follow on telemetry. - No change to baseline treatment. Thrombocytopenia Appears chronic. - Continue to monitor CBC. DVT prophylaxis: SCDs Discharge Planning With improvement in respiratory status Problem Qualifiers (1) GI bleed: Qualified Codes: K92.2 - Gastrointestinal hemorrhage, unspecified Pineda Leach DO Mar 21, 2017 14:06
[2017-03-21] MEDS: methylPREDNISolone SOD SUCC 40 MG/1 ML VIAL IV PUSH SCH ×2 (14:36→22:23)
--- NOTE | 2017-03-21 14:56 | HHI.GIFU ---
Subjective Remarks Pt resting in bed in no apparent distress. She denies BM since procedures done yesterday. Denies nausea, vomiting, abdominal pain. Tolerating diet. Objective Vitals I&O Vital Signs Date Time Temp Pulse Resp B/P (MAP) Pulse Ox O2 Delivery O2 Flow Rate FiO2 03/21/17 12:00 97.0 70 22 111/66 (81) 98 03/21/17 11:10 78 03/21/17 08:07 97 Nasal Cannula 3.00 03/21/17 08:00 96.0 60 22 150/81 (104) 98 03/21/17 04:20 68 03/21/17 03:45 96.7 74 16 149/70 (96) 97 03/21/17 00:18 96.9 68 16 130/65 (86) 97 03/21/17 00:11 70 03/20/17 21:58 90 Nasal Cannula 3.00 03/20/17 19:51 69 03/20/17 19:15 95.7 69 15 135/75 (95) 95 03/20/17 16:49 97.2 69 18 116/67 (83) 95 03/20/17 14:51 96.9 101 17 149/84 (105) 96 I/O 03/20/17 03/20/17 03/20/17 03/21/17 03/21/17 03/21/17 07:00 15:00 23:00 07:00 15:00 23:00 Intake Total 0 ml 1000 ml Output Total 1 ml Balance 0 ml 999 ml Intake Oral 0 ml 500 ml Other 500 ml Output Stool Total 1 ml # Voids 2 3 1 # Bowel Movements 5 0 Laboratory Laboratory Tests Test 03/21/17 04:07 White Blood Count 6.4 Red Blood Count 4.59 Hemoglobin 14.1 Hematocrit 43.8 Mean Corpuscular Volume 95.4 Mean Corpuscular Hemoglobin 30.8 Mean Corpuscular Hemoglobin Concent 32.3 Red Cell Distribution Width 15.7 Platelet Count 87 Mean Platelet Volume 11.3 Blood Urea Nitrogen 37 Creatinine 1.22 Random Glucose 90 Calcium Level 8.4 Magnesium Level 1.7 Sodium Level 141 Potassium Level 3.7 Chloride Level 100 Carbon Dioxide Level 35.1 Anion Gap 6 Estimat Glomerular Filtration Rate 42 Imaging Last Impressions Chest X-Ray 03/20/17 0000 Signed Impressions: Service Date/Time: Monday, March 20, 2017 19:29 - CONCLUSION: Slight improvement of bibasilar airspace disease and cardiomegaly, likely CHF. Diallo Fields MD Abdomen/Pelvis CT 03/18/172208 Signed Impressions: Service Date/Time: Saturday, March 18, 2017 22:49 - CONCLUSION: 1. Pneumobilia. No biliary dilatation. Pneumobilia can relate to acute infections but can also be seen in people that have undergone certain interventions such as sphincterotomy. 2. Colonic diverticulosis without acute inflammation. 3. Bilateral pleural effusions and passive atelectasis. 4. Cardiomegaly. Alonzo Scott Jr., MD Physical Exam HEENT: Normocephalic; atraumatic CHEST: Diffuse wheezing, 3 L NC CARDIAC: RRR ABDOMEN: Soft, nontender; bowel sounds active x 4. EXTREMITIES: BLE edema SKIN: Normal; no rash; no jaundice. SYNTHETIC SOIL BLOCKS PULPER: No focal deficits; alert and oriented times three. Assessment and Plan Plan Assessment - GI bleed- complaining of large, blood BMs when she came in, history of AVM. CT abdomen and pelvis W/O IV contrast (03/18) --> Pneumobilia. No biliary dilation. Pneumobilia can relate to acute infection but can also be seen in people that have undergone certain interventions such as sphincterotomy. Colonic diverticulosis without acute inflammation. Bilateral pleural effusions and passive atelectasis. Cardiomegaly. Pt is now S/P EGD and colonoscopy yesterday which revealed --> normal esophagus, medium sized sessile polyp in the cardia, polypectomy was performed, normal duodenal mucosa in the entire duodenum, hiatal hernia. Moderate diverticulosis was noted in the descending and sigmoid colon. Internal hemorrhoids. H/H stable, currently 14.1/43.8. Pt has not required transfusion. Protonix. - GERD- well controlled with PPI - Pneumobilia- Alk phos now WNL, WBC WNL - HTN, COPD per attending Plan: - JAY JAY - Continue Protonix - Biopsy pending - Monitor H/H - Supportive care - GI will sign off, please reconsult as needed Pt has been seen and examined by myself and Dr. Oviedo and this note is written on his behalf Saima Rivera Mar 21, 2017 14:56
[2017-03-22] VITALS (10 sets, daily range): BP systolic 126–161; BP diastolic 67–96; PULSE 65–85; RESP 17–22; TEMP 96.8–97.5; O2SAT 93–99
[2017-03-22 07:32] LABS: BICARBONATE 37.3 MEQ/L (21.0-32.0); CALCIUM 8.8 MG/DL (8.5-10.1); CREATININE 1.09 MG/DL (0.50-1.00); MAGNESIUM 1.7 MG/DL (1.5-2.5)
[2017-03-22] MEDS: RESP: ALBUTEROL 2.5 MG/IPRATROPIUM 0.5 MG NEB (SCH) NEB ×3 (08:00→20:00)
[2017-03-22] MEDS: LISINOPRIL 10 MG TAB PO SCH (08:30)
[2017-03-22] MEDS: POTASSIUM CHLORIDE 10 MEQ CONTROLLED RELEASE TAB PO SCH ×2 (08:30→20:26)
[2017-03-22] MEDS: amLODIPine BESYLATE 5 MG TAB PO SCH (08:30)
[2017-03-22] MEDS: SERTRALINE HCL 50 MG TAB PO SCH (08:30)
[2017-03-22] MEDS: FUROSEMIDE 40 MG TAB PO SCH (08:30)
[2017-03-22] MEDS: PANTOPRAZOLE SOD 40 MG DELAYED RELEASE TAB PO SCH (08:31)
[2017-03-22] MEDS: CHOLECALCIFEROL (VIT D3) 1000 UNIT TAB PO SCH (08:31)
[2017-03-22] MEDS: ATENOLOL 100 MG TAB PO SCH ×2 (08:31→20:27)
[2017-03-22] MEDS: busPIRone HCL 5 MG TAB PO SCH ×2 (08:31→20:26)
[2017-03-22] MEDS: SODIUM CHLORIDE 0.9% FLUSH 10 ML FLUSH IV FLUSH SCH ×2 (08:32→20:24)
[2017-03-22] MEDS: methylPREDNISolone SOD SUCC 40 MG/1 ML VIAL IV PUSH SCH ×2 (08:32→20:25)
[2017-03-22 09:25] LABS: HEMATOCRIT 41.6 % (35.0-46.0); HEMOGLOBIN 13.7 GM/DL (11.6-15.3); MEAN CELL VOLUME 95.2 FL (80.0-100.0); MEAN CORPUSCULAR HEMOGLOBIN 31.4 PG (27.0-34.0); MEAN PLATELET VOLUME 10.2 FL (7.0-11.0); PLATELET COUNT 127 TH/MM3 (150-450); RED BLOOD COUNT 4.37 MIL/MM3 (4.00-5.30); RED CELL DISTRIBUTION WIDTH 15.1 % (11.6-17.2); WHITE BLOOD COUNT 4.9 TH/MM3 (4.0-11.0)
--- NOTE | 2017-03-22 10:30 | RADRPT ---
EXAM DATE/TIME: 03/22/2017 09:25 [facility] COMPARISON: CHEST SINGLE AP, March 20, 2017, 19:29. INDICATIONS : Short of breath. MEDICAL HISTORY : Gastroesophageal reflux disease. Hypertension. Cardiovascular disease SURGICAL HISTORY : Hysterectomy. Total knee replacement, left.Total knee replacement, right. ENCOUNTER: Initial ACUITY: 4 - 6 days PAIN SCORE: 0/10 LOCATION: Bilateral chest FINDINGS: Cardiomegaly. No acute pulmonary disease. There is bilateral lower lobe atelectasis versus pneumonia. Small bilateral pleural effusions are identified. CONCLUSION: 1. Bilateral lower lobe atelectasis versus pneumonia. Small bilateral effusions There has been no sig nificant change when compared to the prior exam. Daniel Ulloa MD on March 22, 2017 at 10:22 Board Certified Radiologist. This report was verified electronically.
--- NOTE | 2017-03-22 15:53 | HHI.PR ---
Subjective Remarks The patient said she had just woken up. She said she felt a little weak. She says her son is anxious about her. No acute concerns at this time. Objective Vitals Vital Signs Date Time Temp Pulse Resp B/P (MAP) Pulse Ox O2 Delivery O2 Flow Rate FiO2 03/22/17 13:45 68 03/22/17 12:00 96.8 65 18 126/67 (86) 99 03/22/17 10:02 3.00 03/22/17 10:02 93 Nasal Cannula 3.00 03/22/17 08:00 97.0 73 17 156/92 (113) 95 03/22/17 04:00 97.5 82 22 161/96 (117) 94 03/22/17 03:57 72 03/22/17 00:00 72 03/22/17 00:00 97.5 85 22 145/82 (103) 96 03/21/17 20:44 94 Nasal Cannula 3.00 03/21/17 20:13 65 03/21/17 20:00 97.7 69 20 146/81 (102) 97 I/O 03/21/17 03/21/17 03/21/17 03/22/17 03/22/17 03/22/17 07:00 15:00 23:00 07:00 15:00 23:00 Intake Total 240 ml 480 ml 480 ml Balance 240 ml 480 ml 480 ml Intake Oral 240 ml 480 ml 480 ml # Voids 2 2 2 # Bowel Movements 0 Result Diagram: 03/22/17 0848 03/22/17 0628 Imaging Last Impressions Chest X-Ray 03/22/17 0000 Signed Impressions: Service Date/Time: March 09:25 - CONCLUSION: 1. Bilateral lower lobe atelectasis versus pneumonia. Small bilateral effusions There has been no significant change when compared to the prior exam. Daniel Ulloa MD Abdomen/Pelvis CT 03/18/17 8817 Signed Impressions: Service Date/Time: Saturday, March 18, 2017 22:49 - CONCLUSION: 1. Pneumobilia. No biliary dilatation. Pneumobilia can relate to acute infections but can also be seen in people that have undergone certain interventions such as sphincterotomy. 2. Colonic diverticulosis without acute inflammation. 3. Bilateral pleural effusions and passive atelectasis. 4. Cardiomegaly. Alonzo Scott Jr., MD Objective Remarks GENERAL: Resting comfortably. HEAD: Normocephalic. NECK: Supple, trachea midline. No lymphadenopathy. EYES: No scleral icterus. No injection or drainage. CARDIOVASCULAR: Regular rate and rhythm without murmurs, gallops, or rubs. RESPIRATORY: Diffuse wheezing. GASTROINTESTINAL: Abdomen soft, non-tender, nondistended. MUSCULOSKELETAL: No cyanosis, or edema. SKIN: Warm and dry. NEURO: No focal neurological deficitis. PSYCH: Mood and affect appropriate. Procedures EGD/colonoscopy Medications and IVs Current Medications Medications (Trade) Dose Ordered Sig/Jose Route Start Time Stop Time Status Last Admin (NS Flush) 2 ml UNSCH PRN IV FLUSH 03/19/17 09:45 03/21/17 14:37 (NS Flush) 2 ml BID IV FLUSH 03/19/17 21:00 03/22/17 08:32 (Zofran Inj) 4 mg Q6H PRN IVP 03/19/17 09:45 (Narcan Inj) 0.4 mg UNSCH PRN IV PUSH 03/19/17 09:45 (Proair Hfa Inh) 2 puff Q4HR PRN INH 03/19/17 12:00 (Norvasc) 5 mg DAILY PO 03/20/17 09:00 03/22/17 08:30 (Tenormin) 100 mg BID PO 03/19/17 21:00 03/22/17 08:31 (Buspar) 5 mg BID PO 03/19/17 21:00 03/21/17 22:23 (Vitamin D3) 1,000 units DAILY PO 03/20/17 09:00 03/22/17 08:31 (Lasix) 40 mg DAILY PO 03/20/17 09:00 03/22/17 08:30 (Prinivil) 10 mg DAILY PO 03/20/17 09:00 03/22/17 08:30 (KCl) 10 meq Q12HR PO 03/19/17 21:00 03/22/17 08:30 (Protonix) 40 mg DAILY PO 03/20/17 09:00 03/22/17 08:31 (Zoloft) 25 mg DAILY PO 03/20/17 09:00 03/22/17 08:30 (Pill Splitter) 1 ea UNSCH PRN OTHER 03/19/17 12:00 Lactated Ringer's 1,000 ml @ 30 mls/hr Q24H PRN IV 03/20/17 01:45 03/23/17 01:44 Sodium Chloride 500 ml @ 30 mls/hr [id number] PRN IV 03/20/17 01:45 03/23/17 01:44 (Betadine 5% Antisepsis Kit) 1 applic INSTALLATION MANAGER PRN EACH NARE 03/20/17 01:45 03/23/17 01:44 (Chlorhexidine 2% Cloth) 3 pack INSTALLATION MANAGER PRN TOPICAL 03/20/17 01:45 03/23/17 01:44 (Duoneb Neb) 1 ampule Q6HR WHILE AWAKE NEB NEB 03/20/17 20:00 03/22/17 12:41 (SoluMEDROL INJ) 40 mg Q12HR IV PUSH 03/21/17 13:00 03/22/17 08:32 A/P Problem List: (1) GI bleed ICD Code: K92.2 - Gastrointestinal hemorrhage, unspecified Status: Acute Assessment and Plan GI bleeding The pt endorses blood in her stools. GI consult appreciated. Status post EGD which revealed a polyp and colonoscopy which revealed diverticulosis and internal hemorrhoids. - Follow CBC and transfuse as needed. Stable. - GI follow-up as an outpt. - Follow biopsy results. - PPI. COPD exacerbation/ CAP The pt has diffuse wheezing on exam. Recent echo with normal EF, mild-mod MR. Repeat chest x-ray concerning for pneumonia. - Continue baseline COPD treatments. - standing nebs. - IS. - encourage ambulation. - Started IV Solu-Medrol. - start IV ceftriaxone and azithromycin. Hypertension Well controlled at this time. - Continue amlodipine and atenolol. - Continue as needed clonidine. Atrial fibrillation Rate controlled. - Follow on telemetry. - No change to baseline treatment. Thrombocytopenia Appears chronic. - Continue to monitor CBC. DVT prophylaxis: SCDs Discharge Planning Await improvement in respiratory status Problem Qualifiers (1) GI bleed: Qualified Codes: K92.2 - Gastrointestinal hemorrhage, unspecified Pineda Leach DO Mar 22, 2017 15:53
[2017-03-22] MEDS: cefTRIAXone INJ 1,000 MG in SODIUM CHLORIDE 0.9% INJ 100 ML IV SCH (16:53)
[2017-03-22] MEDS: AZITHROMYCIN INJ 500 MG in SODIUM CHLOR 0.9% 250 ML INJ 250 ML IV SCH (16:53)
[2017-03-23] VITALS (9 sets, daily range): BP systolic 115–163; BP diastolic 61–99; PULSE 67–76; RESP 17–22; TEMP 96–98.1; O2SAT 96–100
[2017-03-23] MEDS: RESP: ALBUTEROL 2.5 MG/IPRATROPIUM 0.5 MG NEB (SCH) NEB ×3 (07:40→19:47)
[2017-03-23] MEDS: SODIUM CHLORIDE 0.9% FLUSH 10 ML FLUSH IV FLUSH SCH (08:34)
[2017-03-23] MEDS: FUROSEMIDE 40 MG TAB PO SCH (08:34)
[2017-03-23] MEDS: LISINOPRIL 10 MG TAB PO SCH (08:34)
[2017-03-23] MEDS: methylPREDNISolone SOD SUCC 40 MG/1 ML VIAL IV PUSH SCH ×2 (08:34→23:09)
[2017-03-23] MEDS: PANTOPRAZOLE SOD 40 MG DELAYED RELEASE TAB PO SCH (08:34)
[2017-03-23] MEDS: SERTRALINE HCL 50 MG TAB PO SCH (08:35)
[2017-03-23] MEDS: POTASSIUM CHLORIDE 10 MEQ CONTROLLED RELEASE TAB PO SCH ×2 (08:35→23:10)
[2017-03-23] MEDS: busPIRone HCL 5 MG TAB PO SCH ×2 (08:35→23:10)
[2017-03-23] MEDS: amLODIPine BESYLATE 5 MG TAB PO SCH (08:35)
[2017-03-23] MEDS: ATENOLOL 100 MG TAB PO SCH ×2 (08:35→23:16)
[2017-03-23] MEDS: CHOLECALCIFEROL (VIT D3) 1000 UNIT TAB PO SCH (08:36)
[2017-03-23] MEDS: AZITHROMYCIN INJ 500 MG in SODIUM CHLOR 0.9% 250 ML INJ 250 ML IV SCH (15:39)
--- NOTE | 2017-03-23 15:56 | HHI.PR ---
Subjective Remarks The patient was resting comfortably in bed. She wanted to go home tomorrow. She said that if needed she would go home with oxygen. Discussed with nursing. Objective Vitals Vital Signs Date Time Temp Pulse Resp B/P (MAP) Pulse Ox O2 Delivery O2 Flow Rate FiO2 03/23/17 12:04 97.1 68 17 115/73 (87) 97 03/23/17 09:53 Nasal Cannula 3.00 03/23/17 09:10 98 Nasal Cannula 2.00 03/23/17 08:00 96.2 68 17 148/94 (112) 100 03/23/17 07:41 99 Nasal Cannula 3.00 03/23/17 04:00 96.2 72 22 163/99 (120) 96 03/23/17 00:00 98.1 67 22 143/86 (105) 97 03/22/17 20:27 95 3.00 03/22/17 20:00 97.2 79 22 135/67 (89) 99 03/22/17 19:19 Nasal Cannula 3.00 03/22/17 16:00 97.1 67 18 132/71 (91) 95 I/O 03/22/17 03/22/17 03/22/17 03/23/17 03/23/17 03/23/17 06:59 14:59 22:59 06:59 14:59 22:59 Intake Total 480 ml 480 ml 480 ml Balance 480 ml 480 ml 480 ml Intake Oral 480 ml 480 ml 480 ml # Voids 2 2 3 # Bowel Movements 0 Result Diagram: 03/22/17 0848 03/22/17 0628 Imaging Last Impressions Chest X-Ray 03/22/17 0000 Signed Impressions: Service Date/Time: March 09:25 - CONCLUSION: 1. Bilateral lower lobe atelectasis versus pneumonia. Small bilateral effusions There has been no significant change when compared to the prior exam. Daniel Ulloa MD Abdomen/Pelvis CT 03/18/17 4757 Signed Impressions: Service Date/Time: Saturday, March 18, 2017 22:49 - CONCLUSION: 1. Pneumobilia. No biliary dilatation. Pneumobilia can relate to acute infections but can also be seen in people that have undergone certain interventions such as sphincterotomy. 2. Colonic diverticulosis without acute inflammation. 3. Bilateral pleural effusions and passive atelectasis. 4. Cardiomegaly. Alonzo Scott Jr., MD Objective Remarks GENERAL: Resting comfortably. HEAD: Normocephalic. NECK: Supple, trachea midline. No lymphadenopathy. EYES: No scleral icterus. No injection or drainage. CARDIOVASCULAR: Regular rate and rhythm without murmurs, gallops, or rubs. RESPIRATORY: Diffuse wheezing and poor air movement. GASTROINTESTINAL: Abdomen soft, non-tender, nondistended. MUSCULOSKELETAL: No cyanosis, or edema. SKIN: Warm and dry. NEURO: No focal neurological deficitis. PSYCH: Mood and affect appropriate. Procedures EGD/colonoscopy Medications and IVs Current Medications Medications (Trade) Dose Ordered Sig/Jose Route Start Time Stop Time Status Last Admin (NS Flush) 2 ml UNSCH PRN IV FLUSH 03/19/17 09:45 03/21/17 14:37 (NS Flush) 2 ml BID IV FLUSH 03/19/17 21:00 03/23/17 08:34 (Zofran Inj) 4 mg Q6H PRN IVP 03/19/17 09:45 (Narcan Inj) 0.4 mg UNSCH PRN IV PUSH 03/19/17 09:45 (Proair Hfa Inh) 2 puff Q4HR PRN INH 03/19/17 12:00 (Norvasc) 5 mg DAILY PO 03/20/17 09:00 03/23/17 08:35 (Tenormin) 100 mg BID PO 03/19/17 21:00 03/23/17 08:35 (Buspar) 5 mg BID PO 03/19/17 21:00 03/23/17 08:35 (Vitamin D3) 1,000 units DAILY PO 03/20/17 09:00 03/23/17 08:36 (Lasix) 40 mg DAILY PO 03/20/17 09:00 03/23/17 08:34 (Prinivil) 10 mg DAILY PO 03/20/17 09:00 03/23/17 08:34 (KCl) 10 meq Q12HR PO 03/19/17 21:00 03/23/17 08:35 (Protonix) 40 mg DAILY PO 03/20/17 09:00 03/23/17 08:34 (Zoloft) 25 mg DAILY PO 03/20/17 09:00 03/23/17 08:35 (Pill Splitter) 1 ea UNSCH PRN OTHER 03/19/17 12:00 (Duoneb Neb) 1 ampule Q6HR WHILE AWAKE NEB NEB 03/20/17 20:00 03/23/17 13:53 (SoluMEDROL INJ) 40 mg Q12HR IV PUSH 03/21/17 13:00 03/23/17 08:34 Ceftriaxone Sodium 1000 mg/ Sodium Chloride 100 ml @ 200 mls/hr Q24H IV 03/22/17 17:00 03/22/17 16:53 Azithromycin 500 mg/Sodium Chloride 250 ml @ 250 mls/hr Q24H IV 03/22/17 16:00 03/23/17 15:39 A/P Problem List: (1) GI bleed ICD Code: K92.2 - Gastrointestinal hemorrhage, unspecified Status: Acute Assessment and Plan GI bleeding The pt endorses blood in her stools. GI consult appreciated. Status post EGD which revealed a polyp and colonoscopy which revealed diverticulosis and internal hemorrhoids. - Follow CBC and transfuse as needed. Stable. - GI follow-up as an outpt. - Follow biopsy results. - PPI. COPD exacerbation/ CAP The pt has diffuse wheezing on exam. Recent echo with normal EF, mild-mod MR. Repeat chest x-ray concerning for pneumonia. The patient will need home oxygen per walk test. - Continue baseline COPD treatments. - standing nebs. - IS. - encourage ambulation. - Continue IV Solu-Medrol. - Continue IV ceftriaxone and azithromycin. - Repeat home oxygen walk test in the morning. Hypertension Well controlled at this time. - Continue amlodipine and atenolol. - Continue as needed clonidine. Atrial fibrillation Rate controlled. - Follow on telemetry. - No change to baseline treatment. Thrombocytopenia Appears chronic. - Continue to monitor CBC. DVT prophylaxis: SCDs Discharge Planning Anticipate discharge home tomorrow morning with or without oxygen per walk test Problem Qualifiers (1) GI bleed: Qualified Codes: K92.2 - Gastrointestinal hemorrhage, unspecified Pineda Leach DO Mar 23, 2017 15:56
[2017-03-23] MEDS: cefTRIAXone INJ 1,000 MG in SODIUM CHLORIDE 0.9% INJ 100 ML IV SCH (17:12)
[2017-03-24] VITALS: BP 157/85; PULSE 87; RESP 20; TEMP 97.2; O2SAT 96
[2017-03-24 04:00] VITALS: BP 146/97; PULSE 72; RESP 20; TEMP 97.3; O2SAT 97
[2017-03-24 08:00] VITALS: BP 171/99; PULSE 74; RESP 18; TEMP 96.3; O2SAT 92
[2017-03-24 08:50] VITALS: O2SAT 97
[2017-03-24] MEDS: RESP: ALBUTEROL 2.5 MG/IPRATROPIUM 0.5 MG NEB (SCH) NEB ×2 (08:50→14:00)
[2017-03-24] MEDS: POTASSIUM CHLORIDE 10 MEQ CONTROLLED RELEASE TAB PO SCH (09:00)
[2017-03-24] MEDS: ATENOLOL 100 MG TAB PO SCH (09:00)
[2017-03-24] MEDS: SODIUM CHLORIDE 0.9% FLUSH 10 ML FLUSH IV FLUSH SCH (09:00)
[2017-03-24] MEDS: PANTOPRAZOLE SOD 40 MG DELAYED RELEASE TAB PO SCH (09:03)
[2017-03-24] MEDS: SERTRALINE HCL 50 MG TAB PO SCH (09:03)
[2017-03-24] MEDS: busPIRone HCL 5 MG TAB PO SCH (09:03)
[2017-03-24] MEDS: FUROSEMIDE 40 MG TAB PO SCH (09:03)
[2017-03-24] MEDS: LISINOPRIL 10 MG TAB PO SCH (09:03)
[2017-03-24] MEDS: amLODIPine BESYLATE 5 MG TAB PO SCH (09:03)
[2017-03-24] MEDS: CHOLECALCIFEROL (VIT D3) 1000 UNIT TAB PO SCH (09:03)
[2017-03-24] MEDS: methylPREDNISolone SOD SUCC 40 MG/1 ML VIAL IV PUSH SCH (09:04)
[2017-03-24 12:00] VITALS: BP 147/85; PULSE 72; RESP 18; TEMP 97.4; O2SAT 94
[2017-03-24] MEDS ORDERED: PRED10 PO (13:19)
[2017-03-24] MEDS ORDERED: PRED20 PO ×2 (13:19)
[2017-03-24] MEDS ORDERED: AZIT500T2 PO (13:19)
[2017-03-24] MEDS ORDERED: CEFU1TAB20 PO (13:19)
--- NOTE | 2017-03-24 13:22 | HHI.DCPOC ---
Discharge Care Plan Diagnosis: (1) COPD (chronic obstructive pulmonary disease) (2) GI bleed (3) Elevated brain natriuretic peptide (BNP) level (4) Hypertension Goals to Promote Your Health * To prevent worsening of your condition and complications * To maintain your health at the optimal level Directions to Meet Your Goals Take your medications as prescribed Follow your dietary instruction Follow activity as directed Keep your appointments as scheduled Take your immunizations and boosters as scheduled If your symptoms worsen call your PCP, if no PCP go to Urgent Care Center or Emergency Room Smoking is Dangerous to Your Health. Avoid second hand smoke Call the 24-hour hour crisis hotline for domestic abuse at Pineda Leach DO Mar 24, 2017 13:21
--- NOTE | 2017-03-24 13:23 | HHI.FF ---
Face to Face Verification Diagnosis: (1) Elevated brain natriuretic peptide (BNP) level (2) Hypertension (3) COPD (chronic obstructive pulmonary disease) (4) GI bleed Physical Therapy Order: Evaluate and Treat, Improve ambulation, Strength and gait training Home Health Nursing Order: Medical education Signs/symptoms of disease process Oxygen administration education Medication education-adverse effect Nursing assessment with vital signs I have seen patient Eda Honeycutt on 03/24/17. My clinical findings support the need for the requested home health care services because: Ltd mobility - disease progression Patient has SOB Deconditioned w/ increased weakness Limited ability to care for self High risk of falls I certify that my clinical findings support that this patient is homebound because: Hx COPD- exertion dyspnea/weakness Unsteady gait/balance Unsafe to leave home unassisted Pineda Leach DO Mar 24, 2017 13:23
--- NOTE | 2017-03-24 13:29 | HHI.DS ---
Discharge Summary Admission Date Mar 19, 2017 at 09:41 Discharge Date: Mar 24, 2017 Admitting Diagnosis GI BLEED (1) GI bleed ICD Code: K92.2 - Gastrointestinal hemorrhage, unspecified Diagnosis: Principal Status: Acute (2) Elevated brain natriuretic peptide (BNP) level ICD Code: R79.89 - Other specified abnormal findings of blood chemistry (3) Hypertension ICD Code: I10 - Essential (primary) hypertension Status: Acute (4) COPD (chronic obstructive pulmonary disease) ICD Code: J44.9 - Chronic obstructive pulmonary disease, unspecified Diagnosis: Principal Procedures EGD/colonoscopy Brief History - From Admission Mrs. Honeycutt is an 87-year-old female. She comes in the hospital secondary to GI bleed. She was discharged just yesterday after standing for a COPD and CHF exacerbation. During that previous hospital stay she had been treated with heparin as a DVT prophylaxis. She now has several episodes of large bloody bowel movement. She has demonstrated a drop in her hemoglobin since yesterday. Her recent COPD and CHF exacerbation or comorbidities for her present status. She denies any abdominal pain, diarrhea, or nausea and vomiting preceding her bleeding. In the past she has had a history of hemorrhoids. No other complaints. No fever. CBC/BMP: 03/22/17 0848 03/22/17 0628 Significant Findings Laboratory Tests Test 03/21/17 20:36 03/22/17 06:28 03/22/17 08:48 B-Type Natriuretic Peptide 517 PG/ML (0-100) Blood Urea Nitrogen 35 MG/DL (7-18) Creatinine 1.09 MG/DL (0.50-1.00) Random Glucose 140 MG/DL (74-106) Carbon Dioxide Level 37.3 MEQ/L (21.0-32.0) Estimat Glomerular Filtration Rate 47 ML/MIN (>89) Platelet Count 127 TH/MM3 (150-450) Imaging Last Impressions Chest X-Ray 03/22/17 0000 Signed Impressions: Service Date/Time: March 09:25 - CONCLUSION: 1. Bilateral lower lobe atelectasis versus pneumonia. Small bilateral effusions There has been no significant change when compared to the prior exam. Daniel Ulloa MD Abdomen/Pelvis CT 03/18/17 6298 Signed Impressions: Service Date/Time: Saturday, March 18, 2017 22:49 - CONCLUSION: 1. Pneumobilia. No biliary dilatation. Pneumobilia can relate to acute infections but can also be seen in people that have undergone certain interventions such as sphincterotomy. 2. Colonic diverticulosis without acute inflammation. 3. Bilateral pleural effusions and passive atelectasis. 4. Cardiomegaly. Alonzo Scott Jr., MD PE at Discharge GENERAL: Resting comfortably. HEAD: Normocephalic. NECK: Supple, trachea midline. No lymphadenopathy. EYES: No scleral icterus. No injection or drainage. CARDIOVASCULAR: Regular rate and rhythm without murmurs, gallops, or rubs. RESPIRATORY: No wheezing and improved air movement. GASTROINTESTINAL: Abdomen soft, non-tender, nondistended. MUSCULOSKELETAL: No cyanosis, or edema. SKIN: Warm and dry. NEURO: No focal neurological deficitis. PSYCH: Mood and affect appropriate. Pt update on day of discharge The patient said she was feeling better today. She was anxious to go home. She said she ambulated. She said that she had a bowel movement. Discussed with nursing. Hospital Course GI bleeding The pt endorsed blood in her stools. GI was consulted. Status post EGD which revealed a polyp and colonoscopy which revealed diverticulosis and internal hemorrhoids. She was continued on a PPI. Her CBC remained stable. She will follow up with GI as an outpt. She will continue a PPI. COPD exacerbation/ CAP The pt had diffuse wheezing on exam. Recent echo with normal EF, mild-mod MR. Repeat chest x-ray concerning for pneumonia. Initial walk test recommended home oxygen. She was continued on her baseline COPD treatments. We added standing nebs and incentive spirometry. We encouraged ambulation. We started IV Solu-Medrol. She received IV ceftriaxone and azithromycin. We repeated a home oxygen walk test on the day of discharge and she does not require home oxygen. She will complete a prednisone taper and a course of by mouth antibiotics. She will be referred to pulmonology upon discharge. Pt Condition on Discharge: Stable Discharge Disposition: Disch w/ Home Health Serv Discharge Time: > 30 minutes Discharge Instructions DIET: Follow Instructions for: Heart Healthy Diet Activities you can perform: Weight Bearing as Shant Follow up Referrals: Gastroenterology - 2 Weeks with Minh Oviedo MD PCP Follow-up - 1 Week Pulmonology - 1 Week with Magdiel Palomino MD SNF/[facility]/ with [facility] New Medications: Azithromycin (Azithromycin) 500 Mg Tab 500 MG PO DAILY for Infection, #3 TAB 0 Refills Cefuroxime (Cefuroxime) 500 Mg Tab 500 MG PO BID for Infection for 5 Days, #10 TAB 0 Refills Prednisone (Prednisone) 10 Mg Tab 10 MG PO DAILY for Broncospasm for 2 Days, #2 TAB 0 Refills Start taking after 20 mg daily dosing is completed Prednisone (Prednisone) 20 Mg Tab 20 MG PO BID for Breathing for 2 Days, #4 TAB 0 Refills Prednisone (Prednisone) 20 Mg Tab 20 MG PO DAILY for Broncospasm for 3 Days, #3 TAB 0 Refills Start taking after twice daily dosing is completed Continued Medications: Albuterol 18 GM Inh (Ventolin Hfa 18 GM Inh) 90 Mcg/Act Aer 2 PUFF INH Q4H PRN for SHORTNESS OF BREATH, #1 INHALER 0 Refills Amlodipine (Norvasc) 5 Mg Tab 5 MG PO DAILY for Blood Pressure Management, #30 TAB Atenolol (Atenolol) 100 Mg Tab 100 MG PO BID for Blood Pressure Management, #60 TAB 0 Refills Buspirone (Buspirone) 5 Mg Tab 5 MG PO BID for Anxiety, TAB 0 Refills Cholecalciferol (Vitamin D3) 1,000 Unit Tab 1000 UNITS PO DAILY for Nutritional Supplement, #1 BOTTLE 0 Refills Furosemide (Furosemide) 40 Mg Tab 40 MG PO DAILY for HTN for 30 Days, #30 TAB Lansoprazole (Lansoprazole) 30 Mg Capdr 30 MG PO DAILY, CAP 0 Refills Lisinopril (Lisinopril) 10 Mg Tab 10 MG PO DAILY for HTN for 30 Days, #30 TAB Potassium Chloride ER (Klor-Con 10) 10 Meq Tab 10 MEQ PO Q12HR for supplementation for 30 Days, #60 TAB Sertraline (Sertraline) 25 Mg Tab 25 MG PO DAILY, #30 TAB 0 Refills Pineda Leach DO Mar 24, 2017 13:29
[2017-03-24] MEDS ORDERED: OXYGENDME NAS.CANULA (13:56)
== END 2017-03-24 16:07 | disposition home health service (06) | DRG 377 ==
LOC: NEPE 21:37 → NEDA 03-19 09:41 → N06B 03-19 11:08
PROVIDERS: ADMIT Hospitalist; ATTEND Hospitalist
PROC: 0DB68ZZ Excision of Stomach, Via Natural or Artificial Opening Endoscopic (ICD-10-PCS; principal; 2017-03-20 16:10)
PROC: 0DJD8ZZ Inspection of Lower Intestinal Tract, Via Natural or Artificial Opening Endoscopic (ICD-10-PCS; 2017-03-20 16:10)
DX: K92.1 Melena (principal); J18.9 Pneumonia, unspecified organism; I11.0 Hypertensive heart disease with heart failure; D69.6 Thrombocytopenia, unspecified; J44.1 Chronic obstructive pulmonary disease with (acute) exacerbation; I50.9 Heart failure, unspecified; J98.11 Atelectasis; K21.9 Gastro-esophageal reflux disease without esophagitis; K44.9 Diaphragmatic hernia without obstruction or gangrene; K57.30 Diverticulosis of large intestine without perforation or abscess without bleeding; K64.8 Other hemorrhoids; K31.7 Polyp of stomach and duodenum; M19.90 Unspecified osteoarthritis, unspecified site; I48.91 Unspecified atrial fibrillation; F41.9 Anxiety disorder, unspecified; I34.0 Nonrheumatic mitral (valve) insufficiency; Z96.653 Presence of artificial knee joint, bilateral; Z90.710 Acquired absence of both cervix and uterus; Z86.010 Personal history of colon polyps; Z88.2 Allergy status to sulfonamides
CPT/HCPCS: 71045; 74176; 80048; 80053; 83735; 83880; 85025; 85027; 85610; 85730; 86850; 86900; 86901; 93005; 94150; 94618; 94640; 94664; 96374; 96375; C9113; J0456; J0696; J2405; J2920; J7050

== ENCOUNTER 2017-03-27 14:36 | Emergency (ER) | payer MEDICARE, OTHER ==
[~2017-03-27] VITALS: Ht 160 cm; Wt 84.0 kg
[~2017-03-27 14:36] MED LIST changes: -AMLO2.5T PO; +AZIT500T2 PO; +CEFU1TAB20 PO; +PRED10 PO; +PRED20 PO
[2017-03-27 14:38] VITALS: BP 171/97; PULSE 72; RESP 14; TEMP 97.8; O2SAT 96
[2017-03-27] MEDS ORDERED: SODIUM CHLORIDE 0.9% FLUSH 10 ML FLUSH IVF PRN (21:15)
[2017-03-27 21:23] VITALS: RESP 19; O2SAT 99
--- NOTE | 2017-03-27 21:27 | PD ---
HPI Chief Complaint: Medical Clearance Time Seen by Provider: 20:55 Travel History International Travel<30 days: No Contact w/Intl Traveler<30days: No Traveled to known affect area: No History of Present Illness HPI 87-year-old female presents to the emergency department for complaints of generalized weakness, inability to care for herself at home. The patient was just discharged 3 days ago from the Hospital after being admitted for GI bleed. She states she has had no more episodes of GI bleeding. However, she reports generalized weakness. She states she is unable to get herself to the bathroom. Her son apparently does live with her, but states he has had back surgery and cannot help her or lift her. The patient states that she recently had to call the police to help her go to the bathroom because she was unable to get herself there. The patient does report some increased swelling of the bilateral lower extremities. She denies any fevers or chills. No headache. No chest pain or shortness of breath. No abdominal pain. No nausea, vomiting, diarrhea. Patient states that she saw a primary care physician at the [facility] today who instructed to return the emergency Department to be placed at [facility]. No exacerbating or alleviating factors. Moderate severity. 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 ) Heart Rhythm Problems: No Cancer: No Cardiovascular Problems: Yes High Cholesterol: No Chest Pain: No Congestive Heart Failure: Yes COPD: Yes Cerebrovascular Accident: No Diabetes: No Diminished Hearing: No Endocrine: No Gastrointestinal Disorders: Yes (POLYPS) GERD: Yes Genitourinary: Yes (UTIS) Headaches: No Hiatal Hernia: No Hypertension: Yes Immune Disorder: No Implanted Vascular Access Dvce: No Kidney Stones: No Musculoskeletal: Yes (lt shoulder) Neurologic: No Psychiatric: No Reproductive: No Respiratory: No Immunizations Current: Yes Migraines: No Renal Failure: No Seizures: No Sleep Apnea: No Thyroid Disease: No Ulcer: No PNEUMOCCOCAL Vaccine (Year): 1 Menopausal: Yes Para: 4 Miscarriage: 4 Past Surgical History Abdominal Surgery: No Cardiac Surgery: No Ear Surgery: No Endocrine Surgery: No Eye Surgery: No Genitourinary Surgery: No Gynecologic Surgery: Yes (HYSTERECTOMY) Hysterectomy: Yes Joint Replacement: Yes (BILAT KNEES) Neurologic Surgery: No Oral Surgery: No Pacemaker: No Thoracic Surgery: No Other Surgery: Yes (bilat knees, hysterectomy, rt arm ) Social History Alcohol Use: Yes (OCCASIONALLY VODKA) Tobacco Use: No Substance Use: No Allergies-Medications (Allergen,Severity, Reaction): Coded Allergies: Sulfa (Sulfonamide Antibiotics) (Unverified Allergy, Severe, PT DOES NOT REMEMBER, 03/27/17) levofloxacin (Unverified Allergy, Severe, PT STATES "DRIVES ME CRAZY", 03/27) Reported Meds & Prescriptions Reported Meds & Active Scripts Active Azithromycin 500 Mg Tab 500 Mg PO DAILY Cefuroxime (Cefuroxime Axetil) 500 Mg Tab 500 Mg PO BID 5 Days Prednisone 20 Mg Tab 20 Mg PO DAILY 3 Days Start taking after twice daily dosing is completed Prednisone 20 Mg Tab 20 Mg PO BID 2 Days Prednisone 10 Mg Tab 10 Mg PO DAILY 2 Days Start taking after 20 mg daily dosing is completed Norvasc (Amlodipine Besylate) 5 Mg Tab 5 Mg PO DAILY Furosemide 40 Mg Tab 40 Mg PO DAILY 30 Days Klor-Con 10 (Potassium Chloride) 10 Meq Tab 10 Meq PO Q12HR 30 Days Lisinopril 10 Mg Tab 10 Mg PO DAILY 30 Days Reported Ventolin Hfa 18 GM Inh (Albuterol Sulfate) 90 Mcg/Act Aer 2 Puff INH Q4H PRN Lansoprazole 30 Mg Capdr 30 Mg PO DAILY Vitamin D3 (Cholecalciferol) 1,000 Unit Tab 1,000 Units PO DAILY Buspirone (Buspirone HCl) 5 Mg Tab 5 Mg PO BID Atenolol 100 Mg Tab 100 Mg PO BID Sertraline (Sertraline HCl) 25 Mg Tab 25 Mg PO DAILY Review of Systems Except as stated in HPI: all other systems reviewed are Neg Physical Exam Narrative GENERAL: Well-nourished, well-developed elderly female patient, afebrile. SKIN: Focused skin assessment warm/dry. HEAD: Normocephalic. Atraumatic. EYES: No scleral icterus. No injection or drainage. NECK: Supple, trachea midline. No JVD or lymphadenopathy. CARDIOVASCULAR: Regular rate and rhythm without murmurs, gallops, or rubs. RESPIRATORY: Breath sounds equal bilaterally. No accessory muscle use. Lungs sounds diminished. GASTROINTESTINAL: Abdomen soft, non-tender, nondistended. MUSCULOSKELETAL: No cyanosis. Patient has bilateral 2+ lower extremity edema. BACK: Nontender without obvious deformity. No CVA tenderness. Data Data Last Documented VS Vital Signs Date Time Temp Pulse Resp B/P (MAP) Pulse Ox O2 Delivery O2 Flow Rate FiO2 03/27/17 21:23 19 99 Room Air 03/27/17 14:38 97.8 72 Orders Orders Electrocardiogram (03/27/17 21:12) Complete Blood Count With Diff (03/27/17 21:12) Comprehensive Metabolic Panel (03/27/17 21:12) Urinalysis - C+S If Indicated (03/27/17 21:12) Chest, Single Ap (03/27/17 21:12) Iv Access Insert/Monitor (03/27/17 21:12) Oximetry (03/27/17 21:12) Sodium Chloride 0.9% Flush (Ns Flush) (03/27/17 21:15) Magnesium (Mg) (03/27/17 21:12) Creatine Kinase (Cpk) (03/27/17 21:12) Troponin I (03/27/17 21:12) B-Type Natriuretic Peptide (03/27/17 21:12) Act Partial Throm Time (Ptt) (03/27/17 21:12) Prothrombin Time / Inr (Pt) (03/27/17 21:12) Labs Laboratory Tests Test 03/27/17 21:20 White Blood Count 9.8 TH/MM3 Red Blood Count 4.70 MIL/MM3 Hemoglobin 14.6 GM/DL Hematocrit 44.0 % Mean Corpuscular Volume 93.7 FL Mean Corpuscular Hemoglobin 31.1 PG Mean Corpuscular Hemoglobin Concent 33.2 % Red Cell Distribution Width 15.0 % Platelet Count 133 TH/MM3 Mean Platelet Volume 10.4 FL Neutrophils (%) (Auto) 80.6 % Lymphocytes (%) (Auto) 7.3 % Monocytes (%) (Auto) 11.8 % Eosinophils (%) (Auto) 0.2 % Basophils (%) (Auto) 0.1 % Neutrophils # (Auto) 7.9 TH/MM3 Lymphocytes # (Auto) 0.7 TH/MM3 Monocytes # (Auto) 1.2 TH/MM3 Eosinophils # (Auto) 0.0 TH/MM3 Basophils # (Auto) 0.0 TH/MM3 CBC Comment DIFF FINAL Differential Comment Prothrombin Time 11.9 SEC Prothromb Time International Ratio 1.2 RATIO Activated Partial Thromboplast Time 21.5 SEC Total Protein 7.0 GM/DL Alkaline Phosphatase 167 U/L Alanine Aminotransferase (ALT/SGPT) 49 U/L Total Bilirubin 0.9 MG/DL Anion Gap 4 MEQ/L Estimat Glomerular Filtration Rate 50 ML/MIN Total Creatine Kinase 112 U/L Troponin I 0.04 NG/ML B-Type Natriuretic Peptide 506 PG/ML MDM Medical Decision Making Medical Screen Exam Complete: Yes Emergency Medical Condition: Yes Medical Record Reviewed: Yes Interpretation(s) chest x-ray - CONCLUSION: No significant change mild consolidation and small effusions of both bases. Differential Diagnosis Electrolytes abnormality versus anemia versus CHF exacerbation versus UTI Narrative Course 87-year-old elderly female presents to the emergency department stating she needs to be placed in rehabilitation and is unable to care for herself at home. She states she has nobody that can help her. Family at bedside state they cannot help her due to back surgery inability to help. Apparently, the patient was sent here by her primary care physician. I contacted case management states that nothing can be done tonight from the emergency department. EKG, CBC , CMP, CK, troponin, magnesium, BNP, PTT, PT/INR, UA are ordered and pending. Chest x-ray is ordered and pending. EKG shows atrial fibrillation, heart rate 74, no acute ST changes. According to previous EKGs, patient's history of A. fib. CBC shows no acute abnormality. Coags show no acute abnormality. Chest x-ray shows no significant change mild consolidation and small effusions of both bases. Labs, UA are pending. Dr. Gore will resume care and disposition of patient. Jessica Mason Mar 27, 2017 21:27
[2017-03-27 21:34] LABS: AUTOMATED NEUTROPHIL # 7.9 TH/MM3 (1.8-7.7); BASOPHIL % 0.1 % (0.0-2.0); EOSINOPHIL % 0.2 % (0.0-4.0); HEMOGLOBIN 14.6 GM/DL (11.6-15.3); LYMPH % 7.3 % (9.0-44.0); LYMPHOCYTE # 0.7 TH/MM3 (1.0-4.8); MEAN CELL VOLUME 93.7 FL (80.0-100.0); MEAN CORPUSCULAR HEMOGLOBIN 31.1 PG (27.0-34.0); MEAN CORPUSCULAR HGB CONC 33.2 % (32.0-36.0); MEAN PLATELET VOLUME 10.4 FL (7.0-11.0); MONO % 11.8 % (0.0-8.0); MONOCYTE # 1.2 TH/MM3 (0-0.9); NEUT % 80.6 % (16.0-70.0); PLATELET COUNT 133 TH/MM3 (150-450); WHITE BLOOD COUNT 9.8 TH/MM3 (4.0-11.0)
[2017-03-27 21:43] LABS: INTERNATIONAL NORMALIZED RATIO 1.2 RATIO; PROTHROMBIN TIME - PATIENT 11.9 SEC (9.8-11.6)
--- NOTE | 2017-03-27 21:47 | RADRPT ---
EXAM DATE/TIME: 03/27/2017 21:26 [place] COMPARISON: CHEST SINGLE AP, March 22, 2017, 9:25. INDICATIONS : Syncope, increased weakness. MEDICAL HISTORY : Hypertension. Chronic obstructive pulmonary disease. Congestive heart failure. SURGICAL HISTORY : Hysterectomy. ENCOUNTER: Initial ACUITY: 3 days PAIN SCORE: 0/10 LOCATION: Bilateral chest FINDINGS: Mild bibasilar consolidation and small effusions again noted, not significantly changed. No pneumotho rax seen. Heart size stable Upper limits of normal. CONCLUSION: No significant change mild consolidation and small effusions of both bases. Nikko Dias MD on March 27, 2017 at 21:44 Board Certified Radiologist. This report was verified electronically.
[2017-03-27 22:08] LABS: ALBUMIN 2.9 GM/DL (3.4-5.0); AST (GOT) 60 U/L (15-37); BICARBONATE 35.6 MEQ/L (21.0-32.0); BLOOD UREA NITROGEN 31 MG/DL (7-18); CALCIUM 8.5 MG/DL (8.5-10.1); CHLORIDE 98 MEQ/L (98-107); CREATININE 1.04 MG/DL (0.50-1.00); GLOMERULAR FILTRATION RATE 50 ML/MIN (>89); GLUCOSE,RANDOM 95 MG/DL (74-106); SODIUM (NA) 138 MEQ/L (136-145)
[2017-03-27 22:13] LABS: ALKALINE PHOSPHATASE 167 U/L (45-117); ALT (GPT) 49 U/L (10-53); TOTAL BILIRUBIN ADULT 0.9 MG/DL (0.2-1.0); TROPONIN I 0.04 NG/ML (0.02-0.05)
--- NOTE | 2017-03-27 23:36 | PD ---
Data Data Last Documented VS Vital Signs Date Time Temp Pulse Resp B/P (MAP) Pulse Ox O2 Delivery O2 Flow Rate FiO2 03/27/17 21:23 19 99 Room Air 03/27/17 14:38 97.8 72 Orders Orders Electrocardiogram (03/27/17 21:12) Complete Blood Count With Diff (03/27/17 21:12) Comprehensive Metabolic Panel (03/27/17 21:12) Urinalysis - C+S If Indicated (03/27/17 21:12) Chest, Single Ap (03/27/17 21:12) Iv Access Insert/Monitor (03/27/17 21:12) Oximetry (03/27/17 21:12) Sodium Chloride 0.9% Flush (Ns Flush) (03/27/17 21:15) Magnesium (Mg) (03/27/17 21:12) Creatine Kinase (Cpk) (03/27/17 21:12) Troponin I (03/27/17 21:12) B-Type Natriuretic Peptide (03/27/17 21:12) Act Partial Throm Time (Ptt) (03/27/17 21:12) Prothrombin Time / Inr (Pt) (03/27/17 21:12) Cath For Specimen (03/27/17 23:15) Labs Laboratory Tests Test 03/27/17 21:20 03/27/17 23:35 White Blood Count 9.8 TH/MM3 Red Blood Count 4.70 MIL/MM3 Hemoglobin 14.6 GM/DL Hematocrit 44.0 % Mean Corpuscular Volume 93.7 FL Mean Corpuscular Hemoglobin 31.1 PG Mean Corpuscular Hemoglobin Concent 33.2 % Red Cell Distribution Width 15.0 % Platelet Count 133 TH/MM3 Mean Platelet Volume 10.4 FL Neutrophils (%) (Auto) 80.6 % Lymphocytes (%) (Auto) 7.3 % Monocytes (%) (Auto) 11.8 % Eosinophils (%) (Auto) 0.2 % Basophils (%) (Auto) 0.1 % Neutrophils # (Auto) 7.9 TH/MM3 Lymphocytes # (Auto) 0.7 TH/MM3 Monocytes # (Auto) 1.2 TH/MM3 Eosinophils # (Auto) 0.0 TH/MM3 Basophils # (Auto) 0.0 TH/MM3 CBC Comment DIFF FINAL Differential Comment Prothrombin Time 11.9 SEC Prothromb Time International Ratio 1.2 RATIO Activated Partial Thromboplast Time 21.5 SEC Total Protein 7.0 GM/DL Alkaline Phosphatase 167 U/L Alanine Aminotransferase (ALT/SGPT) 49 U/L Total Bilirubin 0.9 MG/DL Anion Gap 4 MEQ/L Estimat Glomerular Filtration Rate 50 ML/MIN Total Creatine Kinase 112 U/L Troponin I 0.04 NG/ML B-Type Natriuretic Peptide 506 PG/ML Urine Color YELLOW Urine Turbidity CLEAR Urine pH 6.5 Urine Specific [place] 1.017 Urine Protein TRACE mg/dL Urine Glucose (UA) NEG mg/dL Urine Ketones NEG mg/dL Urine Occult Blood NEG Urine Nitrite NEG Urine Bilirubin NEG Urine Urobilinogen LESS THAN 2.0 MG/DL Urine Leukocyte Esterase NEG Urine RBC 1 /hpf Urine WBC 1 /hpf Urine Squamous Epithelial Cells <1 /hpf Urine Hyaline Casts 1 /lpf Urine Mucus FEW /lpf Microscopic Urinalysis Comment CULT NOT INDICATED MDM Medical Record Reviewed: Yes Supervised Visit with SIRENA: Yes Interpretation(s) Last Impressions Chest X-Ray 03/27/172111 Signed Impressions: Service Date/Time: Monday, March 27, 2017 21:26 - CONCLUSION: No significant change mild consolidation and small effusions of both bases. Nikko Dias MD Narrative Course I, Dr. Gore, have reviewed the advance practice practitioner's documentation and am in agreement, met with the patient face to face, made the diagnosis, and the medical decision making was done by me. The patient was initially evaluated by Jessica. Please see their complete history and physical. *My assessment and Findings: The patient presents with generalized weakness and inability to care for herself at home. The patient was recently discharged from the hospital [facility]. The patient's family are available at the patient's bedside and reports that she has not had any further evidence of GI bleeding, however she did fall and the family was unable to help her up. The police were called to assist her up. The patient is currently residing with a family member that has recently undergone back surgery and cannot do any heavy lifting. The patient's family reports that they did not realize that the patient was this week and debilitated from her recent hospitalization. They went to the patient's primary care physician earlier today to discuss this and were told to go the emergency department to assist with senior care placement. Jessica, the nurse practitioner originally saw the patient and immediately had case management get involved regarding this patient's senior care placement. As it is in the evening, the top case assembler, Criselda, reported back that placement at this hour is not possible as approval cannot be obtained after hours. Further workup started to evaluate the patient for any underlying reason for generalized weakness. During the course of the patients emergency department visit, the patients history, examination, and differential diagnosis were reviewed with the patient. The patient was placed on a quality assurance monitor body with oximetry and frequent blood pressure monitoring. The patient had IV access obtained and blood work sent for analysis. The patients laboratory studies were reviewed and remarkable for a white count of 9.8, hemoglobin 14.6, platelets 133 with 80.6 neutrophils, monocytes 11.8. CMP is remarkable for a BUN of 31, creatinine of 1.04 which is improved compared to previously, [place] 95, albumin 2.9, alkaline phosphatase 167, AST 60 , CO2 35.6, cardiac enzymes within normal limits, BNP is 506. The patient's BNP has actually decreased compared to previously. Radiology studies were reviewed and remarkable for a chest x-ray that showed no significant change, mild consolidation and small effusions of both bases. [facility]'s [facility]. I spoke to . As the patient does not meet admission criteria at this time, she recommended I discussed this again further with Criselda , the top case assembler. After further discussion with Criselda and Khushi the charge nurse, they recommended that the patient be medically cleared and held in the emergency department until the morning when the daytime top case assembler is available and offices are open to obtain approval for placement in a senior care. Diagnosis Primary Impression: Generalized weakness Referrals: Primary Care Physician 1 week Patient Instructions: General Instructions, Weakness (ED) Med/Other Pt SpecificInfo: No Change to Meds Disposition: 03 DISCHARGE TO SNF Condition: Stable Bernie Gore MD Mar 27, 2017 23:36
[2017-03-27 23:45] LABS: BILIRUBIN, URINE NEG (NEG); BLOOD, URINE NEG (NEG); GLUCOSE,URINE NEG (NEG); HYALINE CAST, URINE 1 /lpf (RARE); KETONE, URINE NEG (NEG); MUCUS URINE FEW /lpf (OCC); NITRITE,URINE NEG (NEG); PH, URINE 6.5 (5.0-8.5); SQUAMOUS EPITHELIAL CELL URINE <1 /hpf (0-5); URINE COLOR YELLOW (YELLW/STRAW); URINE LEUKOCYTE ESTERASE NEG (NEG)
[2017-03-28 11:21] VITALS: BP 115/72; PULSE 71; RESP 20; TEMP 97.7; O2SAT 97
[2017-03-28 14:09] VITALS: BP 141/73; PULSE 66; RESP 18; TEMP 97.7; O2SAT 95
[2017-03-28] MEDS ORDERED: ALLO100T PO (18:44)
[2017-03-28] MEDS ORDERED: ATEN100T PO (18:46)
[2017-03-28 19:16] VITALS: BP 143/80; PULSE 75; RESP 17; TEMP 98.7; O2SAT 95
[2017-03-28] MEDS ORDERED: busPIRone HCL 5 MG TAB PO ONE (20:45)
[2017-03-28] MEDS ORDERED: ATENOLOL 100 MG TAB PO ONE (20:45)
--- NOTE | 2017-03-28 21:41 | EKG ---
Date Performed: 03/27/2017 Time Performed: 21:24:39 PTAGE: 87 years EKG: ATRIAL FIBRILLATION MARKED LEFT AXIS DEVIATION POSSIBLE ANTERIOR MYOCARDIAL INFARCTION ABNO RMAL ECG PREVIOUS TRACING : 03/18/2017 21.48 Compared to prior tracing no significant change DOCTOR: Yanelis Madison Interpretating Date/Time 03/28/2017 21:39:57
[2017-03-28] MEDS ORDERED: ACETAMINOPHEN 325 MG TAB PO ONE (22:30)
[2017-03-29 00:50] VITALS: BP 159/72; PULSE 72; RESP 16; TEMP 97.8; O2SAT 96
[2017-03-29 04:00] VITALS: BP 143/83; PULSE 67; RESP 18; TEMP 97.1; O2SAT 98
[2017-03-29 08:00] VITALS: BP 137/82; PULSE 71; RESP 18; TEMP 97.4; O2SAT 96
[2017-03-29 12:00] VITALS: BP 123/68; PULSE 66; RESP 18; TEMP 97.4; O2SAT 96
== END 2017-03-29 16:11 ==
LOC: NEPE 14:36 → NEPB 03-29 16:11
DX: R53.1 Weakness (principal); I11.0 Hypertensive heart disease with heart failure; I50.9 Heart failure, unspecified; J44.9 Chronic obstructive pulmonary disease, unspecified; K21.9 Gastro-esophageal reflux disease without esophagitis; R94.31 Abnormal electrocardiogram [ECG] [EKG]
CPT/HCPCS: 71045; 80053; 81001; 82550; 83735; 83880; 84484; 85025; 85610; 85730; 93005; 97162; 99285; G8987; G8988

== ENCOUNTER 2017-07-07 00:44 | Emergency (ER) | payer OTHER ==
[~2017-07-07] VITALS: Ht 160 cm; Wt 85.0 kg
[2017-07-07 01:24] VITALS: BP 136/75; PULSE 75; RESP 26; TEMP 98.6; O2SAT 97
[2017-07-07] MEDS ORDERED: MECLIZINE HCL 25 MG TAB PO ONE (03:00)
[2017-07-07] MEDS ORDERED: SODIUM CHLORIDE 0.9% FLUSH 10 ML FLUSH IVF PRN (03:00)
[2017-07-07] MEDS ORDERED: ONDANSETRON HCL 4 MG/2 ML VIAL IV PUSH ONE (03:00)
[2017-07-07] MEDS ORDERED: methylPREDNISolone SOD SUCC 125 MG/2 ML VIAL IV PUSH ONE (03:00)
[2017-07-07] MEDS ORDERED: RESP: ALBUTEROL 2.5 MG/IPRATROPIUM 0.5 MG NEB (SCH) INH ONE (03:00)
--- NOTE | 2017-07-07 03:02 | PD ---
HPI Chief Complaint: Respiratory Distress Time Seen by Provider: 02:48 Travel History International Travel<30 days: No Contact w/Intl Traveler<30days: No Traveled to known affect area: No History of Present Illness HPI 87-year-old female complains of dizziness, shortness of breath. Patient states that the symptoms started this evening. Patient has history of COPD. Patient has inhaler at home. Patient states that she started having dizziness, shortness of breath and nausea this evening. EMS was called. Patient was given albuterol unit dose treatment 3 and Solu-Medrol [address] IV [address] to the ED. Patient also was given O2 2 L nasal cannula. Patient states that she is feeling much better now. Patient denies any fever chills. Patient denies abdominal pain. Patient states that she has increasing swelling the lower extremity recently. Patient is on Lasix 20 mg daily. PFSH Past Medical History Arthritis: Yes Asthma: No Atrial Fibrillation: Yes Blood Disorders: No Anxiety: Yes Depression: Yes Heart Rhythm Problems: No Cancer: No Cardiovascular Problems: Yes High Cholesterol: No Chest Pain: No Congestive Heart Failure: Yes COPD: Yes Cerebrovascular Accident: No Diabetes: No Diminished Hearing: No Endocrine: No Gastrointestinal Disorders: Yes (POLYPS) GERD: Yes Genitourinary: Yes (UTIS) Headaches: No Hiatal Hernia: No Hypertension: Yes Immune Disorder: No Implanted Vascular Access Dvce: No Kidney Stones: No Musculoskeletal: Yes (lt shoulder) Neurologic: No Psychiatric: No Reproductive: No Respiratory: No Immunizations Current: Yes Migraines: No Renal Failure: No Seizures: No Sleep Apnea: No Thyroid Disease: No Ulcer: No Influenza Vaccination: No PNEUMOCCOCAL Vaccine (Year): 1 Menopausal: Yes Para: 4 Miscarriage: 4 Past Surgical History Abdominal Surgery: No Cardiac Surgery: No Ear Surgery: No Endocrine Surgery: No Eye Surgery: No Genitourinary Surgery: No Gynecologic Surgery: Yes (HYSTERECTOMY) Hysterectomy: Yes Joint Replacement: Yes (BILAT KNEES) Neurologic Surgery: No Oral Surgery: No Pacemaker: No Thoracic Surgery: No Other Surgery: Yes (bilat knees, hysterectomy, rt arm ) Social History Alcohol Use: Yes (OCCASIONALLY) Tobacco Use: No Substance Use: No Allergies-Medications (Allergen,Severity, Reaction): Coded Allergies: Sulfa (Sulfonamide Antibiotics) (Unverified Allergy, Severe, PT DOES NOT REMEMBER, 07/07/17) levofloxacin (Unverified Allergy, Severe, PT STATES "DRIVES ME CRAZY", ) Reported Meds & Prescriptions Reported Meds & Active Scripts Active Zofran Odt (Ondansetron Odt) 4 Mg Tab 4 Mg SL Q6HR PRN Meclizine (Meclizine HCl) 25 Mg Tab 25 Mg PO TID PRN Zithromax (Azithromycin) 500 Mg Tab 500 Mg PO DAILY Lasix (Furosemide) 40 Mg Tab 40 Mg PO DAILY Azithromycin 500 Mg Tab 500 Mg PO DAILY Cefuroxime (Cefuroxime Axetil) 500 Mg Tab 500 Mg PO BID 5 Days Prednisone 20 Mg Tab 20 Mg PO DAILY 3 Days Start taking after twice daily dosing is completed Prednisone 20 Mg Tab 20 Mg PO BID 2 Days Prednisone 10 Mg Tab 10 Mg PO DAILY 2 Days Start taking after 20 mg daily dosing is completed Norvasc (Amlodipine Besylate) 5 Mg Tab 5 Mg PO DAILY Furosemide 40 Mg Tab 40 Mg PO DAILY 30 Days Klor-Con 10 (Potassium Chloride) 10 Meq Tab 10 Meq PO Q12HR 30 Days Lisinopril 10 Mg Tab 10 Mg PO DAILY 30 Days Reported Atenolol 100 Mg Tab 100 Mg PO BID Ventolin Hfa 18 GM Inh (Albuterol Sulfate) 90 Mcg/Act Aer 2 Puff INH Q4H PRN Lansoprazole 30 Mg Capdr 30 Mg PO DAILY Vitamin D3 (Cholecalciferol) 1,000 Unit Tab 1,000 Units PO DAILY Buspirone (Buspirone HCl) 5 Mg Tab 5 Mg PO BID Sertraline (Sertraline HCl) 25 Mg Tab 25 Mg PO DAILY Review of Systems General / Constitutional: No: Fever Eyes: No: Visual changes HENT: No: Headaches Cardiovascular: No: Chest Pain or Discomfort Respiratory: Positive: Shortness of Breath Gastrointestinal: No: Abdominal Pain Genitourinary: No: Dysuria Musculoskeletal: No: Pain Skin: No Rash Neurologic: No: Weakness Psychiatric: No: Depression Endocrine: No: Polydipsia Hematologic/Lymphatic: No: Easy Bruising Physical Exam Narrative GENERAL: Well-nourished, well-developed patient. SKIN: Focused skin assessment warm/dry. HEAD: Normocephalic. EYES: No scleral icterus. No injection or drainage. NECK: Supple, trachea midline. No JVD or lymphadenopathy. CARDIOVASCULAR: Regular rate and rhythm without murmurs, gallops, or rubs. RESPIRATORY: Breath sounds equal bilaterally. No accessory muscle use. Mild expiratory wheezes bilaterally. Few rhonchi at the bases. GASTROINTESTINAL: Abdomen soft, non-tender, nondistended. MUSCULOSKELETAL: No cyanosis. Patient has +2 pitting edema lower extremity. BACK: Nontender without obvious deformity. No CVA tenderness. Neurologic exam normal. Data Data Last Documented VS Vital Signs Date Time Temp Pulse Resp B/P (MAP) Pulse Ox O2 Delivery O2 Flow Rate FiO2 07/07/17 03:44 87 20 132/65 (87) 97 Nasal Cannula 2.00 07/07/17 01:24 98.6 Orders Orders Complete Blood Count With Diff (07/07/17 02:56) Basic Metabolic Panel (Bmp) (07/07/17 02:56) B-Type Natriuretic Peptide (07/07/17 02:56) Influenzae A/B Antigen (07/07/17 02:56) Iv Access Insert/Monitor (07/07/17 02:56) Ecg Monitoring (07/07/17 02:56) Oximetry (07/07/17 02:56) Chest, Single Ap (07/07/17 02:56) Sodium Chloride 0.9% Flush (Ns Flush) (07/07/17 03:00) Methylprednisolone So Succ Inj (Solumedr (07/07/17 03:00) Albuterol-Ipratropium Neb (Duoneb Neb) (07/07/17 03:00) Meclizine (Antivert) (07/07/17 03:00) Ondansetron Inj (Zofran Inj) (07/07/17 03:00) Levofloxacin (Levaquin) (07/07/17 04:30) Furosemide Inj (Lasix Inj) (07/07/17 04:30) Azithromycin (Zithromax) (07/07/17 04:30) Ed Discharge Order (07/07/17 04:35) Labs Laboratory Tests Test 07/07/17 03:00 White Blood Count 5.1 TH/MM3 Red Blood Count 3.83 MIL/MM3 Hemoglobin 11.5 GM/DL Hematocrit 35.4 % Mean Corpuscular Volume 92.4 FL Mean Corpuscular Hemoglobin 30.1 PG Mean Corpuscular Hemoglobin Concent 32.5 % Red Cell Distribution Width 15.2 % Platelet Count 102 TH/MM3 Mean Platelet Volume 10.8 FL Neutrophils (%) (Auto) 64.4 % Lymphocytes (%) (Auto) 22.3 % Monocytes (%) (Auto) 10.3 % Eosinophils (%) (Auto) 2.6 % Basophils (%) (Auto) 0.4 % Neutrophils # (Auto) 3.3 TH/MM3 Lymphocytes # (Auto) 1.1 TH/MM3 Monocytes # (Auto) 0.5 TH/MM3 Eosinophils # (Auto) 0.1 TH/MM3 Basophils # (Auto) 0.0 TH/MM3 CBC Comment DIFF FINAL Differential Comment Blood Urea Nitrogen 23 MG/DL Creatinine 1.11 MG/DL Random Glucose 93 MG/DL Calcium Level 8.7 MG/DL Sodium Level 143 MEQ/L Potassium Level 4.0 MEQ/L Chloride Level 106 MEQ/L Carbon Dioxide Level 30.7 MEQ/L Anion Gap 6 MEQ/L Estimat Glomerular Filtration Rate 46 ML/MIN B-Type Natriuretic Peptide 561 PG/ML MDM Medical Decision Making Medical Screen Exam Complete: Yes Emergency Medical Condition: Yes Interpretation(s) Last Impressions Chest X-Ray 07/07/17 0256 Signed Impressions: Service Date/Time: Friday, July 07, 2017 03:18 - CONCLUSION: Left lower lobe infiltrate with small effusion. Cardiomegaly. Alonzo Scott Jr., MD 4:18 AM. CBC WBC 5.1. Hemoglobin 11.5 hematocrit 35.4. Platelet 102. Normal differential. BUN 23. Creatinine 1.11. BNP 561. Influenza AB antigen negative. Differential Diagnosis Differential diagnosis including acute exacerbation COPD, bronchitis, pneumonia , PE, pneumothorax, viral syndrome, vertigo. Narrative Course 87-year-old female with shortness of breath. History of COPD. Patient is much improved after treatment. Patient also complained of dizziness and nausea with that. Meclizine 25 mg p.o. given. Albuterol with Atrovent nasal treatment 1. Zithromax 500 mg p.o. given. Lasix 40 mg IV given. Diagnosis Primary Impression: COPD with acute exacerbation Additional Impressions: Acute exacerbation of CHF (congestive heart failure) Qualified Codes: I50.9 - Heart failure, unspecified Pneumonia Qualified Codes: J18.1 - Lobar pneumonia, unspecified organism Patient Instructions: General Instructions Additional Instructions: Continue with albuterol inhaler as directed. Prednisone as directed. Zithromax as directed. Increase Lasix to 40 mg daily. Follow-up with personal physician. Return if worse. Meclizine for dizziness. Med/Other Pt SpecificInfo: Prescription(s) given Scripts Ondansetron Odt (Zofran Odt) 4 Mg Tab 4 MG SL Q6HR Y for Nausea/Vomiting, #10 TAB 0 Refills Prov: Cy Turcios MD 07/07/17 Meclizine (Meclizine) 25 Mg Tab 25 MG PO TID Y for VERTIGO, #21 TAB 0 Refills Prov: Cy Turcios MD 07/07/17 Azithromycin (Zithromax) 500 Mg Tab 500 MG PO DAILY for Infection, #5 TAB 0 Refills Prov: Cy Turcios MD 07/07/17 Furosemide (Lasix) 40 Mg Tab 40 MG PO DAILY, #30 TAB 0 Refills Prov: Cy Turcios MD 07/07/17 Disposition: 01 DISCHARGE HOME Condition: Stable Cy Turcios MD Jul 07, 2017 03:02
[2017-07-07 03:13] LABS: AUTOMATED NEUTROPHIL # 3.3 TH/MM3 (1.8-7.7); BASOPHIL % 0.4 % (0.0-2.0); EOSINOPHIL # 0.1 TH/MM3 (0-0.4); EOSINOPHIL % 2.6 % (0.0-4.0); HEMATOCRIT 35.4 % (35.0-46.0); HEMOGLOBIN 11.5 GM/DL (11.6-15.3); LYMPH % 22.3 % (9.0-44.0); LYMPHOCYTE # 1.1 TH/MM3 (1.0-4.8); MEAN CELL VOLUME 92.4 FL (80.0-100.0); MEAN CORPUSCULAR HEMOGLOBIN 30.1 PG (27.0-34.0); MEAN CORPUSCULAR HGB CONC 32.5 % (32.0-36.0); MEAN PLATELET VOLUME 10.8 FL (7.0-11.0); MONO % 10.3 % (0.0-8.0); MONOCYTE # 0.5 TH/MM3 (0-0.9); NEUT % 64.4 % (16.0-70.0); PLATELET COUNT 102 TH/MM3 (150-450); RED BLOOD COUNT 3.83 MIL/MM3 (4.00-5.30); RED CELL DISTRIBUTION WIDTH 15.2 % (11.6-17.2); WHITE BLOOD COUNT 5.1 TH/MM3 (4.0-11.0)
[2017-07-07 03:32] LABS: BICARBONATE 30.7 MEQ/L (21.0-32.0); CALCIUM 8.7 MG/DL (8.5-10.1); CREATININE 1.11 MG/DL (0.50-1.00)
[2017-07-07 03:44] VITALS: BP 132/65; PULSE 87; RESP 20; O2SAT 97
--- NOTE | 2017-07-07 03:52 | RADRPT ---
EXAM DATE/TIME: 07/07/2017 03:18 [facility] COMPARISON: CHEST SINGLE AP, March 27, 2017, 21:26. INDICATIONS : Shortness of breath. MEDICAL HISTORY : Hypertension. Chronic obstructive pulmonary disease. Congestive heart failure. SURGICAL HISTORY : Hysterectomy. ENCOUNTER: Initial ACUITY: 1 day PAIN SCORE: 0/10 LOCATION: Bilateral chest FINDINGS: A single portable frontal view of the chest shows a left lower lobe infiltrate with small left effusi on. Right lung is clear. Heart is mildly enlarged. Old trauma involving the right proximal humerus. CONCLUSION: Left lower lobe infiltrate with small effusion. Cardiomegaly. Alonzo Scott Jr., MD on July 07, 2017 at 3:50 Board Certified Radiologist. This report was verified electronically.
[2017-07-07] MEDS ORDERED: FUROSEMIDE 40 MG/4 ML VIAL IV PUSH ONE (04:30)
[2017-07-07] MEDS ORDERED: LEVOFLOXACIN 750 MG TAB PO ONE (04:30)
[2017-07-07] MEDS ORDERED: AZITHROMYCIN 250 MG TAB PO ONE (04:30)
[2017-07-07] MEDS ORDERED: ZITH500T PO (04:32)
[2017-07-07] MEDS ORDERED: FURO1TAB60 PO (04:32)
[2017-07-07] MEDS ORDERED: ZOFR4TAB3 SL (04:33)
[2017-07-07] MEDS ORDERED: MECL-62 PO (04:33)
[2017-07-07 07:27] VITALS: BP 130/81; TEMP 97.8
--- NOTE | 2017-07-07 18:25 | EKG ---
Date Performed: 07/07/2017 Time Performed: 01:31:07 PTAGE: 87 years EKG: ATRIAL FIBRILLATION WITH CONTROLLED VENTRICULAR RATE LOW LIMB LEAD VOLTAGE POOR R WAVE PROG RESSION, CANNOT EXCLUDE ANTERIOR INFARCT Since the previous tracing, no significant change noted ABNO RMAL ECG PREVIOUS TRACING : 07/07/2017 01.30 DOCTOR: Hermes Gore Interpretating Date/Time 07/07/2017 18:25:01
== END 2017-07-07 07:30 | disposition home or self-care (01) ==
LOC: NEPC 00:44
DX: J44.1 Chronic obstructive pulmonary disease with (acute) exacerbation (principal); I50.9 Heart failure, unspecified; J18.1 Lobar pneumonia, unspecified organism; R11.0 Nausea; R42 Dizziness and giddiness; R94.31 Abnormal electrocardiogram [ECG] [EKG]; I10 Essential (primary) hypertension; I48.91 Unspecified atrial fibrillation; K21.9 Gastro-esophageal reflux disease without esophagitis; F41.8 Other specified anxiety disorders; Z87.39 Personal history of other diseases of the musculoskeletal system and connective tissue; Z87.19 Personal history of other diseases of the digestive system; Z87.448 Personal history of other diseases of urinary system
CPT/HCPCS: 71045; 80048; 83880; 85025; 87804; 93005; 94664; 96374; 96375; 99284; J1940; J2405

== ENCOUNTER 2017-07-16 17:55 | Observation (INO) | payer OTHER ==
[~2017-07-16] VITALS: Ht 160 cm; Wt 78.0 kg
[~2017-07-16 17:55] MED LIST changes: +FURO1TAB60 PO; +MECL-62 PO; +ZITH500T PO; +ZOFR4TAB3 SL
[2017-07-16 18:00] VITALS: BP 147/83; PULSE 65; RESP 24; TEMP 98.2; O2SAT 96
[2017-07-16] MEDS ORDERED: methylPREDNISolone SOD SUCC 125 MG/2 ML VIAL IV PUSH ONE (18:15)
[2017-07-16 18:16] VITALS: O2SAT 98
[2017-07-16] MEDS: RESP: ALBUTEROL 2.5 MG/IPRATROPIUM 0.5 MG NEB (SCH) INH ×2 (18:30→18:31)
[2017-07-16 18:33] VITALS: O2SAT 99
--- NOTE | 2017-07-16 18:43 | RADRPT ---
EXAM DATE/TIME: 07/16/2017 18:18 [facility] COMPARISON: CHEST SINGLE AP, July 07, 2017, 3:18. INDICATIONS : Wheezing MEDICAL HISTORY : Hypertension. Chronic obstructive pulmonary disease. Congestive heart failure SURGICAL HISTORY : Hysterectomy. ENCOUNTER: [facility] ACUITY: 1 week PAIN SCORE: 0/10 LOCATION: chest FINDINGS: Cardiomegaly present with a mild edema pattern with small effusions. No pneumothorax. Basilar airspac e disease. Atherosclerotic aorta. CONCLUSION: 1. Probable mild congestive heart failure. Basal atelectasis/consolidation. Peyman Jean MD on July 16, 2017 at 18:40 Board Certified Radiologist. This report was verified electronically.
[2017-07-16 19:00] VITALS: BP 107/66; PULSE 72; RESP 16; O2SAT 98
--- NOTE | 2017-07-16 19:05 | PD ---
Data Data Last Documented VS Orders Orders Electrocardiogram (07/16/17 18:12) Complete Blood Count With Diff (07/16/17 18:12) Comprehensive Metabolic Panel (07/16/17 18:12) Chest, Single Ap (07/16/17 18:12) Ecg Monitoring (07/16/17 18:12) Iv Access Insert/Monitor (07/16/17 18:12) Oximetry (07/16/17 18:12) Oxygen Administration (07/16/17 18:12) Methylprednisolone So Succ Inj (Solumedr (07/16/17 18:15) Albuterol-Ipratropium Neb (Duoneb Neb) (07/16/17 18:15) Ckmb (Isoenzyme) Profile (07/16/17 18:12) Troponin I (07/16/17 18:12) B-Type Natriuretic Peptide (07/16/17 18:12) Prothrombin Time / Inr (Pt) (07/16/17 18:12) Act Partial Throm Time (Ptt) (07/16/17 18:12) CKMB (07/16/17 18:18) CKMB% (07/16/17 18:18) Furosemide Inj (Lasix Inj) (07/16/17 20:45) Admit Order (Ed Use Only) (07/16/17 20:54) Labs Laboratory Tests Test 07/16/17 18:18 White Blood Count 5.0 TH/MM3 Red Blood Count 3.93 MIL/MM3 Hemoglobin 11.7 GM/DL Hematocrit 36.5 % Mean Corpuscular Volume 92.8 FL Mean Corpuscular Hemoglobin 29.6 PG Mean Corpuscular Hemoglobin Concent 32.0 % Red Cell Distribution Width 14.9 % Platelet Count 96 TH/MM3 Mean Platelet Volume 11.3 FL Neutrophils (%) (Auto) 70.0 % Lymphocytes (%) (Auto) 14.4 % Monocytes (%) (Auto) 12.7 % Eosinophils (%) (Auto) 1.5 % Basophils (%) (Auto) 1.4 % Neutrophils # (Auto) 3.5 TH/MM3 Lymphocytes # (Auto) 0.7 TH/MM3 Monocytes # (Auto) 0.6 TH/MM3 Eosinophils # (Auto) 0.1 TH/MM3 Basophils # (Auto) 0.1 TH/MM3 CBC Comment AUTO DIFF Differential Comment AUTO DIFF CONFIRMED Prothrombin Time 12.0 SEC Prothromb Time International Ratio 1.2 RATIO Activated Partial Thromboplast Time 23.2 SEC Blood Urea Nitrogen 21 MG/DL Creatinine 1.12 MG/DL Random Glucose 80 MG/DL Total Protein 7.5 GM/DL Albumin 3.4 GM/DL Calcium Level 8.9 MG/DL Alkaline Phosphatase 123 U/L Aspartate Amino Transf (AST/SGOT) 36 U/L Alanine Aminotransferase (ALT/SGPT) 20 U/L Total Bilirubin 0.6 MG/DL Sodium Level 144 MEQ/L Potassium Level 3.8 MEQ/L Chloride Level 104 MEQ/L Carbon Dioxide Level 34.0 MEQ/L Anion Gap 6 MEQ/L Estimat Glomerular Filtration Rate 46 ML/MIN Total Creatine Kinase 166 U/L Creatine Kinase MB 1.4 NG/ML Troponin I 0.02 NG/ML B-Type Natriuretic Peptide 798 PG/ML MDM Medical Record Reviewed: Yes Supervised Visit with SIRENA: Yes Narrative Course This report is in ERROR Please disregard this report and all prior copies ! This report is in ERROR Please disregard this report and all prior copies ! This report is in ERROR Please disregard this report and all prior copies ! Scripts Torsemide (Torsemide) 5 Mg Tab 10 MG PO BID@ for fluid, #60 TAB Prov: Simona Carlos PA-C 07/18/17 Apixaban (Eliquis) 5 Mg Tab 5 MG PO BID for Prevent Blood Clot, #60 TAB Prov: Simona Carlos PA-C 07/18/17 Negrito Anaya MD Jul 16, 2017 19:05
[2017-07-16 19:23] VITALS: O2SAT 98
[2017-07-16 19:28] LABS: AUTOMATED NEUTROPHIL # 3.5 TH/MM3 (1.8-7.7); BASOPHIL # 0.1 TH/MM3 (0-0.2); BASOPHIL % 1.4 % (0.0-2.0); EOSINOPHIL # 0.1 TH/MM3 (0-0.4); EOSINOPHIL % 1.5 % (0.0-4.0); HEMATOCRIT 36.5 % (35.0-46.0); HEMOGLOBIN 11.7 GM/DL (11.6-15.3); LYMPH % 14.4 % (9.0-44.0); LYMPHOCYTE # 0.7 TH/MM3 (1.0-4.8); MEAN CELL VOLUME 92.8 FL (80.0-100.0); MEAN CORPUSCULAR HEMOGLOBIN 29.6 PG (27.0-34.0); MEAN PLATELET VOLUME 11.3 FL (7.0-11.0); MONO % 12.7 % (0.0-8.0); MONOCYTE # 0.6 TH/MM3 (0-0.9); PLATELET COUNT 96 TH/MM3 (150-450); RED BLOOD COUNT 3.93 MIL/MM3 (4.00-5.30); RED CELL DISTRIBUTION WIDTH 14.9 % (11.6-17.2)
[2017-07-16 19:37] LABS: INTERNATIONAL NORMALIZED RATIO 1.2 RATIO
--- NOTE | 2017-07-16 20:11 | PD ---
HPI Chief Complaint: Respiratory Distress Time Seen by Provider: 18:03 Travel History International Travel<30 days: No Contact w/Intl Traveler<30days: No Traveled to known affect area: No History of Present Illness HPI 87-year-old female that presents to the ED via ambulance for evaluation of shortness of breath with exertion that has been going on worse today. Per patient she has had this for about 6-7 months. She has a history of CHF and COPD. She was here just a week ago and was diagnosed with COPD exacerbation. She was given breathing treatments with improvement of symptoms. She was released back home and symptoms in her come back until today when he got more severe. Patient was put on oxygen by ambulance and improved oxygen saturation. Patient denies any shortness of breath this time. She does state that she has been having gaining of weight recently and her legs appear to be more swollen than normal. She does have a history of CHF. She does take Lasix. She has not seen her doctor since been discharged. She has an allergy to sulfa and Levaquin. She denies any fevers chills or sweats. Shortness of breath only with exertion. She denies any heart issues alert and CHF. She denies any pain at this time. No urinary or bowel movement issues. No other medical issues. PFSH Past Medical History Arthritis: Yes Asthma: No Atrial Fibrillation: Yes Blood Disorders: No Anxiety: Yes Depression: Yes Heart Rhythm Problems: No Cancer: No Cardiovascular Problems: Yes High Cholesterol: No Chest Pain: No Congestive Heart Failure: Yes COPD: Yes Cerebrovascular Accident: No Diabetes: No Diminished Hearing: No Endocrine: No Gastrointestinal Disorders: Yes (POLYPS) GERD: Yes Genitourinary: Yes (UTIS) Headaches: No Hiatal Hernia: No Hypertension: Yes Immune Disorder: No Implanted Vascular Access Dvce: No Kidney Stones: No Musculoskeletal: Yes (lt shoulder) Neurologic: No Psychiatric: No Reproductive: No Respiratory: No Immunizations Current: Yes Migraines: No Renal Failure: No Seizures: No Sleep Apnea: No Thyroid Disease: No Ulcer: No PNEUMOCCOCAL Vaccine (Year): 1 ?: Not Menopausal: Yes Para: 4 Miscarriage: 4 Past Surgical History Abdominal Surgery: No Cardiac Surgery: No Ear Surgery: No Endocrine Surgery: No Eye Surgery: No Genitourinary Surgery: No Gynecologic Surgery: Yes (HYSTERECTOMY) Hysterectomy: Yes Joint Replacement: Yes (BILAT KNEES) Neurologic Surgery: No Oral Surgery: No Pacemaker: No Thoracic Surgery: No Other Surgery: Yes (bilat knees, hysterectomy, rt arm ) Social History Alcohol Use: Yes (OCCASIONALLY) Tobacco Use: No Substance Use: No Allergies-Medications (Allergen,Severity, Reaction): Coded Allergies: Sulfa (Sulfonamide Antibiotics) (Unverified Allergy, Severe, PT DOES NOT REMEMBER, 07/07/17) levofloxacin (Unverified Allergy, Severe, PT STATES "DRIVES ME CRAZY", ) Reported Meds & Prescriptions Reported Meds & Active Scripts Active Zofran Odt (Ondansetron Odt) 4 Mg Tab 4 Mg SL Q6HR PRN Meclizine (Meclizine HCl) 25 Mg Tab 25 Mg PO TID PRN Lasix (Furosemide) 40 Mg Tab 40 Mg PO DAILY Prednisone 10 Mg Tab 10 Mg PO DAILY 2 Days Start taking after 20 mg daily dosing is completed Norvasc (Amlodipine Besylate) 5 Mg Tab 5 Mg PO DAILY Klor-Con 10 (Potassium Chloride) 10 Meq Tab 10 Meq PO Q12HR 30 Days Lisinopril 10 Mg Tab 10 Mg PO DAILY 30 Days Reported Atenolol 100 Mg Tab 100 Mg PO BID Ventolin Hfa 18 GM Inh (Albuterol Sulfate) 90 Mcg/Act Aer 2 Puff INH Q4H PRN Lansoprazole 30 Mg Capdr 30 Mg PO DAILY Vitamin D3 (Cholecalciferol) 1,000 Unit Tab 1,000 Units PO DAILY Buspirone (Buspirone HCl) 5 Mg Tab 5 Mg PO BID Sertraline (Sertraline HCl) 25 Mg Tab 25 Mg PO DAILY Review of Systems Except as stated in HPI: all other systems reviewed are Neg Physical Exam Narrative GENERAL: SKIN: Warm and dry. HEAD: Atraumatic. Normocephalic. EYES: Pupils equal and round. No scleral icterus. No injection or drainage. ENT: No nasal bleeding or discharge. Mucous membranes pink and moist. Tongue is midline. No uvula deviation. NECK: Trachea midline. No JVD. CARDIOVASCULAR: Regular rate and rhythm. No murmurs, S3, S4. RESPIRATORY: No accessory muscle use. Patient has wheezing heard. Breath sounds equal bilaterally. GASTROINTESTINAL: Abdomen soft, non-tender, nondistended. Hepatic and splenic margins not palpable. MUSCULOSKELETAL: Extremities without clubbing, cyanosis, or edema. No obvious deformities. Full range of motion of the upper and lower extremities bilaterally. 2+ pulses bilaterally. Patient does have 2 pitting edema in the lower extremities with some skin changes. NEUROLOGICAL: Awake and alert. No obvious cranial nerve deficits. Motor grossly within normal limits. Five out of 5 muscle strength in the arms and legs. Normal speech. PSYCHIATRIC: Appropriate mood and affect; insight and judgment normal. Data Data Last Documented VS Vital Signs Date Time Temp Pulse Resp B/P (MAP) Pulse Ox O2 Delivery O2 Flow Rate FiO2 07/16/17 19:23 98 Nasal Cannula 2.00 07/16/17 18:00 98.2 65 24 147/83 (104) Orders Orders Electrocardiogram (07/16/17 18:12) Complete Blood Count With Diff (07/16/17 18:12) Comprehensive Metabolic Panel (07/16/17 18:12) Chest, Single Ap (07/16/17 18:12) Ecg Monitoring (07/16/17 18:12) Iv Access Insert/Monitor (07/16/17 18:12) Oximetry (07/16/17 18:12) Oxygen Administration (07/16/17 18:12) Methylprednisolone So Succ Inj (Solumedr (07/16/17 18:15) Albuterol-Ipratropium Neb (Duoneb Neb) (07/16/17 18:15) Ckmb (Isoenzyme) Profile (07/16/17 18:12) Troponin I (07/16/17 18:12) B-Type Natriuretic Peptide (07/16/17 18:12) Prothrombin Time / Inr (Pt) (07/16/17 18:12) Act Partial Throm Time (Ptt) (07/16/17 18:12) CKMB (07/16/17 18:18) CKMB% (07/16/17 18:18) Furosemide Inj (Lasix Inj) (07/16/17 20:45) Admit Order (Ed Use Only) (07/16/17 20:54) Labs Laboratory Tests Test 07/16/17 18:18 White Blood Count 5.0 TH/MM3 Red Blood Count 3.93 MIL/MM3 Hemoglobin 11.7 GM/DL Hematocrit 36.5 % Mean Corpuscular Volume 92.8 FL Mean Corpuscular Hemoglobin 29.6 PG Mean Corpuscular Hemoglobin Concent 32.0 % Red Cell Distribution Width 14.9 % Platelet Count 96 TH/MM3 Mean Platelet Volume 11.3 FL Neutrophils (%) (Auto) 70.0 % Lymphocytes (%) (Auto) 14.4 % Monocytes (%) (Auto) 12.7 % Eosinophils (%) (Auto) 1.5 % Basophils (%) (Auto) 1.4 % Neutrophils # (Auto) 3.5 TH/MM3 Lymphocytes # (Auto) 0.7 TH/MM3 Monocytes # (Auto) 0.6 TH/MM3 Eosinophils # (Auto) 0.1 TH/MM3 Basophils # (Auto) 0.1 TH/MM3 CBC Comment AUTO DIFF Differential Comment AUTO DIFF CONFIRMED Prothrombin Time 12.0 SEC Prothromb Time International Ratio 1.2 RATIO Activated Partial Thromboplast Time 23.2 SEC Blood Urea Nitrogen 21 MG/DL Creatinine 1.12 MG/DL Random Glucose 80 MG/DL Total Protein 7.5 GM/DL Albumin 3.4 GM/DL Calcium Level 8.9 MG/DL Alkaline Phosphatase 123 U/L Aspartate Amino Transf (AST/SGOT) 36 U/L Alanine Aminotransferase (ALT/SGPT) 20 U/L Total Bilirubin 0.6 MG/DL Sodium Level 144 MEQ/L Potassium Level 3.8 MEQ/L Chloride Level 104 MEQ/L Carbon Dioxide Level 34.0 MEQ/L Anion Gap 6 MEQ/L Estimat Glomerular Filtration Rate 46 ML/MIN Total Creatine Kinase 166 U/L Creatine Kinase MB 1.4 NG/ML Troponin I 0.02 NG/ML B-Type Natriuretic Peptide 798 PG/ML MDM Medical Decision Making Medical Screen Exam Complete: Yes Emergency Medical Condition: Yes Medical Record Reviewed: Yes Interpretation(s) CBC & BMP Diagram 07/16/17 18:18 Total Protein 7.5, Albumin 3.4, Calcium Level 8.9, Alkaline Phosphatase 123 H, Aspartate Amino Transf (AST/SGOT) 36, Alanine Aminotransferase (ALT/SGPT) 20, Total Bilirubin 0.6 Last Impressions Chest X-Ray 07/16/17 1812 Signed Impressions: Service Date/Time: Sunday, July 16, 2017 18:18 - CONCLUSION: 1. Probable mild congestive heart failure. Basal atelectasis/consolidation. Peyman Jean MD EKG shows sinus rhythm with no sign of acute ischemia or arrythmia read by me and attending. BNP in the 700s troponin and CKMB negative Differential Diagnosis Acute CHF exacerbation versus COPD versus COPD exacerbation versus pneumonia versus angina equivalent versus ACS Narrative Course 87-year-old female that presents to the ED for evaluation of shortness of breath with exertion. Patient was properly examined and was found to have signs and symptoms laboratory about possible from CHF more than COPD. Patient was given breathing treatments and Solu-Medrol she does have some wheezing. Her legs do appear to be very swollen. There is some crackles on the bottom of her lower lung castaneda. Labs and imaging order. Labs and imaging showed elevated BNP, pleural effusion. Case discussed with my attending Dr. Gore who agrees to admission. Patient was given IV Lasix. Case discussed with Dr. García who agreed to up to admission. Diagnosis Primary Impression: Acute exacerbation of CHF (congestive heart failure) Qualified Codes: I50.9 - Heart failure, unspecified Admitting Information Admitting Physician Requests: Observation Saturnino Sierra Jul 16, 2017 20:11
[2017-07-16 20:21] LABS: ALBUMIN 3.4 GM/DL (3.4-5.0); CALCIUM 8.9 MG/DL (8.5-10.1); CHLORIDE 104 MEQ/L (98-107); GLUCOSE,RANDOM 80 MG/DL (74-106); SODIUM (NA) 144 MEQ/L (136-145)
[2017-07-16 20:22] LABS: ALT (GPT) 20 U/L (10-53); CREATININE 1.12 MG/DL (0.50-1.00); GLOMERULAR FILTRATION RATE 46 ML/MIN (>89)
[2017-07-16 20:25] LABS: ALKALINE PHOSPHATASE 123 U/L (45-117); TOTAL BILIRUBIN ADULT 0.6 MG/DL (0.2-1.0); TOTAL PROTEIN 7.5 GM/DL (6.4-8.2)
[2017-07-16 20:44] LABS: TROPONIN I 0.02 NG/ML (0.02-0.05)
[2017-07-16] MEDS ORDERED: FUROSEMIDE 40 MG/4 ML VIAL IV PUSH ONE (20:45)
[2017-07-16 21:10] LABS: AST (GOT) 36 U/L (15-37); BLOOD UREA NITROGEN 21 MG/DL (7-18)
--- NOTE | 2017-07-16 21:47 | EKG ---
Date Performed: 07/16/2017 Time Performed: 18:08:09 PTAGE: 87 years EKG: Marked baseline artifact Unclear underlying rhythm MARKED LEFT AXIS DEVIATION LOW QRS VOLTA GE ANTEROSEPTAL MYOCARDIAL INFARCTION Nonspecific T wave changes I cannot accurately compare EKGs bec ause of baseline artifact. PREVIOUS TRACING : 07/07/2017 01.31 DOCTOR: Misha Melgar Interpretating Date/Time 07/16/2017 21:46:43
[2017-07-16 23:00] VITALS: BP 116/70; PULSE 78; RESP 16; O2SAT 99
[2017-07-16] MEDS ORDERED: SODIUM CHLORIDE 0.9% FLUSH 10 ML FLUSH IV FLUSH PRN (23:00)
[2017-07-16] MEDS ORDERED: RESP: ALBUTEROL 2.5 MG/IPRATROPIUM 0.5 MG NEB (PRN) NEB (23:00)
--- NOTE | 2017-07-16 23:02 | HHI.HP ---
[facility] Unknown Admission Diagnosis acute CHF exacerbation Diagnoses: Travel History International Travel<30 Days: No Contact w/Intl Traveler <30 Da: No Traveled to Known Affected Are: No History of Present Illness 87-year-old female with a past medical history significant for CHF, hypertension , atrial fibrillation (not on anticoagulation), COPD, GERD and anxiety disorder presents to the emergency department for the evaluation of shortness of breath. The patient reports she has been short of breath for the past 18 months however today she had increased work of breathing and her shortness of breath became "severe." Patient denies any chest pain. States she has bilateral lower extremity swelling but she cannot say if it is worse than baseline at this time. She denies any fever/chills. No abdominal pain. No nausea/vomiting /diarrhea. No lateralizing signs/symptoms. Review of Systems Except as stated in HPI: all other systems reviewed are Neg Past Family Social History Past Medical History CHF, hypertension, atrial fibrillation (not on anticoagulation), COPD, GERD and anxiety disorder Past Surgical History Bilateral knee replacements Hysterectomy Reported Medications Reported Meds & Active Scripts Active Zofran Odt (Ondansetron Odt) 4 Mg Tab 4 Mg SL Q6HR PRN Meclizine (Meclizine HCl) 25 Mg Tab 25 Mg PO TID PRN Lasix (Furosemide) 40 Mg Tab 40 Mg PO DAILY Prednisone 10 Mg Tab 10 Mg PO DAILY 2 Days Start taking after 20 mg daily dosing is completed Norvasc (Amlodipine Besylate) 5 Mg Tab 5 Mg PO DAILY Klor-Con 10 (Potassium Chloride) 10 Meq Tab 10 Meq PO Q12HR 30 Days Lisinopril 10 Mg Tab 10 Mg PO DAILY 30 Days Reported Atenolol 100 Mg Tab 100 Mg PO BID Ventolin Hfa 18 GM Inh (Albuterol Sulfate) 90 Mcg/Act Aer 2 Puff INH Q4H PRN Lansoprazole 30 Mg Capdr 30 Mg PO DAILY Vitamin D3 (Cholecalciferol) 1,000 Unit Tab 1,000 Units PO DAILY Buspirone (Buspirone HCl) 5 Mg Tab 5 Mg PO BID Sertraline (Sertraline HCl) 25 Mg Tab 25 Mg PO DAILY Allergies: Coded Allergies: Sulfa (Sulfonamide Antibiotics) (Unverified Allergy, Severe, PT DOES NOT REMEMBER, 07/07/17) levofloxacin (Unverified Allergy, Severe, PT STATES "DRIVES ME CRAZY", ) Family History Myocardial infarction in father at the age 41 Coronary artery disease in brother Social History Occasional alcohol No history of smoking No history of illicit drug abuse Physical Exam Vital Signs Vital Signs Date Time Temp Pulse Resp B/P (MAP) Pulse Ox O2 Delivery O2 Flow Rate FiO2 07/16/17 19:23 98 Nasal Cannula 2.00 07/16/17 18:33 99 Nasal Cannula 2.00 07/16/17 18:16 98 Nasal Cannula 2.00 07/16/17 18:16 98 Nasal Cannula 2.00 07/16/17 18:00 98.2 65 24 147/83 (104) 96 Physical Exam GENERAL: Obese, female sitting up in bed SKIN: No rashes, ecchymoses or lesions. Cool and dry. HEAD: Atraumatic. Normocephalic. No temporal or scalp tenderness. EYES: Pupils equal round and reactive. Extraocular motions intact. No scleral icterus. No injection or drainage. ENT: Nose without bleeding, purulent drainage or septal hematoma. Throat without erythema, tonsillar hypertrophy or exudate. Uvula midline. Airway patent. NECK: Trachea midline. No JVD or lymphadenopathy. Supple, nontender, no meningeal signs. CARDIOVASCULAR: Regular rate and rhythm without murmurs, gallops, or rubs. RESPIRATORY: Decreased breath sounds. No wheezes/rales/rhonchi. GASTROINTESTINAL: Abdomen soft, non-tender, nondistended. No hepato-splenomegaly , or palpable masses. No guarding. MUSCULOSKELETAL: Extremities without clubbing, cyanosis, or edema. No joint tenderness, effusion, or edema noted. No calf tenderness. NEUROLOGICAL: Awake and alert. Cranial nerves II through XII intact. Motor and sensory grossly within normal limits. Normal speech. Laboratory Laboratory Tests Test 07/16/17 18:18 White Blood Count 5.0 Red Blood Count 3.93 Hemoglobin 11.7 Hematocrit 36.5 Mean Corpuscular Volume 92.8 Mean Corpuscular Hemoglobin 29.6 Mean Corpuscular Hemoglobin Concent 32.0 Red Cell Distribution Width 14.9 Platelet Count 96 Mean Platelet Volume 11.3 Neutrophils (%) (Auto) 70.0 Lymphocytes (%) (Auto) 14.4 Monocytes (%) (Auto) 12.7 Eosinophils (%) (Auto) 1.5 Basophils (%) (Auto) 1.4 Neutrophils # (Auto) 3.5 Lymphocytes # (Auto) 0.7 Monocytes # (Auto) 0.6 Eosinophils # (Auto) 0.1 Basophils # (Auto) 0.1 CBC Comment AUTO DIFF Differential Comment AUTO DIFF CONFIRMED Prothrombin Time 12.0 Prothromb Time International Ratio 1.2 Activated Partial Thromboplast Time 23.2 Blood Urea Nitrogen 21 Creatinine 1.12 Random Glucose 80 Total Protein 7.5 Albumin 3.4 Calcium Level 8.9 Alkaline Phosphatase 123 Aspartate Amino Transf (AST/SGOT) 36 Alanine Aminotransferase (ALT/SGPT) 20 Total Bilirubin 0.6 Sodium Level 144 Potassium Level 3.8 Chloride Level 104 Carbon Dioxide Level 34.0 Anion Gap 6 Estimat Glomerular Filtration Rate 46 Total Creatine Kinase 166 Creatine Kinase MB 1.4 Troponin I 0.02 B-Type Natriuretic Peptide 798 Result Diagram: 07/16/17181707/16/171817 Caprini VTE Risk Assessment Caprini VTE Risk Assessment: Mod/High Risk (score >= 2) Caprini Risk Assessment Model Point Value = 1 Point Value = 2 Point Value = 3 Point Value = 5 Age 41-60 Minor surgery BMI > 25 kg/m2 Swollen legs Varicose veins or History of unexplained or recurrent spontaneous Oral contraceptives or hormone replacement Sepsis (< 1 month) Serious lung disease, including pneumonia (< 1 month) Abnormal pulmonary function Acute myocardial infarction Congestive heart failure (< 1 month) History of inflammatory bowel disease Medical patient at bed rest Age 61-74 Arthroscopic surgery Major open surgery (> 45 min) Laparoscopic surgery (> 45 min) Malignancy Confined to bed (> 72 hours) Immobilizing plaster cast Central venous access Age >= 75 History of VTE Family history of VTE Factor V Leiden Prothrombin [id number] Lupus anticoagulant Anticardiolipin antibodies Elevated serum homocysteine Heparin-induced thrombocytopenia Other congenital or acquired thrombophilia Stroke (< 1 month) Elective arthroplasty Hip, pelvis, or leg fracture Acute spinal cord injury (< 1 month) Prophylaxis Regimen Total Risk Factor Score Risk Level Prophylaxis Regimen 0-1 Low Early ambulation 2 Moderate Order ONE of the following: *Sequential Compression Device (SCD) *Heparin 5000 units SQ BID 3-4 Higher Order ONE of the following medications: *Heparin 5000 units SQ TID *Enoxaparin/Lovenox 40 mg SQ daily (WT < 150 kg, CrCl > 30 mL/min) *Enoxaparin/Lovenox 30 mg SQ daily (WT < 150 kg, CrCl > 10-29 mL/min) *Enoxaparin/Lovenox 30 mg SQ BID (WT < 150 kg, CrCl > 30 mL/min) AND/OR *Sequential Compression Device (SCD) 5 or more Highest Order ONE of the following medications: *Heparin 5000 units SQ TID (Preferred with Epidurals) *Enoxaparin/Lovenox 40 mg SQ daily (WT < 150 kg, CrCl > 30 mL/min) *Enoxaparin/Lovenox 30 mg SQ daily (WT < 150 kg, CrCl > 10-29 mL/min) *Enoxaparin/Lovenox 30 mg SQ BID (WT < 150 kg, CrCl > 30 mL/min) AND *Sequential Compression Device (SCD) Assessment and Plan Assessment and Plan Assessment/plan: 1. CHF exacerbation Chest x-ray significant for mild CHF with small left-sided effusion improved from previous, personally reviewed BNP elevated at 798, baseline approximately 500 IV Lasix Supplemental oxygen as needed 2. Hypertension/atrial fibrillation Continue home medications 3. COPD Duo nebs as needed Continue home prednisone 4. GERD/anxiety Continue home medications FEN Heart healthy diet with fluid restriction Electrolytes: Monitor and replete as needed Miriam Andujar MD Jul 16, 2017 23:02
[2017-07-17] VITALS (12 sets, daily range): BP systolic 96–170; BP diastolic 56–98; PULSE 60–118; RESP 18–20; TEMP 76–98.2; O2SAT 92–100
[2017-07-17] MEDS ORDERED: ENOXAPARIN SODIUM 40 MG/0.4 ML SYRINGE SQ SCH
[2017-07-17] MEDS ORDERED: ZOLPIDEM TARTRATE 10 MG TAB PO ONE (00:15)
[2017-07-17] MEDS: RESP: ALBUTEROL 2.5 MG/IPRATROPIUM 0.5 MG NEB (SCH) NEB ×4 (03:10→21:19)
[2017-07-17] MEDS: amLODIPine BESYLATE 5 MG TAB PO SCH ×2 (08:50→09:00)
[2017-07-17] MEDS: SODIUM CHLORIDE 0.9% FLUSH 10 ML FLUSH IV FLUSH SCH ×2 (08:50→20:29)
[2017-07-17] MEDS: POTASSIUM CHLORIDE 10 MEQ CONTROLLED RELEASE TAB PO SCH ×3 (08:50→20:29)
[2017-07-17] MEDS: LISINOPRIL 10 MG TAB PO SCH ×2 (08:50→09:00)
[2017-07-17] MEDS: PANTOPRAZOLE SOD 40 MG DELAYED RELEASE TAB PO SCH ×2 (08:50→09:00)
[2017-07-17] MEDS: predniSONE 10 MG TAB PO SCH (09:00)
[2017-07-17] MEDS: SERTRALINE HCL 50 MG TAB PO SCH (09:00)
[2017-07-17] MEDS ORDERED: FUROSEMIDE 40 MG/4 ML VIAL IVP SCH (09:00)
[2017-07-17] MEDS: ATENOLOL 100 MG TAB PO SCH ×2 (09:00→20:29)
[2017-07-17] MEDS: busPIRone HCL 5 MG TAB PO SCH ×2 (09:00→20:29)
--- NOTE | 2017-07-17 09:50 | HHI.PR ---
Subjective Remarks Follow up for shortness of breath. Patient is currently resting in bed, on nasal cannula 2L. No chest pain, shortness of breath, fever, chills. She wakes up on verbal commands but says she wants to sleep. No fever, chills. Patient is refusing oral medications. Objective Vitals Vital Signs Date Time Temp Pulse Resp B/P (MAP) Pulse Ox O2 Delivery O2 Flow Rate FiO2 07/17/17 09:07 96 Nasal Cannula 2.00 07/17/17 07:45 97.4 80 20 141/92 (108) 95 07/17/17 07:10 64 07/17/17 04:57 76.0 18 170/87 (114) 92 07/17/17 01:13 97.2 87 18 137/98 (111) 96 07/16/17 23:00 78 16 116/70 (85) 99 Nasal Cannula 2.00 07/16/17 19:23 98 Nasal Cannula 2.00 07/16/17 19:00 72 16 107/66 (80) 98 Nasal Cannula 2.00 07/16/17 18:33 99 Nasal Cannula 2.00 07/16/17 18:16 98 Nasal Cannula 2.00 07/16/17 18:16 98 Nasal Cannula 2.00 07/16/17 18:00 98.2 65 24 147/83 (104) 96 I/O 07/16/17 07/16/17 07/16/17 07/17/17 07/17/17 07/17/17 07:00 15:00 23:00 07:00 15:00 23:00 Intake Total 40 ml Balance 40 ml Intake Oral 40 ml # Voids 1 Result Diagram: 07/16/17181707/16/171817 Imaging Last Impressions Chest X-Ray 07/16/171811 Signed Impressions: Service Date/Time: Sunday, July 16, 2017 18:18 - CONCLUSION: 1. Probable mild congestive heart failure. Basal atelectasis/consolidation. Peyman Jean MD Objective Remarks GENERAL: Sleepy but wakes up on verbal commands, follows commands. NAD. SKIN: Warm and dry. HEAD: Normocephalic. EYES: No scleral icterus. No injection or drainage. NECK: Supple, trachea midline. No JVD or lymphadenopathy. CARDIOVASCULAR: Regular rate and rhythm without murmurs, gallops, or rubs. RESPIRATORY: Breath sounds equal bilaterally. No accessory muscle use. GASTROINTESTINAL: Abdomen soft, non-tender, nondistended. MUSCULOSKELETAL: No cyanosis, or edema. Chronic venous stasis. No significant pitting edema. BACK: Nontender without obvious deformity. No CVA tenderness. Procedures None. A/P Problem List: (1) Acute exacerbation of CHF (congestive heart failure) ICD Code: I50.9 - Heart failure, unspecified Status: Acute (2) Hypertension ICD Code: I10 - Essential (primary) hypertension Status: Acute Assessment and Plan Ms. Honeycutt is an 87-year-old female with a past medical history significant for CHF, hypertension, atrial fibrillation (not on anticoagulation), COPD, GERD and anxiety disorder presents to the emergency department for the evaluation of shortness of breath. Her SOB has been present for about 18 months but worse in the last two days. Probable acute exacerbation of CHF, possibly diastolic. Pulmonary hypertension Echo from 01/2017 shows pulmonary hypertension with PA pressure 52 mmHg Echo did not specify EF but shows LV function was normal. Currently on IV lasix. Will switch to PO Torsemide today. Currently on 2L of O2 via NC. Hypertension Atrial fibrillation [id number] score 5 (female, 87, HTN, CHF). Patient should ideally be on anti-coagulation, will consider Apixaban 5mg BID. Will discuss with patient and/or family. Continue amlodipine 5 mg daily, atenolol 100 mg twice daily, lisinopril 10 mg daily. COPD -continue DuoNeb as needed, prednisone 10 mg (home medication) GERD -continue Protonix Full code. Lovenox for DVT prophylaxis. Problem Qualifiers (1) Acute exacerbation of CHF (congestive heart failure): Qualified Codes: I50.9 - Heart failure, unspecified Edilson Bowen DO July 17, 2017 9:50 am
[2017-07-17] MEDS: TORSEMIDE 5 MG TAB PO SCH (18:29)
[2017-07-17] MEDS: APIXABAN 5 MG TABLET PO SCH (20:29)
[2017-07-18 00:48] VITALS: BP 97/58; PULSE 100; RESP 18; TEMP 98.1; O2SAT 94
[2017-07-18] MEDS: RESP: ALBUTEROL 2.5 MG/IPRATROPIUM 0.5 MG NEB (SCH) NEB ×2 (04:45→07:26)
[2017-07-18 07:11] VITALS: PULSE 60
[2017-07-18 07:27] VITALS: BP 115/62; PULSE 64; RESP 18; TEMP 97.4; O2SAT 98
[2017-07-18 07:28] VITALS: O2SAT 99
[2017-07-18] MEDS: PANTOPRAZOLE SOD 40 MG DELAYED RELEASE TAB PO SCH (08:55)
[2017-07-18] MEDS: TORSEMIDE 5 MG TAB PO SCH (08:55)
[2017-07-18] MEDS: POTASSIUM CHLORIDE 10 MEQ CONTROLLED RELEASE TAB PO SCH (08:56)
[2017-07-18] MEDS: SODIUM CHLORIDE 0.9% FLUSH 10 ML FLUSH IV FLUSH SCH (08:56)
[2017-07-18] MEDS: busPIRone HCL 5 MG TAB PO SCH (08:57)
[2017-07-18] MEDS: predniSONE 10 MG TAB PO SCH (08:58)
[2017-07-18] MEDS: APIXABAN 5 MG TABLET PO SCH (08:58)
[2017-07-18] MEDS: SERTRALINE HCL 50 MG TAB PO SCH (08:58)
[2017-07-18] MEDS: LISINOPRIL 10 MG TAB PO SCH (08:58)
--- NOTE | 2017-07-18 09:38 | HHI.PR ---
Subjective Remarks Follow up for shortness of breath, CHF. Patient is much more alert and pleasant today. She denies any chest pain, fever or chills. She also does not complain of shortness of breath. She reports that she slept through the night. Objective Vitals Vital Signs Date Time Temp Pulse Resp B/P (MAP) Pulse Ox O2 Delivery O2 Flow Rate FiO2 07/18/17 07:28 99 Nasal Cannula 2.00 07/18/17 07:27 97.4 64 18 115/62 (79) 98 07/18/17 07:11 60 07/18/17 00:48 98.1 100 18 97/58 (71) 94 07/17/17 23:00 60 07/17/17 21:21 99 Nasal Cannula 2.00 07/17/17 20:57 98.2 83 18 117/57 (77) 99 07/17/17 17:53 98 109/66 (80) 07/17/17 16:00 68 07/17/17 15:59 97.8 118 20 96/56 (69) 95 07/17/17 11:10 97.1 68 20 138/66 (90) 100 I/O 07/17/17 07/17/17 07/17/17 07/18/17 07/18/17 07/18/17 07:00 15:00 23:00 07:00 15:00 23:00 Intake Total 40 ml 120 ml Output Total 220 ml Balance 40 ml -100 ml Intake Oral 40 ml 120 ml Output Urine Total 220 ml # Voids 1 2 # Bowel Movements 0 Result Diagram: 07/16/17181707/16/171817 Imaging Last Impressions Chest X-Ray 07/16/171811 Signed Impressions: Service Date/Time: Sunday, July 16, 2017 18:18 - CONCLUSION: 1. Probable mild congestive heart failure. Basal atelectasis/consolidation. Peyman Jean MD Objective Remarks GENERAL: Alert, NAD. SKIN: Warm and dry. HEAD: Normocephalic. EYES: No scleral icterus. No injection or drainage. NECK: Supple, trachea midline. No JVD or lymphadenopathy. CARDIOVASCULAR: Regular rate and rhythm without murmurs, gallops, or rubs. RESPIRATORY: Moderate air entry, no wheezing or crackles noted. No accessory muscle use. GASTROINTESTINAL: Abdomen soft, non-tender, nondistended. MUSCULOSKELETAL: No cyanosis, or edema. Chronic venous stasis. No significant pitting edema. BACK: Nontender without obvious deformity. No CVA tenderness. Procedures None. A/P Problem List: (1) Acute exacerbation of CHF (congestive heart failure) ICD Code: I50.9 - Heart failure, unspecified Status: Acute (2) Hypertension ICD Code: I10 - Essential (primary) hypertension Status: Acute Assessment and Plan Ms. Honeycutt is an 87-year-old female with a past medical history significant for CHF, hypertension, atrial fibrillation (not on anticoagulation), COPD, GERD and anxiety disorder presents to the emergency department for the evaluation of shortness of breath. Her SOB has been present for about 18 months but worse in the last two days. Probable acute exacerbation of CHF, possibly diastolic. Pulmonary hypertension Echo from 01/2017 shows pulmonary hypertension with PA pressure 52 mmHg Echo did not specify EF but shows LV function was normal. Continue PO Torsemide 10 mg twice daily Currently on 2L of O2 via NC. Will do a walk test today. If qualifies will have to arrange oxygen at home. PT evaluation pending. However patient wants to go home not rehab. Hypertension Atrial fibrillation [id number] score 5 (female, 87, HTN, CHF). After discussing with patient's son, we started patient on apixaban 5 mg twice daily. Continue amlodipine 5 mg daily, atenolol 100 mg twice daily, lisinopril 10 mg daily. COPD -continue DuoNeb as needed, prednisone 10 mg (home medication) GERD -continue Protonix Full code. Apixaban Problem Qualifiers (1) Acute exacerbation of CHF (congestive heart failure): Qualified Codes: I50.9 - Heart failure, unspecified Edilson Bowen DO July 18, 2017 9:38 am
[2017-07-18 11:21] VITALS: BP 158/77; PULSE 71; RESP 20; TEMP 97.9; O2SAT 98
[2017-07-18 11:25] VITALS: PULSE 70
[2017-07-18] MEDS ORDERED: APIX5TAB PO (11:27)
[2017-07-18] MEDS ORDERED: TORS5TAB2 PO (11:27)
--- NOTE | 2017-07-18 11:28 | HHI.FF ---
Face to Face Verification Diagnosis: (1) Acute exacerbation of CHF (congestive heart failure) (2) COPD (chronic obstructive pulmonary disease) (3) Hypertension (4) Generalized weakness Physical Therapy Order: Evaluate and Treat, Improve ambulation, Strength and gait training Home Health Nursing Order: Medical education Signs/symptoms of disease process CHF education Nursing assessment with vital signs I have seen patient Eda Honeycutt on 07/18/17. My clinical findings support the need for the requested home health care services because: Ltd mobility - disease progression Patient has SOB Deconditioned w/ increased weakness Med compliance is questionable Limited ability to care for self I certify that my clinical findings support that this patient is homebound because: Hx COPD- exertion dyspnea/weakness Unsteady gait/balance Unsafe to leave home unassisted Unable to use public transportation Simona Carlos PA-C July 18, 2017 11:28 am
--- NOTE | 2017-07-18 11:29 | HHI.DCPOC ---
Discharge Care Plan Diagnosis: (1) Acute exacerbation of CHF (congestive heart failure) Goals to Promote Your Health * To prevent worsening of your condition and complications * To maintain your health at the optimal level Directions to Meet Your Goals Take your medications as prescribed Follow your dietary instruction Follow activity as directed Keep your appointments as scheduled Take your immunizations and boosters as scheduled If your symptoms worsen call your PCP, if no PCP go to Urgent Care Center or Emergency Room Smoking is Dangerous to Your Health. Avoid second hand smoke Call the 24-hour hour crisis hotline for domestic abuse at Simona Carlos PA-C July 18, 2017 11:29 am
[2017-07-18] MEDS: amLODIPine BESYLATE 5 MG TAB PO SCH (11:32)
[2017-07-18] MEDS: ATENOLOL 100 MG TAB PO SCH (11:32)
== END 2017-07-18 12:59 | disposition home or self-care (01) ==
LOC: NEPE 17:55 → NEDA 20:55 → NEPFCDU 07-17 00:42
PROVIDERS: ADMIT Hospitalist; ATTEND Hospitalist
DX: I11.0 Hypertensive heart disease with heart failure (principal); I50.9 Heart failure, unspecified; I48.91 Unspecified atrial fibrillation; J44.9 Chronic obstructive pulmonary disease, unspecified; I27.20 Pulmonary hypertension, unspecified; K21.9 Gastro-esophageal reflux disease without esophagitis; F41.9 Anxiety disorder, unspecified; Z79.899 Other long term (current) drug therapy; Z96.653 Presence of artificial knee joint, bilateral
CPT/HCPCS: 71045; 80053; 82550; 82552; 83880; 84484; 85025; 85610; 85730; 93005; 94618; 94640; 94664; 96372; 96374; 96375; 96376; 99285; G0378; J1650; J1940; J2930; J7512

== ENCOUNTER 2017-09-01 15:14 | Inpatient (IN) | payer OTHER, MEDICARE ==
[~2017-09-01] VITALS: Ht 162.6 cm; Wt 93.2 kg
[~2017-09-01 15:14] MED LIST changes: +APIX5TAB PO; -AZIT500T2 PO; -CEFU1TAB20 PO; -FURO1TAB60 PO; -FURO40TA PO; -PRED20 PO; +TORS5TAB2 PO; -ZITH500T PO
[2017-09-01 15:32] VITALS: BP 132/62; PULSE 72; RESP 18; TEMP 97.8; O2SAT 89
--- NOTE | 2017-09-01 16:58 | PD ---
HPI Chief Complaint: GI Complaint Time Seen by Provider: 16:14 Travel History International Travel<30 days: No Contact w/Intl Traveler<30days: No Traveled to known affect area: No History of Present Illness HPI 87-year-old female that presents to the ED for evaluation of fall she sustained on . Per patient on she had a mechanical fall and landed on her back and buttocks. She has been having pain ever since. She has a history of heart failure and has fluid on her legs for which cause her some discomfort. She denies hitting her head or losing consciousness. She does take blood thinners. She states that she has been taking aspirin every day but cannot help with the pain which it does. She is taking Tylenol as well which does not really help her much. Per patient she is been taking a lot of aspirin and apparently she started having more GERD-like symptoms with some nausea and vomiting and epigastric pain and she stopped taking the aspirin because of this. She came here today because she is having concerns that she may have an ulcer as well as her pain on her buttocks and back is not improving. She is able to ambulate with some discomfort. She was brought here by ambulance for evaluation of this. Per patient her pain currently 7 out of 10. She denies any nausea vomiting at this time. No other medical issues. Allergies to sulfa and Levaquin PFSH Past Medical History Arthritis: Yes Asthma: No Atrial Fibrillation: Yes Blood Disorders: No Anxiety: Yes Depression: Yes Heart Rhythm Problems: No Cancer: No Cardiovascular Problems: Yes High Cholesterol: No Chest Pain: No Congestive Heart Failure: Yes COPD: Yes Cerebrovascular Accident: No Diabetes: No Diminished Hearing: No Endocrine: No Gastrointestinal Disorders: Yes (POLYPS) GERD: Yes Genitourinary: Yes (UTIS) Headaches: No Hiatal Hernia: No Hypertension: Yes Immune Disorder: No Implanted Vascular Access Dvce: No Kidney Stones: No Musculoskeletal: Yes (lt shoulder) Neurologic: No Psychiatric: No Reproductive: No Respiratory: No Immunizations Current: Yes Migraines: No Renal Failure: No Seizures: No Sleep Apnea: No Thyroid Disease: No Ulcer: No PNEUMOCCOCAL Vaccine (Year): 1 Menopausal: Yes Para: 4 Miscarriage: 4 Past Surgical History Abdominal Surgery: No Cardiac Surgery: No Ear Surgery: No Endocrine Surgery: No Eye Surgery: No Genitourinary Surgery: No Gynecologic Surgery: Yes (HYSTERECTOMY) Hysterectomy: Yes Joint Replacement: Yes (BILAT KNEES) Neurologic Surgery: No Oral Surgery: No Pacemaker: No Thoracic Surgery: No Other Surgery: Yes (bilat knees, hysterectomy, rt arm ) Social History Alcohol Use: Yes (OCCASIONALLY) Tobacco Use: No Substance Use: No Allergies-Medications (Allergen,Severity, Reaction): Coded Allergies: Sulfa (Sulfonamide Antibiotics) (Unverified Allergy, Severe, PT DOES NOT REMEMBER, 07/07/17) levofloxacin (Unverified Allergy, Severe, PT STATES "DRIVES ME CRAZY", ) Reported Meds & Prescriptions Reported Meds & Active Scripts Active Torsemide 5 Mg Tab 10 Mg PO BID@ Eliquis (Apixaban) 5 Mg Tab 5 Mg PO BID Zofran Odt (Ondansetron Odt) 4 Mg Tab 4 Mg SL Q6HR PRN Meclizine (Meclizine HCl) 25 Mg Tab 25 Mg PO TID PRN Norvasc (Amlodipine Besylate) 5 Mg Tab 5 Mg PO DAILY Klor-Con 10 (Potassium Chloride) 10 Meq Tab 10 Meq PO Q12HR 30 Days Lisinopril 10 Mg Tab 10 Mg PO DAILY 30 Days Reported Atenolol 100 Mg Tab 100 Mg PO BID Ventolin Hfa 18 GM Inh (Albuterol Sulfate) 90 Mcg/Act Aer 2 Puff INH Q4H PRN Lansoprazole 30 Mg Capdr 30 Mg PO DAILY Vitamin D3 (Cholecalciferol) 1,000 Unit Tab 1,000 Units PO DAILY Buspirone (Buspirone HCl) 5 Mg Tab 5 Mg PO BID Sertraline (Sertraline HCl) 25 Mg Tab 25 Mg PO DAILY Review of Systems Except as stated in HPI: all other systems reviewed are Neg Physical Exam Narrative GENERAL: SKIN: Warm and dry. HEAD: Atraumatic. Normocephalic. EYES: Pupils equal and round. No scleral icterus. No injection or drainage. ENT: No nasal bleeding or discharge. Mucous membranes pink and moist. Tongue is midline. No uvula deviation. NECK: Trachea midline. No JVD. CARDIOVASCULAR: Regular rate and rhythm. No murmurs, S3, S4. RESPIRATORY: No accessory muscle use. Clear to auscultation. Breath sounds equal bilaterally. GASTROINTESTINAL: Abdomen soft, non-tender, nondistended. Hepatic and splenic margins not palpable. MUSCULOSKELETAL: Extremities without clubbing, cyanosis, or edema. No obvious deformities. Full range of motion of the upper and lower extremities bilaterally. 2+ pulses bilaterally. Patient does have 2+ edema on the lower extremities bilaterally which appears to be chronic for the patient. No obvious bruising or deformity noted other than the swelling. NEUROLOGICAL: Awake and alert. No obvious cranial nerve deficits. Motor grossly within normal limits. Five out of 5 muscle strength in the arms and legs. Normal speech. PSYCHIATRIC: Appropriate mood and affect; insight and judgment normal. Data Data Last Documented VS Vital Signs Date Time Temp Pulse Resp B/P (MAP) Pulse Ox O2 Delivery O2 Flow Rate FiO2 09/01/17 19:02 65 18 135/63 (87) 96 Nasal Cannula 2.00 09/01/17 15:32 97.8 Orders Orders Complete Blood Count With Diff (09/01/17 15:50) Comprehensive Metabolic Panel (09/01/17 15:50) Urinalysis - C+S If Indicated (09/01/17 15:50) Iv Access Insert/Monitor (09/01/17 15:50) Oxygen Administration (09/01/17 15:50) Oximetry (09/01/17 15:50) Lipase (09/01/17 15:50) Morphine Inj (Morphine Inj) (09/01/17 17:00) Metoclopramide Inj (Reglan Inj) (09/01/17 17:00) Ct Abd/Pel W Iv Contrast(Rout) (09/01/17 ) Ct Lumb Spine W Iv Contrast (09/01/17 ) Iohexol 350 Inj (Omnipaque 350 Inj) (09/01/17 18:26) B-Type Natriuretic Peptide (09/01/17 19:27) Chest, Single Ap (09/01/17 ) Splint Or Brace Apply/Monitor (09/01/17 19:43) Admit Order (Ed Use Only) (09/01/17 21:12) Furosemide Inj (Lasix Inj) (09/01/17 21:15) Furosemide Inj (Lasix Inj) (09/02/17 09:00) Admit To Inpatient (09/01/17 ) Vital Signs (Adult) Q4H (09/01/17 21:09) Activity Oob With Assistance (09/01/17 21:09) Intake + Output KIMBERLY.QSHIFT (09/01/17 21:09) Diet Heart Healthy (09/02/17 Breakfast) Sodium Chloride 0.9% Flush (Ns Flush) (09/01/17 21:15) Sodium Chloride 0.9% Flush (Ns Flush) (09/02/17 09:00) Metoclopramide Inj (Reglan Inj) (09/01/17 21:15) Comprehensive Metabolic Panel (09/02/17 06:00) Complete Blood Count With Diff (09/02/17 06:00) Pt Request For Service (09/01/17 21:09) Case Management Consult (09/01/17 21:09) Pharmacologic Contraindication (09/01/17 21:09) Acetaminophen (Tylenol) (09/01/17 21:15) Acetamin-Hydrocod 325-5 Mg (Baldwin 5-325 (09/01/17 21:15) Morphine Inj (Morphine Inj) (09/01/17 21:15) Docusate Sodium-Senna (Janet-Colace) (09/02/17 09:00) Magnesium Hydroxide Liq (Milk Of Magnesi (09/01/17 21:15) Sennosides (Senokot) (09/01/17 21:15) Bisacodyl Supp (Dulcolax Supp) (09/01/17 21:15) Lactulose Liq (Lactulose Liq) (09/01/17 21:15) Inpatient Certification (09/01/17 ) Labs Laboratory Tests Test 09/01/17 16:08 09/01/17 18:46 White Blood Count 6.0 TH/MM3 Red Blood Count 3.83 MIL/MM3 Hemoglobin 11.7 GM/DL Hematocrit 35.2 % Mean Corpuscular Volume 92.0 FL Mean Corpuscular Hemoglobin 30.5 PG Mean Corpuscular Hemoglobin Concent 33.1 % Red Cell Distribution Width 16.2 % Platelet Count 120 TH/MM3 Mean Platelet Volume 11.1 FL Neutrophils (%) (Auto) 69.6 % Lymphocytes (%) (Auto) 13.5 % Monocytes (%) (Auto) 14.1 % Eosinophils (%) (Auto) 2.2 % Basophils (%) (Auto) 0.6 % Neutrophils # (Auto) 4.2 TH/MM3 Lymphocytes # (Auto) 0.8 TH/MM3 Monocytes # (Auto) 0.8 TH/MM3 Eosinophils # (Auto) 0.1 TH/MM3 Basophils # (Auto) 0.0 TH/MM3 CBC Comment DIFF FINAL Differential Comment Blood Urea Nitrogen 20 MG/DL Creatinine 1.09 MG/DL Random Glucose 84 MG/DL Total Protein 7.2 GM/DL Albumin 2.8 GM/DL Calcium Level 8.3 MG/DL Alkaline Phosphatase 115 U/L Aspartate Amino Transf (AST/SGOT) 53 U/L Alanine Aminotransferase (ALT/SGPT) 19 U/L Total Bilirubin 0.8 MG/DL Sodium Level 139 MEQ/L Potassium Level 4.8 MEQ/L Chloride Level 106 MEQ/L Carbon Dioxide Level 23.9 MEQ/L Anion Gap 9 MEQ/L Estimat Glomerular Filtration Rate 47 ML/MIN Lipase 221 U/L Urine Color YELLOW Urine Turbidity CLEAR Urine pH 5.0 Urine Specific [place] 1.026 Urine Protein NEG mg/dL Urine Glucose (UA) NEG mg/dL Urine Ketones NEG mg/dL Urine Occult Blood NEG Urine Nitrite NEG Urine Bilirubin NEG Urine Urobilinogen 2.0 mg/dL Urine Leukocyte Esterase NEG Urine RBC LESS THAN 1 /hpf Urine WBC 1 /hpf Urine Squamous Epithelial Cells 1 /hpf Urine Mucus FEW /lpf Microscopic Urinalysis Comment CULT NOT INDICATED MDM Medical Decision Making Medical Screen Exam Complete: Yes Emergency Medical Condition: Yes Medical Record Reviewed: Yes Interpretation(s) CBC & BMP Diagram 09/01/17 16:08 Total Protein 7.2, Albumin 2.8 L, Calcium Level 8.3 L, Alkaline Phosphatase 115 , Aspartate Amino Transf (AST/SGOT) 53 H, Alanine Aminotransferase (ALT/SGPT) 19 , Total Bilirubin 0.8 [address] Lumbar Spine CT 09/01/17 0000 Signed Impressions: CONCLUSION: 1. Mild compression fracture of L5 which is a new finding since February 2017. 2. At least moderate canal stenosis at L3-4 and severe central canal stenosis at L4-5. 3. Degenerative rotatory levoscoliosis. Chest X-Ray 09/01/17 0000 Signed Impressions: CONCLUSION: Basilar airspace disease and small effusions. Findings most characteristic of m ild congestive heart failure. Abdomen/Pelvis CT 09/01/17 0000 Signed Impressions: CONCLUSION: 1. Bilateral pleural effusions and basilar lung consolidation that is increase d slightly since February 2017. Cardiomegaly. Mild anasarca. 2. Diffuse fatty liver. Colonic diverticulosis without diverticulitis. 3. No obstruction or significant free fluid. 4. Calcified gallstones without biliary ductal dilatation. 5. Mild compression fracture superior endplate of L5 which is a new finding si nce 2017. Compression deformity at T11 appears stable. Differential Diagnosis Fall versus pain versus gastritis versus gastroenteritis versus acute abdomen versus fracture Narrative Course 87-year-old female that presents to the ED for evaluation of back pain and abdominal pain. Patient was properly examined and was found to have signs and symptoms consistent with appears to be back pain and possible peptic ulcer disease. Labs and imaging order. Patient was given IV pain medication. Labs and imaging showed what appears to be a new acute L5 fracture. Appears to be mild. Patient herself does not want any surgery done but unfortunately does live by herself. CT did show some fluid on the chest and patient was found to be somewhat hypoxic without oxygen. Patient does not use oxygen at home. Chest x-ray and BNP was ordered. Chest x-ray does show what appears to be mild CHF exacerbation. Patient herself does not complain of shortness of breath alert and with exertion. This time a recommend admission for further evaluation as well as treatment. She will likely need some help at home and I did spoke with case management who states that unfortunately because his Sunday night they cannot arrange any help for her and they recommended the patient be admitted as they will probably will not be able to get any home health until Sunday. Patient lives alone and her son has multiple comorbidities and cannot unfortunately take care of her. He is at the bedside. Per my attendings recommendations and case management recommendation the recommend admission. This was discussed with the patient and family who agree with this. Patient was admitted for the L5 compression fracture as well as CHF. Case discussed with Dr. Manning agrees to admission. Diagnosis Primary Impression: Compression fracture of L5 lumbar vertebra Qualified Codes: S32.050A - Wedge compression fracture of fifth lumbar vertebra, initial encounter for closed fracture Additional Impression: Acute exacerbation of CHF (congestive heart failure) Qualified Codes: I50.9 - Heart failure, unspecified Admitting Information Admitting Physician Requests: Admit Saturnino Sierra Sep 01, 2017 16:58
[2017-09-01] MEDS ORDERED: MORPHINE SULFATE 4 MG/ML INJ IV PUSH ONE (17:00)
[2017-09-01] MEDS ORDERED: METOCLOPRAMIDE HCL 10 MG/2 ML VIAL IV PUSH ONE (17:00)
[2017-09-01 17:04] VITALS: RESP 18; O2SAT 90
[2017-09-01 17:06] VITALS: BP 120/69; PULSE 67; RESP 18; O2SAT 94
[2017-09-01 17:15] LABS: AUTOMATED NEUTROPHIL # 4.2 TH/MM3 (1.8-7.7); BASOPHIL % 0.6 % (0.0-2.0); EOSINOPHIL # 0.1 TH/MM3 (0-0.4); EOSINOPHIL % 2.2 % (0.0-4.0); HEMATOCRIT 35.2 % (35.0-46.0); HEMOGLOBIN 11.7 GM/DL (11.6-15.3); LYMPH % 13.5 % (9.0-44.0); LYMPHOCYTE # 0.8 TH/MM3 (1.0-4.8); MEAN CORPUSCULAR HEMOGLOBIN 30.5 PG (27.0-34.0); MEAN CORPUSCULAR HGB CONC 33.1 % (32.0-36.0); MEAN PLATELET VOLUME 11.1 FL (7.0-11.0); MONO % 14.1 % (0.0-8.0); MONOCYTE # 0.8 TH/MM3 (0-0.9); NEUT % 69.6 % (16.0-70.0); PLATELET COUNT 120 TH/MM3 (150-450); RED BLOOD COUNT 3.83 MIL/MM3 (4.00-5.30); RED CELL DISTRIBUTION WIDTH 16.2 % (11.6-17.2)
[2017-09-01 17:50] LABS: ALKALINE PHOSPHATASE 115 U/L (45-117); TOTAL BILIRUBIN ADULT 0.8 MG/DL (0.2-1.0); TOTAL PROTEIN 7.2 GM/DL (6.4-8.2)
[2017-09-01 17:59] LABS: ALBUMIN 2.8 GM/DL (3.4-5.0); ALT (GPT) 19 U/L (10-53); AST (GOT) 53 U/L (15-37); BICARBONATE 23.9 MEQ/L (21.0-32.0); BLOOD UREA NITROGEN 20 MG/DL (7-18); CALCIUM 8.3 MG/DL (8.5-10.1); CHLORIDE 106 MEQ/L (98-107); CREATININE 1.09 MG/DL (0.50-1.00); GLOMERULAR FILTRATION RATE 47 ML/MIN (>89); GLUCOSE,RANDOM 84 MG/DL (74-106); SODIUM (NA) 139 MEQ/L (136-145)
[2017-09-01] MEDS ORDERED: IOHEXOL 350 MG/ML 10 ML VIAL (for RAD DIAG) IVCONTRAST ONE (18:26)
--- NOTE | 2017-09-01 18:51 | RADRPT ---
EXAM DATE: 09/01/2017 6:38 PM EDT AGE/SEX: 87 years / Female INDICATIONS: Abdominal pain, nausea and vomiting. CLINICAL DATA: This is the patient's initial encounter. Patient reports that signs and symptoms have been present for 2 days and indicates a pain of 4/10. MEDICAL/SURGICAL HISTORY: Gastroesophageal reflux disease. Cardiovascular disease. Hypertensi on. Hysterectomy. ORAL CONTRAST: No oral contrast ingested. RADIATION DOSE: 16.25 CTDI (mGy) COMPARISON: [facility] – [place], CT ABDOMEN & PELVIS W/O CONTRAST, 03/18/2017. . TECHNIQUE: Multiple contiguous axial images were obtained through the abdomen and pelvis following b olus infusion of 96 ml Omnipaque 350 (iohexol) nonionic water-soluble contrast as a cumulative dose for multiple exams. No oral contrast ingested. Using automated exposure control and adjustment of t he mA and/or kV according to patient size, the radiation dose was kept as low as reasonably achievabl e to obtain optimal diagnostic quality images. FINDINGS: There are [id number] bilateral pleural effusions with basilar lung consolidation. Diffuse fatty liver. Gallstone in gallbladder without significant biliary ductal dilatation. Spleen a nd adrenals unremarkable. Lobular kidneys with tiny nonobstructing left renal calculus. There is mild anasarca. There is colonic diverticulosis without definite diverticulitis. There is a m ild compression fracture through superior endplate of L5 is probably subacute. There is a mild scolio sis. CONCLUSION: 1. Bilateral pleural effusions and basilar lung consolidation that is increased slightly since Dece2016. Cardiomegaly. Mild anasarca. 2. Diffuse fatty liver. Colonic diverticulosis without diverticulitis. 3. No obstruction or significant free fluid. 4. Calcified gallstones without biliary ductal dilatation. 5. Mild compression fracture superior endplate of L5 which is a new finding since 2017. Compression deformity at T11 appears stable. Electronically signed by: Peyman Jean MD 09/01/2017 6:50 PM EDT
--- NOTE | 2017-09-01 18:53 | RADRPT ---
EXAM DATE: 09/01/2017 6:43 PM EDT AGE/SEX: 87 years / Female INDICATIONS: Fall three days ago. Lower back pain. CLINICAL DATA: This is the patient's initial encounter. Patient reports that signs and symptoms have been present for 3 days and indicates a pain score of 4/10. MEDICAL/SURGICAL HISTORY: Cardiovascular disease. Hypertension. Gastroesophageal reflux disease. Hysterectomy. RADIATION DOSE: . CTDI (mGy) ; Reconstructed from previous dataset, no dose COMPARISON: No prior exams available for comparison. TECHNIQUE: Contiguous axial images were acquired with a multirow detector CT scanner after intraveno us administration of 96 ml Omnipaque 350 (iohexol) nonionic water-soluble contrast as a cumulative d ose for multiple exams. Multiplanar reconstructions in the sagittal and coronal plane were also perf ormed. Using automated exposure control and adjustment of the mA and/or kV according to patient size, radiation dose was kept as low as reasonably achievable to obtain optimal diagnostic quality images. FINDINGS: There is a mild compression fracture through superior endplate of L5 which is a new finding since the prior abdomen CT from February 2017. There is degenerative disc disease throughout the lumbar spine. No significant canal stenosis at L1-2-3. At L3-4 there is a focal moderate central canal stenosis. At L4-5 there is a focal severe central canal stenosis. No significant canal stenosis at L5-S1. Mild sc oliosis. CONCLUSION: 1. Mild compression fracture of L5 which is a new finding since February 2017. 2. At least moderate canal stenosis at L3-4 and severe central canal stenosis at L4-5. 3. Degenerative rotatory levoscoliosis. Electronically signed by: Peyman Jean MD 09/01/2017 6:52 PM EDT
[2017-09-01 19:02] VITALS: BP 135/63; PULSE 65; RESP 18; O2SAT 96
[2017-09-01 20:02] LABS: BILIRUBIN, URINE NEG (NEG); BLOOD, URINE NEG (NEG); GLUCOSE,URINE NEG (NEG); KETONE, URINE NEG (NEG); MUCUS URINE FEW /lpf (OCC); NITRITE,URINE NEG (NEG); SQUAMOUS EPITHELIAL CELL URINE 1 /hpf (0-5); URINE COLOR YELLOW (YELLW/STRAW); URINE LEUKOCYTE ESTERASE NEG (NEG)
--- NOTE | 2017-09-01 20:08 | RADRPT ---
EXAM DATE: 09/01/2017 7:49 PM EDT AGE/SEX: 87 years / Female INDICATIONS: Short of breath. Fell 3 days ago. CLINICAL DATA: This is the patient's initial encounter. Patient reports that signs and symptoms have been present for 3 days and indicates a pain score of 0/10. MEDICAL/SURGICAL HISTORY: . Hypertension. Chronic obstructive pulmonary disease. Congestive hea rt failure. . Hysterectomy. COMPARISON: [facility] – [place], CHEST SINGLE AP, 07/16/2017. . FINDINGS: Mild basilar airspace disease and small pleural effusions. Cardiomegaly. No pneumothorax. CONCLUSION: Basilar airspace disease and small effusions. Findings most characteristic of mild congestive heart f ailure. Electronically signed by: Peyman Jean MD 09/01/2017 8:07 PM EDT
[2017-09-01] MEDS ORDERED: ACETAMINOPHEN 325 MG TAB PO PRN (21:15)
[2017-09-01] MEDS ORDERED: BISACODYL 10 MG SUPP RECTAL PRN (21:15)
[2017-09-01] MEDS ORDERED: MORPHINE SULFATE 2 MG/ML SYRINGE IV PUSH PRN (21:15)
[2017-09-01] MEDS ORDERED: MAGNESIUM HYDROXIDE SUSP 30 ML CUP PO PRN (21:15)
[2017-09-01] MEDS ORDERED: FUROSEMIDE 40 MG/4 ML VIAL IV PUSH ONE (21:15)
[2017-09-01] MEDS ORDERED: LACTULOSE SYRUP 20 GM/30 ML CUP PO PRN (21:15)
--- NOTE | 2017-09-01 21:19 | HHI.HP ---
[facility] Admission Diagnosis acute L5 compression fracture, CHF exacerbation Diagnoses: (1) Fall Diagnosis: Principal (2) Compression fracture of L5 lumbar vertebra Diagnosis: Principal (3) CHF (congestive heart failure) Diagnosis: Principal (duone) (4) Hypoxia Diagnosis: Principal Travel History International Travel<30 Days: No Contact w/Intl Traveler <30 Da: No Traveled to Known Affected Are: No History of Present Illness This is an 87-year-old female with a PMH of HTN, CHF (Echo 01/29/2017 w/ normal EF), Anxiety, Depression, COPD and h/o Recurrent UTI who was brought to the ER for c/o back pain. States she had a fall on (2 days ago) and has had persistent back pain since. Pain is intermittent, worse w/ movement, 09/25, non- radiating. Lives at home alone, ambulation difficult due to pain complaints. On arrival, BP 132/62, HR 72, O2 sat 89% on RA, Afebrile. CBC at baseline. Creatinine 1.09, previously 1.12 on 07/16/2017. BNP 613. UA negative for UTI. CXR with bilateral effusions consistent with heart failure. CT Abdomen/Pelvis bilateral pleural effusions and some consolidation, mild compression fracture L5. CT L-spine compression fracture of L5. TLSO brace in place. Review of Systems Except as stated in HPI: all other systems reviewed are Neg ROS: 14 point review of systems otherwise negative. Past Family Social History Past Medical History PMH: HTN, CHF (Echo 01/29/2017 w/ normal EF), Anxiety, Depression, COPD and h/ o Recurrent UTI Past Surgical History PAST SURGICAL HISTORY: Hysterectomy, Bilateral Knee Replacement, Right Arm Surgery Allergies: Coded Allergies: Sulfa (Sulfonamide Antibiotics) (Unverified Allergy, Severe, PT DOES NOT REMEMBER, 07/07/17) levofloxacin (Unverified Allergy, Severe, PT STATES "DRIVES ME CRAZY", ) Family History PAST FAMILY HISTORY: Reviewed. No h/o DM or CAD Social History PAST SOCIAL HISTORY: Occasional alcohol. Negative for tobacco or drugs. Physical Exam Vital Signs Vital Signs Date Time Temp Pulse Resp B/P (MAP) Pulse Ox O2 Delivery O2 Flow Rate FiO2 09/01/17 19:02 65 18 135/63 (87) 96 Nasal Cannula 2.00 09/01/17 17:06 67 18 120/69 (86) 94 Nasal Cannula 2.00 09/01/17 17:04 18 90 Room Air 09/01/17 15:35 97 Nasal Cannula 2.00 09/01/17 15:32 97.8 72 18 132/62 (85) 89 Physical Exam PE: GENERAL: Very pleasant elderly white female in no acute distress. HEENT: PERRLA, EOMI. No scleral icterus or conjunctival pallor. No lid lag or facial droop. CARDIOVASCULAR: Regular rate and rhythm. No obvious murmurs to auscultation. No chest tenderness to palpation. RESPIRATORY: No obvious rhonchi or wheezing. Clear to auscultation. Breath sounds equal bilaterally. GASTROINTESTINAL: Abdomen soft, non-tender, nondistended. BS normal. MUSCULOSKELETAL: Extremities without clubbing, cyanosis. No obvious deformities. TLSO brace in place. 2+ edema NEUROLOGICAL: Awake, alert and oriented x4. No focal neurologic deficits. Moving both upper and lower extremities spontaneously. Laboratory Laboratory Tests Test 09/01/17 16:08 09/01/17 18:46 White Blood Count 6.0 Red Blood Count 3.83 Hemoglobin 11.7 Hematocrit 35.2 Mean Corpuscular Volume 92.0 Mean Corpuscular Hemoglobin 30.5 Mean Corpuscular Hemoglobin Concent 33.1 Red Cell Distribution Width 16.2 Platelet Count 120 Mean Platelet Volume 11.1 Neutrophils (%) (Auto) 69.6 Lymphocytes (%) (Auto) 13.5 Monocytes (%) (Auto) 14.1 Eosinophils (%) (Auto) 2.2 Basophils (%) (Auto) 0.6 Neutrophils # (Auto) 4.2 Lymphocytes # (Auto) 0.8 Monocytes # (Auto) 0.8 Eosinophils # (Auto) 0.1 Basophils # (Auto) 0.0 CBC Comment DIFF FINAL Differential Comment Blood Urea Nitrogen 20 Creatinine 1.09 Random Glucose 84 Total Protein 7.2 Albumin 2.8 Calcium Level 8.3 Alkaline Phosphatase 115 Aspartate Amino Transf (AST/SGOT) 53 Alanine Aminotransferase (ALT/SGPT) 19 Total Bilirubin 0.8 Sodium Level 139 Potassium Level 4.8 Chloride Level 106 Carbon Dioxide Level 23.9 Anion Gap 9 Estimat Glomerular Filtration Rate 47 Lipase 221 Urine Color YELLOW Urine Turbidity CLEAR Urine pH 5.0 Urine Specific [place] 1.026 Urine Protein NEG Urine Glucose (UA) NEG Urine Ketones NEG Urine Occult Blood NEG Urine Nitrite NEG Urine Bilirubin NEG Urine Urobilinogen 2.0 Urine Leukocyte Esterase NEG Urine RBC LESS THAN 1 Urine WBC 1 Urine Squamous Epithelial Cells 1 Urine Mucus FEW Microscopic Urinalysis Comment CULT NOT INDICATED Result Diagram: 09/01/17 1608 09/01/17 1608 Caprini VTE Risk Assessment Caprini VTE Risk Assessment: No/Low Risk (score <= 1) Caprini Risk Assessment Model Point Value = 1 Point Value = 2 Point Value = 3 Point Value = 5 Age 41-60 Minor surgery BMI > 25 kg/m2 Swollen legs Varicose veins or History of unexplained or recurrent spontaneous Oral contraceptives or hormone replacement Sepsis (< 1 month) Serious lung disease, including pneumonia (< 1 month) Abnormal pulmonary function Acute myocardial infarction Congestive heart failure (< 1 month) History of inflammatory bowel disease Medical patient at bed rest Age 61-74 Arthroscopic surgery Major open surgery (> 45 min) Laparoscopic surgery (> 45 min) Malignancy Confined to bed (> 72 hours) Immobilizing plaster cast Central venous access Age >= 75 History of VTE Family history of VTE Factor V Leiden Prothrombin [id number] Lupus anticoagulant Anticardiolipin antibodies Elevated serum homocysteine Heparin-induced thrombocytopenia Other congenital or acquired thrombophilia Stroke (< 1 month) Elective arthroplasty Hip, pelvis, or leg fracture Acute spinal cord injury (< 1 month) Prophylaxis Regimen Total Risk Factor Score Risk Level Prophylaxis Regimen 0-1 Low Early ambulation 2 Moderate Order ONE of the following: *Sequential Compression Device (SCD) *Heparin 5000 units SQ BID 3-4 Higher Order ONE of the following medications: *Heparin 5000 units SQ TID *Enoxaparin/Lovenox 40 mg SQ daily (WT < 150 kg, CrCl > 30 mL/min) *Enoxaparin/Lovenox 30 mg SQ daily (WT < 150 kg, CrCl > 10-29 mL/min) *Enoxaparin/Lovenox 30 mg SQ BID (WT < 150 kg, CrCl > 30 mL/min) AND/OR *Sequential Compression Device (SCD) 5 or more Highest Order ONE of the following medications: *Heparin 5000 units SQ TID (Preferred with Epidurals) *Enoxaparin/Lovenox 40 mg SQ daily (WT < 150 kg, CrCl > 30 mL/min) *Enoxaparin/Lovenox 30 mg SQ daily (WT < 150 kg, CrCl > 10-29 mL/min) *Enoxaparin/Lovenox 30 mg SQ BID (WT < 150 kg, CrCl > 30 mL/min) AND *Sequential Compression Device (SCD) Assessment and Plan Problem List: (1) Fall ICD Code: W19.XXXA - Unspecified fall, initial encounter (2) Compression fracture of L5 lumbar vertebra ICD Code: S32.050A - Wedge compression fracture of fifth lumbar vertebra, initial encounter for closed fracture (3) CHF (congestive heart failure) ICD Code: I50.9 - Heart failure, unspecified (4) Hypoxia ICD Code: R09.02 - Hypoxemia Assessment and Plan A/P: 1. Fall: s/p mechanical fall 2 days ago, denies head trauma or LOC, no other injuries reported besides c/o back pain. 2. L5 Compression Fx: secondary to above, CT L-Spine w/ mild compression fx L5 , images reviewed by me. Pt not interested in surgical intervention. TLSO brace. Analgesics/antiemetics as needed. PT for eval/tx, may need placement as pt lives alone. 3. CHF: Acute on Chronic. Diastolic. Echo 01/29/17 w/ normal EF, +2 edema on exam, BNP 613, CXR w/ pleural effusions, give Lasix 40mg IV now, continue w/ diuresis, monitor I/O. 4. Hypoxia: O2 sat 88-89% on RA upon arrival, likely due to CHF, monitor O2, DuoNeb prn 5. DVT Prophylaxis: Resume home Eliquis 6. Social work for DC planning as needed. 7. Case discussed at length with the ER physician, lab/record/imaging reviewed by me. Physician Certification 2 Midnight Certification Type: Admission for Inpatient Services Order for Inpatient Services The services are ordered in accordance with Medicare regulations or non- Medicare payer requirements, as applicable. In the case of services not specified as inpatient-only, they are appropriately provided as inpatient services in accordance with the 2-midnight benchmark. Estimated LOS (days): 2 days is the estimated time the patient will need to remain in the hospital, assuming treatment plan goals are met and no additional complications. Post-Hospital Plan: Not yet determined Edith Manning MD Sep 01, 2017 21:19
[2017-09-01] MEDS ORDERED: PILL SPLITTER OTHER PRN (21:45)
[2017-09-01 22:00] VITALS: BP 135/86; PULSE 77; RESP 18; TEMP 97.8; O2SAT 97
[2017-09-01] MEDS ORDERED: RESP: ALBUTEROL 2.5 MG/IPRATROPIUM 0.5 MG NEB (PRN) NEB (22:00)
[2017-09-01] MEDS: ACETAMINOPHEN/HYDROcodone 325 MG/5 MG TAB PO PRN (22:09)
[2017-09-01 23:22] VITALS: BP 109/65; PULSE 76; RESP 18; TEMP 97.5; O2SAT 97
[2017-09-02] VITALS (7 sets, daily range): BP systolic 98–145; BP diastolic 59–74; PULSE 71–93; RESP 18–20; TEMP 97.6–99.1; O2SAT 92–94
[2017-09-02 05:56] LABS: AUTOMATED NEUTROPHIL # 3.6 TH/MM3 (1.8-7.7); BASOPHIL % 0.4 % (0.0-2.0); EOSINOPHIL # 0.2 TH/MM3 (0-0.4); EOSINOPHIL % 3.2 % (0.0-4.0); HEMOGLOBIN 11.3 GM/DL (11.6-15.3); LYMPH % 12.4 % (9.0-44.0); LYMPHOCYTE # 0.6 TH/MM3 (1.0-4.8); MEAN CELL VOLUME 93.2 FL (80.0-100.0); MEAN CORPUSCULAR HGB CONC 32.2 % (32.0-36.0); MEAN PLATELET VOLUME 10.5 FL (7.0-11.0); MONO % 12.7 % (0.0-8.0); MONOCYTE # 0.6 TH/MM3 (0-0.9); NEUT % 71.3 % (16.0-70.0); PLATELET COUNT 101 TH/MM3 (150-450); RED BLOOD COUNT 3.76 MIL/MM3 (4.00-5.30); WHITE BLOOD COUNT 5.1 TH/MM3 (4.0-11.0)
[2017-09-02 06:33] LABS: ALBUMIN 2.7 GM/DL (3.4-5.0); ALKALINE PHOSPHATASE 101 U/L (45-117); ALT (GPT) 14 U/L (10-53); AST (GOT) 24 U/L (15-37); BICARBONATE 29.3 MEQ/L (21.0-32.0); BLOOD UREA NITROGEN 18 MG/DL (7-18); CALCIUM 8.4 MG/DL (8.5-10.1); CHLORIDE 107 MEQ/L (98-107); GLOMERULAR FILTRATION RATE 47 ML/MIN (>89); GLUCOSE,RANDOM 82 MG/DL (74-106); SODIUM (NA) 143 MEQ/L (136-145); TOTAL BILIRUBIN ADULT 0.8 MG/DL (0.2-1.0); TOTAL PROTEIN 6.5 GM/DL (6.4-8.2)
[2017-09-02] MEDS ORDERED: amLODIPine BESYLATE 5 MG TAB PO SCH (09:00)
[2017-09-02] MEDS: SODIUM CHLORIDE 0.9% FLUSH 10 ML FLUSH IV FLUSH SCH ×2 (09:00→20:51)
[2017-09-02] MEDS ORDERED: NON-FORMULARY DRUG (Lansoprazole 30 MG) PO SCH (09:00)
[2017-09-02] MEDS ORDERED: LISINOPRIL 10 MG TAB PO SCH (09:00)
[2017-09-02] MEDS ORDERED: NON-FORMULARY DRUG (Sertraline 25 MG) PO SCH (09:00)
[2017-09-02] MEDS ORDERED: FUROSEMIDE 40 MG/4 ML VIAL IV PUSH SCH (09:00)
--- NOTE | 2017-09-02 09:16 | HHI.PR ---
Subjective Remarks Pt feels well. slept ok. Denies any CP/SOB/N/V pain controlled. Again tells me that she doesn't want any surgical intervention Objective Vitals Vital Signs Date Time Temp Pulse Resp B/P (MAP) Pulse Ox O2 Delivery O2 Flow Rate FiO2 09/02/17 08:40 98.2 93 18 145/65 (91) 92 09/02/17 04:21 97.6 71 19 116/60 (78) 93 09/01/17 23:22 97.5 76 18 109/65 (80) 97 09/01/17 22:00 97.8 77 18 135/86 (102) 97 09/01/17 19:02 65 18 135/63 (87) 96 Nasal Cannula 2.00 09/01/17 17:06 67 18 120/69 (86) 94 Nasal Cannula 2.00 09/01/17 17:04 18 90 Room Air 09/01/17 15:35 97 Nasal Cannula 2.00 09/01/17 15:32 97.8 72 18 132/62 (85) 89 I/O 09/01/17 09/01/17 09/01/17 09/02/17 09/02/17 09/02/17 07:00 15:00 23:00 07:00 15:00 23:00 Intake Total 360 ml Balance 360 ml Intake Oral 360 ml # Voids 1 # Bowel Movements 0 Result Diagram: 09/02/17 0527 09/02/17 0527 Imaging Last Impressions Lumbar Spine CT 09/01/17 0000 Signed Impressions: CONCLUSION: 1. Mild compression fracture of L5 which is a new finding since February 2017. 2. At least moderate canal stenosis at L3-4 and severe central canal stenosis at L4-5. 3. Degenerative rotatory levoscoliosis. Chest X-Ray 09/01/17 0000 Signed Impressions: CONCLUSION: Basilar airspace disease and small effusions. Findings most characteristic of m ild congestive heart failure. Abdomen/Pelvis CT 09/01/17 0000 Signed Impressions: CONCLUSION: 1. Bilateral pleural effusions and basilar lung consolidation that is increase d slightly since February 2017. Cardiomegaly. Mild anasarca. 2. Diffuse fatty liver. Colonic diverticulosis without diverticulitis. 3. No obstruction or significant free fluid. 4. Calcified gallstones without biliary ductal dilatation. 5. Mild compression fracture superior endplate of L5 which is a new finding si nce 2017. Compression deformity at T11 appears stable. Objective Remarks GENERAL: Very pleasant elderly white female, laying in bed. appears comfortable. CARDIOVASCULAR: Regular rate and rhythm. No obvious murmurs to auscultation. RESPIRATORY: No obvious wheezing. Clear to auscultation. Breath sounds equal bilaterally. GASTROINTESTINAL: Abdomen soft, non-tender, nondistended. BS normal. MUSCULOSKELETAL: 2+ edema, moves both upper and lower extremities spontaneously. A/P Problem List: (1) Fall ICD Code: W19.XXXA - Unspecified fall, initial encounter (2) Compression fracture of L5 lumbar vertebra ICD Code: S32.050A - Wedge compression fracture of fifth lumbar vertebra, initial encounter for closed fracture (3) CHF (congestive heart failure) ICD Code: I50.9 - Heart failure, unspecified (4) Hypoxia ICD Code: R09.02 - Hypoxemia Assessment and Plan 1. Fall: s/p mechanical fall 2 days ago, denies head trauma or LOC, no other injuries reported besides c/o back pain. 2. L5 Compression Fx: secondary to above, CT L-Spine w/ mild compression fx L5. Pt not interested in surgical intervention. TLSO brace. Analgesics/ antiemetics as needed. PT for eval/tx, may need placement as pt lives alone. 3. CHF: Acute on Chronic. Diastolic. Echo 01/29/17 w/ normal EF, +2 edema on exam, BNP 613, CXR w/ pleural effusions, on lasix 40mg IV q12hrs, transition to po tomorrow, continue w/ diuresis, monitor I/O. 4. Hypoxia: O2 sat 88-89% on RA upon arrival, likely due to CHF, monitor O2, DuoNeb prn 5. DVT Prophylaxis: Resume home Eliquis Discharge Planning awaiting PT recs. continue pain control. anticipating d/c on 1-2 days. Stacy Luis MD Sep 02, 2017 09:16
[2017-09-02] MEDS: SENNOSIDES 8.6 MG TAB PO PRN (09:37)
[2017-09-02] MEDS: DOCUSATE SODIUM 50 MG/SENNA 8.6 MG TAB PO SCH ×2 (09:38→20:48)
[2017-09-02] MEDS: SERTRALINE HCL 50 MG TAB PO SCH (09:38)
[2017-09-02] MEDS: ATENOLOL 100 MG TAB PO SCH ×2 (09:38→20:48)
[2017-09-02] MEDS: PANTOPRAZOLE SOD 40 MG DELAYED RELEASE TAB PO SCH (09:39)
[2017-09-02] MEDS: ACETAMINOPHEN/HYDROcodone 325 MG/5 MG TAB PO PRN ×2 (09:39→20:49)
[2017-09-02] MEDS: busPIRone HCL 5 MG TAB PO SCH ×2 (09:39→20:50)
[2017-09-02] MEDS: APIXABAN 5 MG TABLET PO SCH ×2 (09:39→20:48)
[2017-09-02] MEDS: TORSEMIDE 5 MG TAB PO SCH (16:21)
[2017-09-02] MEDS: POTASSIUM CHLORIDE 10 MEQ CONTROLLED RELEASE TAB PO SCH (20:48)
[2017-09-03 07:44] LABS: BICARBONATE 29.3 MEQ/L (21.0-32.0); CALCIUM 8.3 MG/DL (8.5-10.1); CREATININE 1.44 MG/DL (0.50-1.00); MAGNESIUM 2.2 MG/DL (1.5-2.5)
[2017-09-03 08:00] VITALS: BP 115/58; PULSE 78; RESP 20; TEMP 98.5; O2SAT 91
[2017-09-03] MEDS: SERTRALINE HCL 50 MG TAB PO SCH (09:29)
[2017-09-03] MEDS: APIXABAN 5 MG TABLET PO SCH ×2 (09:30→19:53)
[2017-09-03] MEDS: ATENOLOL 100 MG TAB PO SCH ×2 (09:30→19:52)
[2017-09-03] MEDS: PANTOPRAZOLE SOD 40 MG DELAYED RELEASE TAB PO SCH (09:31)
[2017-09-03] MEDS: busPIRone HCL 5 MG TAB PO SCH ×2 (09:31→19:52)
[2017-09-03] MEDS: POTASSIUM CHLORIDE 10 MEQ CONTROLLED RELEASE TAB PO SCH ×2 (09:31→19:53)
[2017-09-03] MEDS: ACETAMINOPHEN/HYDROcodone 325 MG/5 MG TAB PO PRN ×3 (09:32→23:39)
[2017-09-03] MEDS: TORSEMIDE 5 MG TAB PO SCH (09:32)
[2017-09-03] MEDS: DOCUSATE SODIUM 50 MG/SENNA 8.6 MG TAB PO SCH ×2 (09:33→19:52)
[2017-09-03] MEDS: SODIUM CHLORIDE 0.9% FLUSH 10 ML FLUSH IV FLUSH SCH ×2 (09:34→19:52)
[2017-09-03 12:00] VITALS: BP 84/51; PULSE 67; RESP 18; TEMP 97.2; O2SAT 94
--- NOTE | 2017-09-03 15:20 | HHI.PR ---
Subjective Remarks Pt denies any CP, worsening SOB, nausea or vomiting. Per staff radiologist pt doesn't want to go to rehab but per PT she needs it, her son not comfortable taking her home Objective Vitals Vital Signs Date Time Temp Pulse Resp B/P (MAP) Pulse Ox O2 Delivery O2 Flow Rate FiO2 09/03/17 14:34 Nasal Cannula 1.00 09/03/17 12:00 97.2 67 18 84/51 (62) 94 09/03/17 09:37 Nasal Cannula 1.00 09/03/17 08:00 98.5 78 20 115/58 (77) 91 09/02/17 23:59 98.4 89 18 121/66 (84) 92 09/02/17 23:39 Nasal Cannula 2.00 09/02/17 20:50 Room Air 09/02/17 20:17 98.1 84 19 108/69 (82) 92 09/02/17 16:30 92 Room Air 09/02/17 16:00 99.1 86 20 106/59 (75) 94 I/O 09/02/17 09/02/17 09/02/17 09/03/17 09/03/17 09/03/17 07:00 15:00 23:00 07:00 15:00 23:00 Intake Total 360 ml 240 ml 360 ml Balance 360 ml 240 ml 360 ml Intake Oral 360 ml 240 ml 360 ml # Voids 1 2 3 # Bowel Movements 0 0 1 Result Diagram: 09/02/17 0527 09/03/17 0620 Imaging Last Impressions Lumbar Spine CT 09/01/17 0000 Signed Impressions: CONCLUSION: 1. Mild compression fracture of L5 which is a new finding since February 2017. 2. At least moderate canal stenosis at L3-4 and severe central canal stenosis at L4-5. 3. Degenerative rotatory levoscoliosis. Chest X-Ray 09/01/17 0000 Signed Impressions: CONCLUSION: Basilar airspace disease and small effusions. Findings most characteristic of m ild congestive heart failure. Abdomen/Pelvis CT 09/01/17 0000 Signed Impressions: CONCLUSION: 1. Bilateral pleural effusions and basilar lung consolidation that is increase d slightly since February 2017. Cardiomegaly. Mild anasarca. 2. Diffuse fatty liver. Colonic diverticulosis without diverticulitis. 3. No obstruction or significant free fluid. 4. Calcified gallstones without biliary ductal dilatation. 5. Mild compression fracture superior endplate of L5 which is a new finding si nce 2017. Compression deformity at T11 appears stable. Objective Remarks GENERAL: sitting up in bed CARDIOVASCULAR: Regular rate and rhythm. No obvious murmurs to auscultation. RESPIRATORY: No obvious wheezing. Clear to auscultation. Breath sounds equal bilaterally. GASTROINTESTINAL: Abdomen soft, non-tender, nondistended. BS normal. A/P Problem List: (1) Fall ICD Code: W19.XXXA - Unspecified fall, initial encounter (2) Compression fracture of L5 lumbar vertebra ICD Code: S32.050A - Wedge compression fracture of fifth lumbar vertebra, initial encounter for closed fracture (3) CHF (congestive heart failure) ICD Code: I50.9 - Heart failure, unspecified (4) Hypoxia ICD Code: R09.02 - Hypoxemia Assessment and Plan 1. Fall: s/p mechanical fall 2 days ago, denies head trauma or LOC, no other injuries reported besides c/o back pain. 2. L5 Compression Fx: secondary to above, CT L-Spine w/ mild compression fx L5. Pt not interested in surgical intervention. TLSO brace. Analgesics/ antiemetics as needed. PT for eval/tx, may need placement as pt lives alone but apparently pt is refusing, son cannot take care of her. PT at this time recommends rehab. Pt is aware. 3. CHF: Acute on Chronic. Diastolic. Echo 01/29/17 w/ normal EF, +2 edema on admission, BNP 613, CXR w/ pleural effusions, s/p lasix 40mg IV q12hrs, was restarted on torsemide BID but will back down to daily due to bump in creatinine to 1.44. monitor I/O and kidney function closely. 4. Acute on chronic CKD: caution w fluids due to CHF. I have decreased dose of torsemide. monitor. 5. Hypoxia: O2 sat 88-89% on RA upon arrival, likely due to CHF, monitor O2, DuoNeb prn 6. DVT Prophylaxis: on home Eliquis Discharge Planning PT is recommending rehab. Pt finally considering it but not yet convinced she needs it. continue pain control. anticipating d/c on 1-2 days if Cr improved. Stacy Luis MD Sep 03, 2017 15:20
[2017-09-03 16:00] VITALS: BP 102/59; PULSE 85; RESP 18; TEMP 98.6; O2SAT 91
[2017-09-03 17:49] VITALS: O2SAT 91
[2017-09-03 20:00] VITALS: BP 113/69; PULSE 74; RESP 17; TEMP 98.6; O2SAT 92
[2017-09-04] VITALS: BP 121/74; PULSE 76; RESP 17; TEMP 98.9; O2SAT 90
[2017-09-04 07:22] LABS: BICARBONATE 28.7 MEQ/L (21.0-32.0); CALCIUM 8.4 MG/DL (8.5-10.1); CREATININE 2.03 MG/DL (0.50-1.00); MAGNESIUM 2.3 MG/DL (1.5-2.5)
[2017-09-04 08:00] VITALS: BP 120/77; PULSE 85; RESP 16; TEMP 98.6; O2SAT 93
[2017-09-04] MEDS: busPIRone HCL 5 MG TAB PO SCH ×2 (08:41→21:05)
[2017-09-04] MEDS: PANTOPRAZOLE SOD 40 MG DELAYED RELEASE TAB PO SCH (08:41)
[2017-09-04] MEDS: APIXABAN 5 MG TABLET PO SCH ×2 (08:41→21:05)
[2017-09-04] MEDS: TORSEMIDE 5 MG TAB PO SCH (08:41)
[2017-09-04] MEDS: POTASSIUM CHLORIDE 10 MEQ CONTROLLED RELEASE TAB PO SCH ×2 (08:41→21:05)
[2017-09-04] MEDS: SERTRALINE HCL 50 MG TAB PO SCH (08:41)
[2017-09-04] MEDS: DOCUSATE SODIUM 50 MG/SENNA 8.6 MG TAB PO SCH ×2 (08:42→21:06)
[2017-09-04] MEDS: SODIUM CHLORIDE 0.9% FLUSH 10 ML FLUSH IV FLUSH SCH ×2 (08:42→21:05)
[2017-09-04] MEDS: ATENOLOL 100 MG TAB PO SCH ×2 (08:42→21:06)
[2017-09-04 12:00] VITALS: BP 125/65; PULSE 75; RESP 16; TEMP 98.8; O2SAT 93
[2017-09-04 16:00] VITALS: BP 103/58; PULSE 66; RESP 16; TEMP 98.7; O2SAT 95
--- NOTE | 2017-09-04 16:00 | HHI.PR ---
Subjective Remarks Follow up for mechanical fall with L5 compression fracture, acute CHF exacerbation, MAEVE. The patient reports her pain is fairly under control, however feels weak and does not want to ambulate today. She reports continued shortness of breath with minimal improvement compared to yesterday. She has continued nonproductive cough. She endorses orthopnea and dyspnea on exertion. The patient becomes dyspneic just with conversation. She is not sure if her lower extremity edema has improved because she hasn't looked at her legs. Denies fevers/chills. She does not wear oxygen at home. She does not feel ready for discharge yet. She agrees to discharge to rehab in 1-2 days if she feels better. Objective Vitals Vital Signs Date Time Temp Pulse Resp B/P (MAP) Pulse Ox O2 Delivery O2 Flow Rate FiO2 09/04/17 12:00 98.8 75 16 125/65 (85) 93 09/04/17 08:00 98.6 85 16 120/77 (91) 93 09/04/17 00:00 98.9 76 17 121/74 (90) 90 09/03/17 20:00 92 Nasal Cannula 2.00 09/03/17 20:00 98.6 74 17 113/69 (84) 92 09/03/17 17:49 91 Nasal Cannula 2.00 09/03/17 16:00 98.6 85 18 102/59 (73) 91 I/O 09/03/17 09/03/17 09/03/17 09/04/17 09/04/17 09/04/17 07:00 15:00 23:00 07:00 15:00 23:00 Intake Total 360 ml 600 ml 480 ml Balance 360 ml 600 ml 480 ml Intake Oral 360 ml 600 ml 480 ml # Voids 3 3 2 # Bowel Movements 1 1 0 Result Diagram: 09/02/17 0527 09/04/17 0640 Imaging Last Impressions Lumbar Spine CT 09/01/17 0000 Signed Impressions: CONCLUSION: 1. Mild compression fracture of L5 which is a new finding since February 2017. 2. At least moderate canal stenosis at L3-4 and severe central canal stenosis at L4-5. 3. Degenerative rotatory levoscoliosis. Chest X-Ray 09/01/17 0000 Signed Impressions: CONCLUSION: Basilar airspace disease and small effusions. Findings most characteristic of m ild congestive heart failure. Abdomen/Pelvis CT 09/01/17 0000 Signed Impressions: CONCLUSION: 1. Bilateral pleural effusions and basilar lung consolidation that is increase d slightly since February 2017. Cardiomegaly. Mild anasarca. 2. Diffuse fatty liver. Colonic diverticulosis without diverticulitis. 3. No obstruction or significant free fluid. 4. Calcified gallstones without biliary ductal dilatation. 5. Mild compression fracture superior endplate of L5 which is a new finding si nce 2017. Compression deformity at T11 appears stable. Objective Remarks GENERAL: Well-nourished, well-developed pleasant elderly female patient in [facility]. SKIN: Warm and dry. No rash. HEENT: Normocephalic. Atraumatic. Pupils equal and round. Mucous membranes pink and moist. CARDIOVASCULAR: Regular rate and rhythm. No murmur appreciated. RESPIRATORY: No accessory muscle use. Dyspneic with conversation. Breath sounds diminished at bilateral bases with faint bibasilar crackles. GASTROINTESTINAL: Abdomen soft, non-tender, nondistended. Normoactive bowel sounds x4. MUSCULOSKELETAL: No obvious deformities. 1+ bilateral lower extremity nonpitting edema. NEUROLOGICAL: Awake and alert. No obvious cranial nerve deficits. Motor grossly within normal limits. Moving all extremities spontaneously. Normal speech. PSYCHIATRIC: Appropriate mood and affect; insight and judgment normal. Procedures None. Medications and IVs Current Medications Medications (Trade) Dose Ordered Sig/Jose Route Start Time Stop Time Status Last Admin (NS Flush) 2 ml UNSCH PRN IV FLUSH 09/01/17 21:15 (NS Flush) 2 ml BID IV FLUSH 09/02/17 09:00 09/04/17 08:42 (Reglan Inj) 5 mg Q6H PRN IV PUSH 09/01/17 21:15 (Tylenol) 650 mg Q6H PRN PO 09/01/17 21:15 (Crooks 5-325 Mg) 1 tab Q4H PRN PO 09/01/17 21:15 09/03/17 23:39 (Morphine Inj) 2 mg Q3H PRN IV PUSH 09/01/17 21:15 (Janet-Colace) 1 tab BID PO 09/02/17 09:00 09/04/17 08:42 (Milk Of Magnesia Liq) 30 ml Q12H PRN PO 09/01/17 21:15 (Senokot) 17.2 mg Q12H PRN PO 09/01/17 21:15 09/02/17 09:37 (Dulcolax Supp) 10 mg DAILY PRN RECTAL 09/01/17 21:15 (Lactulose Liq) 30 ml DAILY PRN PO 09/01/17 21:15 (Norvasc) 5 mg DAILY PO 09/02/17 09:00 Future Hold 09/02/17 09:39 (Eliquis) 5 mg BID PO 09/02/17 09:00 09/04/17 08:41 (Tenormin) 100 mg BID PO 09/02/17 09:00 09/04/17 08:42 (Buspar) 5 mg BID PO 09/02/17 09:00 09/04/17 08:41 (Prinivil) 10 mg DAILY PO 09/02/17 09:00 Future Hold 09/02/17 09:39 (Protonix) 40 mg DAILY PO 09/02/17 09:00 09/04/17 08:41 (Zoloft) 25 mg DAILY PO 09/02/17 09:00 09/04/17 08:41 (Pill Splitter) 1 ea UNSCH PRN OTHER 09/01/17 21:45 (Duoneb Neb) 1 ampule Q4HR NEB PRN NEB 09/01/17 22:00 (KCl) 10 meq Q12HR PO 09/02/17 21:00 09/04/17 08:41 (Demadex) 10 mg DAILY PO 09/04/17 09:00 09/04/17 08:41 A/P Problem List: (1) Fall ICD Code: W19.XXXA - Unspecified fall, initial encounter (2) Compression fracture of L5 lumbar vertebra ICD Code: S32.050A - Wedge compression fracture of fifth lumbar vertebra, initial encounter for closed fracture (3) CHF (congestive heart failure) ICD Code: I50.9 - Heart failure, unspecified (4) Hypoxia ICD Code: R09.02 - Hypoxemia Assessment and Plan 87-year-old female with a PMH of HTN, CHF (Echo 01/29/2017 w/ normal EF), Anxiety, Depression, COPD and h/o Recurrent UTI who was brought to the ER for c/ o back pain. States she had a fall on Thursday (2 days ago) and has had persistent back pain since. Fall: s/p mechanical fall 2 days ago, denies head trauma or LOC, no other injuries reported besides c/o back pain. -PT recommending rehab. -Case management to assist with discharge planning. L5 Compression Fx: secondary to above, CT L-Spine w/ mild compression fx L5. Pt not interested in surgical intervention. -TLSO brace. -Analgesics/antiemetics as needed. -PT for eval/tx, may need placement as pt lives alone but apparently pt is refusing, son cannot take care of her. -Continue placement efforts, unsafe discharge home Acute Exacerbation of Chronic Diastolic CHF: Echo 01/29/17 w/ normal EF. 2+ edema on admission, BNP 613, CXR w/ pleural effusions -s/p diuresis with lasix 40mg IV q12hrs, transitioned to patient's torsemide BID but then decreased to once daily due to MAEVE -monitor I/O and kidney function closely. MAEVE on CKD: caution w fluids due to CHF. -decreased dose of torsemide as above -renal function worsened today with Creatinine 2.04 -check renal U/S -monitor BMP Hypoxia: O2 sat 88-89% on RA upon arrival, likely due to CHF -unlikely PE as patient already on Eliquis at home, and symptoms more likely secondary to fluid overload -monitor O2 -DuoNeb prn -patient does not wear oxygen at home, will need home O2 walk test prior to discharge (unless goes to SNF) DVT Prophylaxis: on home Eliquis Discharge Planning Continue to treat MAEVE and CHF exacerbation. Possible discharge in 1-2 days if renal function improves and breathing improves. Simona Carlos PA-C Sep 04, 2017 16:00
[2017-09-04 20:25] VITALS: BP 122/73; PULSE 89; RESP 18; TEMP 98.8; O2SAT 92
[2017-09-04 23:20] VITALS: BP 137/71; PULSE 67; RESP 18; TEMP 98.6; O2SAT 92
[2017-09-05 08:00] VITALS: BP 119/58; PULSE 58; RESP 18; TEMP 98; O2SAT 96
[2017-09-05 08:29] LABS: BICARBONATE 28.1 MEQ/L (21.0-32.0); CALCIUM 8.7 MG/DL (8.5-10.1); CREATININE 1.63 MG/DL (0.50-1.00)
--- NOTE | 2017-09-05 09:07 | RADRPT ---
EXAM DATE: 09/05/2017 8:47 AM EDT AGE/SEX: 87 years / Female INDICATIONS: Increased BUN/Creatnine. CLINICAL DATA: This is the patient's initial encounter. Patient reports that signs and symptoms have been present for 1 day and indicates a pain score of 0/10. MEDICAL/SURGICAL HISTORY: Congestive heart failure. Chronic obstructive pulmonary disease. Hy pertension. Glasses. Atrial fibrillation. GERD. Urinary tract infection. Arthritis. Depression. Anxi ety. Hysterectomy. Elbow surgery. Bilateral knee replacement. COMPARISON: No prior exams available for comparison. MEASUREMENTS: Right Kidney:__9.3 x 5.2 x 5.9 cm Left Kidney:__10.1 x 5.6 x 5.3 cm FINDINGS: Both kidneys appear small and mildly echogenic. No hydronephrosis is seen. The bladder is u nremarkable. CONCLUSION: Small echogenic kidneys consistent with medical renal disease. Electronically signed by: Nikko Neal MD 09/05/2017 9:06 AM EDT
[2017-09-05] MEDS: DOCUSATE SODIUM 50 MG/SENNA 8.6 MG TAB PO SCH ×2 (09:34→20:33)
[2017-09-05] MEDS: busPIRone HCL 5 MG TAB PO SCH ×2 (09:34→20:33)
[2017-09-05] MEDS: ATENOLOL 100 MG TAB PO SCH ×2 (09:34→20:33)
[2017-09-05] MEDS: PANTOPRAZOLE SOD 40 MG DELAYED RELEASE TAB PO SCH (09:35)
[2017-09-05] MEDS: APIXABAN 5 MG TABLET PO SCH ×2 (09:35→20:33)
[2017-09-05] MEDS: SERTRALINE HCL 50 MG TAB PO SCH (09:35)
[2017-09-05] MEDS: POTASSIUM CHLORIDE 10 MEQ CONTROLLED RELEASE TAB PO SCH ×2 (09:36→20:33)
[2017-09-05] MEDS: TORSEMIDE 5 MG TAB PO SCH (09:36)
[2017-09-05] MEDS: SODIUM CHLORIDE 0.9% FLUSH 10 ML FLUSH IV FLUSH SCH ×2 (09:42→20:34)
[2017-09-05] MEDS: ACETAMINOPHEN/HYDROcodone 325 MG/5 MG TAB PO PRN (09:48)
--- NOTE | 2017-09-05 10:25 | HHI.PR ---
Subjective Remarks Patient states that her breathing is okay. There is no active shortness of breath. She states her pain is adequately controlled well. She is is expressing thoughts of not wanting to live anymore. She states that she is a and lost her , brother and daughter recently. She states [place] 1 son in which he does come and see her. She is expressing a DO NOT RESUSCITATE status Objective Vitals Vital Signs Date Time Temp Pulse Resp B/P (MAP) Pulse Ox O2 Delivery O2 Flow Rate FiO2 09/04/17 23:20 98.6 67 18 137/71 (93) 92 09/04/17 20:25 98.8 89 18 122/73 (89) 92 09/04/17 20:00 92 Nasal Cannula 2.00 09/04/17 16:00 98.7 66 16 103/58 (73) 95 09/04/17 12:00 98.8 75 16 125/65 (85) 93 I/O 09/04/17 09/04/17 09/04/17 09/05/17 09/05/17 09/05/17 06:59 14:59 22:59 06:59 14:59 22:59 Intake Total 480 ml 480 ml 360 ml Balance 480 ml 480 ml 360 ml Intake Oral 480 ml 480 ml 360 ml # Voids 2 3 3 # Bowel Movements 0 0 Result Diagram: 09/02/17 0527 09/05/17 0735 Objective Remarks GENERAL: This is a well-nourished, well-developed patient, in no apparent distress. CARDIOVASCULAR: Regular rate and rhythm without murmurs, gallops, or rubs. RESPIRATORY: Few right-sided basilar crackles GASTROINTESTINAL: Abdomen soft, obese non-tender, nondistended. Normal active bowel sounds MUSCULOSKELETAL: Extremities without clubbing, cyanosis, trace to 1+ edema NEURO: Alert & Oriented x4 to person, place, time, situation. Moves all ext x4 Procedures None. A/P Problem List: (1) Fall ICD Code: W19.XXXA - Unspecified fall, initial encounter Status: Acute (2) Compression fracture of L5 lumbar vertebra ICD Code: S32.050A - Wedge compression fracture of fifth lumbar vertebra, initial encounter for closed fracture Status: Acute (3) CHF (congestive heart failure) ICD Code: I50.9 - Heart failure, unspecified Status: Acute (4) Hypoxia ICD Code: R09.02 - Hypoxemia Assessment and Plan 87-year-old female with a PMH of HTN, CHF (Echo 01/29/2017 w/ normal EF), Anxiety, Depression, COPD and h/o Recurrent UTI who was brought to the ER for c/ o back pain. States she had a fall on (2 days ago) and has had persistent back pain since. Fall: s/p mechanical fall 2 days ago, denies head trauma or LOC, no other injuries reported besides c/o back pain. -PT recommending rehab. -Case management to assist with discharge planning. L5 Compression Fx: secondary to above, CT L-Spine w/ mild compression fx L5. Pt not interested in surgical intervention. -TLSO brace. -Analgesics/antiemetics as needed. -PT for eval/tx, may need placement as pt lives alone but apparently pt is refusing, son cannot take care of her. -Continue placement efforts, unsafe discharge home Depression with thoughts of suicide today - will obtain psychiatry consultation. Patient currently on SSRI Zoloft. Acute Exacerbation of Chronic Diastolic CHF: Echo 01/29/17 w/ normal EF. 2+ edema on admission, BNP 613, CXR w/ pleural effusions -s/p diuresis with lasix 40mg IV q12hrs but transitioned to patient's torsemide BID but then decreased to once daily due to MAEVE. This has improved the acute kidney injury today -monitor I/O and kidney function closely. MAEVE on CKD: caution w fluids due to CHF. -decreased dose of torsemide as above -renal function improved today with creatinine 1.6 -check renal U/S which show medical chronic kidney disease -monitor BMP Hypoxia: O2 sat 88-89% on RA upon arrival, likely due to CHF, oxygen support and wean as tolerated -unlikely PE as patient already on Eliquis at home, and symptoms more likely secondary to fluid overload -monitor O2 -DuoNeb prn, continue Demadex -patient does not wear oxygen at home, will need home O2 walk test prior to discharge (unless goes to SNF) DVT Prophylaxis: on home Eliquis Discharge Planning Pending psychiatric evaluation may need inpatient psych If clear from psychiatry it is recommended for [facility] facility; however patient is resisting placement. Problem Qualifiers (1) Compression fracture of L5 lumbar vertebra: Qualified Codes: S32.050A - Wedge compression fracture of fifth lumbar vertebra , initial encounter for closed fracture (2) CHF (congestive heart failure): Qualified Codes: I50.33 - Acute on chronic diastolic (congestive) heart failure Isabel Armas MD Sep 05, 2017 10:25
[2017-09-05 12:00] VITALS: BP 107/52; PULSE 63; RESP 18; TEMP 98.5; O2SAT 93
[2017-09-05 16:00] VITALS: BP 116/60; PULSE 60; RESP 18; TEMP 97.4; O2SAT 96
[2017-09-05 20:00] VITALS: BP 126/72; PULSE 67; RESP 17; TEMP 97.4; O2SAT 93
[2017-09-06] VITALS (7 sets, daily range): BP systolic 127–180; BP diastolic 59–88; PULSE 59–88; RESP 17–19; TEMP 97.5–98.1; O2SAT 93–100
[2017-09-06] MEDS: ACETAMINOPHEN/HYDROcodone 325 MG/5 MG TAB PO PRN ×4 (01:05→21:07)
[2017-09-06 07:50] LABS: BICARBONATE 27.4 MEQ/L (21.0-32.0); CALCIUM 8.5 MG/DL (8.5-10.1); CREATININE 1.27 MG/DL (0.50-1.00)
[2017-09-06] MEDS: POTASSIUM CHLORIDE 10 MEQ CONTROLLED RELEASE TAB PO SCH ×2 (08:28→19:30)
[2017-09-06] MEDS: busPIRone HCL 5 MG TAB PO SCH ×2 (08:28→19:30)
[2017-09-06] MEDS: ATENOLOL 100 MG TAB PO SCH ×2 (08:28→19:30)
[2017-09-06] MEDS: PANTOPRAZOLE SOD 40 MG DELAYED RELEASE TAB PO SCH (08:28)
[2017-09-06] MEDS: SERTRALINE HCL 50 MG TAB PO SCH (08:29)
[2017-09-06] MEDS: DOCUSATE SODIUM 50 MG/SENNA 8.6 MG TAB PO SCH ×2 (08:29→19:30)
[2017-09-06] MEDS: APIXABAN 5 MG TABLET PO SCH ×2 (08:29→19:30)
[2017-09-06] MEDS: SODIUM CHLORIDE 0.9% FLUSH 10 ML FLUSH IV FLUSH SCH ×2 (08:29→19:31)
[2017-09-06] MEDS: TORSEMIDE 5 MG TAB PO SCH (09:03)
--- NOTE | 2017-09-06 10:17 | HHI.PR ---
Subjective Remarks Patient states that she has no suicidal ideations. She reports overall her pain is controlled. She is now agreeable to go to half-way facility. Objective Vitals Vital Signs Date Time Temp Pulse Resp B/P (MAP) Pulse Ox O2 Delivery O2 Flow Rate FiO2 09/06/17 08:53 98 Nasal Cannula 2.00 09/06/17 08:33 97.5 88 18 180/88 (118) 96 09/06/17 00:01 97.9 66 18 142/65 (90) 93 09/05/17 20:35 Nasal Cannula 2.00 09/05/17 20:00 97.4 67 17 126/72 (90) 93 09/05/17 16:00 97.4 60 18 116/60 (78) 96 09/05/17 12:00 98.5 63 18 107/52 (70) 93 I/O 09/05/17 09/05/17 09/05/17 09/06/17 09/06/17 09/06/17 07:00 15:00 23:00 07:00 15:00 23:00 Intake Total 360 ml 480 ml Balance 360 ml 480 ml Intake Oral 360 ml 480 ml # Voids 3 2 4 # Bowel Movements 0 1 Result Diagram: 09/02/17 0527 09/06/17 0608 Objective Remarks GENERAL: This is a well-nourished, well-developed patient, in no apparent distress. CARDIOVASCULAR: Regular rate and rhythm without murmurs, gallops, or rubs. RESPIRATORY: Relatively clear to auscultation bilaterally GASTROINTESTINAL: Abdomen soft, obese non-tender, nondistended. Normal active bowel sounds MUSCULOSKELETAL: Extremities without clubbing, cyanosis, trace to 1+ edema NEURO: Alert & Oriented x4 to person, place, time, situation. Moves all ext x4 Procedures None. A/P Problem List: (1) Fall ICD Code: W19.XXXA - Unspecified fall, initial encounter Status: Acute (2) Compression fracture of L5 lumbar vertebra ICD Code: S32.050A - Wedge compression fracture of fifth lumbar vertebra, initial encounter for closed fracture Status: Acute (3) CHF (congestive heart failure) ICD Code: I50.9 - Heart failure, unspecified Status: Acute (4) Hypoxia ICD Code: R09.02 - Hypoxemia Assessment and Plan 87-year-old female with a PMH of HTN, CHF (Echo 01/29/2017 w/ normal EF), Anxiety, Depression, COPD and h/o Recurrent UTI who was brought to the ER for c/ o back pain. States she had a fall on (2 days ago) and has had persistent back pain since. Fall: s/p mechanical fall 2 days ago, denies head trauma or LOC, no other injuries reported besides c/o back pain with findings of a L5 compression fracture. -PT recommending rehab. -Case management to assist with discharge planning. L5 Compression Fx: secondary to above, CT L-Spine w/ mild compression fx L5. Pt not interested in surgical intervention. -TLSO brace. -Analgesics/antiemetics as needed. -PT for evaluation and treatment, now open to going to half-way facility. Depression with thoughts of suicide yesterday and now these feelings have resolved. Will obtain psychiatry consultation for recommendations with medication adjustment. Patient currently on SSRI Zoloft. Acute Exacerbation of Chronic Diastolic CHF: Echo 01/29/17 w/ normal EF. 2+ edema on admission, BNP 613, CXR w/ pleural effusions -s/p diuresis with lasix 40mg IV q12hrs but transitioned to patient's torsemide BID but then decreased to once daily due to MAEVE. This has improved the acute kidney injury, -monitor I/O and kidney function closely. MAEVE on CKD: caution w fluids due to CHF. -decreased dose of torsemide as above -renal function improved today with creatinine 1.6 -check renal U/S which show medical chronic kidney disease -monitor BMP Hypoxia: O2 sat 88-89% on RA upon arrival, likely due to CHF, oxygen support and wean as tolerated -unlikely PE as patient already on Eliquis at home, and symptoms more likely secondary to fluid overload -monitor O2, currently on 2 L -DuoNeb prn, continue Demadex -patient does not wear oxygen at home, will need home O2 walk test prior to discharge (unless goes to SNF) DVT Prophylaxis: on home Eliquis Discharge Planning For half-way facility placement Problem Qualifiers (1) Compression fracture of L5 lumbar vertebra: Qualified Codes: S32.050A - Wedge compression fracture of fifth lumbar vertebra , initial encounter for closed fracture (2) CHF (congestive heart failure): Qualified Codes: I50.33 - Acute on chronic diastolic (congestive) heart failure Isabel Armas MD Sep 06, 2017 10:17
[2017-09-06] MEDS ORDERED: LISINOPRIL 5 MG TAB PO ONE (10:30)
--- NOTE | 2017-09-06 13:30 | PD.PSY.CON ---
Provisional Diagnosis Admission Date Sep 01, 2017 at 21:14 [place] I. 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 Deferred [place] III. CHF, UTI, COPD History of Present Illness Service Psychiatry Consult Requested By Medicine Reason for Consult Depression Primary Care Physician Unknown HPI The patient is 87-year-old woman, domiciled alone in [facility], she has 4 adult kids, she is , with psychiatric history of anxiety, depression, no previous psychiatric hospitalizations, no previous suicide attempts, with a past medical history of HTN, CHF (Echo 01/29/2017 w/ normal EF), COPD and h/o Recurrent UTI who was brought to the ER for c/o back pain. States she had a fall on (2 days ago) and has had persistent back pain since. Consulted to psychiatry due to symptomatology of depression. On psychiatric evaluation I find the patient calm, cooperative, pleasant. The patient reports that he she feels much better today. Denies distress and pain at the moment. She reported that she has been feeling quite sad in the context of the situation around her. She says that she has been sick for a while now, she is in a hospital, but does not have a good family and social support. She says that she feels lonely, at times feels hopeless, feels helpless, feels worthless , with sense of guilt and rejection, but she denies suicidal ideation. During the evaluation the patient is tearful, she seems to be objectively depressed at the moment, but she is able to clarify that she would not kill herself, because she have kids and grandkids and also she has jewish and moral values. Patient does say that her main problem is feeling along in her apartment, she says that she will be willing to explore the idea of being discharged to a halfway which he can have people to talk, close nurses, somebody to help her with her medications. The patient is oriented 3, no attention deficit, some fluctuation of consciousness, periodic confusion. Review of Systems Constitutional: DENIES: Diaphoretic episodes, Fatigue, Fever, Weight gain, Weight loss, Chills, Dizziness, Change in appetite, Night Sweats Endocrine: DENIES: Abnorml menstrual pattern, Heat/cold intolerance, Polydipsia , Polyuria, Polyphagia Ears, nose, mouth, throat: DENIES: Tinnitus, Hearing loss, Vertigo, Nasal discharge, Oral lesions, Throat pain, Hoarseness, Ear Pain, Running Nose, Epistaxis, Sinus Pain, Toothache, Odynophagia Respiratory: DENIES: Apneas, Cough, Snoring, Wheezing, Hemoptysis, Sputum production, Shortness of breath Cardiovascular: DENIES: Chest pain, Palpitations, Syncope, Dyspnea on Exertion , PND, Lower Extremity Edema, Orthopnea, Claudication Gastrointestinal: DENIES: Abdominal pain, Black stools, Bloody stools, Constipation, Diarrhea, Nausea, Vomiting, Difficulty Swallowing, Anorexia Musculoskeletal: DENIES: Joint pain, Muscle aches, Stiffness, Joint Swelling, Back pain, Neck pain Hematologic/lymphatic: DENIES: Bruising, Lymphadenopathy Immunologic/allergic: DENIES: Eczema, Urticaria Neurologic: DENIES: Abnormal gait, Headache, Localized weakness, Paresthesias, Seizures, Speech Problems, Tremor, Poor Balance Psychiatric: COMPLAINS OF: Depression Past Family Social History Coded Allergies: Sulfa (Sulfonamide Antibiotics) (Unverified Allergy, Severe, PT DOES NOT REMEMBER, 07/07/17) levofloxacin (Unverified Allergy, Severe, PT STATES "DRIVES ME CRAZY", ) Active Scripts Torsemide (Torsemide) 5 Mg Tab, 10 MG PO BID@ for fluid, #60 TAB Prov:Simona Carlos PA-C 07/18/17 Apixaban (Eliquis) 5 Mg Tab, 5 MG PO BID for Prevent Blood Clot, #60 TAB Prov:Simona Carlos PA-C 07/18/17 Ondansetron Odt (Zofran Odt) 4 Mg Tab, 4 MG SL Q6HR Y for Nausea/Vomiting, #10 TAB 0 Refills Prov:Cy Turcios MD 07/07/17 Meclizine (Meclizine) 25 Mg Tab, 25 MG PO TID Y for VERTIGO, #21 TAB 0 Refills Prov:Cy Turcios MD 07/07/17 Amlodipine (Norvasc) 5 Mg Tab, 5 MG PO DAILY for Blood Pressure Management, #30 TAB Prov:Negrito Burt MD 03/18/17 Potassium Chloride ER (Klor-Con 10) 10 Meq Tab, 10 MEQ PO Q12HR for supplementation for 30 Days, #60 TAB Prov:Shira Delgadillo 01/31/17 Lisinopril (Lisinopril) 10 Mg Tab, 10 MG PO DAILY for HTN for 30 Days, #30 TAB Prov:Shira Delgadillo HEMANT 01/31/17 Reported Medications Atenolol (Atenolol) 100 Mg Tab, 100 MG PO BID for Blood Pressure Management, # 60 TAB 0 Refills 03/28/17 Albuterol 18 GM Inh (Ventolin Hfa 18 GM Inh) 90 Mcg/Act Aer, 2 PUFF INH Q4H Y for SHORTNESS OF BREATH, #1 INHALER 0 Refills 01/29/17 Lansoprazole (Lansoprazole) 30 Mg Capdr, 30 MG PO DAILY, CAP 0 Refills 03/27/16 Cholecalciferol (Vitamin D3) 1,000 Unit Tab, 1000 UNITS PO DAILY for Nutritional Supplement, #1 BOTTLE 0 Refills 03/27/16 Buspirone (Buspirone) 5 Mg Tab, 5 MG PO BID for Anxiety, TAB 0 Refills 03/27/16 Sertraline (Sertraline) 25 Mg Tab, 25 MG PO DAILY, #30 TAB 0 Refills 03/27/16 Discontinued Scripts Prednisone (Prednisone) 10 Mg Tab, 10 MG PO DAILY for Broncospasm for 2 Days, # 2 TAB 0 Refills Start taking after 20 mg daily dosing is completed Prov:Pineda Leach DO 03/24/17 Current Medications Medications (Trade) Dose Ordered Sig/Jose Route Start Time Stop Time Status Last Admin (NS Flush) 2 ml UNSCH PRN IV FLUSH 09/01/17 21:15 (NS Flush) 2 ml BID IV FLUSH 09/02/17 09:00 09/06/17 08:29 (Reglan Inj) 5 mg Q6H PRN IV PUSH 09/01/17 21:15 (Tylenol) 650 mg Q6H PRN PO 09/01/17 21:15 ([place] 5-325 Mg) 1 tab Q4H PRN PO 09/01/17 21:15 09/06/17 08:32 (Morphine Inj) 2 mg Q3H PRN IV PUSH 09/01/17 21:15 (Janet-Colace) 1 tab BID PO 09/02/17 09:00 09/06/17 08:29 (Milk Of Magnesia Liq) 30 ml Q12H PRN PO 09/01/17 21:15 (Senokot) 17.2 mg Q12H PRN PO 09/01/17 21:15 09/02/17 09:37 (Dulcolax Supp) 10 mg DAILY PRN RECTAL 09/01/17 21:15 (Lactulose Liq) 30 ml DAILY PRN PO 09/01/17 21:15 (Norvasc) 5 mg DAILY PO 09/02/17 09:00 Future Hold 09/02/17 09:39 (Eliquis) 5 mg BID PO 09/02/17 09:00 09/06/17 08:29 (Tenormin) 100 mg BID PO 09/02/17 09:00 09/06/17 08:28 (Buspar) 5 mg BID PO 09/02/17 09:00 09/06/17 08:28 (Prinivil) 10 mg DAILY PO 09/02/17 09:00 Future Hold 09/02/17 09:39 (Protonix) 40 mg DAILY PO 09/02/17 09:00 09/06/17 08:28 (Zoloft) 25 mg DAILY PO 09/02/17 09:00 09/06/17 08:29 (Pill Splitter) 1 ea UNSCH PRN OTHER 09/01/17 21:45 (Duoneb Neb) 1 ampule Q4HR NEB PRN NEB 09/01/17 22:00 (KCl) 10 meq Q12HR PO 09/02/17 21:00 09/06/17 08:28 (Demadex) 10 mg DAILY PO 09/04/17 09:00 09/06/17 09:03 (Prinivil) 5 mg DAILY PO 09/07/17 09:00 Family Psych History No family psychiatric history Social History Patient was born and raised in [place], [place], she is domiciled alone in [facility], has 4 kids, is a Patient's Strengths (min. 2) Verbal communication, no signs of dementia Physical Exam No tremors, no EPS, no psychomotor agitation retardation, no withdrawal Vital Signs Vital Signs Date Time Temp Pulse Resp B/P (MAP) Pulse Ox O2 Delivery O2 Flow Rate FiO2 09/06/17 12:17 97.5 59 17 131/60 (83) 100 09/06/17 08:53 Nasal Cannula 2.00 Lab Results Test 09/06/17 06:08 Blood Urea Nitrogen 32 MG/DL Creatinine 1.27 MG/DL Random Glucose 80 MG/DL Calcium Level 8.5 MG/DL Sodium Level 140 MEQ/L Potassium Level 4.3 MEQ/L Chloride Level 104 MEQ/L Carbon Dioxide Level 27.4 MEQ/L Anion Gap 9 MEQ/L Estimat Glomerular Filtration Rate 40 ML/MIN Mental Status Examination Appearance: Appropriate Consciousness: Alert Orientation: x4 Motor Activity: Normal gait Speech: Unremarkable Language: Adequate Fund of Knowledge: Adequate Attention and Concentration: Adequate Memory: Unremarkable Mood: Sad Affect: Sad Thought Process & Associations: Intact Thought Content: Appropriate Hallucination Type: None Delusion Type: None Suicidal Ideation: No Suicidal Plan: No Suicidal Intention: No Homicidal Ideation: No Homicidal Plan: No Homicidal Intention: No Insight: Adequate Judgment: Adequate Assessment & Plan Problem List: (1) Major depressive disorder, recurrent ICD Codes: F33.9 - Major depressive disorder, recurrent, unspecified Assessment & Plan: On Psychiatric evaluation today the patient is calm, cooperative, reports episodic symptoms of depression, especially hopelessness, helplessness, sense of rejection, abandonment, increased loneliness, but denies suicidal enemas ideation, denies visual and auditory hallucinations. Patient reports of depression in the context of recent medical decompensation, lack of communication with family members. Patient does not meet criteria for involuntary psychiatric admission. I will increase the Zoloft to 50 mg daily for depression. Might consider a low dose of Klonopin at bedtime to help with sleep, maybe 1 mg. Brief supportive psychotherapy, psychoeducation and motivation provided. We will follow-up Assessment & Plan Estimated LOS: Raúl Escobar MD Sep 06, 2017 13:30
[2017-09-06] MEDS ORDERED: ENALAPRILAT 1.25 MG/ML VIAL IV PUSH PRN (17:30)
[2017-09-07] VITALS (7 sets, daily range): BP systolic 140–165; BP diastolic 67–83; PULSE 56–80; RESP 18–20; TEMP 97.2–97.6; O2SAT 90–99
[2017-09-07] MEDS: METOCLOPRAMIDE HCL 10 MG/2 ML VIAL IV PUSH PRN ×2 (00:03→14:58)
[2017-09-07] MEDS ORDERED: clonazePAM 0.5 MG TAB PO ONE (00:30)
[2017-09-07 08:35] LABS: BICARBONATE 32.9 MEQ/L (21.0-32.0); CALCIUM 8.4 MG/DL (8.5-10.1); CREATININE 1.26 MG/DL (0.50-1.00)
[2017-09-07] MEDS ORDERED: LISINOPRIL 5 MG TAB PO SCH (09:00)
[2017-09-07] MEDS: SODIUM CHLORIDE 0.9% FLUSH 10 ML FLUSH IV FLUSH SCH ×2 (09:00→22:49)
--- NOTE | 2017-09-07 09:15 | HHI.DS ---
Discharge Summary Admission Date Sep 01, 2017 at 21:14 Discharge Date: Sep 07, 2017 Admitting Diagnosis acute L5 compression fracture, CHF exacerbation (1) Fall ICD Code: W19.XXXA - Unspecified fall, initial encounter Diagnosis: Principal Status: Acute (2) Compression fracture of L5 lumbar vertebra ICD Code: S32.050A - Wedge compression fracture of fifth lumbar vertebra, initial encounter for closed fracture Diagnosis: Principal Status: Acute (3) CHF (congestive heart failure) ICD Code: I50.9 - Heart failure, unspecified Diagnosis: Principal Status: Acute (4) Hypoxia ICD Code: R09.02 - Hypoxemia Status: Resolved (5) CKD (chronic kidney disease), stage III ICD Code: N18.3 - Chronic kidney disease, stage 3 (moderate) Diagnosis: Secondary Status: Chronic (6) MAEVE (acute kidney injury) ICD Code: N17.9 - Acute kidney failure, unspecified Diagnosis: Secondary Status: Resolved Procedures None. Brief History - From Admission Obtained from admitting physician's history and physical This is an 87-year-old female with a PMH of HTN, CHF (Echo 01/29/2017 w/ normal EF), Anxiety, Depression, COPD and h/o Recurrent UTI who was brought to the ER for c/o back pain. States she had a fall on (2 days ago) and has had persistent back pain since. Pain is intermittent, worse w/ movement, 7/10, non- radiating. Lives at home alone, ambulation difficult due to pain complaints. On arrival, BP 132/62, HR 72, O2 sat 89% on RA, Afebrile. CBC at baseline. Creatinine 1.09, previously 1.12 on 07/16/2017. BNP 613. UA negative for UTI. CXR with bilateral effusions consistent with heart failure. CT Abdomen/Pelvis bilateral pleural effusions and some consolidation, mild compression fracture L5. CT L-spine compression fracture of L5. TLSO brace in place. CBC/BMP: 09/07/17 0738 Significant Findings Laboratory Tests Test 09/05/17 07:35 09/06/17 06:08 09/07/17 07:38 Blood Urea Nitrogen 37 MG/DL (7-18) 32 MG/DL (7-18) 29 MG/DL (7-18) Creatinine 1.63 MG/DL (0.50-1.00) 1.27 MG/DL (0.50-1.00) 1.26 MG/DL (0.50-1.00) Estimat Glomerular Filtration Rate 30 ML/MIN (>89) 40 ML/MIN (>89) 40 ML/MIN (>89) Calcium Level 8.4 MG/DL (8.5-10.1) Carbon Dioxide Level 32.9 MEQ/L (21.0-32.0) Anion Gap 4 MEQ/L (5-15) Imaging Last Impressions Renal Ultrasound 09/05/17 0000 Signed Impressions: CONCLUSION: Small echogenic kidneys consistent with medical renal disease. Lumbar Spine CT 09/01/17 0000 Signed Impressions: CONCLUSION: 1. Mild compression fracture of L5 which is a new finding since February 2017. 2. At least moderate canal stenosis at L3-4 and severe central canal stenosis at L4-5. 3. Degenerative rotatory levoscoliosis. Chest X-Ray 09/01/17 Signed Impressions: CONCLUSION: Basilar airspace disease and small effusions. Findings most characteristic of m ild congestive heart failure. Abdomen/Pelvis CT 09/01/17 0000 Signed Impressions: CONCLUSION: 1. Bilateral pleural effusions and basilar lung consolidation that is increase d slightly since February 2017. Cardiomegaly. Mild anasarca. 2. Diffuse fatty liver. Colonic diverticulosis without diverticulitis. 3. No obstruction or significant free fluid. 4. Calcified gallstones without biliary ductal dilatation. 5. Mild compression fracture superior endplate of L5 which is a new finding si nce 2017. Compression deformity at T11 appears stable. PE at Discharge GENERAL: This is a well-nourished, well-developed patient, in no apparent distress. CARDIOVASCULAR: Regular rate and rhythm without murmurs, gallops, or rubs. RESPIRATORY: Relatively clear to auscultation bilaterally GASTROINTESTINAL: Abdomen soft, obese non-tender, nondistended. Normal active bowel sounds MUSCULOSKELETAL: Extremities without clubbing, cyanosis, trace to 1+ edema NEURO: Alert & Oriented x4 to person, place, time, situation. Moves all ext x4 Hospital Course These are the medical issues addressed during this hospitalization: 87-year-old female with a PMH of HTN, CHF (Echo 01/29/2017 w/ normal EF), Anxiety, Depression, COPD and h/o Recurrent UTI who was brought to the ER for c/ o back pain. States she had a fall on (2 days ago) and has had persistent back pain since. Fall: s/p mechanical fall 2 days ago prior to admission, denies head trauma or LOC, no other injuries reported besides c/o back pain with findings of a L5 compression fracture. L5 Compression Fx: secondary to above, CT L-Spine w/ mild compression fx L5. Pt not interested in surgical intervention. -TLSO brace. -Analgesics/antiemetics as needed. -PT for evaluation and treatment, Depression with thoughts of suicide during hospitalization and now these feelings have resolved. Obtained psychiatry consultation for recommendations with medication adjustment. Patient currently on SSRI Zoloft and has increased dose from 25 mg to 50 mg. Acute Exacerbation of Chronic Diastolic CHF: Echo 01/29/17 w/ normal EF. 2+ edema on admission, BNP 613, CXR w/ pleural effusions -s/p diuresis with lasix 40mg IV q12hrs but transitioned to patient's torsemide BID but then decreased to once daily due to MAEVE. This has improved the acute kidney injury, increased torsemide to twice daily today prior to discharge -monitor I/O and kidney function closely during hospitalization. MAEVE on CKD: caution w fluids due to CHF. -decreased dose of torsemide as above -renal function improved today with creatinine 1.6 -check renal U/S which show medical chronic kidney disease -monitor BMP Hypoxia: O2 sat 88-89% on RA upon arrival, likely due to CHF, oxygen support and wean as tolerated -unlikely PE as patient already on Eliquis at home, and symptoms more likely secondary to fluid overload -monitor O2, currently on 2 L and will wean as tolerated -DuoNeb prn, continue Demadex -patient does not wear oxygen at home DVT Prophylaxis: on home Eliquis At this time, patient has gained maximum benefit from hospitalization and is ready to be discharged to [facility] facility Pt Condition on Discharge: Good Discharge Disposition: Discharge to SNF Discharge Time: <= 30 minutes Discharge Instructions DIET: Follow Instructions for: Heart Healthy Diet Activities you can perform: Regular-No Restrictions New Medications: Sertraline (Zoloft) 50 Mg Tab 50 MG PO DAILY for depression, #30 TAB Continued Medications: Albuterol 18 GM Inh (Ventolin Hfa 18 GM Inh) 90 Mcg/Act Aer 2 PUFF INH Q4H PRN for SHORTNESS OF BREATH, #1 INHALER 0 Refills Amlodipine (Norvasc) 5 Mg Tab 5 MG PO DAILY for Blood Pressure Management, #30 TAB Apixaban (Eliquis) 5 Mg Tab 5 MG PO BID for Prevent Blood Clot, #60 TAB Atenolol (Atenolol) 100 Mg Tab 100 MG PO BID for Blood Pressure Management, #60 TAB 0 Refills Buspirone (Buspirone) 5 Mg Tab 5 MG PO BID for Anxiety, TAB 0 Refills Cholecalciferol (Vitamin D3) 1,000 Unit Tab 1000 UNITS PO DAILY for Nutritional Supplement, #1 BOTTLE 0 Refills Lansoprazole (Lansoprazole) 30 Mg Capdr 30 MG PO DAILY, CAP 0 Refills Lisinopril (Lisinopril) 10 Mg Tab 10 MG PO DAILY for HTN for 30 Days, #30 TAB Meclizine (Meclizine) 25 Mg Tab 25 MG PO TID PRN for VERTIGO, #21 TAB 0 Refills Ondansetron Odt (Zofran Odt) 4 Mg Tab 4 MG SL Q6HR PRN for Nausea/Vomiting, #10 TAB 0 Refills Potassium Chloride ER (Klor-Con 10) 10 Meq Tab 10 MEQ PO Q12HR for supplementation for 30 Days, #60 TAB Torsemide (Torsemide) 5 Mg Tab 10 MG PO BID@,18 for fluid, #60 TAB Discontinued Medications: Sertraline (Sertraline) 25 Mg Tab 25 MG PO DAILY, #30 TAB 0 Refills Isabel Armas MD Sep 07, 2017 09:15
[2017-09-07] MEDS: busPIRone HCL 5 MG TAB PO SCH ×2 (09:33→21:00)
[2017-09-07] MEDS: ACETAMINOPHEN/HYDROcodone 325 MG/5 MG TAB PO PRN ×2 (09:33→14:58)
[2017-09-07] MEDS: LISINOPRIL 10 MG TAB PO SCH (09:33)
[2017-09-07] MEDS: ATENOLOL 100 MG TAB PO SCH ×2 (09:33→22:48)
[2017-09-07] MEDS: DOCUSATE SODIUM 50 MG/SENNA 8.6 MG TAB PO SCH ×2 (09:34→22:48)
[2017-09-07] MEDS: POTASSIUM CHLORIDE 10 MEQ CONTROLLED RELEASE TAB PO SCH ×2 (09:34→22:48)
[2017-09-07] MEDS: PANTOPRAZOLE SOD 40 MG DELAYED RELEASE TAB PO SCH (09:34)
[2017-09-07] MEDS: APIXABAN 5 MG TABLET PO SCH ×2 (09:35→22:48)
[2017-09-07] MEDS: SERTRALINE HCL 50 MG TAB PO SCH (09:35)
[2017-09-07] MEDS: TORSEMIDE 5 MG TAB PO SCH (16:56)
[2017-09-08] VITALS: BP 145/69; PULSE 66; RESP 20; TEMP 97.2; O2SAT 98
[2017-09-08] MEDS: SODIUM CHLORIDE 0.9% FLUSH 10 ML FLUSH IV FLUSH PRN ×2 (01:52→03:23)
[2017-09-08] MEDS: METOCLOPRAMIDE HCL 10 MG/2 ML VIAL IV PUSH PRN (01:52)
[2017-09-08] MEDS ORDERED: MORPHINE SULFATE 4 MG/ML INJ IV PUSH PRN (03:15)
[2017-09-08 07:30] VITALS: BP 144/78; PULSE 65; RESP 20; TEMP 97.7; O2SAT 92
[2017-09-08] MEDS: DOCUSATE SODIUM 50 MG/SENNA 8.6 MG TAB PO SCH (07:35)
[2017-09-08] MEDS: SENNOSIDES 8.6 MG TAB PO PRN (07:35)
[2017-09-08] MEDS: APIXABAN 5 MG TABLET PO SCH (07:35)
[2017-09-08] MEDS: PANTOPRAZOLE SOD 40 MG DELAYED RELEASE TAB PO SCH (07:35)
[2017-09-08] MEDS: busPIRone HCL 5 MG TAB PO SCH (07:36)
[2017-09-08] MEDS: ATENOLOL 100 MG TAB PO SCH (07:36)
[2017-09-08] MEDS: POTASSIUM CHLORIDE 10 MEQ CONTROLLED RELEASE TAB PO SCH (07:36)
[2017-09-08] MEDS: LISINOPRIL 10 MG TAB PO SCH (07:36)
[2017-09-08] MEDS: SODIUM CHLORIDE 0.9% FLUSH 10 ML FLUSH IV FLUSH SCH (07:40)
[2017-09-08] MEDS: TORSEMIDE 5 MG TAB PO SCH ×2 (07:42→16:03)
[2017-09-08] MEDS: SERTRALINE HCL 50 MG TAB PO SCH (07:43)
[2017-09-08] MEDS: ACETAMINOPHEN/HYDROcodone 325 MG/5 MG TAB PO PRN (08:55)
[2017-09-08 10:55] VITALS: BP 163/78; PULSE 74; RESP 18; TEMP 98.1; O2SAT 93
--- NOTE | 2017-09-08 15:21 | HHI.PR ---
Subjective Remarks Finally been accepted at snf facility and authorization has been given by [employer] insurance Patient go to snf facility today. [id number] has been filled out Medications will be reconciled Objective Vitals Vital Signs Date Time Temp Pulse Resp B/P (MAP) Pulse Ox O2 Delivery O2 Flow Rate FiO2 09/08/17 10:55 98.1 74 18 163/78 (106) 93 09/08/17 07:45 92 Room Air 09/08/17 07:30 97.7 65 20 144/78 (100) 92 09/08/17 00:00 97.2 66 20 145/69 (94) 98 09/07/17 20:00 97.5 71 18 141/80 (100) 98 09/07/17 19:46 94 Nasal Cannula 2.00 09/07/17 19:00 94 Nasal Cannula 2.00 09/07/17 16:00 97.4 69 20 165/83 (110) 93 I/O 09/07/17 09/07/17 09/07/17 09/08/17 09/08/17 09/08/17 07:00 15:00 23:00 07:00 15:00 23:00 Intake Total 720 ml Output Total 800 ml 800 ml Balance -80 ml -800 ml Intake Oral 720 ml Output Urine Total 800 ml 800 ml # Voids 4 1 3 # Bowel Movements 1 1 Result Diagram: 09/07/17 0738 Other Results Laboratory Tests Test 09/06/17 06:08 09/07/17 07:38 Blood Urea Nitrogen 32 MG/DL 29 MG/DL Creatinine 1.27 MG/DL 1.26 MG/DL Random Glucose 80 MG/DL 83 MG/DL Calcium Level 8.5 MG/DL 8.4 MG/DL Sodium Level 140 MEQ/L 142 MEQ/L Potassium Level 4.3 MEQ/L 4.4 MEQ/L Chloride Level 104 MEQ/L 105 MEQ/L Carbon Dioxide Level 27.4 MEQ/L 32.9 MEQ/L Anion Gap 9 MEQ/L 4 MEQ/L Estimat Glomerular Filtration Rate 40 ML/MIN 40 ML/MIN Imaging Last Impressions Renal Ultrasound 09/05/17 0000 Signed Impressions: CONCLUSION: Small echogenic kidneys consistent with medical renal disease. Lumbar Spine CT 09/01/17 0000 Signed Impressions: CONCLUSION: 1. Mild compression fracture of L5 which is a new finding since February 2017. 2. At least moderate canal stenosis at L3-4 and severe central canal stenosis at L4-5. 3. Degenerative rotatory levoscoliosis. Chest X-Ray 09/01/17 0000 Signed Impressions: CONCLUSION: Basilar airspace disease and small effusions. Findings most characteristic of m ild congestive heart failure. Abdomen/Pelvis CT 09/01/17 0000 Signed Impressions: CONCLUSION: 1. Bilateral pleural effusions and basilar lung consolidation that is increase d slightly since February 2017. Cardiomegaly. Mild anasarca. 2. Diffuse fatty liver. Colonic diverticulosis without diverticulitis. 3. No obstruction or significant free fluid. 4. Calcified gallstones without biliary ductal dilatation. 5. Mild compression fracture superior endplate of L5 which is a new finding si nce 2017. Compression deformity at T11 appears stable. Objective Remarks GENERAL: Awake alert and oriented 3 talkative and cooperative SKIN: Warm and dry. HEAD: Atraumatic. Normocephalic. EYES: Pupils equal and round. No scleral icterus. No injection or drainage. Extraocular muscles intact wears glasses ENT: No nasal bleeding or discharge. Mucous membranes pink and moist. Tongue is midline NECK: Trachea midline. No JVD. Supple CARDIOVASCULAR: Regular rate and rhythm. S1-S2 no S3 or S4 RESPIRATORY: No accessory muscle use. Clear to auscultation. Breath sounds equal bilaterally. GASTROINTESTINAL: Abdomen soft, non-tender, nondistended. Hepatic and splenic margins not palpable. MUSCULOSKELETAL: Extremities without clubbing, cyanosis, or edema. No obvious deformities. NEUROLOGICAL: Awake and alert. No obvious cranial nerve deficits. Motor grossly within normal limits. 3 out of 5 muscle strength in the arms and legs. Normal speech. PSYCHIATRIC: Appropriate mood and affect; insight and judgment normal. Procedures None. Medications and IVs Current Medications Morphine Sulfate (Morphine Inj) 4 mg ONCE ONCE IV PUSH Last administered on at 17:39; Start 09/01/17 at 17:00; Stop 09/01/17 at 17:01; Status DC Metoclopramide HCl (Reglan Inj) 5 mg ONCE ONCE IV PUSH Last administered on at 17:39; Start 09/01/17 at 17:00; Stop 09/01/17 at 17:01; Status DC Iohexol (Omnipaque 350 Inj) 96 ml Züm XRK-MED ONCE IVCONTRAST Last administered on 09/01/17at 18:26; Start 09/01/17 at 18:26; Stop 09/01/17 at 18:28; Status DC Furosemide (Lasix Inj) 40 mg ONCE ONCE IV PUSH ; Start 09/01/17 at 21:15; Stop 09/01/17 at 21:28; Status DC Furosemide (Lasix Inj) 40 mg BID@18 IV PUSH Last administered on 09/02/17at 09:42; Start 09/02/17 at 09:00; Stop 09/02/17 at 11:43; Status DC Sodium Chloride (NS Flush) 2 ml UNSCH PRN IV FLUSH FLUSH AFTER USING IV ACCESS Last administered on 09/08/17at 03:23; Start 09/01/17 at 21:15 Sodium Chloride (NS Flush) 2 ml BID IV FLUSH Last administered on 09/08/17at 07: 40; Start 09/02/17 at 09:00 Metoclopramide HCl (Reglan Inj) 5 mg Q6H PRN IV PUSH NAUSEA OR VOMITING Last administered on 09/08/17at 01:52; Start 09/01/17 at 21:15 Acetaminophen (Tylenol) 650 mg Q6H PRN PO FEVER/PAIN SCALE 1 TO 2; Start at 21:15 Acetaminophen/ Hydrocodone Bitart ([place] 5-325 Mg) 1 tab Q4H PRN PO PAIN SCALE 3 TO 5 Last administered on 09/08/17at 08:55; Start 09/01/17 at 21:15 Morphine Sulfate (Morphine Inj) 2 mg Q3H PRN IV PUSH Pain 6-10; Start 09/01/17 at 21:15; Stop 09/08/17 at 03:11; Status DC Senna/Docusate Sodium (Janet-Colace) 1 tab BID PO Last administered on at 07:35; Start 09/02/17 at 09:00 Magnesium Hydroxide (Milk Of Magnesia Liq) 30 ml Q12H PRN PO Mild constipation ; Start 09/01/17 at 21:15 Sennosides (Senokot) 17.2 mg Q12H PRN PO Moderate constipation Last administered on 09/08/17at 07:35; Start 09/01/17 at 21:15 Bisacodyl (Dulcolax Supp) 10 mg DAILY PRN RECTAL SEVERE CONSITIPATION; Start at 21:15 Lactulose (Lactulose Liq) 30 ml DAILY PRN PO SEVERE CONSITIPATION; Start at 21:15 Amlodipine Besylate (Norvasc) 5 mg DAILY PO Last administered on 09/02/17at 09: 39; Start 09/02/17 at 09:00; Status Future Hold Apixaban (Eliquis) 5 mg BID PO Last administered on 09/08/17at 07:35; Start at 09:00 Atenolol (Tenormin) 100 mg BID PO Last administered on 09/08/17at 07:36; Start 09/02/17 at 09:00 Buspirone HCl (Buspar) 5 mg BID PO Last administered on 09/08/17at 07:36; Start 09/02/17 at 09:00 Lisinopril (Prinivil) 10 mg DAILY PO Last administered on 09/02/17at 09:39; Start 09/02/17 at 09:00; Stop 09/07/17 at 08:26; Status DC Non-Formulary Medication 30 mg DAILY PO ; Start 09/02/17 at 09:00; Stop at 09:00; Status DC Non-Formulary Medication 25 mg DAILY PO ; Start 09/02/17 at 09:00; Stop at 09:00; Status DC Pantoprazole Sodium (Protonix) 40 mg DAILY PO Last administered on 09/08/17at 07 :35; Start 09/02/17 at 09:00 Sertraline HCl (Zoloft) 25 mg DAILY PO Last administered on 09/06/17at 08:29; Start 09/02/17 at 09:00; Stop 09/06/17 at 13:19; Status DC Miscellaneous (Pill Splitter) 1 ea UNSCH PRN OTHER SEE LABEL COMMENTS; Start at 21:45 Albuterol/ Ipratropium (Duoneb Neb) 1 ampule Q4HR NEB PRN NEB SOB/WHEEZING; Start 09/01/17 at 22:00 Torsemide (Demadex) 10 mg BID@18 PO Last administered on 09/03/17at 09:32; Start 09/02/17 at 18:00; Stop 09/03/17 at 13:22; Status DC Potassium Chloride (KCl) 10 meq Q12HR PO Last administered on 09/08/17at 07:36; Start 09/02/17 at 21:00 Torsemide (Demadex) 10 mg DAILY PO Last administered on 09/06/17at 09:03; Start 09/04/17 at 09:00; Stop 09/07/17 at 09:10; Status DC Lisinopril (Prinivil) 5 mg ONCE ONCE PO Last administered on 09/06/17at 11:50; Start 09/06/17 at 10:30; Stop 09/07/17 at 08:06; Status DC Lisinopril (Prinivil) 5 mg DAILY PO ; Start 09/07/17 at 09:00; Stop 09/07/17 at 09:00; Status DC Sertraline HCl (Zoloft) 50 mg DAILY PO Last administered on 09/08/17at 07:43; Start 09/07/17 at 09:00 Enalaprilat (Vasotec Inj) 1.25 mg Q6H PRN IV PUSH SYS BP GREATER THAN 180 MMHG Last administered on 09/06/17at 17:47; Start 09/06/17 at 17:30 Clonazepam (KlonoPIN) 0.5 mg ONCE ONCE PO Last administered on 09/07/17at 00:33 ; Start 09/07/17 at 00:30; Stop 09/07/17 at 00:31; Status DC Lisinopril (Prinivil) 10 mg DAILY PO Last administered on 09/08/17at 07:36; Start 09/07/17 at 09:00 Torsemide (Demadex) 10 mg DAILY@0900,1800 PO Last administered on 09/08/17at 07: 42; Start 09/07/17 at 18:00 Morphine Sulfate (Morphine Inj) 2 mg Q3H PRN IV PUSH Pain 6-10 Last administered on 09/08/17at 03:23; Start 09/08/17 at 03:15 A/P Problem List: (1) Fall ICD Code: W19.XXXA - Unspecified fall, initial encounter Status: Acute (2) Compression fracture of L5 lumbar vertebra ICD Code: S32.050A - Wedge compression fracture of fifth lumbar vertebra, initial encounter for closed fracture Status: Acute (3) CHF (congestive heart failure) ICD Code: I50.9 - Heart failure, unspecified Status: Acute (4) Hypoxia ICD Code: R09.02 - Hypoxemia Status: Resolved (5) CKD (chronic kidney disease), stage III ICD Code: N18.3 - Chronic kidney disease, stage 3 (moderate) Status: Chronic (6) MAEVE (acute kidney injury) ICD Code: N17.9 - Acute kidney failure, unspecified Status: Resolved Assessment and Plan 87-year-old female with a PMH of HTN, CHF (Echo 01/29/2017 w/ normal EF), Anxiety, Depression, COPD and h/o Recurrent UTI who was brought to the ER for c/ o back pain. States she had a fall on (2 days ago) and has had persistent back pain since. Fall: s/p mechanical fall 2 days ago prior to admission, denies head trauma or LOC, no other injuries reported besides c/o back pain with findings of a L5 compression fracture. L5 Compression Fx: secondary to above, CT L-Spine w/ mild compression fx L5. Pt not interested in surgical intervention. -TLSO brace. -Analgesics/antiemetics as needed. -PT for evaluation and treatment, Depression with thoughts of suicide during hospitalization and now these feelings have resolved. Obtained psychiatry consultation for recommendations with medication adjustment. Patient currently on SSRI Zoloft and has increased dose from 25 mg to 50 mg. Acute Exacerbation of Chronic Diastolic CHF: Echo 01/29/17 w/ normal EF. 2+ edema on admission, BNP 613, CXR w/ pleural effusions -s/p diuresis with lasix 40mg IV q12hrs but transitioned to patient's torsemide BID but then decreased to once daily due to MAEVE. This has improved the acute kidney injury, increased torsemide to twice daily today prior to discharge -monitor I/O and kidney function closely during hospitalization. MAEVE on CKD: caution w fluids due to CHF. -decreased dose of torsemide as above -renal function improved today with creatinine 1.6 -check renal U/S which show medical chronic kidney disease -monitor BMP Hypoxia: O2 sat 88-89% on RA upon arrival, likely due to CHF, oxygen support and wean as tolerated -unlikely PE as patient already on Eliquis at home, and symptoms more likely secondary to fluid overload -monitor O2, currently on 2 L and will wean as tolerated -DuoNeb prn, continue Demadex -patient does not wear oxygen at home DVT Prophylaxis: on home Eliquis At this time, patient has gained maximum benefit from hospitalization and is ready to be discharged to [facility] facility Problem Qualifiers (1) Compression fracture of L5 lumbar vertebra: Qualified Codes: S32.050A - Wedge compression fracture of fifth lumbar vertebra , initial encounter for closed fracture (2) CHF (congestive heart failure): Qualified Codes: I50.33 - Acute on chronic diastolic (congestive) heart failure Vinod Batista DO Sep 08, 2017 15:21
[2017-09-08] MEDS ORDERED: KLOR10TA PO (15:24)
[2017-09-08] MEDS ORDERED: Albuterol-Ipratropium Neb NEB (15:24)
[2017-09-08] MEDS ORDERED: TORS5TAB2 PO (15:24)
[2017-09-08] MEDS ORDERED: ZOFR4TAB3 SL (15:24)
[2017-09-08] MEDS ORDERED: BUSP5TAB PO (15:24)
[2017-09-08] MEDS ORDERED: APIX5TAB PO (15:24)
[2017-09-08] MEDS ORDERED: LISI10TA3 PO (15:24)
[2017-09-08] MEDS ORDERED: SENN187 PO (15:24)
[2017-09-08] MEDS ORDERED: LANS30CA PO (15:24)
[2017-09-08] MEDS ORDERED: MECL-62 PO (15:24)
[2017-09-08] MEDS ORDERED: AMLO5 PO (15:24)
[2017-09-08] MEDS ORDERED: ZOLO50TA PO (15:24)
[2017-09-08] MEDS ORDERED: ATEN100T PO (15:24)
[2017-09-08] MEDS ORDERED: VITA100064 PO (15:24)
[2017-09-08] MEDS ORDERED: HYDR-3516 PO (15:25)
[2017-09-08 16:10] VITALS: BP 158/72; PULSE 68; RESP 18; TEMP 97.6; O2SAT 95
== END 2017-09-08 18:05 | DRG 551 ==
LOC: NEPC 15:14 → NEDA 21:14 → N06B 21:53 → N06A 09-05 15:39
PROVIDERS: ADMIT Hospitalist; ATTEND Hospitalist
DX: S32.050A Wedge compression fracture of fifth lumbar vertebra, initial encounter for closed fracture (principal); I13.0 Hypertensive heart and chronic kidney disease with heart failure and stage 1 through stage 4 chronic kidney disease, or unspecified chronic kidney disease; I50.33 Acute on chronic diastolic (congestive) heart failure; N18.3 Chronic kidney disease, stage 3 (moderate); N17.9 Acute kidney failure, unspecified; F33.9 Major depressive disorder, recurrent, unspecified; R09.02 Hypoxemia; W18.30XA Fall on same level, unspecified, initial encounter; K76.0 Fatty (change of) liver, not elsewhere classified; K57.30 Diverticulosis of large intestine without perforation or abscess without bleeding; I95.89 Other hypotension; Z66 Do not resuscitate; Z96.653 Presence of artificial knee joint, bilateral; Z87.440 Personal history of urinary (tract) infections
CPT/HCPCS: 71045; 72132; 74177; 76775; 80048; 80053; 81001; 83690; 83735; 83880; 85025; 96374; 96375; J1940; J2270; J2765; L0484; Q9967